=== PATIENT | male | born 1955 | race Caucasian/White ===

== ENCOUNTER → 2018-10-20 | Outpatient (CLI) | payer MEDICARE, OTHER ==
[2018-10-20 12:09] LABS: Blood Urea Nitrogen 15 mg/dL (9-20)
--- NOTE | 2018-10-20 13:54 | CT ---
EXAMINATION TYPE: CT abdomen pelvis w con DATE OF EXAM: 10/20/2018 COMPARISON: Prior CT 04/13/2014, patient's bone scan of 10/22/2017 not yet available HISTORY: History of prostate cancer CT DLP: 2171.2 mGycm Automated exposure control for dose reduction was used. TECHNIQUE: Helical acquisition of images from the lung bases through the pelvis have been completed. CONTRAST: Performed with Oral Contrast and with IV Contrast, patient injected with 100 mL of Isovue 300. FINDINGS: LUNG BASES: No significant abnormality is appreciated. AORTA: No significant abnormality is appreciated. LIVER/GB: Liver shows low attenuation likely due to hepatic steatosis, there is focal fatty sparing a djacent to the gallbladder, gallbladder is normal PANCREAS: No significant abnormality is seen. SPLEEN: Multiple calcifications are punctate compatible with old granulomatous disease ADRENALS: No significant abnormality is seen. KIDNEYS: No significant abnormality is seen. REPRODUCTIVE ORGANS: Postop changes are noted in the prostate. BOWEL: No significant abnormality is seen. FREE AIR: No Free Air visible. ASCITES: None visible. PELVIC ADENOPATHY: None visualized. RETROPERITONEAL ADENOPATHY: Retroperitoneal node on axial image 45 in anterior to the inferior vena cava shows borderline size with a short axis measurement of approximately 15 mm however this was not seen on prior exam at the level of the aortic bifurcation. Additional retroperitoneal nodes are prese nt which are not clearly enlarged but are new URINARY BLADDER: Thickening of the bladder wall could be due to chronic bladder outlet obstruction o r cystitis. OSSEOUS STRUCTURES: No significant abnormality is seen. IMPRESSION: POSTOP CHANGES. THERE ARE NEW RETROPERITONEAL NODES WHICH ARE INDETERMINATE. NUCLEAR MEDICINE PET/CT MAY BE OF BENEFIT. OLD GRANULOMATOUS DISEASE.
--- NOTE | 2018-10-20 17:08 | NM ---
EXAMINATION TYPE: NM bone scan whole body DATE OF EXAM: 10/20/2018 COMPARISON: 04/13/2014 HISTORY: 63-year-old male history of prostate cancer Technique: Delayed whole-body scanning was performed following the injection of 23.2 mCi Tc 99m MDP. Images acquired 3 hours post injection. FINDINGS: Scattered degenerative tracer activity such as at the shoulders, knees, and first MTP joints and fore foot. Some periodontal disease involving the right maxilla characterized by increased activity. There is focal increased activity involving the proximal right humeral shaft. Additional few foci of activity such as in the upper third thoracic spine and L1 vertebral body are indeterminate but somewh at suspicious and need correlation with PSA values. No additional suspicious trace activity seen. IMPRESSION: 1. Scattered degenerative tracer activity at the shoulders, knees, and first MTP joints. Additional p eriodontal disease involving the right maxilla. 2. However, a suspicious focus in the proximal right humeral shaft is noted. Osseous metastatic disea se here is not excluded. 3. A couple additional foci of increased uptake, one within the upper third thoracic spine and one fo cus at the L1 level. Degenerative uptake versus additional foci of limited osseous metastatic disease . Further correlation with PSA values is needed.
== END | disposition home or self-care (01) ==
LOC: RADNMMAIN 10:57
PROVIDERS: ATTEND Urology
DX: C61 Malignant neoplasm of prostate (principal); M19.012 Primary osteoarthritis, left shoulder; M19.011 Primary osteoarthritis, right shoulder; M17.0 Bilateral primary osteoarthritis of knee; M19.072 Primary osteoarthritis, left ankle and foot; M19.071 Primary osteoarthritis, right ankle and foot; K05.6 Periodontal disease, unspecified; Z98.890 Other specified postprocedural states
CPT/HCPCS: 82565; 84520; 74177; 36415; 78306; A9503; Q9967 ×2

== ENCOUNTER → 2018-10-23 | Outpatient (CLI) | payer MEDICARE, OTHER ==
--- NOTE | 2018-10-23 13:00 | XR ---
EXAMINATION TYPE: XR humerus RT DATE OF EXAM: 10/23/2018 COMPARISON: Bone scan 10/20/2018 HISTORY: Abnormal bone scan TECHNIQUE: 2 views submitted. FINDINGS: The osseous structures are intact and the joint spaces are preserved. Calcification along the renee l head likely on the basis of calcific tendinosis and there is AC joint arthropathy. There does appea r to be increased density along the medial margin of the proximal right humerus corresponding to the bone scan abnormality. IMPRESSION: 1. Suspect sclerotic lesion proximal right humerus corresponding the bone scan abnormality. Metastasi s in the differential diagnosis
--- NOTE | 2018-10-23 13:03 | XR ---
EXAM TYPE: LUMBAR SPINE X RAY SERIES COMPARISON: Bone scan 10/20/2018 HISTORY: Prostate cancer with abnormal bone scan TECHNIQUE: 4 views are submitted. FINDINGS: There is extensive hypertrophic and degenerative changes. Vascular calcifications are noted. Moderate severe multilevel degenerative disc disease with facet arthropathy. No definite sclerotic lesions or destructive lesions identified. IMPRESSION: 1. Multilevel degenerative disc disease. Note definite diagnostic evidence of bony metastasis.
--- NOTE | 2018-10-23 13:05 | XR ---
EXAMINATION TYPE: XR thoracic spine complete DATE OF EXAM: 10/23/2018 COMPARISON: Bone scan 10/20/2018 HISTORY: Abnormal bone scan, prostate cancer Alignment is anatomic. There is no compression deformities. Multilevel degenerative disc disease see n. No definite sclerotic or destructive lesions identified. IMPRESSION: 1. Multilevel degenerative disc disease.
== END | disposition home or self-care (01) ==
LOC: RADXRMAIN 12:03
PROVIDERS: ATTEND Urology
DX: C61 Malignant neoplasm of prostate (principal); C79.51 Secondary malignant neoplasm of bone; M51.36 Other intervertebral disc degeneration, lumbar region; M51.34 Other intervertebral disc degeneration, thoracic region
CPT/HCPCS: 72072; 72100

== ENCOUNTER → 2018-11-05 | Outpatient (CLI) | payer MEDICARE, OTHER ==
--- NOTE | 2018-11-05 12:27 | XR ---
EXAMINATION TYPE: XR thoracic spine 2V DATE OF EXAM: 11/05/2018 CLINICAL HISTORY: 10/23/2018 TECHNIQUE: Frontal, lateral, and swimmer's view of thoracic spine are obtained. COMPARISON: None. FINDINGS: Thoracic spine show satisfactory alignment without evidence of acute fracture or dislocatio n. Vertebral body heights are preserved. Disc space narrowing and spondylosis. Visualized ribs are unremarkable. IMPRESSION: No acute fracture or dislocation is seen in the thoracic spine. ICD 10 NO FRACTURE, INIT IAL EVALUATION
--- NOTE | 2018-11-05 12:28 | XR ---
EXAMINATION TYPE: XR lumbar spine 2 or 3V DATE OF EXAM: 11/05/2018 CLINICAL HISTORY: pain TECHNIQUE: Three views of the lumbar spine are submitted. COMPARISON: 10/23/2018 FINDINGS: There are 5 lumbar type vertebral bodies identified. The lumbar spine shows satisfactory alignment w ithout evidence of acute fracture or dislocation. Vertebral body heights are within normal limits. Severe degenerative disc disease and spondylosis. The overlying soft tissue appears unremarkable. IMPRESSION: No acute fracture or dislocation is seen in the lumbar spine. ICD 10 NO FRACTURE, INITIAL EVALUATION
--- NOTE | 2018-11-05 12:58 | XR ---
EXAMINATION TYPE: XR humerus RT DATE OF EXAM: 11/05/2018 CLINICAL HISTORY: pain COMPARISON: NONE TECHNIQUE: Frontal and lateral images of the right humerus are obtained. FINDINGS: There is no acute fracture/dislocation evident. The joint spaces appear within normal limi ts. There is evidence of calcific tendinopathy. IMPRESSION: There is no acute fracture or dislocation.ICD 10 NO FRACTURE, INITIAL EVALUATION
== END | disposition home or self-care (01) ==
LOC: RADXRMAIN 11:54
PROVIDERS: ATTEND Urology
DX: M48.04 Spinal stenosis, thoracic region (principal); M47.814 Spondylosis without myelopathy or radiculopathy, thoracic region; C61 Malignant neoplasm of prostate; D49.4 Neoplasm of unspecified behavior of bladder
CPT/HCPCS: 72070; 72100

== ENCOUNTER 2023-04-28 11:54 | Inpatient (IN) | payer MEDICARE, OTHER ==
[2023-04-28] MEDS ORDERED: SODIUM CHLORIDE 0.9% 1,000 ML IV STA ×2 (12:19→13:32)
[2023-04-28 12:32] LABS: ABG Base Excess 9.4 mmol/L; ABG HCO3 34 mmol/L (21-25); ABG Oxygen Saturation 87.4 % (94-97); ABG PCO2 58 mmHg (35-45); ABG PH 7.38 (7.35-7.45); ABG TCO2 36 mmol/L (19-24); Allen Test Performed? Yes
--- NOTE | 2023-04-28 12:34 | XR ---
EXAMINATION TYPE: XR chest 1V portable DATE OF EXAM: 04/28/2023 12:27 PM CLINICAL INDICATION:Male, 67 years old with history of hypoxia; [facility] COMPARISON: Chest radiograph TECHNIQUE: XR chest 1V portable Frontal view of the chest. FINDINGS: Lungs/Pleura: Hazy bibasilar airspace disease is identified. There is partial obscuration of the left costophrenic sulcus. No evidence of pneumothorax. Pulmonary vascularity: Mild pulmonary vascular congestion. Heart/mediastinum: Cardiomediastinal silhouette is unremarkable. Musculoskeletal: No acute osseous pathology. IMPRESSION: Bibasilar airspace disease with trace left pleural effusion.
[2023-04-28 12:59] LABS: Basophils % (A) 1 %; Eosinophils # (A) 0.2 k/uL (0-0.7); Eosinophils % (A) 2 %; HCT 34.6 % (39.0-53.0); HGB 11.2 gm/dL (13.0-17.5); Lymphocytes # (A) 1.3 k/uL (1.0-4.8); Lymphocytes % (A) 15 %; MCH 28.2 pg (25.0-35.0); MCHC 32.4 g/dL (31.0-37.0); MCV 87.1 fL (80.0-100.0); Mean Platelet Volume 8.3; Monocytes # (A) 0.6 k/uL (0-1.0); Monocytes % (A) 7 %; Neutrophils # (A) 6.5 k/uL (1.3-7.7); Neutrophils % (A) 73 %; Platelet Count 423 k/uL (150-450); RBC 3.97 m/uL (4.30-5.90); RDW 14.7 % (11.5-15.5)
[2023-04-28 13:13] LABS: ALT 25 U/L (4-49); African American GFR (CKD) >90 (>60 ml/min/1.73 sqM); Albumin 3.7 g/dL (3.5-5.0); Anion Gap 8 mmol/L; Blood Urea Nitrogen 24 mg/dL (9-20); Calcium 9.2 mg/dL (8.4-10.2); Carbon Dioxide 32 mmol/L (22-30); Chloride 97 mmol/L (98-107); Glucose 164 mg/dL (74-99); Non-African American GFR(CKD) >90 (>60 ml/min/1.73 sqM); Sodium 137 mmol/L (137-145); Total Bilirubin 0.5 mg/dL (0.2-1.3); Total Protein 6.2 g/dL (6.3-8.2)
--- NOTE | 2023-04-28 13:17 | ED ---
General Adult HPI - General Chief complaint: Shortness of Breath Stated complaint: sob, had time breathing Time Seen by Provider: 04/28/23 12:05 Source: patient Mode of arrival: ambulatory Limitations: no limitations - History of Present Illness Initial comments: Dictation was produced using hereO dictation software. please excuse any grammatical, word or spelling errors. Chief Complaint: 67-year-old male presents with 1 week of dyspnea History of Present Illness: Patient is a 67-year-old male he has alleged history of emphysema. Patient has been having worsening shortness of breath over the last week or so. He is accompanied by sister and mother. Patient's history of COPD, diabetes and dyslipidemia. 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 Patient denies any constitutional symptoms. States that he's been coughing. He states that his cough is productive of sputum. Denies any lower extremity symptoms. He has history of lower extremity amputation. The ROS documented in this emergency department record has been reviewed and confirmed by me. Those systems with pertinent positive or negative responses have been documented in the HPI. All other systems are other negative and/or noncontributory. - Related Data Home Medications Medication Instructions Recorded Confirmed Albuterol Inhaler [Ventolin Hfa 1 - 2 puff INHALATION RT-Q6H PRN 04/28/23 04/28/23 Inhaler] Albuterol Nebulized [Ventolin 2.5 mg INHALATION RT-Q6H PRN 04/28/23 04/28/23 Nebulized] Bicalutamide [Casodex] 50 mg PO DIRECTED 04/28/23 04/28/23 Docusate [Colace] 100 mg PO DAILY PRN 04/28/23 04/28/23 Escitalopram [Lexapro] 10 mg PO DAILY 04/28/23 04/28/23 Fenofibrate Nanocrystallized 145 mg PO DAILY 04/28/23 04/28/23 [Fenofibrate] Fluticasone Nasal [place]ba [Flonase 1 spray EA NOSTRIL DAILY 04/28/23 04/28/23 Nasal [place]ba] Fluticasone/Umeclidin/Vilanter 1 puff INHALATION RT-DAILY@1400 04/28/23 04/28/23 [Trelegy Ellipta 200-62.5-25] Furosemide [Lasix] 40 mg PO DAILY 04/28/23 04/28/23 Ipratropium-Albuterol Nebulize 3 ml INHALATION RT-QID PRN 04/28/23 04/28/23 [Duoneb 0.5 mg-3 mg/3 ml Soln] Metoprolol Succinate (ER) [Toprol 25 mg PO DAILY 04/28/23 04/28/23 Xl] Montelukast [Singulair] 10 mg PO DAILY 04/28/23 04/28/23 Ofloxacin 0.3% Ophth Soln [Ocuflox 1 drop BOTH EYES DAILY 04/28/23 04/28/23 Ophth Soln] Potassium Chloride ER [K-Dur 20] 20 meq PO DAILY 04/28/23 04/28/23 Repaglinide [Prandin] 2 mg PO AC-BID 04/28/23 04/28/23 Rosuvastatin [Crestor] 20 mg PO DAILY 04/28/23 04/28/23 cloZAPine [Clozaril] 50 mg PO HS 04/28/23 04/28/23 lisinopriL [Zestril] 5 mg PO DAILY 04/28/23 04/28/23 metFORMIN HCL [Glucophage] 500 mg PO DAILY 04/28/23 04/28/23 Allergies Allergy/AdvReac Type Severity Reaction Status Date / Time No Known Allergies Allergy Verified 04/28/23 13:25 Review of Systems ROS Statement: Those systems with pertinent positive or pertinent negative responses have been documented in the HPI. ROS Other: All systems not noted in ROS Statement are negative. Past Medical History Past Medical History: Cancer, COPD, Diabetes Mellitus, Hyperlipidemia Additional Past Medical History / Comment(s): prostate History of Any Multi-Drug Resistant Organisms: None Reported Past Surgical History: No Surgical Hx Reported Past Psychological History: No Psychological Hx Reported Smoking Status: Former smoker Past Alcohol Use History: None Reported Past Drug Use History: None Reported General Exam - General Exam Comments Initial Comments: PHYSICAL EXAM: General Impression: Alert and oriented x3, not in acute distress HEENT: Normocephalic atraumatic, extra-ocular movements intact, pupils equal and reactive to light bilaterally, mucous membranes moist. Cardiovascular: Heart regular rate and rhythm Chest: Able to complete full sentences, no retractions, no tachypnea, bilateral air exchange, mild crackles to the lung bases Abdomen: abdomen soft, non-tender, non-distended, no organomegaly Musculoskeletal: Pulses present and equal in all extremities, no peripheral edema Motor: no focal deficits noted Neurological: CN II-XII grossly intact, no focal motor or sensory deficits noted Skin: Intact with no visualized rashes Psych: Normal affect and mood Limitations: no limitations Course Vital Signs 04/28/23 04/28/23 04/28/23 12:00 12:06 12:09 Temperature 97.8 F Pulse Rate 107 H Respiratory 20 18 Rate Blood Pressure 96/58 O2 Sat by Pulse 70 L 79 L Oximetry Fraction of Inspired Oxygen (FIO2) 04/28/23 04/28/23 04/28/23 12:10 12:15 12:20 Temperature Pulse Rate 102 H Respiratory 18 Rate Blood Pressure 101/65 O2 Sat by Pulse 82 L 86 L Oximetry Fraction of 50 40 Inspired Oxygen (FIO2) 04/28/23 04/28/23 04/28/23 12:45 13:00 13:15 Temperature Pulse Rate 98 98 96 Respiratory 22 22 21 Rate Blood Pressure 105/66 99/63 109/74 O2 Sat by Pulse 91 L 90 L 91 L Oximetry Fraction of 50 Inspired Oxygen (FIO2) 04/28/23 13:30 Temperature Pulse Rate 94 Respiratory 21 Rate Blood Pressure 109/74 O2 Sat by Pulse 91 L Oximetry Fraction of Inspired Oxygen (FIO2) - Reevaluation(s) Reevaluation #1: 04/28/23 13:17 Patient seen and evaluated at the bedside in room #1. Did not appear to be in acute distress however he was hypoxic. He is given supplemental oxygen with some improvement. He was transitioned to BiPAP. [id number] bedside ultrasound showed bilateral lung rockets. X-ray shows diffuse bilateral infiltrates. EKG Findings - EKG Comments: EKG Findings:: My EKG interpretation: Ventricular rate 103, sinus tachycardia,. Interval 155, QRS 104, QTC 392. No ME prolongation, no QTC prolongation, no ST or T-wave changes noted. Overall, this EKG is unremarkable Medical Decision Making - Medical Decision Making Was pt. sent in by a medical professional or institution (, PA, POWER BENDER OPERATOR, urgent care, hospital, or fpc...) When possible be specific @ -No Did you speak to anyone other than the patient for history (EMS, parent, family, police, friend...)? What history was obtained from this source @ -Case discussed with family as described above Did you review nursing and triage notes (agree or disagree)? Why? @ -I reviewed and agree with nursing and triage notes Were old charts reviewed (outside hosp., previous admission, EMS record, old EKG, old radiological studies, urgent care reports/EKG's, fpc records)? Report findings @ -No old charts were reviewed Differential Diagnosis (chest pain, altered mental status, abdominal pain women, abdominal pain men, vaginal bleeding, musculoskeletal, weakness, fever, dyspnea, syncope, headache, dizziness, GI bleed, back pain, seizure, CVA, palpatations, mental health)? @ -Differential Dyspnea: Coronary syndrome, arrhythmia, tamponade, asthma, COPD, pulmonary embolism, pneumonia, pneumothorax, pulmonary effusion, anaphylaxis, diabetic ketoacidosis, flailed chest, pulmonary contusion, diaphragmatic rupture, anemia, neuromuscular, this is not meant to be an all-inclusive list. EKG interpreted by me (3pts min.). @ -See above X-rays interpreted by me (1pt min.). @ -Bilateral Airspace disease CT interpreted by me (1pt min.). @ -No central pulmonary emboli seen on CT angiography U/S interpreted by me (1pt. min.). @ -None done What testing was considered but not performed or refused? (CT, X-rays, U/S, labs)? Why? @ -None What meds were considered but not given or refused? Why? @ -None Did you discuss the management of the patient with other professionals (professionals i.e. , PA, POWER BENDER OPERATOR, lab, RT, psych nurse, social sciences department chair, wedger machine, teacher, airport operations officer, case worker)? Give summary @ -Case was discussed with zig zag spring machine operator Dr. Ken who evaluated the patient the bedside Was smoking cessation discussed for >3mins.? @ -No Was critical care preformed (if so, how long)? @ -Yes, 33 minutes Were there social determinants of health that impacted care today? How? (Homelessness, low income, unemployed, alcoholism, drug addiction, transportation, low edu. Level, literacy, decrease access to med. care, assisted, rehab)? @ -No Was there de-escalation of care discussed even if they declined (Discuss DNR or withdrawal of care, Hospice)? DNR status @ -No What co-morbidities impacted this encounter? (DM, HTN, Smoking, COPD, CAD, Cancer, CVA, ARF, Chemo, Hep., AIDS, mental health diagnosis, sleep apnea, morbid obesity)? @ -None Was patient admitted / discharged? Hospital course, mention meds given and route, prescriptions, significant lab abnormalities, going to OR and other pertinent info. @ -67-year-old male with past medical history of emphysema presents to the ER for worsening dyspnea for the last several days. Vital signs upon arrival shows hypoxia. Rest of vital signs unremarkable. Per minute of oxygenation. Laboratory evaluation obtained. No leukocytosis. CBC is unremarkable. D-dimer is 1.66. Coag panel is unremarkable. He shows hypoxia. Viral testing negative. X-ray shows a bilateral airspace disease. CT angiography suggest pneumonia. No pulmonary emboli. Patient's BiPAP was weaned to high flow nasal cannula. Patient evaluated at bedside by pulmonology. Please appreciate palm recommendations. Patient admitted to [address] [place] [address]. Undiagnosed new problem with uncertain prognosis? @ -No Drug Therapy requiring intensive monitoring for toxicity (Heparin, Nitro, Insul in, Cardizem)? @ -No Were any procedures done? @ -No Diagnosis/symptom? Acute, or Chronic, or Acute on Chronic? Uncomplicated (without systemic symptoms) or Complicated (systemic symptoms)? @ -Hypoxic respiratory failure Side effects of treatment? @ -No Exacerbation, Progression, or Severe Exacerbation? @ -No Poses a threat to life or bodily function? How? (Chest pain, [place], [place], pneumonia, PE, COPD, DKA, ARF, appy, cholecystitis, CVA, Diverticulitis, Homicidal, Suicidal, threat to staff... and all critical care pts) @ -yes - Lab Data Result diagrams: 04/28/23 12:22 04/28/23 12:22 Lab Results 04/28/23 04/28/23 04/28/23 Range/Units 12:22 12:22 12:22 WBC 9.0 (3.8-10.6) k/uL RBC 3.97 L (4.30-5.90) m/uL Hgb 11.2 L (13.0-17.5) gm/dL Hct 34.6 L (39.0-53.0) % MCV 87.1 (80.0-100.0) fL MCH 28.2 (25.0-35.0) pg MCHC 32.4 (31.0-37.0) g/dL RDW 14.7 (11.5-15.5) % Plt Count 423 (150-450) k/uL MPV 8.3 Neutrophils % 73 % Lymphocytes % 15 % Monocytes % 7 % Eosinophils % 2 % Basophils % 1 % Neutrophils # 6.5 (1.3-7.7) k/uL Lymphocytes # 1.3 (1.0-4.8) k/uL Monocytes # 0.6 (0-1.0) k/uL Eosinophils # 0.2 (0-0.7) k/uL Basophils # 0.0 (0-0.2) k/uL PT 10.6 (10.0-12.5) sec INR 1.0 (<1.2) APTT 22.3 (22.0-30.0) sec D-Dimer 1.66 H (<0.60) mg/L FEU Sample Site ABG pH (7.35-7.45) ABG pCO2 (35-45) mmHg ABG pO2 (83-108) mmHg ABG HCO3 (21-25) mmol/L ABG Total CO2 (19-24) mmol/L ABG O2 Saturation (94-97) % ABG Base Excess mmol/L Mario Test FiO2 % Sodium (137-145) mmol/L Potassium (3.5-5.1) mmol/L Chloride (98-107) mmol/L Carbon Dioxide (22-30) mmol/L Anion Gap mmol/L BUN (9-20) mg/dL Creatinine (0.66-1.25) mg/dL Est GFR (CKD-EPI)AfAm (>60 ml/min/1.73 sqM) Est GFR (CKD-EPI)NonAf (>60 ml/min/1.73 sqM) Glucose (74-99) mg/dL Plasma Lactic Acid Fly (0.7-2.0) mmol/L Calcium (8.4-10.2) mg/dL Magnesium (1.6-2.3) mg/dL Total Bilirubin (0.2-1.3) mg/dL AST (17-59) U/L ALT (4-49) U/L Alkaline Phosphatase (38-126) U/L Troponin I (0.000-0.034) ng/mL NT-Pro-B Natriuret Pep pg/mL Total Protein (6.3-8.2) g/dL Albumin (3.5-5.0) g/dL Urine Color Colorless Urine Appearance Clear (Clear) Urine pH 5.0 (5.0-8.0) Ur Specific [place] 1.011 (1.001-1.035) Urine Protein Negative (Negative) Urine Glucose (UA) Negative (Negative) Urine Ketones Negative (Negative) Urine Blood Negative (Negative) Urine Nitrite Negative (Negative) Urine Bilirubin Negative (Negative) Urine Urobilinogen <2.0 (<2.0) mg/dL Ur Leukocyte Esterase Negative (Negative) Influenza Type A (PCR) (Not Detectd) Influenza Type B (PCR) (Not Detectd) RSV (PCR) (Not Detectd) SARS-CoV-2 (PCR) (Not Detectd) 04/28/23 04/28/23 04/28/23 Range/Units 12:22 12:22 12:22 WBC (3.8-10.6) k/uL RBC (4.30-5.90) m/uL Hgb (13.0-17.5) gm/dL Hct (39.0-53.0) % MCV (80.0-100.0) fL MCH (25.0-35.0) pg MCHC (31.0-37.0) g/dL RDW (11.5-15.5) % Plt Count (150-450) k/uL MPV Neutrophils % % Lymphocytes % % Monocytes % % Eosinophils % % Basophils % % Neutrophils # (1.3-7.7) k/uL Lymphocytes # (1.0-4.8) k/uL Monocytes # (0-1.0) k/uL Eosinophils # (0-0.7) k/uL Basophils # (0-0.2) k/uL PT (10.0-12.5) sec INR (<1.2) APTT (22.0-30.0) sec D-Dimer (<0.60) mg/L FEU Sample Site ABG pH (7.35-7.45) ABG pCO2 (35-45) mmHg ABG pO2 (83-108) mmHg ABG HCO3 (21-25) mmol/L ABG Total CO2 (19-24) mmol/L ABG O2 Saturation (94-97) % ABG Base Excess mmol/L Mario Test FiO2 % Sodium 137 (137-145) mmol/L Potassium 5.2 H (3.5-5.1) mmol/L Chloride 97 L (98-107) mmol/L Carbon Dioxide 32 H (22-30) mmol/L Anion Gap 8 mmol/L BUN 24 H (9-20) mg/dL Creatinine 0.73 (0.66-1.25) mg/dL Est GFR (CKD-EPI)AfAm >90 (>60 ml/min/1.73 sqM) Est GFR (CKD-EPI)NonAf >90 (>60 ml/min/1.73 sqM) Glucose 164 H (74-99) mg/dL Plasma Lactic Acid Fly 0.8 (0.7-2.0) mmol/L Calcium 9.2 (8.4-10.2) mg/dL Magnesium 2.0 (1.6-2.3) mg/dL Total Bilirubin 0.5 (0.2-1.3) mg/dL AST 36 (17-59) U/L ALT 25 (4-49) U/L Alkaline Phosphatase 75 (38-126) U/L Troponin I <0.012 (0.000-0.034) ng/mL NT-Pro-B Natriuret Pep 52 pg/mL Total Protein 6.2 L (6.3-8.2) g/dL Albumin 3.7 (3.5-5.0) g/dL Urine Color Urine Appearance (Clear) Urine pH (5.0-8.0) Ur Specific [place] (1.001-1.035) Urine Protein (Negative) Urine Glucose (UA) (Negative) Urine Ketones (Negative) Urine Blood (Negative) Urine Nitrite (Negative) Urine Bilirubin (Negative) Urine Urobilinogen (<2.0) mg/dL Ur Leukocyte Esterase (Negative) Influenza Type A (PCR) (Not Detectd) Influenza Type B (PCR) (Not Detectd) RSV (PCR) (Not Detectd) SARS-CoV-2 (PCR) (Not Detectd) 04/28/23 04/28/23 Range/Units 12:22 12:28 WBC (3.8-10.6) k/uL RBC (4.30-5.90) m/uL Hgb (13.0-17.5) gm/dL Hct (39.0-53.0) % MCV (80.0-100.0) fL MCH (25.0-35.0) pg MCHC (31.0-37.0) g/dL RDW (11.5-15.5) % Plt Count (150-450) k/uL MPV Neutrophils % % Lymphocytes % % Monocytes % % Eosinophils % % Basophils % % Neutrophils # (1.3-7.7) k/uL Lymphocytes # (1.0-4.8) k/uL Monocytes # (0-1.0) k/uL Eosinophils # (0-0.7) k/uL Basophils # (0-0.2) k/uL PT (10.0-12.5) sec INR (<1.2) APTT (22.0-30.0) sec D-Dimer (<0.60) mg/L FEU Sample Site Right Radial ABG pH 7.38 (7.35-7.45) ABG pCO2 58 H (35-45) mmHg ABG pO2 55 L* (83-108) mmHg ABG HCO3 34 H (21-25) mmol/L ABG Total CO2 36 H (19-24) mmol/L ABG O2 Saturation 87.4 L (94-97) % ABG Base Excess 9.4 mmol/L Mario Test Yes FiO2 40 % Sodium (137-145) mmol/L Potassium (3.5-5.1) mmol/L Chloride (98-107) mmol/L Carbon Dioxide (22-30) mmol/L Anion Gap mmol/L BUN (9-20) mg/dL Creatinine (0.66-1.25) mg/dL Est GFR (CKD-EPI)AfAm (>60 ml/min/1.73 sqM) Est GFR (CKD-EPI)NonAf (>60 ml/min/1.73 sqM) Glucose (74-99) mg/dL Plasma Lactic Acid Fly (0.7-2.0) mmol/L Calcium (8.4-10.2) mg/dL Magnesium (1.6-2.3) mg/dL Total Bilirubin (0.2-1.3) mg/dL AST (17-59) U/L ALT (4-49) U/L Alkaline Phosphatase (38-126) U/L Troponin I (0.000-0.034) ng/mL NT-Pro-B Natriuret Pep pg/mL Total Protein (6.3-8.2) g/dL Albumin (3.5-5.0) g/dL Urine Color Urine Appearance (Clear) Urine pH (5.0-8.0) Ur Specific [place] (1.001-1.035) Urine Protein (Negative) Urine Glucose (UA) (Negative) Urine Ketones (Negative) Urine Blood (Negative) Urine Nitrite (Negative) Urine Bilirubin (Negative) Urine Urobilinogen (<2.0) mg/dL Ur Leukocyte Esterase (Negative) Influenza Type A (PCR) Not Detected (Not Detectd) Influenza Type B (PCR) Not Detected (Not Detectd) RSV (PCR) Not Detected (Not Detectd) SARS-CoV-2 (PCR) Not Detected (Not Detectd) Disposition Clinical Impression: Hypoxic respiratory failure Disposition: ADMITTED IP TO THIS [facility] Condition: Critical Referrals: Abdias Vergara MD [Primary Care Provider] - 1-2 days Decision Time: 15:30
[2023-04-28 13:21] LABS: NT-Pro-B-Type Natriuretic Pept 52 pg/mL
[2023-04-28 13:23] LABS: AST 36 U/L (17-59); Alkaline Phosphatase 75 U/L (38-126); Potassium 5.2 mmol/L (3.5-5.1)
[2023-04-28 13:33] LABS: ABG PO2 55 mmHg (83-108)
[2023-04-28 13:33] LABS: Partial Thromboplastin Time 22.3 sec (22.0-30.0); Prothrombin Time 10.6 sec (10.0-12.5)
[2023-04-28] MEDS ORDERED: AZITHROMYCIN 500 MG in SODIUM CHLORIDE 0.9% 250 ML IVPB STA (15:05)
[2023-04-28] MEDS ORDERED: cefTRIAXone IN SWFI 1,000 MG/10 ML SYRINGE IVP STA (15:05)
[2023-04-28 15:18] LABS: Appearance,Urine Clear (Clear); Bilirubin,Urine Negative (Negative); Blood,Urine Negative (Negative); Color,Urine Colorless; Glucose,Urine (UA) Negative (Negative); Ketones,Urine Negative (Negative); Leukocyte Esterase,Urine Negative (Negative); Nitrite,Urine Negative (Negative); Protein,Urine Negative (Negative); Specific Gravity,Urine 1.011 (1.001-1.035); Urobilinogen,Urine <2.0 mg/dL (<2.0)
--- NOTE | 2023-04-28 15:18 | P.CNPUL ---
History of Present Illness Consult date: 04/28/23 Reason for consult: dyspnea, COPD History of present illness: This is a 67-year-old male patient with known history of severe COPD, FEV1 of 40% of predicted and chronic hypoxic respiratory failure within on oxygen at 4 L/m nasal cannula. Patient is admitted on Trelegy Ellipta one ablation day and albuterol updrafts [id number]. He has multiple other medical issues. Along with chronic hypoxic respiratory failure, he has diabetes mellitus type 2, hyperlipidemia, history of prostate cancer, CHF, and previous history of DVT. He was hospitalized recently and may have to and at [facility]. At that time, the patient was seen by Dr. Winn, treated and discharged home.. His breathing got worse over the past 1 week. Occasional cough. Also his sputum production. No chest pain. Limited edema lower exam is bilaterally. The blood work shows a WBC count of 9.0, hemoglobin 11.2, normal coagulation profile, d-dimer is at 1.6, sodium levels of 137, BUN is 24 with a creatinine of 0.7 and a potassium levels at 5.2. The viral screen was negative. Chest x-ray is consistent with bibasilar airspace disease with trace left-sided pleural effusion. Due to his ongoing shortness of breath and hypoxemia. The patient was supported with BiPAP at pressure 14/7 with an FiO2 of 50%. Review of Systems Constitutional: Reports fatigue, Reports weight gain Eyes: denies as per HPI, denies blurred vision, denies bulging eye, denies decreased vision, denies diplopia, denies discharge, denies dry eye, denies irritation, denies itching, denies pain, denies photophobia, denies loss of peripheral vision, denies loss of vision, denies tunnel vision/blind spots Ears: deny: decreased hearing, ear discharge, earache, tinnitus Ears, nose, mouth and throat: Reports as per HPI Breasts: absent: as per HPI, gynecomastia Cardiovascular: Reports as per HPI, Reports decreased exercise tolerance, Reports dyspnea on exertion Respiratory: Reports cough, Reports dyspnea Gastrointestinal: Reports as per HPI Genitourinary: Reports as per HPI Musculoskeletal: Reports as per HPI Musculoskeletal: absent: ankle pain, ankle stiffness, ankle swelling Integumentary: Reports as per HPI Neurological: Reports as per HPI Psychiatric: Reports as per HPI Endocrine: Reports as per HPI Hematologic/Lymphatic: Reports as per HPI Allergic/Immunologic: Reports as per HPI Past Medical History Past Medical History: Cancer, COPD, Diabetes Mellitus, Hyperlipidemia Additional Past Medical History / Comment(s): prostate History of Any Multi-Drug Resistant Organisms: None Reported Past Surgical History: No Surgical Hx Reported Past Psychological History: No Psychological Hx Reported Smoking Status: Former smoker Past Alcohol Use History: None Reported Past Drug Use History: None Reported Medications and Allergies Home Medications Medication Instructions Recorded Confirmed Type Albuterol Inhaler [Ventolin Hfa 1 - 2 puff INHALATION RT-Q6H PRN 04/28/23 04/28/23 History Inhaler] Albuterol Nebulized [Ventolin 2.5 mg INHALATION RT-Q6H PRN 04/28/23 04/28/23 History Nebulized] Bicalutamide [Casodex] 50 mg PO DIRECTED 04/28/23 04/28/23 History Docusate [Colace] 100 mg PO DAILY PRN 04/28/23 04/28/23 History Escitalopram [Lexapro] 10 mg PO DAILY 04/28/23 04/28/23 History Fenofibrate Nanocrystallized 145 mg PO DAILY 04/28/23 04/28/23 History [Fenofibrate] Fluticasone Nasal [place] [Flonase 1 spray EA NOSTRIL DAILY 04/28/23 04/28/23 History Nasal [place]] Fluticasone/Umeclidin/Vilanter 1 puff INHALATION RT-DAILY@1400 04/28/23 04/28/23 History [Trelegy Ellipta 200-62.5-25] Furosemide [Lasix] 40 mg PO DAILY 04/28/23 04/28/23 History Ipratropium-Albuterol Nebulize 3 ml INHALATION RT-QID PRN 04/28/23 04/28/23 History [Duoneb 0.5 mg-3 mg/3 ml Soln] Metoprolol Succinate (ER) [Toprol 25 mg PO DAILY 04/28/23 04/28/23 History Xl] Montelukast [Singulair] 10 mg PO DAILY 04/28/23 04/28/23 History Ofloxacin 0.3% Ophth Soln [Ocuflox 1 drop BOTH EYES DAILY 04/28/23 04/28/23 His tory Ophth Soln] Potassium Chloride ER [K-Dur 20] 20 meq PO DAILY 04/28/23 04/28/23 History Repaglinide [Prandin] 2 mg PO AC-BID 04/28/23 04/28/23 History Rosuvastatin [Crestor] 20 mg PO DAILY 04/28/23 04/28/23 History cloZAPine [Clozaril] 50 mg PO HS 04/28/23 04/28/23 History lisinopriL [Zestril] 5 mg PO DAILY 04/28/23 04/28/23 History metFORMIN HCL [Glucophage] 500 mg PO DAILY 04/28/23 04/28/23 History Allergies Allergy/AdvReac Type Severity Reaction Status Date / Time No Known Allergies Allergy Verified 04/28/23 13:25 Physical Exam Vitals: Vital Signs Temp Pulse Resp BP Pulse Ox FiO2 04/28/23 13:30 94 21 109/74 91 L 04/28/23 13:15 96 21 109/74 91 L 04/28/23 13:00 98 22 99/63 90 L 04/28/23 12:45 98 22 105/66 91 L 50 04/28/23 12:20 102 H 18 101/65 86 L 40 04/28/23 12:15 50 04/28/23 12:10 82 L 04/28/23 12:09 79 L 04/28/23 12:06 18 04/28/23 12:00 97.8 F 107 H 20 96/58 70 L Intake and Output 04/28/23 04/28/23 04/28/23 06:59 14:59 22:59 Other: Weight 99.79 kg Gen. appearance the patient is a mild to moderate degree respiratory distress, on BiPAP this was transitioned to 100% on rebreather facemask Head exam was generally normal. There was no scleral icterus or corneal arcus. Mucous membranes were moist. Neck was supple and without jugular venous distension, thyromegaly, or carotid bruits. Carotids were easily palpable bilaterally. There was no adenopathy. Lungs sounds are diminished bilaterally patient has crackles in the mid and lower lung de paz Cardiac exam revealed the PMI to be normally situated and sized. The rhythm was regular and no extrasystoles were noted during several minutes of auscultation. The first and second heart sounds were normal and physiologic splitting of the second heart sound was noted. There were no murmurs, rubs, clicks, or gallops. Abdominal exam revealed normal bowel sounds. The abdomen was soft, non-tender, and without masses, organomegaly, or appreciable enlargement of the abdominal aorta. Examination of the extremities revealed easily palpable radial, femoral and pedal pulses. There was no cyanosis, clubbing or edema. Examination of the skin revealed no evidence of significant rashes, suspicious appearing nevi or other concerning lesions. Neurologically, the patient is awake and alert and the patient does not have any focal neurological deficit. Cranial nerves are essentially intact. Results - Laboratory Findings CBC and BMP: 04/28/23 12:04/28/23 12: ABG WBC 9.0 k/uL (3.8-10.6) 04/28/23 12: RBC 3.97 m/uL (4.30-5.90) L 04/28/23 12: Hgb 11.2 gm/dL (13.0-17.5) L 04/28/23 12: Hct 34.6 % (39.0-53.0) L 04/28/23 12: MCV 87.1 fL (80.0-100.0) 04/28/23 12: MCH 28.2 pg (25.0-35.0) 04/28/23 12: MCHC 32.4 g/dL (31.0-37.0) 04/28/23 12: RDW 14.7 % (11.5-15.5) 04/28/23 12: Plt Count 423 k/uL (150-450) 04/28/23 12: MPV 8.3 04/28/23 12: Neutrophils % 73 % 04/28/23 12: Lymphocytes % 15 % 04/28/23 12: Monocytes % 7 % 04/28/23 12: Eosinophils % 2 % 04/28/23 12: Basophils % 1 % 04/28/23 12: Neutrophils # 6.5 k/uL (1.3-7.7) 04/28/23 12: Lymphocytes # 1.3 k/uL (1.0-4.8) 04/28/23 12: Monocytes # 0.6 k/uL (0-1.0) 04/28/23 12:22 Eosinophils # 0.2 k/uL (0-0.7) 04/28/23 12:22 Basophils # 0.0 k/uL (0-0.2) 04/28/23 12:22 PT 10.6 sec (10.0-12.5) 04/28/23 12:22 INR 1.0 (<1.2) 04/28/23 12:22 APTT 22.3 sec (22.0-30.0) 04/28/23 12:22 D-Dimer 1.66 mg/L FEU (<0.60) H 04/28/23 12:22 Sample Site Right Radial 04/28/23 12:28 ABG pH 7.38 (7.35-7.45) 04/28/23 12:28 ABG pCO2 58 mmHg (35-45) H 04/28/23 12:28 ABG pO2 55 mmHg (83-108) L* 04/28/23 12:28 ABG HCO3 34 mmol/L (21-25) H 04/28/23 12:28 ABG Total CO2 36 mmol/L (19-24) H 04/28/23 12:28 ABG O2 Saturation 87.4 % (94-97) L 04/28/23 12:28 ABG Base Excess 9.4 mmol/L 04/28/23 12:28 Mario Test Yes 04/28/23 12:28 FiO2 40 % 04/28/23 12:28 Sodium 137 mmol/L (137-145) 04/28/23 12:22 Potassium 5.2 mmol/L (3.5-5.1) H 04/28/23 12:22 Chloride 97 mmol/L (98-107) L 04/28/23 12:22 Carbon Dioxide 32 mmol/L (22-30) H 04/28/23 12:22 Anion Gap 8 mmol/L 04/28/23 12:22 BUN 24 mg/dL (9-20) H 04/28/23 12:22 Creatinine 0.73 mg/dL (0.66-1.25) 04/28/23 12:22 Est GFR (CKD-EPI)AfAm >90 (>60 ml/min/1.73 sqM) 04/28/23 12:22 Est GFR (CKD-EPI)NonAf >90 (>60 ml/min/1.73 sqM) 04/28/23 12:22 Glucose 164 mg/dL (74-99) H 04/28/23 12:22 Plasma Lactic Acid Fly 0.8 mmol/L (0.7-2.0) 04/28/23 12:22 Calcium 9.2 mg/dL (8.4-10.2) 04/28/23 12:22 Magnesium 2.0 mg/dL (1.6-2.3) 04/28/23 12:22 Total Bilirubin 0.5 mg/dL (0.2-1.3) 04/28/23 12:22 AST 36 U/L (17-59) 04/28/23 12:22 ALT 25 U/L (4-49) 04/28/23 12:22 Alkaline Phosphatase 75 U/L (38-126) 04/28/23 12:22 Troponin I <0.012 ng/mL (0.000-0.034) 04/28/23 12:22 NT-Pro-B Natriuret Pep 52 pg/mL 04/28/23 12:22 Total Protein 6.2 g/dL (6.3-8.2) L 04/28/23 12:22 Albumin 3.7 g/dL (3.5-5.0) 04/28/23 12:22 Influenza Type A (PCR) Not Detected (Not Detectd) 04/28/23 12:22 Influenza Type B (PCR) Not Detected (Not Detectd) 04/28/23 12:22 RSV (PCR) Not Detected (Not Detectd) 04/28/23 12:22 SARS-CoV-2 (PCR) Not Detected (Not Detectd) 04/28/23 12:22 PT/INR, D-dimer PT 10.6 sec (10.0-12.5) 04/28/23 12:22 INR 1.0 (<1.2) 04/28/23 12:22 D-Dimer 1.66 mg/L FEU (<0.60) H 04/28/23 12:22 Abnormal lab findings: Abnormal Labs 04/28/23 04/28/23 04/28/23 12:22 12:22 12:22 RBC 3.97 L Hgb 11.2 L Hct 34.6 L D-Dimer 1.66 H ABG pCO2 ABG pO2 ABG HCO3 ABG Total CO2 ABG O2 Saturation Potassium 5.2 H Chloride 97 L Carbon Dioxide 32 H BUN 24 H Glucose 164 H Total Protein 6.2 L 04/28/23 12:28 RBC Hgb Hct D-Dimer ABG pCO2 58 H ABG pO2 55 L* ABG HCO3 34 H ABG Total CO2 36 H ABG O2 Saturation 87.4 L Potassium Chloride Carbon Dioxide BUN Glucose Total Protein - Diagnostic Findings Chest x-ray: image reviewed Assessment and Plan Plan: Acute on chronic hypoxic respiratory failure. The patient is compensated hypercapnic respiratory failure. The patient developed significant hypoxemia. He has bibasilar pulmonary infiltrates, rule out pneumonia, rule out int erstitial edema. Patient is currently on BiPAP at pressure 14/7 cm of water and FiO2 is at 60% Chronic hypoxic respiratory failure limited on oxygen at 4 L Severe COPD with chronic hypoxic and hypercapnic respiratory failure with an FEV1 of 40% of predicted maintain on Trelegy Ellipta on outpatient basis Congestion heart failure Remote history of DVT Diabetes mellitus type 2 History of prostate cancer. Alpha-1 antitrypsin deficiency, MS phenotype Hyperlipidemia Plan Continue BiPAP therapy for now Lasix 40 mg IV every 12 hours IV Rocephin and Zithromax CT angiogram Bronchodilators with DuoNeb updrafts 4 times a day Allow Trelegy Ellipta from home Resume all medications Monitor the blood sugar Repeat an echocardiogram We'll continue to follow
--- NOTE | 2023-04-28 15:44 | CT ---
EXAMINATION TYPE: CT angio chest DATE OF EXAM: 04/28/2023 3:10 PM COMPARISON: None HISTORY: elevated d-dimer, SOB CT DLP: 573.5 mGycm Automated exposure control for dose reduction was used. CONTRAST: CTA scan of the thorax is performed with IV Contrast, patient injected with 100 mL of Isovue 370, pul monary embolism protocol. 3-D postprocessing was performed. FINDINGS: There is diffuse interstitial density throughout both lungs which could represent interstitial fluid or pneumonia. There is a partially consolidative density in the left lung base which could represent airspace edema or pneumonia. There is a small left pleural effusion. Evaluation the pulmonary artery and branches is somewhat limited due to limited contrast and possibly mild motion. A few tiny filling defects in the distal branches of the right lower lobe cannot be exc luded. Limited scanning the upper abdomen reveals no gross abnormality. IMPRESSION: 1. Marked acute cardiopulmonary disease with diffuse severe interstitial density and left lower lobe consolidative density consistent either with pneumonia or pulmonary edema. 2. Small left pleural effusion. 3. Limited evaluation the pulmonary artery and branches but tiny pulmonary emboli suspected in the di stal segmental branches in the right lower lobe.
[2023-04-28] MEDS ORDERED: NALOXONE 0.4 MG/ML 1 ML VIAL IV PRN (16:16)
[2023-04-28] MEDS ORDERED: HEPARIN SODIUM 1,000 UN/ML (10ML VL) IV PRN (17:44)
[2023-04-28] MEDS ORDERED: HEPARIN SODIUM 1,000 UN/ML (10ML VL) IV ONE (17:44)
[2023-04-28 18:38] LABS: Glucose,Whole Blood 126 mg/dL (70-110)
[2023-04-28] MEDS: HEPARIN SOD,PORK IN 0.45% NACL 25,000 UNIT in 0.45% NACL 1 250ML.BAG IV SCH (19:04)
[2023-04-28 20:19] LABS: Glucose,Whole Blood 153 mg/dL (70-110)
[2023-04-28] MEDS: INSULIN ASPART (NovoLOG) 100 UNIT/ML VIAL SQ SCH (20:29)
[2023-04-28] MEDS: FUROSEMIDE 40 MG TAB PO SCH (20:29)
[2023-04-28] MEDS: ESCITALOPRAM 10 MG TAB PO SCH (20:30)
[2023-04-28 21:01] LABS: Glucose,Whole Blood 147 mg/dL (70-110)
[2023-04-29] MEDS: HEPARIN SOD,PORK IN 0.45% NACL 25,000 UNIT in 0.45% NACL 1 250ML.BAG IV SCH ×3 (01:33→17:01)
[2023-04-29 05:50] LABS: Glucose,Whole Blood 155 mg/dL (70-110)
[2023-04-29] MEDS: INSULIN ASPART (NovoLOG) 100 UNIT/ML VIAL SQ SCH ×4 (06:33→20:46)
[2023-04-29] MEDS: ESCITALOPRAM 10 MG TAB PO SCH (08:36)
[2023-04-29] MEDS: FUROSEMIDE 40 MG TAB PO SCH (08:36)
[2023-04-29] MEDS ORDERED: PNEUMONIA PROTOCOL UTILIZED 1 EACH MISC PO PRN (09:32)
[2023-04-29] MEDS ORDERED: DOCUSATE 100 MG CAP PO PRN (09:34)
[2023-04-29] MEDS ORDERED: IPRATROPIUM-ALBUTEROL 3 ML NEB INHALATION PRN (09:34)
--- NOTE | 2023-04-29 09:57 | XR ---
EXAMINATION TYPE: XR chest 2V DATE OF EXAM: 04/29/2023 COMPARISON: 04/28/2023 HISTORY: Shortness of breath TECHNIQUE: Frontal and lateral views of the chest are obtained. FINDINGS: Scattered senescent parenchymal changes noted. Hyperinflation compatible with COPD. Coarse reticulonodular infiltrates persist bilaterally. Small effusions noted as well. Correlate for pneumonia. Heart size is stable. Mediastinal structures are stable and grossly unremarkable. No evidence for hilar prominence. Degenerative changes dorsal spine. IMPRESSION: 1. Coarse reticulonodular infiltrates persist bilaterally. Small effusions noted as well. Correlate f or pneumonia.
[2023-04-29] MEDS: ATORVASTATIN 40 MG TAB PO SCH (10:37)
[2023-04-29] MEDS: METOPROLOL SUCCINATE (ER) 25 MG TAB.ER.24H PO SCH (10:37)
[2023-04-29] MEDS: OFLOXACIN 0.3% OPHTH DROPS 5 ML BOTTLE BOTH EYES SCH (10:37)
[2023-04-29] MEDS: MONTELUKAST 10 MG TAB PO SCH (10:37)
[2023-04-29] MEDS: AZITHROMYCIN 500 MG TAB PO SCH (10:37)
[2023-04-29] MEDS: FENOFIBRATE 160 MG TAB PO SCH (10:37)
[2023-04-29] MEDS: POTASSIUM CHLORIDE ER 20 MEQ TAB.ER PO SCH (10:39)
[2023-04-29 11:24] LABS: Glucose,Whole Blood 263 mg/dL (70-110)
[2023-04-29] MEDS ORDERED: ALBUTEROL NEBULIZED 2.5 MG/3 ML INHALATION SCH (12:00)
[2023-04-29] MEDS: IPRATROPIUM-ALBUTEROL 3 ML NEB INHALATION SCH ×3 (12:10→19:22)
--- NOTE | 2023-04-29 13:40 | P.HPIM ---
History of Present Illness H&P Date: 04/29/23 History of present illness; patient is 67-year-old gentleman with past medical history significant for COPD, chronic respiratory failure on 4 L of oxygen, diabetes mellitus, hyperlipidemia, CHF presented to the ER because of shortness of breath for 1 week. Patient stated that he was discharged from the hospital a week ago after being treated for similar complaints. Patient stated that ever since he has been home has been complaining of worsening shortness of breath. Shortness of breath is present at rest as well as exertion. Patient complaining of cough which is productive. Denies any fever or chills. Denies any chest pain. Denies any complaint of orthopnea or PND. Denies any complaint of nausea, vomiting abdominal pain. Because of the symptoms, presented to the ER Initial lab work done in the ER showed WBC 9, hemoglobin 11.2, platelet count 423, sodium 137, potassium 5.2, BUN 24, creatinine 0.73, glucose 164 UA negative for infection Influenza A and B not detected RSV not detected COVID-19 not detected EKG done in the ER showed heart rate of 103, no ST segment elevation or T-wave inversions seen Chest x-ray done in the ER showed bibasilar airspace disease with trace left pleural effusion Chest CTA done showed marked acute cardiopulmonary disease with diffuse severe interstitial density and left lower lobe consolidative density consistent either pneumonia or pulmonary edema, small left pleural effusion Patient admitted to medicine service REVIEW OF SYSTEMS: CONSTITUTIONAL: No fever, no malaise, no fatigue. HEENT: No recent visual problems or hearing problems. Denied any sore throat. CARDIOVASCULAR: No chest pain, orthopnea, PND, no palpitations, no syncope. PULMONARY: As mentioned above GASTROINTESTINAL: No diarrhea, no nausea, no vomiting, no abdominal pain. NEUROLOGICAL: No headaches, no weakness, no numbness. HEMATOLOGICAL: Denies any bleeding or petechiae. GENITOURINARY: Denies any burning micturition, frequency, or urgency. MUSCULOSKELETAL/RHEUMATOLOGICAL: Denies any joint pain, swelling, or any muscle pain. ENDOCRINE: Denies any polyuria or polydipsia. The rest of the 14-point review of systems is negative. PHYSICAL EXAMINATION: GENERAL: The patient is alert and oriented x3, ill-looking, respiratory distress HEENT: Pupils are round and equally reacting to light. EOMI. No scleral icterus. No conjunctival pallor. Normocephalic, atraumatic. No pharyngeal erythema. No thyromegaly. CARDIOVASCULAR: S1 and S2 present. No murmurs, rubs, or gallops. PULMONARY: Tachypneic, Coarse breath sounds bilaterally, no wheezing or crackles. ABDOMEN: Soft, nontender, nondistended, normoactive bowel sounds. No palpable organomegaly. MUSCULOSKELETAL: No joint swelling or deformity. EXTREMITIES: No cyanosis, clubbing, or pedal edema. NEUROLOGICAL: Gross neurological examination did not reveal any focal deficits. SKIN: No rashes. Assessment and plan Acute on chronic hypoxemic respiratory failure Acute COPD exacerbation Bacterial pneumonia Pulmonary emboli Hyperkalemia Remote history of DVT Diabetes mellitus type 2 History of prostate cancer. Alpha-1 antitrypsin deficiency, MS phenotype Hyperlipidemia Monitor vital signs Monitor CBC Monitor CMP Continue telemetry monitoring Follow-up on blood cultures Continue oxygen supplementation Aggressive bronchopulmonary hygiene Continue use of BiPAP as needed Continue breathing treatments Continue IV Rocephin and azithromycin Continue pharmacy dose heparin Continue Lasix Pulmonology consulted Resume home meds Cardiology consulted Labs and medication were reviewed.. Continue same treatment. Continue with symptomatic treatment. Resume home medication. Monitor labs and vitals. DVT and GI prophylaxis. Further recommendations as per clinical course of the patient Dictation was produced using [email or web address] dictation software. please excuse any grammatical, word or spelling errors. Past Medical History Past Medical History: Cancer, COPD, Diabetes Mellitus, Hyperlipidemia Additional Past Medical History / Comment(s): prostate History of Any Multi-Drug Resistant Organisms: None Reported Past Surgical History: No Surgical Hx Reported Past Psychological History: No Psychological Hx Reported Smoking Status: Former smoker Past Alcohol Use History: None Reported Past Drug Use History: None Reported Medications and Allergies Home Medications Medication Instructions Recorded Confirmed Type Albuterol Inhaler [Ventolin Hfa 1 - 2 puff INHALATION RT-Q6H PRN 04/28/23 04/28/23 History Inhaler] Albuterol Nebulized [Ventolin 2.5 mg INHALATION RT-Q6H PRN 04/28/23 04/28/23 History Nebulized] Bicalutamide [Casodex] 50 mg PO DIRECTED 04/28/23 04/28/23 History Docusate [Colace] 100 mg PO DAILY PRN 04/28/23 04/28/23 History Escitalopram [Lexapro] 10 mg PO DAILY 04/28/23 04/28/23 History Fenofibrate Nanocrystallized 145 mg PO DAILY 04/28/23 04/28/23 History [Fenofibrate] Fluticasone Nasal [place] [Flonase 1 spray EA NOSTRIL DAILY 04/28/23 04/28/23 History Nasal [place]] Fluticasone/Umeclidin/Vilanter 1 puff INHALATION RT-DAILY@1400 04/28/23 04/28/23 History [Trelegy Ellipta 200-62.5-25] Furosemide [Lasix] 40 mg PO DAILY 04/28/23 04/28/23 History Ipratropium-Albuterol Nebulize 3 ml INHALATION RT-QID PRN 04/28/23 04/28/23 History [Duoneb 0.5 mg-3 mg/3 ml Soln] Metoprolol Succinate (ER) [Toprol 25 mg PO DAILY 04/28/23 04/28/23 History Xl] Montelukast [Singulair] 10 mg PO DAILY 04/28/23 04/28/23 History Ofloxacin 0.3% Ophth Soln [Ocuflox 1 drop BOTH EYES DAILY 04/28/23 04/28/23 History Ophth Soln] Potassium Chloride ER [K-Dur 20] 20 meq PO DAILY 04/28/23 04/28/23 History Repaglinide [Prandin] 2 mg PO AC-BID 04/28/23 04/28/23 History Rosuvastatin [Crestor] 20 mg PO DAILY 04/28/23 04/28/23 History cloZAPine [Clozaril] 50 mg PO HS 04/28/23 04/28/23 History lisinopriL [Zestril] 5 mg PO DAILY 04/28/23 04/28/23 History metFORMIN HCL [Glucophage] 500 mg PO DAILY 04/28/23 04/28/23 History Allergies Allergy/AdvReac Type Severity Reaction Status Date / Time No Known Allergies Allergy Verified 04/28/23 13:25 Physical Exam Vitals: Vital Signs Temp Pulse Pulse Resp BP BP Pulse Ox 04/29/23 08:32 98.3 F 87 19 106/66 91 L 04/29/23 08:15 04/29/23 04:00 97.4 F L 87 20 109/59 90 L 04/29/23 02:00 83 20 04/29/23 00:00 97.4 F L 83 20 100/58 89 L 04/28/23 21:29 95/52 04/28/23 20:00 99.2 F 88 22 88/50 93 L 04/28/23 18:30 92 22 04/28/23 18:00 86 19 104/45 93 L 04/28/23 17:25 97.8 F 92 22 98/52 92 L 04/28/23 17:00 86 20 96/46 93 L 04/28/23 16:00 90 22 108/61 94 L 04/28/23 15:00 113/62 04/28/23 14:00 92 20 110/65 86 L 04/28/23 13:30 94 21 109/74 91 L 04/28/23 13:15 96 21 109/74 91 L 04/28/23 13:00 98 22 99/63 90 L 04/28/23 12:45 98 22 105/66 91 L 04/28/23 12:20 102 H 18 101/65 86 L 04/28/23 12:15 04/28/23 12:10 82 L 04/28/23 12:09 79 L 04/28/23 12:06 18 04/28/23 12:00 97.8 F 107 H 20 96/58 70 L FiO2 04/29/23 08:32 50 04/29/23 08:15 50 04/29/23 04:00 04/29/23 02:00 04/29/23 00:00 04/28/23 21:29 04/28/23 20:00 04/28/23 18:30 04/28/23 18:00 04/28/23 17:25 04/28/23 17:00 04/28/23 16:00 04/28/23 15:00 04/28/23 14:00 04/28/23 13:30 04/28/23 13:15 04/28/23 13:00 04/28/23 12:45 50 04/28/23 12:20 40 04/28/23 12:15 50 04/28/23 12:10 04/28/23 12:09 04/28/23 12:06 04/28/23 12:00 Intake and Output 04/28/23 04/29/23 04/29/23 22:59 06:59 14:59 Intake Total 240 208.727 Output Total 350 500 Balance -110 -291.273 Intake: Intake, IV Titration 208.727 Amount Heparin Sod,Pork in 0.45% 208.727 NaCl 25,000 unit In 0.45 % NaCl 1 250ml.bag @ 18 UNITS/KG/HR 17.962 mls/hr IV .[id number] [facility] Rx#: [id number] Oral 240 Output: Urine 350 500 Other: Voiding Method Bedside Commode Bedside Commode Urinal Weight 99.79 kg 97.5 kg Results CBC & Chem 7: 04/28/23 12:22 04/28/23 12:22 Labs: Abnormal Lab Results - Last 24 Hours (Table) 04/28/23 04/28/23 04/28/23 Range/Units 12:22 12:22 12:22 RBC 3.97 L (4.30-5.90) m/uL Hgb 11.2 L (13.0-17.5) gm/dL Hct 34.6 L (39.0-53.0) % APTT (22.0-30.0) sec D-Dimer 1.66 H (<0.60) mg/L FEU ABG pCO2 (35-45) mmHg ABG pO2 (83-108) mmHg ABG HCO3 (21-25) mmol/L ABG Total CO2 (19-24) mmol/L ABG O2 Saturation (94-97) % Potassium 5.2 H (3.5-5.1) mmol/L Chloride 97 L (98-107) mmol/L Carbon Dioxide 32 H (22-30) mmol/L BUN 24 H (9-20) mg/dL Glucose 164 H (74-99) mg/dL POC Glucose (mg/dL) (70-110) mg/dL Total Protein 6.2 L (6.3-8.2) g/dL 04/28/23 04/28/23 04/28/23 Range/Units 12:28 18:36 20:17 RBC (4.30-5.90) m/uL Hgb (13.0-17.5) gm/dL Hct (39.0-53.0) % APTT (22.0-30.0) sec D-Dimer (<0.60) mg/L FEU ABG pCO2 58 H (35-45) mmHg ABG pO2 55 L* (83-108) mmHg ABG HCO3 34 H (21-25) mmol/L ABG Total CO2 36 H (19-24) mmol/L ABG O2 Saturation 87.4 L (94-97) % Potassium (3.5-5.1) mmol/L Chloride (98-107) mmol/L Carbon Dioxide (22-30) mmol/L BUN (9-20) mg/dL Glucose (74-99) mg/dL POC Glucose (mg/dL) 126 H 153 H (70-110) mg/dL Total Protein (6.3-8.2) g/dL 04/28/23 04/29/23 04/29/23 Range/Units 20:59 00:26 05:49 RBC (4.30-5.90) m/uL Hgb (13.0-17.5) gm/dL Hct (39.0-53.0) % APTT 37.0 H (22.0-30.0) sec D-Dimer (<0.60) mg/L FEU ABG pCO2 (35-45) mmHg ABG pO2 (83-108) mmHg ABG HCO3 (21-25) mmol/L ABG Total CO2 (19-24) mmol/L ABG O2 Saturation (94-97) % Potassium (3.5-5.1) mmol/L Chloride (98-107) mmol/L Carbon Dioxide (22-30) mmol/L BUN (9-20) mg/dL Glucose (74-99) mg/dL POC Glucose (mg/dL) 147 H 155 H (70-110) mg/dL Total Protein (6.3-8.2) g/dL 04/29/23 Range/Units 08:15 RBC (4.30-5.90) m/uL Hgb (13.0-17.5) gm/dL Hct (39.0-53.0) % APTT 46.0 H (22.0-30.0) sec D-Dimer (<0.60) mg/L FEU ABG pCO2 (35-45) mmHg ABG pO2 (83-108) mmHg ABG HCO3 (21-25) mmol/L ABG Total CO2 (19-24) mmol/L ABG O2 Saturation (94-97) % Potassium (3.5-5.1) mmol/L Chloride (98-107) mmol/L Carbon Dioxide (22-30) mmol/L BUN (9-20) mg/dL Glucose (74-99) mg/dL POC Glucose (mg/dL) (70-110) mg/dL Total Protein (6.3-8.2) g/dL Thrombosis Risk Factor Assmnt - Choose All That Apply Any of the Below Risk Factors Present?: Yes Each Factor Represents 1 point: Abnormal pulmonary function (COPD), Obesity (BMI >25) Other Risk Factors: Yes Each Risk Factor Represents 2 Points: Age 61-74 years Each Risk Factor Represents 3 Points: Family history of DVT/PE, History of DVT/PE Other congenital or acquired thrombophilia - If yes, enter type in comment: No Thrombosis Risk Factor Assessment Total Risk Factor Score: 10 Thrombosis Risk Factor Assessment Level: High Risk
[2023-04-29] MEDS: FUROSEMIDE 10 MG/ML 4 ML VIAL IV SCH ×2 (15:24→23:34)
--- NOTE | 2023-04-29 15:41 | P.CRDCN ---
History of Present Illness Consult date: 04/29/23 Consult reason: congestive heart failure History of present illness: History of present illness: This is a 67-year-old male patient of Dr. Espinosa with past medical history of diabetes mellitus type 2, hypertriglyceridemia, COPD and chronic hypoxic respiratory failure on home O2 at 4 L nasal cannula, alpha-1 antitrypsin, remote history of tobacco use and dependence, remote history of smoking tobacco but patient chews tobacco. No history of alcohol or drug abuse. We have been asked to evaluate the patient for heart failure. Patient has been admitted to the hospital for possible pneumonia and started on IV Lasix 40 mg every 8 hours. P atient states that he had shortness of breath that gradually worsened over the past 1 week. He states he has cough and sputum production. No lower extremity edema. Patient is laying flat in bed. BiPAP is in place. Patient was last seen in the office in November 2022 at that time plan was to proceed with Lexiscan stress test which does not appear to have been completed. EKG sinus tachycardia at 103 bpm Chest x-ray: Bibasilar airspace disease with trace left pleural effusion WBC 9, hemoglobin 11.2, platelet count 423. D-dimer 1.66. Sodium 137, potassium 5.2, chloride 97, CO2 32, BUN 24 creatinine 0.73. Blood sugar 164. Hemoglobin A1c 7.1. ProBNP 52. Troponin negative 1. Urinalysis negative. Influenza A, influenza B, RSV, Covid 19 not detected. Home cardiac medications: Fenofibrate 145 mg daily, Lasix 40 mg daily, lisinopril 5 mg daily, Toprol-XL 25 mg daily, Crestor 20 mg daily. Echocardiogram performed 10/2022 at [facility] revealed EF 45-50% without any significant valvular disease. RVSP 9, mild RVH. Review Of Systems: At the time of my evaluation: Constitutional: No fever, no chills. No weakness, fatigue or lethargy. EENT: No headache. No dizziness. Lungs: + shortness of breath, cough, no sputum production. No wheezing. Cardiovascular: No chest pain, no lower extremity edema. No palpitations. No paroxysmal nocturnal dyspnea. No orthopnea. No lightheadedness or dizziness. No syncopal episodes. Abdominal: No abdominal pain. No nausea, vomiting. Musculoskeletal: No myalgias. No muscle weakness, no frequent falls. Integumentary: No wounds. No rash. No unusual bruising. Neurologic: No aphasia. No facial droop. No change in mentation. Physical examination: Gen: This is a 67-year-old male. He is resting in bed appears to be fairly comfortable on BiPAP. VS: reviewed HEENT: Head is atraumatic, normocephalic. Pupils equal, round. Sclerae is anicteric. NECK: Supple. No JVD. . LUNGS: Bilateral wheezing. No intercostal retractions. HEART: Regular rate and rhythm. No murmur. ABDOMEN: Soft No tenderness. EXTREMITIES: No pedal edema. No calf tenderness. NEUROLOGICAL: Patient is awake, alert. Assessment: Acute on chronic hypoxic respiratory failure Possible pneumonia Acute on chronic diastolic heart failure Severe COPD Mild cardiomyopathy with EF of 45-50% Active tobacco chewing Diabetes Hypertriglyceridemia Alpha-1 antitrypsin Plan: Continue patient's home cardiac medications Continue IV Lasix 40 mg every 8 hours Monitor I&O, daily weights, electrolytes and renal function no need to repeat echocardiogram as this was done in October at [facility] Further recommendations to follow based upon clinical course Thank you kindly for this consultation. Nurse practitioner note has been reviewed, I agree with documented findings and plan of care. Patient was seen and examined. Past Medical History Past Medical History: Cancer, COPD, Diabetes Mellitus, Hyperlipidemia Additional Past Medical History / Comment(s): prostate History of Any Multi-Drug Resistant Organisms: None Reported Past Surgical History: No Surgical Hx Reported Past Psychological History: No Psychological Hx Reported Smoking Status: Former smoker Past Alcohol Use History: None Reported Past Drug Use History: None Reported Medications and Allergies Home Medications Medication Instructions Recorded Confirmed Type Albuterol Inhaler [Ventolin Hfa 1 - 2 puff INHALATION RT-Q6H PRN 04/28/23 04/28/23 History Inhaler] Albuterol Nebulized [Ventolin 2.5 mg INHALATION RT-Q6H PRN 04/28/23 04/28/23 History Nebulized] Bicalutamide [Casodex] 50 mg PO DIRECTED 04/28/23 04/28/23 History Docusate [Colace] 100 mg PO DAILY PRN 04/28/23 04/28/23 History Escitalopram [Lexapro] 10 mg PO DAILY 04/28/23 04/28/23 History Fenofibrate Nanocrystallized 145 mg PO DAILY 04/28/23 04/28/23 History [Fenofibrate] Fluticasone Nasal [place] [Flonase 1 spray EA NOSTRIL DAILY 04/28/23 04/28/23 History Nasal [place]] Fluticasone/Umeclidin/Vilanter 1 puff INHALATION RT-DAILY@1400 04/28/23 04/28/23 History [Trelegy Ellipta 200-62.5-25] Furosemide [Lasix] 40 mg PO DAILY 04/28/23 04/28/23 History Ipratropium-Albuterol Nebulize 3 ml INHALATION RT-QID PRN 04/28/23 04/28/23 History [Duoneb 0.5 mg-3 mg/3 ml Soln] Metoprolol Succinate (ER) [Toprol 25 mg PO DAILY 04/28/23 04/28/23 History Xl] Montelukast [Singulair] 10 mg PO DAILY 04/28/23 04/28/23 History Ofloxacin 0.3% Ophth Soln [Ocuflox 1 drop BOTH EYES DAILY 04/28/23 04/28/23 History Ophth Soln] Potassium Chloride ER [K-Dur 20] 20 meq PO DAILY 04/28/23 04/28/23 History Repaglinide [Prandin] 2 mg PO AC-BID 04/28/23 04/28/23 History Rosuvastatin [Crestor] 20 mg PO DAILY 04/28/23 04/28/23 History cloZAPine [Clozaril] 50 mg PO HS 04/28/23 04/28/23 History lisinopriL [Zestril] 5 mg PO DAILY 04/28/23 04/28/23 History metFORMIN HCL [Glucophage] 500 mg PO DAILY 04/28/23 04/28/23 History Allergies Allergy/AdvReac Type Severity Reaction Status Date / Time No Known Allergies Allergy Verified 04/28/23 13:25 Physical Exam Vitals: Vital Signs Temp Pulse Pulse Resp BP BP Pulse Ox 04/29/23 12:25 84 04/29/23 12:10 84 04/29/23 11:09 98.4 F 88 17 106/65 91 L 04/29/23 08:32 98.3 F 87 19 106/66 91 L 04/29/23 08:15 04/29/23 04:00 97.4 F L 87 20 109/59 90 L 04/29/23 02:00 83 20 04/29/23 00:00 97.4 F L 83 20 100/58 89 L 04/28/23 21:29 95/52 04/28/23 20:00 99.2 F 88 22 88/50 93 L 04/28/23 18:30 92 22 04/28/23 18:00 86 19 104/45 93 L 04/28/23 17:25 97.8 F 92 22 98/52 92 L 04/28/23 17:00 86 20 96/46 93 L 04/28/23 16:00 90 22 108/61 94 L 04/28/23 15:00 113/62 04/28/23 14:00 92 20 110/65 86 L 04/28/23 13:30 94 21 109/74 91 L 04/28/23 13:15 96 21 109/74 91 L 04/28/23 13:00 98 22 99/63 90 L 04/28/23 12:45 98 22 105/66 91 L FiO2 04/29/23 12:25 04/29/23 12:10 50 04/29/23 11:09 50 04/29/23 08:32 50 04/29/23 08:15 50 04/29/23 04:00 04/29/23 02:00 04/29/23 00:00 04/28/23 21:29 04/28/23 20:00 04/28/23 18:30 04/28/23 18:00 04/28/23 17:25 04/28/23 17:00 04/28/23 16:00 04/28/23 15:00 04/28/23 14:00 04/28/23 13:30 04/28/23 13:15 04/28/23 13:00 04/28/23 12:45 50 Intake and Output 04/28/23 04/29/23 04/29/23 22:59 06:59 14:59 Intake Total 240 208.727 240 Output Total 350 500 750 Balance -110 291.273 -510 Intake: Intake, IV Titration 208.727 Amount Heparin Sod,Pork in 0.45% 208.727 NaCl 25,000 unit In 0.45 % NaCl 1 250ml.bag @ 18 UNITS/KG/HR 17.962 mls/hr IV .[id number] [facility] Rx#: [id number] Oral 240 240 Output: Urine 350 500 750 Other: Voiding Method Bedside Commode Bedside Commode Urinal Weight 99.79 kg 97.5 kg Results 04/28/23 12:22 04/28/23 12:22 Cardiac Enzymes 04/28/23 04/28/23 Range/Units 12:22 12:22 AST 36 (17-59) U/L Troponin I <0.012 (0.000-0.034) ng/mL Coagulation 04/28/23 04/29/23 04/29/23 Range/Units 12: 00:26 08:15 PT 10.6 (10.0-12.5) sec APTT 22.3 37.0 H 46.0 H (22.0-30.0) sec CBC 04/28/23 Range/Units 12: WBC 9.0 (3.8-10.6) k/uL RBC 3.97 L (4.30-5.90) m/uL Hgb 11.2 L (13.0-17.5) gm/dL Hct 34.6 L (39.0-53.0) % Plt Count 423 (150-450) k/uL Comprehensive Metabolic Panel 04/28/23 Range/Units 12:22 Sodium 137 (137-145) mmol/L Potassium 5.2 H (3.5-5.1) mmol/L Chloride 97 L (98-107) mmol/L Carbon Dioxide 32 H (22-30) mmol/L BUN 24 H (9-20) mg/dL Creatinine 0.73 (0.66-1.25) mg/dL Glucose 164 H (74-99) mg/dL Calcium 9.2 (8.4-10.2) mg/dL AST 36 (17-59) U/L ALT 25 (4-49) U/L Alkaline Phosphatase 75 (38-126) U/L Total Protein 6.2 L (6.3-8.2) g/dL Albumin 3.7 (3.5-5.0) g/dL Current Medications Generic Name Dose Route Start Last Admin Trade Name Freq PRN Reason Stop Dose Admin Albuterol/Ipratropium 3 ml 04/29/23 09:34 Ipratropium-Albuterol 3 Ml Neb INHALATION RT-QID PRN Shortness Of Breath Albuterol/Ipratropium 3 ml 04/29/23 12:00 04/29/23 12:10 Ipratropium-Albuterol 3 Ml Neb INHALATION 3 ml RT-QID [facility] Administration Atorvastatin Calcium 40 mg 04/29/23 10:00 04/29/23 10:37 Atorvastatin 40 Mg Tab PO 40 mg DAILY [facility] Administration Azithromycin 500 mg 04/29/23 10:00 04/29/23 10:37 Azithromycin 500 Mg Tab PO 04/30/23 09:01 500 mg DAILY [facility] Administration Protocol Budesonide/Formoterol Fumarate 2 puff 04/29/23 20:00 Symbicort 80-4.5 Mcg Inhaler INHALATION RT-BID [facility] Clozapine 50 mg 04/29/23 21:00 Clozapine 100 Mg Tab PO 05/01/23 23:00 HS [facility] Docusate Sodium 100 mg 04/29/23 09:34 Docusate 100 Mg Cap PO DAILY PRN Constipation Escitalopram Oxalate 10 mg 04/28/23 20:15 04/29/23 08:36 Escitalopram 10 Mg Tab PO 10 mg DAILY [facility] Administration Fenofibrate 160 mg 04/29/23 10:00 04/29/23 10:37 Fenofibrate 160 Mg Tab PO 160 mg DAILY [facility] Administration Furosemide 40 mg 04/29/23 16:00 Furosemide 10 Mg/Ml 4 Ml Vial IV Q8HR [facility] Heparin Sodium (Porcine) 0 unit 04/28/23 17:44 04/29/23 01:28 Heparin Sodium 1,000 Un/Ml (10ml Vl) IV 4,000 unit PER PROTOCOL PRN Administration Low PTT Protocol Heparin Sodium/Sodium Chloride 250 mls @ 17.962 mls/hr 04/28/23 17:45 04/29/23 06:09 25,000 unit/ Sodium Chloride IV 20 units/kg/hr .[id number] [facility] 19.958 mls/hr Administration Protocol 18 UNITS/KG/HR Ceftriaxone Sodium 2 gm/ 50 mls @ 100 mls/hr 04/29/23 12:00 04/29/23 11:25 Sodium Chloride IVPB 05/02/23 12:29 100 mls/hr Q24H [facility] Administration Protocol Insulin Aspart 0 unit 04/28/23 21:00 04/29/23 11:30 Insulin Aspart (Novolog) 100 Unit/Ml Vial SQ 6 unit ACHS [facility] Administration Protocol Metoprolol Succinate 25 mg 04/29/23 10:00 04/29/23 10:37 Metoprolol Succinate (Er) 25 Mg Tab.Er.24h PO 25 mg DAILY [facility] Administration Miscellaneous Information 1 each 04/29/23 09:32 Pneumonia Protocol Utilized 1 Each Misc PO ONCE PRN Per Protocol Montelukast Sodium 10 mg 04/29/23 09:45 04/29/23 10:37 Montelukast 10 Mg Tab PO 10 mg DAILY [facility] Administration Naloxone HCl 0.2 mg 04/28/23 16:16 Naloxone 0.4 Mg/Ml 1 Ml Vial IV Q2M PRN Opioid Reversal Ofloxacin 1 drops 04/29/23 10:00 04/29/23 10:37 Ofloxacin 0.3% Ophth Drops 5 Ml Bottle BOTH EYES 1 drops DAILY [facility] Administration Potassium Chloride 20 meq 04/29/23 10:00 04/29/23 10:39 Potassium Chloride Er 20 Meq Tab.Er PO Not Given DAILY [facility] Intake and Output 04/28/23 04/29/23 04/29/23 22:59 06:59 14:59 Intake Total 240 208.727 240 Output Total 350 500 750 Balance -110 -291.273 -510 Intake: Intake, IV Titration 208.727 Amount Heparin Sod,Pork in 0.45% 208.727 NaCl 25,000 unit In 0.45 % NaCl 1 250ml.bag @ 18 UNITS/KG/HR 17.962 mls/hr IV .[id number] [facility] Rx#: [id number] Oral 240 240 Output: Urine 350 500 750 Other: Voiding Method Bedside Commode Bedside Commode Urinal Weight 99.79 kg 97.5 kg 04/28/23 12:22 04/28/23 12:22
--- NOTE | 2023-04-29 15:45 | P.PN ---
Subjective Progress Note Date: 04/29/23 This is a 67-year-old male patient with known history of severe COPD, FEV1 of 40% of predicted and chronic hypoxic respiratory failure within on oxygen at 4 L/m nasal cannula. Patient is admitted on Trelegy Ellipta one ablation day and albuterol updrafts [id number]. He has multiple other medical issues. Along with chronic hypoxic respiratory failure, he has diabetes mellitus type 2, hyperlipidemia, history of prostate cancer, CHF, and previous history of DVT. He was hospitalized recently and may have to and at [facility]. At that time, the patient was seen by Dr. Winn, treated and discharged home.. His breathing got worse over the past 1 week. Occasional co ugh. Also his sputum production. No chest pain. Limited edema lower exam is bilaterally. The blood work shows a WBC count of 9.0, hemoglobin 11.2, normal coagulation profile, d-dimer is at 1.6, sodium levels of 137, BUN is 24 with a creatinine of 0.7 and a potassium levels at 5.2. The viral screen was negative. Chest x-ray is consistent with bibasilar airspace disease with trace left-sided pleural effusion. Due to his ongoing shortness of breath and hypoxemia. The patient was supported with BiPAP at pressure 14/7 with an FiO2 of 50%. The patient is seen today 04/29/2023 in follow-up on the selective care unit. He is currently resting in bed. He is awake. He is requiring BiPAP support currently 14/7 and 55% FiO2. Computed tomography scan of the chest revealed marked good acute Sammy pulmonary disease with diffuse severe interstitial density and left lower lobe consolidative density consistent with either pneumonia or pulmonary edema. Small left pleural effusion. Tiny pulmonary emboli suspected in the distal segment branches in the right lower lobe. Blood glucose 263. Hemoglobin A1c 7.1. He is currently on a heparin drip. Currently in a -400 ML balance. He remains on antibiotics in form of ceftriaxone and azithromycin. Continued on DuoNeb inhalations, Symbicort, Singulair. Objective - Vital Signs Vital signs: Vital Signs Temp 98.4 F 04/29/23 11:09 Pulse 88 04/29/23 15:14 Resp 17 04/29/23 11:09 BP 106/65 04/29/23 11:09 Pulse Ox 91 L 04/29/23 11:09 FiO2 55 04/29/23 13:23 Intake & Output 04/28/23 04/29/23 04/29/23 18:59 06:59 18:59 Intake Total 448.727 240 Output Total 844 679 6527 Balance -350 -51.273 -770 Weight 99.79 kg 97.5 kg Intake: Intake, IV Titration 208.727 Amount Heparin Sod,Pork in 0.45% 208.727 NaCl 25,000 unit In 0.45 % NaCl 1 250ml.bag @ 18 UNITS/KG/HR 17.962 mls/hr IV .[id number] [facility] Rx#: [id number] Oral 240 240 Output: Urine 347 249 1672 Other: Voiding Method Toilet Bedside Commode Urinal - Exam GENERAL EXAM: Alert, 67-year-old male, on BiPAP, fairly comfortable in no apparent distress. HEAD: Normocephalic. EYES: Normal reaction of pupils, equal size. NOSE: Clear with pink turbinates. THROAT: No erythema or exudates. NECK: No masses, no JVD. CHEST: No chest wall deformity. LUNGS: Equal air entry with crackles in the bilateral bases. CVS: S1 and S2 normal with no audible murmur, regular rhythm. ABDOMEN: No hepatosplenomegaly, normal bowel sounds, no guarding or rigidity. SPINE: No scoliosis or deformity SKIN: No rashes CENTRAL NERVOUS SYSTEM: No focal deficits, tone is normal in all 4 extremities. EXTREMITIES: There is no peripheral edema. No clubbing, no cyanosis. Peripheral pulses are intact. - Labs CBC & Chem 7: 04/28/23 12:22 04/28/23 12:22 Labs: Abnormal Lab Results - Last 24 Hours (Table) 04/28/23 04/28/23 04/28/23 Range/Units 18:36 20:17 20:59 APTT (22.0-30.0) sec POC Glucose (mg/dL) 126 H 153 H 147 H (70-110) mg/dL Hemoglobin A1c (<=6.0) % 04/29/23 04/29/23 04/29/23 Range/Units 00:26 05:49 08:15 APTT 37.0 H (22.0-30.0) sec POC Glucose (mg/dL) 155 H (70-110) mg/dL Hemoglobin A1c 7.1 H (<=6.0) % 04/29/23 04/29/23 Range/Units 08:15 11:22 APTT 46.0 H (22.0-30.0) sec POC Glucose (mg/dL) 263 H (70-110) mg/dL Hemoglobin A1c (<=6.0) % Assessment and Plan Assessment: Acute on chronic hypoxic respiratory failure. The patient is compensated hypercapnic respiratory failure. The patient developed significant hypoxemia. He has bibasilar pulmonary infiltrates, rule out pneumonia, rule out interstitial edema. Patient is currently on BiPAP at pressure 14/7 cm of water and FiO2 is at 55% Chronic hypoxic respiratory failure limited on oxygen at 4 L Severe COPD with chronic hypoxic and hypercapnic respiratory failure with an FEV1 of 40% of predicted maintain on Trelegy Ellipta on outpatient basis Congestion heart failure Remote history of DVT Diabetes mellitus type 2 History of prostate cancer. Alpha-1 antitrypsin deficiency, MS phenotype Hyperlipidemia Plan: The patient was seen and evaluated Chest x-ray, labs and medications reviewed Increase Lasix of 40 mg IV daily 8 hours Continue ceftriaxone and azithromycin Continue bronchodilators Echocardiogram pending Check a procalcitonin Legionella screen pending Titrate the FiO2 as tolerated Family and guardian are at the bedside The patient and family do not wish for heroic measures DO NOT RESUSCITATE/DO NOT INTUBATE CODE STATUS We will continue to follow I have personally seen and examined the patient, performed the documentation and the assessment and plan as written. Number of minutes spent on the visit: 10.
[2023-04-29] MEDS ORDERED: IPRATROPIUM 0.5 MG/2.5 ML NEBU INHALATION SCH (16:00)
[2023-04-29 16:30] LABS: Glucose,Whole Blood 132 mg/dL (70-110)
--- NOTE | 2023-04-29 17:48 | CA ---
Transthoracic Echo Report Name: Javier Figueroa Age: 67 Gender: M : 1955 Exam Date: 04/29/2023 13:54 Exam Location: [facility] Ht (in): 66 Wt (lb): 214 Ordering Physician: Jonathan Orourke MD Attending/Referring Phys: Utilization Review Specialist Keerthi Piedra RDCS Procedure CPT: Indications: dyspnea Cardiac Hx: Technical Quality: Technically difficult study Contrast 1: Definity Total Dose (mL): 1 Contrast 2: Total Dose (mL): MEASUREMENTS (Male / Female) Normal Values 2D ECHO LV Diastolic Diameter PLAX 5.7 cm 4.2 - 5.9 / 3.9 - 5.3 cm LV Systolic Diameter PLAX 3.9 cm IVS Diastolic Thickness 0.9 cm 0.6 - 1.0 / 0.6 - 0.9 cm LVPW Diastolic Thickness 1.0 cm 0.6 - 1.0 / 0.6 - 0.9 cm LV Relative Wall Thickness 0.3 RV Internal Dim ED PLAX 3.6 cm LA Systolic Diameter LX 3.9 cm 3.0 - 4.0 / 2.7 - 3.8 cm LV Diastolic Volume MOD BP 75.5 cm??? 67 - 155 / 56 - 104 cm??? LV Systolic Volume MOD BP 38.0 cm??? - 58 / 19 - 49 cm??? LV Ejection Fraction MOD BP 49.7 % >= 55 % LV Cardiac Index MOD BP 1231.8 cm???/min???m??? LV Diastolic Volume MOD 4C 79.1 cm??? LV Systolic Volume MOD 4C 38.6 cm??? LV Ejection Fraction MOD 4C 51.2 % LV Cardiac Index MOD 4C 1326.7 cm???/min???m??? LV Diastolic Length 4C 7.4 cm LV Systolic Length 4C 6.6 cm LV Diastolic Volume MOD 2C 71.1 cm??? LV Systolic Volume MOD 2C 36.1 cm??? LV Ejection Fraction MOD 2C 49.2 % LV Cardiac Index MOD 2C 1148.0 cm???/min???m??? LV Diastolic Length 2C 7.2 cm LV Systolic Length 2C 6.3 cm LA Volume 78.7 cm??? 18 - 58 / 22 - 52 cm??? LA Volume Index 36.4 cm???/m??? 16 - 28 cm???/m??? M-MODE Aortic Root Diameter MM 3.5 cm MV E Point Septal Separation 1.0 cm AV Cusp Separation MM 1.2 cm DOPPLER AV Peak Velocity 158.9 cm/s AV Peak Gradient 10.1 mmHg MV Area PHT 3.4 cm??? Mitral E Point Velocity 110.8 cm/s Mitral A Point Velocity 85.9 cm/s Mitral E to A Ratio 1.3 MV Deceleration Time 225.3 ms MV E' Velocity 8.5 cm/s Mitral E to MV E' Ratio 13.0 TR Peak Velocity 295.9 cm/s TR Peak Gradient 35.0 mmHg Right Ventricular Systolic Press 40.0 mmHg FINDINGS Left Ventricle Left ventricular ejection fraction is estimated at 45-50 %. Left ventricular cavity size normal. Mildly decreased left ventricular ejection fraction. Right Ventricle Mild right ventricular dilatation. Mild pulmonary hypertension. Right Atrium Normal right atrial size. Left Atrium Moderately increased left atrial volume. Mildly increased left atrial area. Mitral Valve Structurally normal mitral valve. No mitral stenosis, regurgitation or prolapse. Aortic Valve Trileaflet aortic valve. No aortic valve stenosis or regurgitation. Tricuspid Valve Tricuspid valve not well visualized. Mild tricuspid regurgitation. Pulmonic Valve Pulmonic valve not well visualized. Pericardium No pericardial effusion. Aorta Normal size aortic root and proximal ascending aorta. CONCLUSIONS Mild LV systolic dysfunction Mild pulmonary hypertension Mild tricuspid regurgitation Previewed by: Dr. Josias Webb MD (Electronically Signed) Final Date: 29 April 2023 17:47
[2023-04-29] MEDS: SYMBICORT 80-4.5 MCG INHALER INHALATION SCH (19:22)
[2023-04-29 20:20] LABS: Glucose,Whole Blood 167 mg/dL (70-110)
[2023-04-29] MEDS: cloZAPine 100 MG TAB PO SCH (20:46)
[2023-04-29] MEDS ORDERED: FUROSEMIDE 10 MG/ML 4 ML VIAL IV SCH (21:00)
[2023-04-30 06:23] LABS: Glucose,Whole Blood 165 mg/dL (70-110)
[2023-04-30] MEDS: INSULIN ASPART (NovoLOG) 100 UNIT/ML VIAL SQ SCH ×4 (06:42→20:07)
[2023-04-30 08:37] LABS: HCT 32.7 % (39.0-53.0); HGB 10.8 gm/dL (13.0-17.5); MCH 28.7 pg (25.0-35.0); MCHC 32.9 g/dL (31.0-37.0); MCV 87.1 fL (80.0-100.0); Platelet Count 383 k/uL (150-450); RBC 3.75 m/uL (4.30-5.90); RDW 14.7 % (11.5-15.5); WBC 7.1 k/uL (3.8-10.6)
[2023-04-30] MEDS: SYMBICORT 80-4.5 MCG INHALER INHALATION SCH ×2 (08:48→20:36)
[2023-04-30] MEDS: IPRATROPIUM-ALBUTEROL 3 ML NEB INHALATION SCH ×4 (08:48→20:36)
[2023-04-30 08:52] LABS: ALT 28 U/L (4-49); AST 28 U/L (17-59); African American GFR (CKD) >90 (>60 ml/min/1.73 sqM); Albumin 3.4 g/dL (3.5-5.0); Alkaline Phosphatase 89 U/L (38-126); Anion Gap 8 mmol/L; Blood Urea Nitrogen 21 mg/dL (9-20); Calcium 8.8 mg/dL (8.4-10.2); Carbon Dioxide 33 mmol/L (22-30); Chloride 96 mmol/L (98-107); Glucose 169 mg/dL (74-99); Non-African American GFR(CKD) 90 (>60 ml/min/1.73 sqM); Potassium 3.9 mmol/L (3.5-5.1); Sodium 137 mmol/L (137-145); Total Bilirubin 0.3 mg/dL (0.2-1.3); Total Protein 5.6 g/dL (6.3-8.2)
[2023-04-30] MEDS: FUROSEMIDE 10 MG/ML 4 ML VIAL IV SCH ×3 (09:19→22:58)
[2023-04-30] MEDS: ESCITALOPRAM 10 MG TAB PO SCH (09:20)
[2023-04-30] MEDS: FENOFIBRATE 160 MG TAB PO SCH (09:20)
[2023-04-30] MEDS: POTASSIUM CHLORIDE ER 20 MEQ TAB.ER PO SCH (09:20)
[2023-04-30] MEDS: MONTELUKAST 10 MG TAB PO SCH (09:20)
[2023-04-30] MEDS: AZITHROMYCIN 500 MG TAB PO SCH (09:20)
[2023-04-30] MEDS: ATORVASTATIN 40 MG TAB PO SCH (09:20)
[2023-04-30] MEDS: METOPROLOL SUCCINATE (ER) 25 MG TAB.ER.24H PO SCH (09:21)
[2023-04-30] MEDS: OFLOXACIN 0.3% OPHTH DROPS 5 ML BOTTLE BOTH EYES SCH (09:22)
[2023-04-30 11:38] LABS: Glucose,Whole Blood 187 mg/dL (70-110)
[2023-04-30] MEDS: HEPARIN SOD,PORK IN 0.45% NACL 25,000 UNIT in 0.45% NACL 1 250ML.BAG IV SCH ×2 (12:04→17:34)
--- NOTE | 2023-04-30 12:39 | P.PN ---
Subjective Progress Note Date: 04/30/23 patient is 67-year-old gentleman with past medical history significant for COPD, chronic respiratory failure on 4 L of oxygen, diabetes mellitus, hyperlipidemia, CHF presented to the ER because of shortness of breath for 1 week. Patient stated that he was discharged from the hospital a week ago after being treated for similar complaints. Patient stated that ever since he has been home has been complaining of worsening shortness of breath. Shortness of breath is present at rest as well as exertion. Patient complaining of cough which is productive. Denies any fever or chills. Denies any chest pain. Denies any complaint of orthopnea or PND. Denies any complaint of nausea, vomiting abdominal pain. Because of the symptoms, presented to the ER Initial lab work done in the ER showed WBC 9, hemoglobin 11.2, platelet count 423, sodium 137, potassium 5.2, BUN 24, creatinine 0.73, glucose 164 UA negative for infection Influenza A and B not detected RSV not detected COVID-19 not detected EKG done in the ER showed heart rate of 103, no ST segment elevation or T-wave inversions seen Chest x-ray done in the ER showed bibasilar airspace disease with trace left pleural effusion Chest CTA done showed marked acute cardiopulmonary disease with diffuse severe interstitial density and left lower lobe consolidative density consistent either pneumonia or pulmonary edema, small left pleural effusion Patient admitted to medicine service 04/29. Patient seen and examined. Blood work done this morning showed WBC 7.1, hemoglobin 10.8, platelet count 383, sodium 137 potassium 3.9, BUN 21, creatinine 0.87. Currently on heated high flow. States he feels better. Still gets short of breath on exertion REVIEW OF SYSTEMS: CONSTITUTIONAL: No fever, no malaise,. CARDIOVASCULAR: No chest pain, no palpitations, PULMONARY: As mentioned above GASTROINTESTINAL: No diarrhea, no nausea, no vomiting, no abdominal pain. NEUROLOGICAL: No headaches, no weakness, PHYSICAL EXAMINATION: GENERAL: The patient is alert and oriented x3, respiratory distress, chronically looking HEENT: Pupils are round and equally reacting to light. EOMI. No scleral icterus. No conjunctival pallor. Normocephalic, atraumatic. No pharyngeal erythema. No thyromegaly. CARDIOVASCULAR: S1 and S2 present. No murmurs, rubs, or gallops. PULMONARY: Coarse breath sounds bilaterally, no wheezing or crackles. ABDOMEN: Soft, nontender, nondistended, normoactive bowel sounds. No palpable organomegaly. MUSCULOSKELETAL: No joint swelling or deformity. EXTREMITIES: No cyanosis, clubbing, or pedal edema. NEUROLOGICAL: Gross neurological examination did not reveal any focal deficits. SKIN: No rashes. Assessment and plan Acute on chronic hypoxemic respiratory failure Acute COPD exacerbation Acute on chronic diastolic heart failure Bacterial pneumonia Pulmonary emboli Hyperkalemia Remote history of DVT Diabetes mellitus type 2 History of prostate cancer. Alpha-1 antitrypsin deficiency, MS phenotype Hyperlipidemia Monitor vital signs Monitor CBC Monitor CMP Continue telemetry monitoring Encourage use of incentive spirometer Follow-up on blood cultures Continue oxygen supplementation Aggressive bronchopulmonary hygiene Continue use of BiPAP as needed Continue breathing treatments Continue IV Rocephin and azithromycin Continue pharmacy dose heparin Continue IV Lasix 40 mg every 8 Regards to hyperlipidemia continue Lipitor and fenofibrate In regards to hypothyroid continue Synthyroid In regards to diabetes mellitus: Continue sliding scale insulin Pulmonology following Cardiology following Labs and medication were reviewed.. Continue same treatment. Continue with symptomatic treatment. Resume home medication. Monitor labs and vitals. DVT and GI prophylaxis. Further recommendations as per clinical course of the patient Dictation was produced using [employer] dictation software. please excuse any grammatical, word or spelling errors. Objective - Vital Signs Vital signs: Vital Signs Temp 99.1 F 04/30/23 11:15 Pulse 86 04/30/23 11:51 Resp 18 04/30/23 11:15 BP 120/61 04/30/23 11:15 Pulse Ox 89 L 04/30/23 11:44 FiO2 63 04/30/23 11:44 Intake & Output 04/29/23 04/30/23 04/30/23 18:59 06:59 18:59 Intake Total 566.877 250 120 Output Total 1410 500 300 Balance -843.123 -250 -180 Intake: Intake, IV Titration 216.877 250 Amount Heparin Sod,Pork in 0.45% 216.877 250 NaCl 25,000 unit In 0.45 % NaCl 1 250ml.bag @ 18 UNITS/KG/HR 17.962 mls/hr IV .[id number] [facility] Rx#: [id number] Oral 350 120 Output: Urine 1410 500 300 Other: Voiding Method Urinal Urinal Urinal # Voids 0 # Bowel Movements 1 - Labs CBC & Chem 7: 04/30/23 08:10 04/30/23 08:10 Labs: Abnormal Lab Results - Last 24 Hours (Table) 04/29/23 04/29/23 04/29/23 Range/Units 08:15 08:15 16:26 RBC (4.30-5.90) m/uL Hgb (13.0-17.5) gm/dL Hct (39.0-53.0) % APTT (22.0-30.0) sec Chloride (98-107) mmol/L Carbon Dioxide (22-30) mmol/L BUN (9-20) mg/dL Glucose (74-99) mg/dL POC Glucose (mg/dL) 132 H (70-110) mg/dL Hemoglobin A1c 7.1 H (<=6.0) % Total Protein (6.3-8.2) g/dL Albumin (3.5-5.0) g/dL Procalcitonin 0.14 H (0.02-0.09) ng/mL 04/29/23 04/30/23 04/30/23 Range/Units 20:19 06:22 08:10 RBC (4.30-5.90) m/uL Hgb (13.0-17.5) gm/dL Hct (39.0-53.0) % APTT 43.2 H (22.0-30.0) sec Chloride (98-107) mmol/L Carbon Dioxide (22-30) mmol/L BUN (9-20) mg/dL Glucose (74-99) mg/dL POC Glucose (mg/dL) 167 H 165 H (70-110) mg/dL Hemoglobin A1c (<=6.0) % Total Protein (6.3-8.2) g/dL Albumin (3.5-5.0) g/dL Procalcitonin (0.02-0.09) ng/mL 04/30/23 04/30/23 04/30/23 Range/Units 08:10 08:10 11:37 RBC 3.75 L (4.30-5.90) m/uL Hgb 10.8 L (13.0-17.5) gm/dL Hct 32.7 L (39.0-53.0) % APTT (22.0-30.0) sec Chloride 96 L (98-107) mmol/L Carbon Dioxide 33 H (22-30) mmol/L BUN 21 H (9-20) mg/dL Glucose 169 H (74-99) mg/dL POC Glucose (mg/dL) 187 H (70-110) mg/dL Hemoglobin A1c (<=6.0) % Total Protein 5.6 L (6.3-8.2) g/dL Albumin 3.4 L (3.5-5.0) g/dL Procalcitonin (0.02-0.09) ng/mL Microbiology - Last 24 Hours (Table) 04/28/23 12:22 Blood Culture - Preliminary Blood
--- NOTE | 2023-04-30 14:12 | P.PN ---
Subjective Progress Note Date: 04/30/23 History of present illness: This is a 67-year-old male patient of Dr. Espinosa with past medical history of diabetes mellitus type 2, hypertriglyceridemia, COPD and chronic hypoxic respiratory failure on home O2 at 4 L nasal cannula, alpha-1 antitrypsin, remote history of tobacco use and dependence, remote history of smoking tobacco but patient chews tobacco. No history of alcohol or drug abuse. We have been asked to evaluate the patient for heart failure. Patient has been admitted to the hospital for possible pneumonia and started on IV Lasix 40 mg every 8 hours. Patient states that he had shortness of breath that gradually worsened over the past 1 week. He states he has cough and sputum production. No lower extremity edema. Patient is laying flat in bed. BiPAP is in place. Patient was last seen in the office in November 2022 at that time plan was to proceed with Lexiscan stress test which does not appear to have been completed. EKG sinus tachycardia at 103 bpm Chest x-ray: Bibasilar airspace disease with trace left pleural effusion WBC 9, hemoglobin 11.2, platelet count 423. D-dimer 1.66. Sodium 137, potassium 5.2, chloride 97, CO2 32, BUN 24 creatinine 0.73. Blood sugar 164. Hemoglobin A1c 7.1. ProBNP 52. Troponin negative 1. Urinalysis negative. Influenza A, influenza B, RSV, Covid 19 not detected. Home cardiac medications: Fenofibrate 145 mg daily, Lasix 40 mg daily, lisinopril 5 mg daily, Toprol-XL 25 mg daily, Crestor 20 mg daily. Echocardiogram performed 10/2022 at [facility] revealed EF 45-50% without any significant valvular disease. RVSP 9, mild RVH. 04/30 Patient states that his breathing is about the same because he has not been out of bed he is not sure. He has trace lower extremity edema. Potassium is 3.9, BUN 21 creatinine 0.87. Hemoglobin is 10.8. Echocardiogram reveals mild LV systolic dysfunction with EF 45-50%, mild pulm onary hypertension, mild tricuspid regurgitation. Physical examination: Gen: This is a 67-year-old male. He is resting in bed appears to be fairly comfortable on BiPAP. VS: reviewed HEENT: Head is atraumatic, normocephalic. Pupils equal, round. Sclerae is anicteric. LUNGS: Bilateral wheezing. No intercostal retractions. HEART: Regular rate and rhythm. No murmur. ABDOMEN: Soft No tenderness. EXTREMITIES: Mild pedal edema. No calf tenderness. NEUROLOGICAL: Patient is awake, alert. Assessment: Acute on chronic hypoxic respiratory failure Possible pneumonia Acute on chronic diastolic heart failure Severe COPD Mild cardiomyopathy with EF of 45-50% Active tobacco chewing Diabetes Hypertriglyceridemia Alpha-1 antitrypsin Plan: Continue patient's home cardiac medications Continue IV Lasix 40 mg every 8 hours for another 24 hours Monitor I&O, daily weights, electrolytes and renal function no need to repeat echocardiogram as this was done in October at [facility] Further recommendations to follow based upon clinical course Thank you kindly for this consultation. Nurse practitioner note has been reviewed, I agree with documented findings and plan of care. Patient was seen and examined. Objective - Vital Signs Vital signs: Vital Signs Temp 98.2 F 04/30/23 04:00 Pulse 87 04/30/23 09:02 Resp 20 04/30/23 04:00 BP 117/68 04/30/23 04:00 Pulse Ox 91 L 04/30/23 08:52 FiO2 63 04/30/23 08:52 Intake & Output 04/29/23 04/30/23 04/30/23 18:59 06:59 18:59 Intake Total 566.877 120 Output Total 1410 500 Balance -843.123 -500 120 Intake: Intake, IV Titration 216.877 Amount Heparin Sod,Pork in 0.45% 216.877 NaCl 25,000 unit In 0.45 % NaCl 1 250ml.bag @ 18 UNITS/KG/HR 17.962 mls/hr IV .[id number] [facility] Rx#: [id number] Oral 350 120 Output: Urine 1410 500 Other: Voiding Method Urinal Urinal # Bowel Movements 1 - Labs CBC & Chem 7: 04/30/23 08:10 04/30/23 08:10 Labs: Abnormal Lab Results - Last 24 Hours (Table) 04/29/23 04/29/23 04/29/23 Range/Units 08:15 08:15 11:22 RBC (4.30-5.90) m/uL Hgb (13.0-17.5) gm/dL Hct (39.0-53.0) % APTT (22.0-30.0) sec Chloride (98-107) mmol/L Carbon Dioxide (22-30) mmol/L BUN (9-20) mg/dL Glucose (74-99) mg/dL POC Glucose (mg/dL) 263 H (70-110) mg/dL Hemoglobin A1c 7.1 H (<=6.0) % Total Protein (6.3-8.2) g/dL Albumin (3.5-5.0) g/dL Procalcitonin 0.14 H (0.02-0.09) ng/mL 04/29/23 04/29/23 04/30/23 Range/Units 16:26 20:19 06:22 RBC (4.30-5.90) m/uL Hgb (13.0-17.5) gm/dL Hct (39.0-53.0) % APTT (22.0-30.0) sec Chloride (98-107) mmol/L Carbon Dioxide (22-30) mmol/L BUN (9-20) mg/dL Glucose (74-99) mg/dL POC Glucose (mg/dL) 132 H 167 H 165 H (70-110) mg/dL Hemoglobin A1c (<=6.0) % Total Protein (6.3-8.2) g/dL Albumin (3.5-5.0) g/dL Procalcitonin (0.02-0.09) ng/mL 04/30/23 04/30/23 04/30/23 Range/Units 08:10 08:10 08:10 RBC 3.75 L (4.30-5.90) m/uL Hgb 10.8 L (13.0-17.5) gm/dL Hct 32.7 L (39.0-53.0) % APTT 43.2 H (22.0-30.0) sec Chloride 96 L (98-107) mmol/L Carbon Dioxide 33 H (22-30) mmol/L BUN 21 H (9-20) mg/dL Glucose 169 H (74-99) mg/dL POC Glucose (mg/dL) (70-110) mg/dL Hemoglobin A1c (<=6.0) % Total Protein 5.6 L (6.3-8.2) g/dL Albumin 3.4 L (3.5-5.0) g/dL Procalcitonin (0.02-0.09) ng/mL Microbiology - Last 24 Hours (Table) 04/28/23 12:22 Blood Culture - Preliminary Blood
--- NOTE | 2023-04-30 15:39 | P.PN ---
Subjective Progress Note Date: 04/30/23 This is a 67-year-old male patient with known history of severe COPD, FEV1 of 40% of predicted and chronic hypoxic respiratory failure within on oxygen at 4 L/m nasal cannula. Patient is admitted on Trelegy Ellipta one ablation day and albuterol updrafts [id number]. He has multiple other medical issues. Along with chronic hypoxic respiratory failure, he has diabetes mellitus type 2, hyperlipidemia, history of prostate cancer, CHF, and previous history of DVT. He was hospitalized recently and may have to and at [facility]. At that time, the patient was seen by Dr. Winn, treated and discharged home.. His breathing got worse over the past 1 week. Occasional co ugh. Also his sputum production. No chest pain. Limited edema lower exam is bilaterally. The blood work shows a WBC count of 9.0, hemoglobin 11.2, normal coagulation profile, d-dimer is at 1.6, sodium levels of 137, BUN is 24 with a creatinine of 0.7 and a potassium levels at 5.2. The viral screen was negative. Chest x-ray is consistent with bibasilar airspace disease with trace left-sided pleural effusion. Due to his ongoing shortness of breath and hypoxemia. The patient was supported with BiPAP at pressure 14/7 with an FiO2 of 50%. The patient is seen today 04/29/2023 in follow-up on the selective care unit. He is currently resting in bed. He is awake. He is requiring BiPAP support currently 14/7 and 55% FiO2. Computed tomography scan of the chest revealed marked good acute Sammy pulmonary disease with diffuse severe interstitial density and left lower lobe consolidative density consistent with either pneumonia or pulmonary edema. Small left pleural effusion. Tiny pulmonary emboli suspected in the distal segment branches in the right lower lobe. Blood glucose 263. Hemoglobin A1c 7.1. He is currently on a heparin drip. Currently in a -400 ML balance. He remains on antibiotics in form of ceftriaxone and azithromycin. Continued on DuoNeb inhalations, Symbicort, Singulair. The patient is seen today 04/30/2023 in follow-up on the selective care unit. He is resting comfortably in bed. More awake and alert today. He is currently on AirVo at 60 L and 60% FiO2. Alternating with BiPAP as needed. Echocardiogram revealed mildly mildly impaired left ventricular systolic function with an ejection fraction 45-50%. He remains on a heparin drip. Blood culture pending. White count 7.1. Hemoglobin 10.8. Platelets 383. Sodium 137. Potassium 3.9. Bicarb 33. BUN 21. Creatinine 0.87. Glucose 169. He is continued on DuoNeb inhalations, Symbicort, Singulair. Antibiotics in the form of ceftriaxone. Remains on Lasix 40 mg IV every 8 hours. Currently in a -1 L balance. Objective - Vital Signs Vital signs: Vital Signs Temp 99.1 F 04/30/23 11:15 Pulse 88 04/30/23 15:06 Resp 18 04/30/23 14:00 BP 120/61 04/30/23 11:15 Pulse Ox 93 L 04/30/23 14:57 FiO2 63 04/30/23 14:57 Intake & Output 04/29/23 04/30/23 04/30/23 18:59 06:59 18:59 Intake Total 566.877 250 240 Output Total 1410 500 300 Balance -843.123 -250 -60 Intake: Intake, IV Titration 216.877 250 Amount Heparin Sod,Pork in 0.45% 216.877 250 NaCl 25,000 unit In 0.45 % NaCl 1 250ml.bag @ 18 UNITS/KG/HR 17.962 mls/hr IV .[id number] [facility] Rx#: [id number] Oral 350 240 Output: Urine 1410 500 300 Other: Voiding Method Urinal Urinal Urinal # Voids 0 # Bowel Movements 1 - Exam GENERAL EXAM: Alert, pleasant 67-year-old male, on AirVo high flow oxygen at 60 L and 60% FiO2 alternating with BiPAP, comfortable in no apparent distress. HEAD: Normocephalic. EYES: Normal reaction of pupils, equal size. NOSE: Clear with pink turbinates. THROAT: No erythema or exudates. NECK: No masses, no JVD. CHEST: No chest wall deformity. LUNGS: Equal air entry with crackles in the bilateral bases. CVS: S1 and S2 normal with no audible murmur, regular rhythm. ABDOMEN: No hepatosplenomegaly, normal bowel sounds, no guarding or rigidity. SPINE: No scoliosis or deformity SKIN: No rashes CENTRAL NERVOUS SYSTEM: No focal deficits, tone is normal in all 4 extremities. EXTREMITIES: There is no peripheral edema. No clubbing, no cyanosis. Peripheral pulses are intact. - Labs CBC & Chem 7: 04/30/23 08:10 04/30/23 08:10 Labs: Abnormal Lab Results - Last 24 Hours (Table) 04/29/23 04/29/23 04/29/23 Range/Units 08:15 16:26 20:19 RBC (4.30-5.90) m/uL Hgb (13.0-17.5) gm/dL Hct (39.0-53.0) % APTT (22.0-30.0) sec Chloride (98-107) mmol/L Carbon Dioxide (22-30) mmol/L BUN (9-20) mg/dL Glucose (74-99) mg/dL POC Glucose (mg/dL) 132 H 167 H (70-110) mg/dL Total Protein (6.3-8.2) g/dL Albumin (3.5-5.0) g/dL Procalcitonin 0.14 H (0.02-0.09) ng/mL 04/30/23 04/30/23 04/30/23 Range/Units 06:22 08:10 08:10 RBC 3.75 L (4.30-5.90) m/uL Hgb 10.8 L (13.0-17.5) gm/dL Hct 32.7 L (39.0-53.0) % APTT 43.2 H (22.0-30.0) sec Chloride (98-107) mmol/L Carbon Dioxide (22-30) mmol/L BUN (9-20) mg/dL Glucose (74-99) mg/dL POC Glucose (mg/dL) 165 H (70-110) mg/dL Total Protein (6.3-8.2) g/dL Albumin (3.5-5.0) g/dL Procalcitonin (0.02-0.09) ng/mL 04/30/23 04/30/23 Range/Units 08:10 11:37 RBC (4.30-5.90) m/uL Hgb (13.0-17.5) gm/dL Hct (39.0-53.0) % APTT (22.0-30.0) sec Chloride 96 L (98-107) mmol/L Carbon Dioxide 33 H (22-30) mmol/L BUN 21 H (9-20) mg/dL Glucose 169 H (74-99) mg/dL POC Glucose (mg/dL) 187 H (70-110) mg/dL Total Protein 5.6 L (6.3-8.2) g/dL Albumin 3.4 L (3.5-5.0) g/dL Procalcitonin (0.02-0.09) ng/mL Microbiology - Last 24 Hours (Table) 04/28/23 12:22 Blood Culture - Preliminary Blood Assessment and Plan Assessment: Acute on chronic hypoxic respiratory failure. The patient is compensated hypercapnic respiratory failure. The patient developed significant hypoxemia. He has bibasilar pulmonary infiltrates, rule out pneumonia, rule out interstitia l edema. Patient is currently on AirVo high flow oxygen at 60 L and 60% FiO2, alternating with BiPAP at pressure 14/7 cm of water and FiO2 is at 55%. Pro- calcitonin 0.14, treated with ceftriaxone and azithromycin. Remains on IV diuretics. Legionella screen negative. Chronic hypoxic respiratory failure limited on oxygen at 4 L Severe COPD with chronic hypoxic and hypercapnic respiratory failure with an FEV1 of 40% of predicted maintain on Trelegy Ellipta on outpatient basis Congestion heart failure Remote history of DVT Diabetes mellitus type 2 History of prostate cancer. Alpha-1 antitrypsin deficiency, MS phenotype Hyperlipidemia Plan: The patient was seen and evaluated Echocardiogram, labs and medications reviewed Continue Lasix of 40 mg IV daily 8 hours Continue ceftriaxone and completed azithromycin Continue bronchodilators Titrate the FiO2 as tolerated DO NOT RESUSCITATE/DO NOT INTUBATE CODE STATUS We will continue to follow I have personally seen and examined the patient, performed the documentation and the assessment and plan as written. Number of minutes spent on the visit: 10.
[2023-04-30 16:44] LABS: Glucose,Whole Blood 222 mg/dL (70-110)
[2023-04-30] MEDS: cloZAPine 100 MG TAB PO SCH (19:53)
[2023-04-30 20:08] LABS: Glucose,Whole Blood 139 mg/dL (70-110)
[2023-05-01] MEDS: HEPARIN SOD,PORK IN 0.45% NACL 25,000 UNIT in 0.45% NACL 1 250ML.BAG IV SCH ×2 (02:03→13:42)
[2023-05-01 03:25] LABS: Basophils % (A) 0 %; Eosinophils # (A) 0.2 k/uL (0-0.7); Eosinophils % (A) 3 %; HCT 33.5 % (39.0-53.0); HGB 10.6 gm/dL (13.0-17.5); Lymphocytes # (A) 1.5 k/uL (1.0-4.8); Lymphocytes % (A) 21 %; MCH 27.6 pg (25.0-35.0); MCHC 31.6 g/dL (31.0-37.0); MCV 87.3 fL (80.0-100.0); Mean Platelet Volume 7.8; Monocytes # (A) 0.6 k/uL (0-1.0); Monocytes % (A) 8 %; Neutrophils # (A) 4.6 k/uL (1.3-7.7); Neutrophils % (A) 64 %; Platelet Count 374 k/uL (150-450); RBC 3.83 m/uL (4.30-5.90); RDW 14.9 % (11.5-15.5); WBC 7.2 k/uL (3.8-10.6)
[2023-05-01 05:56] LABS: Glucose,Whole Blood 141 mg/dL (70-110)
[2023-05-01] MEDS: INSULIN ASPART (NovoLOG) 100 UNIT/ML VIAL SQ SCH ×5 (06:09→20:40)
--- NOTE | 2023-05-01 07:37 | P.PN ---
Subjective Progress Note Date: 05/01/23 Principal diagnosis: Congestive heart failure The patient is a 67-year-old gentleman with mild cardiomyopathy and congestive heart failure and COPD as well as multiple comorbid conditions was admitted to the hospital with acute and chronic hypoxic respiratory failure secondary to COPD exacerbation and CHF exacerbation 05/01/2023 The patient was seen and evaluated this morning. He still short of breath. He his shortness of breath is slightly better compared to before. No pain in the chest. On examination he does have diminished breathing sounds bilaterally but no lower extremity edema noted. I feel the patient is euvolemic from the heart failure standpoint of. I am going to DC Lasix IV and switch the patient to oral Lasix. The COPD to be managed by the pulmonary team. Assessment Acute hypoxic respiratory failure Severe COPD Heart failure which is diastolic Mild cardiomyopathy Multiple comorbid conditions Plan DC IV Lasix and start the patient on oral Lasix Continue the current medical regimen at this point beside that Follow-up with the patient Objective - Vital Signs Vital signs: Vital Signs Temp 98.7 F 05/01/23 00:00 Pulse 76 05/01/23 04:00 Resp 20 05/01/23 04:00 BP 143/97 05/01/23 04:00 Pulse Ox 94 L 05/01/23 04:00 FiO2 62 05/01/23 04:00 Intake & Output 04/30/23 05/01/23 05/01/23 18:59 06:59 18:59 Intake Total 480.747 204.507 Output Total 500 1650 Balance -19.253 -1445.493 Weight 95.5 kg Intake: Intake, IV Titration 120.747 204.507 Amount Heparin Sod,Pork in 0.45% 120.747 204.507 NaCl 25,000 unit In 0.45 % NaCl 1 250ml.bag @ 18 UNITS/KG/HR 17.962 mls/hr IV .[id number] [facility] Rx#: [id number] Oral 360 Output: Urine 500 1650 Other: Voiding Method Urinal Urinal External Catheter # Voids 0 - Labs CBC & Chem 7: 05/01/23 02:57 04/30/23 08:10 Labs: Abnormal Lab Results - Last 24 Hours (Table) 04/30/23 04/30/23 04/30/23 Range/Units 08:10 08:10 08:10 RBC 3.75 L (4.30-5.90) m/uL Hgb 10.8 L (13.0-17.5) gm/dL Hct 32.7 L (39.0-53.0) % APTT 43.2 H (22.0-30.0) sec Chloride 96 L (98-107) mmol/L Carbon Dioxide 33 H (22-30) mmol/L BUN 21 H (9-20) mg/dL Glucose 169 H (74-99) mg/dL POC Glucose (mg/dL) (70-110) mg/dL Total Protein 5.6 L (6.3-8.2) g/dL Albumin 3.4 L (3.5-5.0) g/dL 04/30/23 04/30/23 04/30/23 Range/Units 11:37 16:43 17:48 RBC (4.30-5.90) m/uL Hgb (13.0-17.5) gm/dL Hct (39.0-53.0) % APTT 34.8 H (22.0-30.0) sec Chloride (98-107) mmol/L Carbon Dioxide (22-30) mmol/L BUN (9-20) mg/dL Glucose (74-99) mg/dL POC Glucose (mg/dL) 187 H 222 H (70-110) mg/dL Total Protein (6.3-8.2) g/dL Albumin (3.5-5.0) g/dL 04/30/23 05/01/23 05/01/23 Range/Units 20:06 02:57 02:57 RBC 3.83 L (4.30-5.90) m/uL Hgb 10.6 L (13.0-17.5) gm/dL Hct 33.5 L (39.0-53.0) % APTT 59.8 H (22.0-30.0) sec Chloride (98-107) mmol/L Carbon Dioxide (22-30) mmol/L BUN (9-20) mg/dL Glucose (74-99) mg/dL POC Glucose (mg/dL) 139 H (70-110) mg/dL Total Protein (6.3-8.2) g/dL Albumin (3.5-5.0) g/dL 05/01/23 Range/Units 05:55 RBC (4.30-5.90) m/uL Hgb (13.0-17.5) gm/dL Hct (39.0-53.0) % APTT (22.0-30.0) sec Chloride (98-107) mmol/L Carbon Dioxide (22-30) mmol/L BUN (9-20) mg/dL Glucose (74-99) mg/dL POC Glucose (mg/dL) 141 H (70-110) mg/dL Total Protein (6.3-8.2) g/dL Albumin (3.5-5.0) g/dL Microbiology - Last 24 Hours (Table) 04/28/23 12:22 Blood Culture - Preliminary Blood
[2023-05-01] MEDS: SYMBICORT 80-4.5 MCG INHALER INHALATION SCH ×2 (09:09→19:25)
[2023-05-01] MEDS: IPRATROPIUM-ALBUTEROL 3 ML NEB INHALATION SCH ×4 (09:10→19:26)
[2023-05-01] MEDS: METOPROLOL SUCCINATE (ER) 25 MG TAB.ER.24H PO SCH (09:33)
[2023-05-01] MEDS: POTASSIUM CHLORIDE ER 20 MEQ TAB.ER PO SCH (09:33)
[2023-05-01] MEDS: FUROSEMIDE 40 MG TAB PO SCH ×2 (09:33→17:15)
[2023-05-01] MEDS: ESCITALOPRAM 10 MG TAB PO SCH (09:33)
[2023-05-01] MEDS: FENOFIBRATE 160 MG TAB PO SCH (09:33)
[2023-05-01] MEDS: MONTELUKAST 10 MG TAB PO SCH (09:33)
[2023-05-01] MEDS: ATORVASTATIN 40 MG TAB PO SCH (09:33)
[2023-05-01] MEDS: OFLOXACIN 0.3% OPHTH DROPS 5 ML BOTTLE BOTH EYES SCH (09:35)
[2023-05-01 11:56] LABS: Glucose,Whole Blood 281 mg/dL (70-110)
--- NOTE | 2023-05-01 13:37 | P.PN ---
Subjective Progress Note Date: 05/01/23 patient is 67-year-old gentleman with past medical history significant for COPD, chronic respiratory failure on 4 L of oxygen, diabetes mellitus, hyperlipidemia, CHF presented to the ER because of shortness of breath for 1 week. Patient stated that he was discharged from the hospital a week ago after being treated for similar complaints. Patient stated that ever since he has been home has been complaining of worsening shortness of breath. Shortness of breath is present at rest as well as exertion. Patient complaining of cough which is productive. Denies any fever or chills. Denies any chest pain. Denies any complaint of orthopnea or PND. Denies any complaint of nausea, vomiting abdominal pain. Because of the symptoms, presented to the ER Initial lab work done in the ER showed WBC 9, hemoglobin 11.2, platelet count 423, sodium 137, potassium 5.2, BUN 24, creatinine 0.73, glucose 164 UA negative for infection Influenza A and B not detected RSV not detected COVID-19 not detected EKG done in the ER showed heart rate of 103, no ST segment elevation or T-wave inversions seen Chest x-ray done in the ER showed bibasilar airspace disease with trace left pleural effusion Chest CTA done showed marked acute cardiopulmonary disease with diffuse severe interstitial density and left lower lobe consolidative density consistent either pneumonia or pulmonary edema, small left pleural effusion Patient admitted to medicine service 04/30. Patient seen and examined. Blood work done this morning showed WBC 7.1, hemoglobin 10.8, platelet count 383, sodium 137 potassium 3.9, BUN 21, creatinine 0.87. Currently on heated high flow. States he feels better. Still gets short of breath on exertion 05/01. Patient seen and examined. Patient currently on heated high flow at 60 L. Still gets short of breath on exertion. Denies any cough. Currently laying comfortably in the bed REVIEW OF SYSTEMS: CONSTITUTIONAL: No fever, no malaise,. CARDIOVASCULAR: No chest pain, no palpitations, PULMONARY: As mentioned above GASTROINTESTINAL: No diarrhea, no nausea, no vomiting, no abdominal pain. NEUROLOGICAL: No headaches, no weakness, PHYSICAL EXAMINATION: GENERAL: The patient is alert and oriented x3, respiratory distress, chronically ill looking HEENT: Pupils are round and equally reacting to light. EOMI. No scleral icterus. No conjunctival pallor. Normocephalic, atraumatic. No pharyngeal erythema. No thyromegaly. CARDIOVASCULAR: S1 and S2 present. No murmurs, rubs, or gallops. PULMONARY: Coarse breath sounds bilaterally, no wheezing or crackles. ABDOMEN: Soft, nontender, nondistended, normoactive bowel sounds. No palpable organomegaly. MUSCULOSKELETAL: No joint swelling or deformity. EXTREMITIES: No cyanosis, clubbing, or pedal edema. NEUROLOGICAL: Gross neurological examination did not reveal any focal deficits. SKIN: No rashes. Assessment and plan Acute on chronic hypoxemic respiratory failure Acute COPD exacerbation Acute on chronic diastolic heart failure Bacterial pneumonia Pulmonary emboli Hyperkalemia Remote history of DVT Diabetes mellitus type 2 History of prostate cancer. Alpha-1 antitrypsin deficiency, MS phenotype Hyperlipidemia Monitor vital signs Monitor CBC Monitor CMP Continue telemetry monitoring Encourage use of incentive spirometer Follow-up on blood cultures Continue oxygen supplementation Aggressive bronchopulmonary hygiene Continue use of BiPAP as needed Continue breathing treatments Continue IV Rocephin and azithromycin Continue pharmacy dose heparin Switch IV Lasix to oral Lasix Regards to hyperlipidemia continue Lipitor and fenofibrate In regards to hypothyroid continue Synthyroid In regards to diabetes mellitus: Continue sliding scale insulin Pulmonology following Cardiology following Labs and medication were reviewed.. Continue same treatment. Continue with symptomatic treatment. Resume home medication. Monitor labs and vitals. DVT and GI prophylaxis. Further recommendations as per clinical course of the patient Dictation was produced using [employer] dictation software. please excuse any grammatical, word or spelling errors. Objective - Vital Signs Vital signs: Vital Signs Temp 98.7 F 05/01/23 00:00 Pulse 80 05/01/23 09:21 Resp 20 05/01/23 04:00 BP 143/97 05/01/23 04:00 Pulse Ox 93 L 05/01/23 09:13 FiO2 60 05/01/23 09:13 Intake & Output 04/30/23 05/01/23 05/01/23 18:59 06:59 18:59 Intake Total 480.747 204.507 118 Output Total 500 1650 Balance -19.645 -2201.493 118 Weight 95.5 kg Intake: Intake, IV Titration 120.747 204.507 Amount Heparin Sod,Pork in 0.45% 120.747 204.507 NaCl 25,000 unit In 0.45 % NaCl 1 250ml.bag @ 18 UNITS/KG/HR 17.962 mls/hr IV .[id number] [facility] Rx#: [id number] Oral 360 118 Output: Urine 500 1650 Other: Voiding Method Urinal Urinal External Catheter # Voids 0 - Labs CBC & Chem 7: 05/01/23 02:57 04/30/23 08:10 Labs: Abnormal Lab Results - Last 24 Hours (Table) 04/30/23 04/30/23 04/30/23 Range/Units 11:37 16:43 17:48 RBC (4.30-5.90) m/uL Hgb (13.0-17.5) gm/dL Hct (39.0-53.0) % APTT 34.8 H (22.0-30.0) sec POC Glucose (mg/dL) 187 H 222 H (70-110) mg/dL 04/30/23 05/01/23 05/01/23 Range/Units 20:06 02:57 02:57 RBC 3.83 L (4.30-5.90) m/uL Hgb 10.6 L (13.0-17.5) gm/dL Hct 33.5 L (39.0-53.0) % APTT 59.8 H (22.0-30.0) sec POC Glucose (mg/dL) 139 H (70-110) mg/dL 05/01/23 Range/Units 05:55 RBC (4.30-5.90) m/uL Hgb (13.0-17.5) gm/dL Hct (39.0-53.0) % APTT (22.0-30.0) sec POC Glucose (mg/dL) 141 H (70-110) mg/dL Microbiology - Last 24 Hours (Table) 04/28/23 12:22 Blood Culture - Preliminary Blood
--- NOTE | 2023-05-01 14:57 | P.PN ---
Subjective Progress Note Date: 05/01/23 This is a 67-year-old male patient with known history of severe COPD, FEV1 of 40% of predicted and chronic hypoxic respiratory failure within on oxygen at 4 L/m nasal cannula. Patient is admitted on Trelegy Ellipta one ablation day and albuterol updrafts [id number]. He has multiple other medical issues. Along with chronic hypoxic respiratory failure, he has diabetes mellitus type 2, hyperlipidemia, history of prostate cancer, CHF, and previous history of DVT. He was hospitalized recently and may have to and at [facility]. At that time, the patient was seen by Dr. Winn, treated and discharged home.. His breathing got worse over the past 1 week. Occasional co ugh. Also his sputum production. No chest pain. Limited edema lower exam is bilaterally. The blood work shows a WBC count of 9.0, hemoglobin 11.2, normal coagulation profile, d-dimer is at 1.6, sodium levels of 137, BUN is 24 with a creatinine of 0.7 and a potassium levels at 5.2. The viral screen was negative. Chest x-ray is consistent with bibasilar airspace disease with trace left-sided pleural effusion. Due to his ongoing shortness of breath and hypoxemia. The patient was supported with BiPAP at pressure 14/7 with an FiO2 of 50%. The patient is seen today 04/29/2023 in follow-up on the selective care unit. He is currently resting in bed. He is awake. He is requiring BiPAP support currently 14/7 and 55% FiO2. Computed tomography scan of the chest revealed marked good acute Sammy pulmonary disease with diffuse severe interstitial density and left lower lobe consolidative density consistent with either pneumonia or pulmonary edema. Small left pleural effusion. Tiny pulmonary emboli suspected in the distal segment branches in the right lower lobe. Blood glucose 263. Hemoglobin A1c 7.1. He is currently on a heparin drip. Currently in a -400 ML balance. He remains on antibiotics in form of ceftriaxone and azithromycin. Continued on DuoNeb inhalations, Symbicort, Singulair. The patient is seen today 04/30/2023 in follow-up on the selective care unit. He is resting comfortably in bed. More awake and alert today. He is currently on AirVo at 60 L and 60% FiO2. Alternating with BiPAP as needed. Echocardiogram revealed mildly mildly impaired left ventricular systolic function with an ejection fraction 45-50%. He remains on a heparin drip. Blood culture pending. White count 7.1. Hemoglobin 10.8. Platelets 383. Sodium 137. Potassium 3.9. Bicarb 33. BUN 21. Creatinine 0.87. Glucose 169. He is continued on DuoNeb inhalations, Symbicort, Singulair. Antibiotics in the form of ceftriaxone. Remains on Lasix 40 mg IV every 8 hours. Currently in a -1 L balance. The patient is seen today 05/01/2023 in follow-up on the selective care unit. He is awake and alert. Resting comfortably in bed. Denies any worsening shortness of breath cough or congestion. He continues to require AirVo high flow oxygen at 60 L and 60% FiO2. Chest x-ray showing improved aeration bilaterally. Blood culture pending. White count 7.2. Hemodynamically 6. Platelets 374. Glucose 141. He has been transitioned to oral diuretics. Currently in a -1.4 L balance. Continued on DuoNeb inhalations, Symbicort, Singulair. Remains on antibiotics in the form of ceftriaxone. Remains on a heparin drip. Objective - Vital Signs Vital signs: Vital Signs Temp 98.3 F 05/01/23 11:00 Pulse 80 05/01/23 12:29 Resp 20 05/01/23 11:00 BP 126/64 05/01/23 11:00 Pulse Ox 90 L 05/01/23 11:00 FiO2 63 05/01/23 12:18 Intake & Output 04/30/23 05/01/23 05/01/23 18:59 06:59 18:59 Intake Total 480.747 204.507 608 Output Total 500 1650 Balance -19.253 -1445.493 608 Weight 95.5 kg Intake: Intake, IV Titration 120.747 204.507 250 Amount Heparin Sod,Pork in 0.45% 120.747 204.507 250 NaCl 25,000 unit In 0.45 % NaCl 1 250ml.bag @ 18 UNITS/KG/HR 17.962 mls/hr IV .[id number] [facility] Rx#: [id number] Oral 360 358 Output: Urine 500 1650 Other: Voiding Method Urinal Urinal Urinal External Catheter External Catheter # Voids 0 - Exam GENERAL EXAM: Alert, 67-year-old male, on AirVo high flow oxygen at 60 L and 60% FiO2, comfortable in no apparent distress. HEAD: Normocephalic. EYES: Normal reaction of pupils, equal size. NOSE: Clear with pink turbinates. THROAT: No erythema or exudates. NECK: No masses, no JVD. CHEST: No chest wall deformity. LUNGS: Equal air entry with crackles in the bilateral bases. CVS: S1 and S2 normal with no audible murmur, regular rhythm. ABDOMEN: No hepatosplenomegaly, normal bowel sounds, no guarding or rigidity. SPINE: No scoliosis or deformity SKIN: No rashes CENTRAL NERVOUS SYSTEM: No focal deficits, tone is normal in all 4 extremities. EXTREMITIES: There is no peripheral edema. No clubbing, no cyanosis. Peripheral pulses are intact. - Labs CBC & Chem 7: 05/01/23 02:57 04/30/23 08:10 Labs: Abnormal Lab Results - Last 24 Hours (Table) 04/30/23 04/30/23 04/30/23 Range/Units 16:43 17:48 20:06 RBC (4.30-5.90) m/uL Hgb (13.0-17.5) gm/dL Hct (39.0-53.0) % APTT 34.8 H (22.0-30.0) sec POC Glucose (mg/dL) 222 H 139 H (70-110) mg/dL 05/01/23 05/01/23 05/01/23 Range/Units 02:57 02:57 05:55 RBC 3.83 L (4.30-5.90) m/uL Hgb 10.6 L (13.0-17.5) gm/dL Hct 33.5 L (39.0-53.0) % APTT 59.8 H (22.0-30.0) sec POC Glucose (mg/dL) 141 H (70-110) mg/dL 05/01/23 Range/Units 11:44 RBC (4.30-5.90) m/uL Hgb (13.0-17.5) gm/dL Hct (39.0-53.0) % APTT (22.0-30.0) sec POC Glucose (mg/dL) 281 H (70-110) mg/dL [facility] - Last 24 Hours (Table) 04/28/23 12:22 Blood Culture - Preliminary Blood Assessment and Plan Assessment: Acute on chronic hypoxic respiratory failure. The patient is compensated hypercapnic respiratory failure. The patient developed significant hypoxemia. He has bibasilar pulmonary infiltrates, rule out pneumonia, rule out interstitial edema. Patient is currently on AirVo high flow oxygen at 60 L and 60% FiO2, alternating with BiPAP at pressure 14/7 cm of water and FiO2 is at 55%. Pro-calcitonin 0.14, treated with ceftriaxone and azithromycin. Remains on diuretics. Legionella screen negative. CT angiogram revealed tiny pulmonary emboli suspected in the distal segmental branches of the right lower lobe. Currently on a heparin drip. Will transition to Eliquis Chronic hypoxic respiratory failure limited on oxygen at 4 L Severe COPD with chronic hypoxic and hypercapnic respiratory failure with an FEV1 of 40% of predicted maintain on Trelegy Ellipta on outpatient basis Congestion heart failure Remote history of DVT Diabetes mellitus type 2 History of prostate cancer. Alpha-1 antitrypsin deficiency, MS phenotype Hyperlipidemia Plan: The patient was seen and evaluated Labs and medications reviewed Transitioned to oral diuretics Continue ceftriaxone and completed azithromycin Continue bronchodilators Titrate the FiO2 as tolerated Discontinue heparin drip Initiate Eliquis We will continue to follow I have personally seen and examined the patient, performed the documentation and the assessment and plan as written. Number of minutes spent on the visit: 10.
--- NOTE | 2023-05-01 15:15 | XR ---
EXAMINATION TYPE: XR chest 1V portable DATE OF EXAM: 05/01/2023 Comparison: 04/29/2023 Clinical History: 67-year-old male Hypoxemia Findings: Heart mildly enlarged. Diffuse interstitial opacities persist. Areas of patchy opacity are also redem onstrated but have become slightly less confluent from prior exam. No sizable pleural effusion. Impression: Diffuse interstitial lung disease slightly improving from prior exam.
[2023-05-01 17:11] LABS: Glucose,Whole Blood 182 mg/dL (70-110)
[2023-05-01 20:05] LABS: Glucose,Whole Blood 241 mg/dL (70-110)
[2023-05-01] MEDS: cloZAPine 100 MG TAB PO SCH (20:37)
[2023-05-01] MEDS: APIXABAN 5 MG TAB PO SCH (20:37)
[2023-05-02 06:08] LABS: Glucose,Whole Blood 190 mg/dL (70-110)
[2023-05-02] MEDS: INSULIN ASPART (NovoLOG) 100 UNIT/ML VIAL SQ SCH ×4 (07:01→20:37)
[2023-05-02 07:07] LABS: Basophils % (A) 1 %; Eosinophils # (A) 0.2 k/uL (0-0.7); Eosinophils % (A) 4 %; HCT 33.6 % (39.0-53.0); Hypochromasia Slight; Lymphocytes # (A) 1.2 k/uL (1.0-4.8); Lymphocytes % (A) 19 %; MCH 28.8 pg (25.0-35.0); MCHC 32.7 g/dL (31.0-37.0); MCV 87.9 fL (80.0-100.0); Mean Platelet Volume 6.9; Monocytes # (A) 0.6 k/uL (0-1.0); Monocytes % (A) 9 %; Neutrophils % (A) 65 %; Platelet Count 375 k/uL (150-450); RBC 3.82 m/uL (4.30-5.90); RDW 14.7 % (11.5-15.5); WBC 6.2 k/uL (3.8-10.6)
[2023-05-02 07:25] LABS: ALT 35 U/L (4-49); AST 34 U/L (17-59); African American GFR (CKD) >90 (>60 ml/min/1.73 sqM); Albumin 3.5 g/dL (3.5-5.0); Alkaline Phosphatase 84 U/L (38-126); Anion Gap 7 mmol/L; Blood Urea Nitrogen 22 mg/dL (9-20); Carbon Dioxide 33 mmol/L (22-30); Chloride 98 mmol/L (98-107); Glucose 152 mg/dL (74-99); Non-African American GFR(CKD) 85 (>60 ml/min/1.73 sqM); Sodium 138 mmol/L (137-145); Total Bilirubin 0.2 mg/dL (0.2-1.3); Total Protein 5.8 g/dL (6.3-8.2)
[2023-05-02] MEDS: SYMBICORT 80-4.5 MCG INHALER INHALATION SCH ×2 (08:18→21:23)
[2023-05-02] MEDS: IPRATROPIUM-ALBUTEROL 3 ML NEB INHALATION SCH ×4 (08:18→21:22)
[2023-05-02] MEDS: METOPROLOL SUCCINATE (ER) 25 MG TAB.ER.24H PO SCH (08:49)
[2023-05-02] MEDS: FENOFIBRATE 160 MG TAB PO SCH (08:49)
[2023-05-02] MEDS: ATORVASTATIN 40 MG TAB PO SCH (08:49)
[2023-05-02] MEDS: APIXABAN 5 MG TAB PO SCH ×2 (08:49→20:32)
[2023-05-02] MEDS: ESCITALOPRAM 10 MG TAB PO SCH (08:49)
[2023-05-02] MEDS: POTASSIUM CHLORIDE ER 20 MEQ TAB.ER PO SCH (08:49)
[2023-05-02] MEDS: MONTELUKAST 10 MG TAB PO SCH (08:49)
[2023-05-02] MEDS: OFLOXACIN 0.3% OPHTH DROPS 5 ML BOTTLE BOTH EYES SCH (08:50)
[2023-05-02] MEDS: FUROSEMIDE 40 MG TAB PO SCH ×2 (08:50→15:33)
--- NOTE | 2023-05-02 09:46 | P.PN ---
Subjective Progress Note Date: 05/02/23 Principal diagnosis: Congestive heart failure The patient is a 67-year-old gentleman with mild cardiomyopathy and congestive heart failure and COPD as well as multiple comorbid conditions was admitted to the hospital with acute and chronic hypoxic respiratory failure secondary to COPD exacerbation and CHF exacerbation 05/01/2023 The patient was seen and evaluated this morning. He still short of breath. He his shortness of breath is slightly better compared to before. No pain in the chest. On examination he does have diminished breathing sounds bilaterally but no lower extremity edema noted. I feel the patient is euvolemic from the heart failure standpoint of. I am going to DC Lasix IV and switch the patient to oral Lasix. The COPD to be managed by the pulmonary team. May [id number] The patient was seen and evaluated this morning. He continues to be short of breath and he continues to be on high flow oxygen. From the cardiac standpoint of view, he seems to be euvolemic. He continues to be on oral Lasix. From the cardiac vascular standpoint of view, would continue the current medical regimen including the current dose of oral diuretics. The COPD to be managed by the pulmonary team. Assessment Acute hypoxic respiratory failure Severe COPD Heart failure which is diastolic Mild cardiomyopathy Multiple comorbid conditions Plan Continue the current dose of oral diuretics Continue the current medical regimen at this point beside that Objective - Vital Signs Vital signs: Vital Signs Temp 96.5 F L 05/02/23 03:51 Pulse 80 05/02/23 08:36 Resp 16 05/02/23 03:51 BP 117/57 05/02/23 03:51 Pulse Ox 89 L 05/02/23 08:19 FiO2 59 05/02/23 08:19 Intake & Output 05/01/23 05/02/23 05/02/23 18:59 06:59 18:59 Intake Total 788 350 180 Output Total 300 1100 Balance 488 -750 180 Weight 96.5 kg Intake: Intake, IV Titration 250 Amount Heparin Sod,Pork in 0.45% 250 NaCl 25,000 unit In 0.45 % NaCl 1 250ml.bag @ 18 UNITS/KG/HR 17.962 mls/hr IV .[id number] [facility] Rx#: [id number] Oral 538 350 180 Output: Urine 300 1100 Other: Voiding Method Urinal External Catheter - Labs CBC & Chem 7: 05/02/23 06:08 05/02/23 06:08 Labs: Abnormal Lab Results - Last 24 Hours (Table) 05/01/23 05/01/23 05/01/23 Range/Units 11:44 17:06 20:03 RBC (4.30-5.90) m/uL Hgb (13.0-17.5) gm/dL Hct (39.0-53.0) % Carbon Dioxide (22-30) mmol/L BUN (9-20) mg/dL Glucose (74-99) mg/dL POC Glucose (mg/dL) 281 H 182 H 241 H (70-110) mg/dL Total Protein (6.3-8.2) g/dL 05/02/23 05/02/23 05/02/23 Range/Units 06:06 06:08 06:08 RBC 3.82 L (4.30-5.90) m/uL Hgb 11.0 L (13.0-17.5) gm/dL Hct 33.6 L (39.0-53.0) % Carbon Dioxide 33 H (22-30) mmol/L BUN 22 H (9-20) mg/dL Glucose 152 H (74-99) mg/dL POC Glucose (mg/dL) 190 H (70-110) mg/dL Total Protein 5.8 L (6.3-8.2) g/dL Microbiology - Last 24 Hours (Table) 04/28/23 12:22 Blood Culture - Preliminary Blood
[2023-05-02 11:33] LABS: Glucose,Whole Blood 160 mg/dL (70-110)
--- NOTE | 2023-05-02 12:20 | P.PN ---
Subjective Progress Note Date: 05/02/23 This is a 67-year-old male patient with known history of severe COPD, FEV1 of 40% of predicted and chronic hypoxic respiratory failure within on oxygen at 4 L/m nasal cannula. Patient is admitted on Trelegy Ellipta one ablation day and albuterol updrafts [id number]. He has multiple other medical issues. Along with chronic hypoxic respiratory failure, he has diabetes mellitus type 2, hyperlipidemia, history of prostate cancer, CHF, and previous history of DVT. He was hospitalized recently and may have to and at [facility]. At that time, the patient was seen by Dr. Winn, treated and discharged home.. His breathing got worse over the past 1 week. Occasional co ugh. Also his sputum production. No chest pain. Limited edema lower exam is bilaterally. The blood work shows a WBC count of 9.0, hemoglobin 11.2, normal coagulation profile, d-dimer is at 1.6, sodium levels of 137, BUN is 24 with a creatinine of 0.7 and a potassium levels at 5.2. The viral screen was negative. Chest x-ray is consistent with bibasilar airspace disease with trace left-sided pleural effusion. Due to his ongoing shortness of breath and hypoxemia. The patient was supported with BiPAP at pressure 14/7 with an FiO2 of 50%. The patient is seen today 04/29/2023 in follow-up on the selective care unit. He is currently resting in bed. He is awake. He is requiring BiPAP support currently 14/7 and 55% FiO2. Computed tomography scan of the chest revealed marked good acute Sammy pulmonary disease with diffuse severe interstitial density and left lower lobe consolidative density consistent with either pneumonia or pulmonary edema. Small left pleural effusion. Tiny pulmonary emboli suspected in the distal segment branches in the right lower lobe. Blood glucose 263. Hemoglobin A1c 7.1. He is currently on a heparin drip. Currently in a -400 ML balance. He remains on antibiotics in form of ceftriaxone and azithromycin. Continued on DuoNeb inhalations, Symbicort, Singulair. The patient is seen today 04/30/2023 in follow-up on the selective care unit. He is resting comfortably in bed. More awake and alert today. He is currently on AirVo at 60 L and 60% FiO2. Alternating with BiPAP as needed. Echocardiogram revealed mildly mildly impaired left ventricular systolic function with an ejection fraction 45-50%. He remains on a heparin drip. Blood culture pending. White count 7.1. Hemoglobin 10.8. Platelets 383. Sodium 137. Potassium 3.9. Bicarb 33. BUN 21. Creatinine 0.87. Glucose 169. He is continued on DuoNeb inhalations, Symbicort, Singulair. Antibiotics in the form of ceftriaxone. Remains on Lasix 40 mg IV every 8 hours. Currently in a -1 L balance. The patient is seen today 05/01/2023 in follow-up on the selective care unit. He is awake and alert. Resting comfortably in bed. Denies any worsening shortness of breath cough or congestion. He continues to require AirVo high flow oxygen at 60 L and 60% FiO2. Chest x-ray showing improved aeration bilaterally. Blood culture pending. White count 7.2. Hemodynamically 6. Platelets 374. Glucose 141. He has been transitioned to oral diuretics. Currently in a -1.4 L balance. Continued on DuoNeb inhalations, Symbicort, Singulair. Remains on antibiotics in the form of ceftriaxone. Remains on a heparin drip. The patient is seen today May 02 2023 in follow-up on the selective care unit. He is awake and alert in no acute distress. Feeling better each day. Chest x-ray is showing improvement. He is continued on AirVo high flow oxygen at 60 L and 60% FiO2 with O2 saturations 88-89%. Blood cultures revealed no growth. White count 6.2. Hemoglobin 11.0. Platelets 375. Sodium 138. Potassium 4.0. Bicarb 33. BUN 22. Creatinine 0.93. Glucose 152. He remains on DuoNeb inhalations, Symbicort, Singulair. Anticoagulated with Eliquis. Antibiotics in the form of ceftriaxone. Objective - Vital Signs Vital signs: Vital Signs Temp 98 F 05/02/23 08:15 Pulse 92 05/02/23 11:46 Resp 16 05/02/23 08:15 BP 113/70 05/02/23 08:15 Pulse Ox 89 L 05/02/23 08:19 FiO2 59 05/02/23 11:35 Intake & Output 05/01/23 05/02/23 05/02/23 18:59 06:59 18:59 Intake Total 788 350 180 Output Total 300 1100 Balance 488 -750 180 Weight 96.5 kg Intake: Intake, IV Titration 250 Amount Heparin Sod,Pork in 0.45% 250 NaCl 25,000 unit In 0.45 % NaCl 1 250ml.bag @ 18 UNITS/KG/HR 17.962 mls/hr IV .[id number] [facility] Rx#: [id number] Oral 538 350 180 Output: Urine 300 1100 Other: Voiding Method Urinal External Catheter - Exam GENERAL EXAM: Alert, oriented, pleasant 67-year-old male, on AirVo high flow oxygen at 60 L and 60% FiO2, comfortable in no apparent distress. HEAD: Normocephalic. EYES: Normal reaction of pupils, equal size. NOSE: Clear with pink turbinates. THROAT: No erythema or exudates. NECK: No masses, no JVD. CHEST: No chest wall deformity. LUNGS: Equal air entry with crackles in the bilateral bases. CVS: S1 and S2 normal with no audible murmur, regular rhythm. ABDOMEN: No hepatosplenomegaly, normal bowel sounds, no guarding or rigidity. SPINE: No scoliosis or deformity SKIN: No rashes CENTRAL NERVOUS SYSTEM: No focal deficits, tone is normal in all 4 extremities. EXTREMITIES: There is no peripheral edema. No clubbing, no cyanosis. Peripheral pulses are intact. - Labs CBC & Chem 7: 05/02/23 06:08 05/02/23 06:08 Labs: Abnormal Lab Results - Last 24 Hours (Table) 05/01/23 05/01/23 05/02/23 Range/Units 17:06 20:03 06:06 RBC (4.30-5.90) m/uL Hgb (13.0-17.5) gm/dL Hct (39.0-53.0) % Carbon Dioxide (22-30) mmol/L BUN (9-20) mg/dL Glucose (74-99) mg/dL POC Glucose (mg/dL) 182 H 241 H 190 H (70-110) mg/dL Total Protein (6.3-8.2) g/dL 05/02/23 05/02/23 05/02/23 Range/Units 06:08 06:08 11:32 RBC 3.82 L (4.30-5.90) m/uL Hgb 11.0 L (13.0-17.5) gm/dL Hct 33.6 L (39.0-53.0) % Carbon Dioxide 33 H (22-30) mmol/L BUN 22 H (9-20) mg/dL Glucose 152 H (74-99) mg/dL POC Glucose (mg/dL) 160 H (70-110) mg/dL Total Protein 5.8 L (6.3-8.2) g/dL Microbiology - Last 24 Hours (Table) 04/28/23 12:22 Blood Culture - Preliminary Blood Assessment and Plan Assessment: Acute on chronic hypoxic respiratory failure. The patient is compensated hypercapnic respiratory failure. The patient developed significant hypoxemia. He has bibasilar pulmonary infiltrates, rule out pneumonia, rule out interstitial edema. Patient is currently on AirVo high flow oxygen at 60 L and 60% FiO2. Pro-calcitonin 0.14, treated with ceftriaxone and azithromycin. Paulina ins on diuretics. Legionella screen negative. CT angiogram revealed tiny pulmonary emboli suspected in the distal segmental branches of the right lower lobe. Currently on a heparin drip. Will transition to Eliquis Chronic hypoxic respiratory failure limited on oxygen at 4 L Severe COPD with chronic hypoxic and hypercapnic respiratory failure with an FEV1 of 40% of predicted maintain on Trelegy Ellipta on outpatient basis Congestion heart failure Remote history of DVT Diabetes mellitus type 2 History of prostate cancer. Alpha-1 antitrypsin deficiency, MS phenotype Hyperlipidemia Plan: The patient was seen and evaluated Chest X-ray, labs and medications reviewed Continue diuretics Transitioned to Eliquis Continue ceftriaxone Continue bronchodilators Titrate the FiO2 as tolerated We will continue to follow I have personally seen and examined the patient, performed the documentation and the assessment and plan as written. Number of minutes spent on the visit: 10.
--- NOTE | 2023-05-02 14:01 | P.PN ---
Subjective Progress Note Date: 05/02/23 patient is 67-year-old gentleman with past medical history significant for COPD, chronic respiratory failure on 4 L of oxygen, diabetes mellitus, hyperlipidemia, CHF presented to the ER because of shortness of breath for 1 week. Patient stated that he was discharged from the hospital a week ago after being treated for similar complaints. Patient stated that ever since he has been home has been complaining of worsening shortness of breath. Shortness of breath is present at rest as well as exertion. Patient complaining of cough which is productive. Denies any fever or chills. Denies any chest pain. Denies any complaint of orthopnea or PND. Denies any complaint of nausea, vomiting abdominal pain. Because of the symptoms, presented to the ER Initial lab work done in the ER showed WBC 9, hemoglobin 11.2, platelet count 423, sodium 137, potassium 5.2, BUN 24, creatinine 0.73, glucose 164 UA negative for infection Influenza A and B not detected RSV not detected COVID-19 not detected EKG done in the ER showed heart rate of 103, no ST segment elevation or T-wave inversions seen Chest x-ray done in the ER showed bibasilar airspace disease with trace left pleural effusion Chest CTA done showed marked acute cardiopulmonary disease with diffuse severe interstitial density and left lower lobe consolidative density consistent either pneumonia or pulmonary edema, small left pleural effusion Patient admitted to medicine service 04/30. Patient seen and examined. Blood work done this morning showed WBC 7.1, hemoglobin 10.8, platelet count 383, sodium 137 potassium 3.9, BUN 21, creatinine 0.87. Currently on heated high flow. States he feels better. Still gets short of breath on exertion 05/01. Patient seen and examined. Patient currently on heated high flow at 60 L. Still gets short of breath on exertion. Denies any cough. Currently laying comfortably in the bed. 05/02. Patient seen and examined. Continues to be on heated high flow. Patient switch to Eliquis. REVIEW OF SYSTEMS: CONSTITUTIONAL: No fever, no malaise,. CARDIOVASCULAR: No chest pain, no palpitations, PULMONARY: As mentioned above GASTROINTESTINAL: No diarrhea, no nausea, no vomiting, no abdominal pain. NEUROLOGICAL: No headaches, no weakness, PHYSICAL EXAMINATION: GENERAL: The patient is alert and oriented x3, respiratory distress, chronically ill looking HEENT: Pupils are round and equally reacting to light. EOMI. No scleral icterus. No conjunctival pallor. Normocephalic, atraumatic. No pharyngeal erythema. No thyromegaly. CARDIOVASCULAR: S1 and S2 present. No murmurs, rubs, or gallops. PULMONARY: Coarse breath sounds bilaterally, no wheezing or crackles. ABDOMEN: Soft, nontender, nondistended, normoactive bowel sounds. No palpable organomegaly. MUSCULOSKELETAL: No joint swelling or deformity. EXTREMITIES: No cyanosis, clubbing, or pedal edema. NEUROLOGICAL: Gross neurological examination did not reveal any focal deficits. SKIN: No rashes. Assessment and plan Acute on chronic hypoxemic respiratory failure Acute COPD exacerbation Acute on chronic diastolic heart failure Bacterial pneumonia Pulmonary emboli Hyperkalemia Remote history of DVT Diabetes mellitus type 2 History of prostate cancer. Alpha-1 antitrypsin deficiency, MS phenotype Hyperlipidemia Monitor vital signs Monitor CBC Monitor CMP Continue telemetry monitoring Encourage use of incentive spirometer Follow-up on blood cultures Continue oxygen supplementation Aggressive bronchopulmonary hygiene Continue use of BiPAP as needed Continue breathing treatments Continue IV Rocephin and azithromycin DC heparin, start patient on Eliquis 10 mg twice a day for 7 days followed by 5 milligrams twice a day Continue oral Lasix Regards to hyperlipidemia continue Lipitor and fenofibrate In regards to hypothyroid continue Synthyroid In regards to diabetes mellitus: Continue sliding scale insulin Pulmonology following Cardiology following Labs and medication were reviewed.. Continue same treatment. Continue with symptomatic treatment. Resume home medication. Monitor labs and vitals. DVT and GI prophylaxis. Further recommendations as per clinical course of the patient Dictation was produced using [employer] dictation software. please excuse any grammatical, word or spelling errors. Objective - Vital Signs Vital signs: Vital Signs Temp 98 F 05/02/23 08:15 Pulse 80 05/02/23 08:36 Resp 16 05/02/23 08:15 BP 113/70 05/02/23 08:15 Pulse Ox 89 L 05/02/23 08:19 FiO2 59 05/02/23 08:19 Intake & Output 05/01/23 05/02/23 05/02/23 18:59 06:59 18:59 Intake Total 788 350 180 Output Total 300 1100 Balance 488 -750 180 Weight 96.5 kg Intake: Intake, IV Titration 250 Amount Heparin Sod,Pork in 0.45% 250 NaCl 25,000 unit In 0.45 % NaCl 1 250ml.bag @ 18 UNITS/KG/HR 17.962 mls/hr IV .[id number] [facility] Rx#: [id number] Oral 538 350 180 Output: Urine 300 1100 Other: Voiding Method Urinal External Catheter - Labs CBC & Chem 7: 05/02/23 06:08 05/02/23 06:08 Labs: Abnormal Lab Results - Last 24 Hours (Table) 05/01/23 05/01/23 05/01/23 Range/Units 11:44 17:06 20:03 RBC (4.30-5.90) m/uL Hgb (13.0-17.5) gm/dL Hct (39.0-53.0) % Carbon Dioxide (22-30) mmol/L BUN (9-20) mg/dL Glucose (74-99) mg/dL POC Glucose (mg/dL) 281 H 182 H 241 H (70-110) mg/dL Total Protein (6.3-8.2) g/dL 05/02/23 05/02/23 05/02/23 Range/Units 06:06 06:08 06:08 RBC 3.82 L (4.30-5.90) m/uL Hgb 11.0 L (13.0-17.5) gm/dL Hct 33.6 L (39.0-53.0) % Carbon Dioxide 33 H (22-30) mmol/L BUN 22 H (9-20) mg/dL Glucose 152 H (74-99) mg/dL POC Glucose (mg/dL) 190 H (70-110) mg/dL Total Protein 5.8 L (6.3-8.2) g/dL Microbiology - Last 24 Hours (Table) 04/28/23 12:22 Blood Culture - Preliminary Blood
[2023-05-02 16:21] LABS: Glucose,Whole Blood 253 mg/dL (70-110)
[2023-05-02 20:29] LABS: Glucose,Whole Blood 231 mg/dL (70-110)
[2023-05-02] MEDS: cloZAPine 100 MG TAB PO SCH (20:32)
[2023-05-03 06:03] LABS: Glucose,Whole Blood 172 mg/dL (70-110)
[2023-05-03] MEDS: INSULIN ASPART (NovoLOG) 100 UNIT/ML VIAL SQ SCH ×4 (06:44→20:56)
[2023-05-03] MEDS: IPRATROPIUM-ALBUTEROL 3 ML NEB INHALATION SCH ×4 (07:40→19:39)
[2023-05-03] MEDS: SYMBICORT 80-4.5 MCG INHALER INHALATION SCH ×2 (07:40→19:39)
[2023-05-03] MEDS: FENOFIBRATE 160 MG TAB PO SCH (09:07)
[2023-05-03] MEDS: ATORVASTATIN 40 MG TAB PO SCH (09:07)
[2023-05-03] MEDS: APIXABAN 5 MG TAB PO SCH ×2 (09:07→20:55)
[2023-05-03] MEDS: FUROSEMIDE 40 MG TAB PO SCH ×2 (09:07→16:35)
[2023-05-03] MEDS: ESCITALOPRAM 10 MG TAB PO SCH (09:07)
[2023-05-03] MEDS: METOPROLOL SUCCINATE (ER) 25 MG TAB.ER.24H PO SCH (09:07)
[2023-05-03] MEDS: POTASSIUM CHLORIDE ER 20 MEQ TAB.ER PO SCH (09:07)
[2023-05-03] MEDS: MONTELUKAST 10 MG TAB PO SCH (09:07)
[2023-05-03] MEDS: OFLOXACIN 0.3% OPHTH DROPS 5 ML BOTTLE BOTH EYES SCH (09:07)
--- NOTE | 2023-05-03 09:46 | P.PN ---
Subjective Progress Note Date: 05/03/23 Principal diagnosis: Congestive heart failure The patient is a 67-year-old gentleman with mild cardiomyopathy and congestive heart failure and COPD as well as multiple comorbid conditions was admitted to the hospital with acute and chronic hypoxic respiratory failure secondary to COPD exacerbation and CHF exacerbation 05/01/2023 The patient was seen and evaluated this morning. He still short of breath. He his shortness of breath is slightly better compared to before. No pain in the chest. On examination he does have diminished breathing sounds bilaterally but no lower extremity edema noted. I feel the patient is euvolemic from the heart failure standpoint of. I am going to DC Lasix IV and switch the patient to oral Lasix. The COPD to be managed by the pulmonary team. May [id number] The patient was seen and evaluated this morning. He continues to be short of breath and he continues to be on high flow oxygen. From the cardiac standpoint of view, he seems to be euvolemic. He continues to be on oral Lasix. From the cardiac vascular standpoint of view, would continue the current medical regimen including the current dose of oral diuretics. The COPD to be managed by the pulmonary team. 05/03/2023 The patient was seen and evaluated this morning. The shortness of breath is slightly better. He still hypoxic requiring high flow oxygen. He was switched into oral diuretics. From the cardiovascular standpoint of view, I would continue the current medical regimen. Continue oral diuretics. Follow-up with the patient. He was diagnosed with pulmonary embolism and currently he is on anticoagulation. Assessment Acute hypoxic respiratory failure Severe COPD Heart failure which is diastolic Mild cardiomyopathy Pulmonary embolism Plan Continue the current dose of oral diuretics Continue the current medical regimen at this point beside that Objective - Vital Signs Vital signs: Vital Signs Temp 97.8 F 05/03/23 09:00 Pulse 8 L 05/03/23 09:02 Resp 24 05/03/23 09:00 BP 114/58 05/03/23 09:00 Pulse Ox 90 L 05/03/23 09:00 FiO2 63 05/03/23 09:00 Intake & Output 05/02/23 05/03/23 05/03/23 18:59 06:59 18:59 Intake Total 410 450 430 Output Total 1100 900 Balance -690 -450 430 Weight 97 kg Intake: IV 10 Invasive Line 1 10 Intake, IV Titration 50 Amount cefTRIAXone 2 gm In 50 Sodium Chloride 0.9% 50 ml @ 100 mls/hr IVPB Q24H [facility] Rx#:[id number] Oral 360 450 420 Output: Urine 1100 900 Other: Voiding Method Urinal External Catheter # Bowel Movements 0 - Labs CBC & Chem 7: 05/02/23 06:08 05/02/23 06:08 Labs: Abnormal Lab Results - Last 24 Hours (Table) 05/02/23 05/02/23 05/02/23 Range/Units 11:32 16:19 20:27 POC Glucose (mg/dL) 160 H 253 H 231 H (70-110) mg/dL 05/03/23 Range/Units 06:01 POC Glucose (mg/dL) 172 H (70-110) mg/dL
[2023-05-03 10:25] LABS: Basophils % (A) 0 %; Eosinophils # (A) 0.2 k/uL (0-0.7); Eosinophils % (A) 3 %; HCT 35.1 % (39.0-53.0); HGB 11.3 gm/dL (13.0-17.5); Hypochromasia Slight; Lymphocytes % (A) 19 %; MCH 28.3 pg (25.0-35.0); MCHC 32.1 g/dL (31.0-37.0); MCV 88.1 fL (80.0-100.0); Mean Platelet Volume 7.3; Monocytes # (A) 0.4 k/uL (0-1.0); Monocytes % (A) 7 %; Neutrophils # (A) 3.8 k/uL (1.3-7.7); Neutrophils % (A) 68 %; Platelet Count 369 k/uL (150-450); RBC 3.98 m/uL (4.30-5.90); RDW 14.6 % (11.5-15.5); WBC 5.5 k/uL (3.8-10.6)
[2023-05-03 10:44] LABS: ALT 46 U/L (4-49); AST 37 U/L (17-59); African American GFR (CKD) >90 (>60 ml/min/1.73 sqM); Albumin 3.6 g/dL (3.5-5.0); Alkaline Phosphatase 87 U/L (38-126); Anion Gap 10 mmol/L; Blood Urea Nitrogen 25 mg/dL (9-20); Calcium 9.3 mg/dL (8.4-10.2); Carbon Dioxide 34 mmol/L (22-30); Chloride 95 mmol/L (98-107); Glucose 195 mg/dL (74-99); Non-African American GFR(CKD) >90 (>60 ml/min/1.73 sqM); Potassium 4.4 mmol/L (3.5-5.1); Sodium 139 mmol/L (137-145); Total Bilirubin 0.3 mg/dL (0.2-1.3); Total Protein 5.9 g/dL (6.3-8.2)
[2023-05-03 11:40] LABS: Glucose,Whole Blood 186 mg/dL (70-110)
--- NOTE | 2023-05-03 13:26 | P.PN ---
Subjective Progress Note Date: 05/03/23 patient is 67-year-old gentleman with past medical history significant for COPD, chronic respiratory failure on 4 L of oxygen, diabetes mellitus, hyperlipidemia, CHF presented to the ER because of shortness of breath for 1 week. Patient stated that he was discharged from the hospital a week ago after being treated for similar complaints. Patient stated that ever since he has been home has been complaining of worsening shortness of breath. Shortness of breath is present at rest as well as exertion. Patient complaining of cough which is productive. Denies any fever or chills. Denies any chest pain. Denies any complaint of orthopnea or PND. Denies any complaint of nausea, vomiting abdominal pain. Because of the symptoms, presented to the ER Initial lab work done in the ER showed WBC 9, hemoglobin 11.2, platelet count 423, sodium 137, potassium 5.2, BUN 24, creatinine 0.73, glucose 164 UA negative for infection Influenza A and B not detected RSV not detected COVID-19 not detected EKG done in the ER showed heart rate of 103, no ST segment elevation or T-wave inversions seen Chest x-ray done in the ER showed bibasilar airspace disease with trace left pleural effusion Chest CTA done showed marked acute cardiopulmonary disease with diffuse severe interstitial density and left lower lobe consolidative density consistent either pneumonia or pulmonary edema, small left pleural effusion Patient admitted to medicine service 04/30. Patient seen and examined. Blood work done this morning showed WBC 7.1, hemoglobin 10.8, platelet count 383, sodium 137 potassium 3.9, BUN 21, creatinine 0.87. Currently on heated high flow. States he feels better. Still gets short of breath on exertion 05/01. Patient seen and examined. Patient currently on heated high flow at 60 L. Still gets short of breath on exertion. Denies any cough. Currently laying comfortably in the bed. 05/02. Patient seen and examined. Continues to be on heated high flow. Patient switch to Eliquis. 05/03. Patient seen and examined. States he remains unchanged compared to yesterday. Breathing is the same. Gets short of breath on exertion. Denies any palpitations. Denies any chest pain. Continues to be on heated high flow. Wanting to get in the chair today. REVIEW OF SYSTEMS: CONSTITUTIONAL: No fever, no malaise,. CARDIOVASCULAR: No chest pain, no palpitations, PULMONARY: As mentioned above GASTROINTESTINAL: No diarrhea, no nausea, no vomiting, no abdominal pain. NEUROLOGICAL: No headaches, no weakness, PHYSICAL EXAMINATION: GENERAL: The patient is alert and oriented x3, respiratory distress, chronically ill looking HEENT: Pupils are round and equally reacting to light. EOMI. No scleral icterus. No conjunctival pallor. Normocephalic, atraumatic. No pharyngeal erythema. No thyromegaly. CARDIOVASCULAR: S1 and S2 present. No murmurs, rubs, or gallops. PULMONARY: Coarse breath sounds bilaterally, no wheezing or crackles. ABDOMEN: Soft, nontender, nondistended, normoactive bowel sounds. No palpable organomegaly. MUSCULOSKELETAL: No joint swelling or deformity. EXTREMITIES: No cyanosis, clubbing, or pedal edema. NEUROLOGICAL: Gross neurological examination did not reveal any focal deficits. SKIN: No rashes. Assessment and plan Acute on chronic hypoxemic respiratory failure Acute COPD exacerbation Acute on chronic diastolic heart failure Bacterial pneumonia Pulmonary emboli Hyperkalemia Remote history of DVT Diabetes mellitus type 2 History of prostate cancer. Alpha-1 antitrypsin deficiency, MS phenotype Hyperlipidemia Monitor vital signs Monitor CBC Monitor CMP Continue telemetry monitoring Encourage use of incentive spirometer Follow-up on blood cultures Continue oxygen supplementation Aggressive bronchopulmonary hygiene Continue use of BiPAP as needed Continue breathing treatments Complete antibiotics Continue Eliquis 10 mg twice a day for 7 days followed by 5 milligrams twice a day Continue oral Lasix Regards to hyperlipidemia continue Lipitor and fenofibrate In regards to hypothyroid continue Synthyroid In regards to diabetes mellitus: Continue sliding scale insulin Pulmonology following Cardiology following Labs and medication were reviewed.. Continue same treatment. Continue with symptomatic treatment. Resume home medication. Monitor labs and vitals. DVT and GI prophylaxis. Further recommendations as per clinical course of the patient Dictation was produced using [employer] dictation software. please excuse any grammatical, word or spelling errors. Objective - Vital Signs Vital signs: Vital Signs Temp 98.2 F 05/03/23 11:22 Pulse 78 05/03/23 11:41 Resp 20 05/03/23 11:22 BP 116/68 05/03/23 11:22 Pulse Ox 91 L 05/03/23 11:22 FiO2 63 05/03/23 11:34 Intake & Output 05/02/23 05/03/23 05/03/23 18:59 06:59 18:59 Intake Total 410 450 430 Output Total 1100 900 Balance -690 -450 430 Weight 97 kg 97 kg Intake: IV 10 Invasive Line 1 10 Intake, IV Titration 50 Amount cefTRIAXone 2 gm In 50 Sodium Chloride 0.9% 50 ml @ 100 mls/hr IVPB Q24H [facility] Rx#:[id number] Oral 360 450 420 Output: Urine 1100 900 Other: Voiding Method Urinal External Catheter # Bowel Movements 0 - Labs CBC & Chem 7: 05/03/23 09:52 05/03/23 09:52 Labs: Abnormal Lab Results - Last 24 Hours (Table) 05/02/23 05/02/23 05/03/23 Range/Units 16:19 20:27 06:01 RBC (4.30-5.90) m/uL Hgb (13.0-17.5) gm/dL Hct (39.0-53.0) % Chloride (98-107) mmol/L Carbon Dioxide (22-30) mmol/L BUN (9-20) mg/dL Glucose (74-99) mg/dL POC Glucose (mg/dL) 253 H 231 H 172 H (70-110) mg/dL Total Protein (6.3-8.2) g/dL 05/03/23 05/03/23 05/03/23 Range/Units 09:52 09:52 11:39 RBC 3.98 L (4.30-5.90) m/uL Hgb 11.3 L (13.0-17.5) gm/dL Hct 35.1 L (39.0-53.0) % Chloride 95 L (98-107) mmol/L Carbon Dioxide 34 H (22-30) mmol/L BUN 25 H (9-20) mg/dL Glucose 195 H (74-99) mg/dL POC Glucose (mg/dL) 186 H (70-110) mg/dL Total Protein 5.9 L (6.3-8.2) g/dL
--- NOTE | 2023-05-03 15:03 | P.PN ---
Subjective Progress Note Date: 05/03/23 This is a 67-year-old male patient with known history of severe COPD, FEV1 of 40% of predicted and chronic hypoxic respiratory failure within on oxygen at 4 L/m nasal cannula. Patient is admitted on Trelegy Ellipta one ablation day and albuterol updrafts [id number]. He has multiple other medical issues. Along with chronic hypoxic respiratory failure, he has diabetes mellitus type 2, hyperlipidemia, history of prostate cancer, CHF, and previous history of DVT. He was hospitalized recently and may have to and at [facility]. At that time, the patient was seen by Dr. Winn, treated and discharged home.. His breathing got worse over the past 1 week. Occasional co ugh. Also his sputum production. No chest pain. Limited edema lower exam is bilaterally. The blood work shows a WBC count of 9.0, hemoglobin 11.2, normal coagulation profile, d-dimer is at 1.6, sodium levels of 137, BUN is 24 with a creatinine of 0.7 and a potassium levels at 5.2. The viral screen was negative. Chest x-ray is consistent with bibasilar airspace disease with trace left-sided pleural effusion. Due to his ongoing shortness of breath and hypoxemia. The patient was supported with BiPAP at pressure 14/7 with an FiO2 of 50%. The patient is seen today 04/29/2023 in follow-up on the selective care unit. He is currently resting in bed. He is awake. He is requiring BiPAP support currently 14/7 and 55% FiO2. Computed tomography scan of the chest revealed marked good acute Sammy pulmonary disease with diffuse severe interstitial density and left lower lobe consolidative density consistent with either pneumonia or pulmonary edema. Small left pleural effusion. Tiny pulmonary emboli suspected in the distal segment branches in the right lower lobe. Blood glucose 263. Hemoglobin A1c 7.1. He is currently on a heparin drip. Currently in a -400 ML balance. He remains on antibiotics in form of ceftriaxone and azithromycin. Continued on DuoNeb inhalations, Symbicort, Singulair. The patient is seen today 04/30/2023 in follow-up on the selective care unit. He is resting comfortably in bed. More awake and alert today. He is currently on AirVo at 60 L and 60% FiO2. Alternating with BiPAP as needed. Echocardiogram revealed mildly mildly impaired left ventricular systolic function with an ejection fraction 45-50%. He remains on a heparin drip. Blood culture pending. White count 7.1. Hemoglobin 10.8. Platelets 383. Sodium 137. Potassium 3.9. Bicarb 33. BUN 21. Creatinine 0.87. Glucose 169. He is continued on DuoNeb inhalations, Symbicort, Singulair. Antibiotics in the form of ceftriaxone. Remains on Lasix 40 mg IV every 8 hours. Currently in a -1 L balance. The patient is seen today 05/01/2023 in follow-up on the selective care unit. He is awake and alert. Resting comfortably in bed. Denies any worsening shortness of breath cough or congestion. He continues to require AirVo high flow oxygen at 60 L and 60% FiO2. Chest x-ray showing improved aeration bilaterally. Blood culture pending. White count 7.2. Hemodynamically 6. Platelets 374. Glucose 141. He has been transitioned to oral diuretics. Currently in a -1.4 L balance. Continued on DuoNeb inhalations, Symbicort, Singulair. Remains on antibiotics in the form of ceftriaxone. Remains on a heparin drip. The patient is seen today May 02 2023 in follow-up on the selective care unit. He is awake and alert in no acute distress. Feeling better each day. Chest x-ray is showing improvement. He is continued on AirVo high flow oxygen at 60 L and 60% FiO2 with O2 saturations 88-89%. Blood cultures revealed no growth. White count 6.2. Hemoglobin 11.0. Platelets 375. Sodium 138. Potassium 4.0. Bicarb 33. BUN 22. Creatinine 0.93. Glucose 152. He remains on DuoNeb inhalations, Symbicort, Singulair. Anticoagulated with Eliquis. Antibiotics in the form of ceftriaxone. The patient is seen today 05/03/2023 in follow-up on the selective care unit. He is resting comfortably in bed. Awake and alert in no acute distress. He is feeling better each day. He denies any worsening shortness of breath, cough or congestion. He is still requiring AirVo high flow oxygen at 60 L and 60% FiO2 with O2 saturation at 90-91%. He is continued on DuoNeb inhalations, Symbicort, Singulair. Remains on oral diuretics. Anticoagulated with Eliquis. White count 5.5. Hemoglobin 11.3. Platelets 369. Sodium 139. Potassium 4.4. Bicarb 34. BUN 25. Creatinine 0.84. Glucose 195. Completed ceftriaxone and azithromycin. Objective - Vital Signs Vital signs: Vital Signs Temp 98.2 F 05/03/23 11:22 Pulse 78 05/03/23 11:41 Resp 20 05/03/23 11:22 BP 116/68 05/03/23 11:22 Pulse Ox 91 L 05/03/23 11:22 FiO2 63 05/03/23 11:34 Intake & Output 05/02/23 05/03/23 05/03/23 18:59 06:59 18:59 Intake Total 410 450 560 Output Total 1100 900 600 Balance -690 -450 -40 Weight 97 kg 97 kg Intake: IV 20 Invasive Line 1 20 Intake, IV Titration 50 Amount cefTRIAXone 2 gm In 50 Sodium Chloride 0.9% 50 ml @ 100 mls/hr IVPB Q24H [facility] Rx#:[id number] Oral 360 450 540 Output: Urine 1100 900 600 Other: Voiding Method Urinal External Catheter # Bowel Movements 0 - Exam GENERAL EXAM: Alert, 67-year-old male, on AirVo high flow oxygen at 60 L and 60% FiO2, comfortable in no apparent distress. HEAD: Normocephalic. EYES: Normal reaction of pupils, equal size. NOSE: Clear with pink turbinates. THROAT: No erythema or exudates. NECK: No masses, no JVD. CHEST: No chest wall deformity. LUNGS: Equal air entry with crackles in the bilateral bases. CVS: S1 and S2 normal with no audible murmur, regular rhythm. ABDOMEN: No hepatosplenomegaly, normal bowel sounds, no guarding or rigidity. SPINE: No scoliosis or deformity SKIN: No rashes CENTRAL NERVOUS SYSTEM: No focal deficits, tone is normal in all 4 extremities. EXTREMITIES: There is no peripheral edema. No clubbing, no cyanosis. Peripheral pulses are intact. - Labs CBC & Chem 7: 05/03/23 09:52 05/03/23 09:52 Labs: Abnormal Lab Results - Last 24 Hours (Table) 05/02/23 05/02/23 05/03/23 Range/Units 16:19 20:27 06:01 RBC (4.30-5.90) m/uL Hgb (13.0-17.5) gm/dL Hct (39.0-53.0) % Chloride (98-107) mmol/L Carbon Dioxide (22-30) mmol/L BUN (9-20) mg/dL Glucose (74-99) mg/dL POC Glucose (mg/dL) 253 H 231 H 172 H (70-110) mg/dL Total Protein (6.3-8.2) g/dL 05/03/23 05/03/23 05/03/23 Range/Units 09:52 09:52 11:39 RBC 3.98 L (4.30-5.90) m/uL Hgb 11.3 L (13.0-17.5) gm/dL Hct 35.1 L (39.0-53.0) % Chloride 95 L (98-107) mmol/L Carbon Dioxide 34 H (22-30) mmol/L BUN 25 H (9-20) mg/dL Glucose 195 H (74-99) mg/dL POC Glucose (mg/dL) 186 H (70-110) mg/dL Total Protein 5.9 L (6.3-8.2) g/dL Assessment and Plan Assessment: Acute on chronic hypoxic respiratory failure. The patient is compensated hypercapnic respiratory failure. The patient developed significant hypoxemia. He has bibasilar pulmonary infiltrates, rule out pneumonia, rule out interstitial edema. Patient is currently on AirVo high flow oxygen at 60 L and 60% FiO2. Pro-calcitonin 0.14, treated with ceftriaxone and azithromycin. Remains on diuretics. Legionella screen negative. CT angiogram revealed tiny pulmonary emboli suspected in the distal segmental branches of the right lower lobe. Transitioned to Eliquis Chronic hypoxic respiratory failure limited on oxygen at 4 L Severe COPD with chronic hypoxic and hypercapnic respiratory failure with an FEV1 of 40% of predicted maintain on Trelegy Ellipta on outpatient basis Congestion heart failure Remote history of DVT Diabetes mellitus type 2 History of prostate cancer. Alpha-1 antitrypsin deficiency, MS phenotype Hyperlipidemia Plan: The patient was seen and evaluated Labs and medications reviewed Continue diuretics Transitioned to Eliquis Completed antibiotics Continue bronchodilators Titrate the FiO2 as tolerated Follow-up chest x-ray in a.m. We will continue to follow I have personally seen and examined the patient, performed the documentation and the assessment and plan as written. Number of minutes spent on the visit: 10.
[2023-05-03 16:28] LABS: Glucose,Whole Blood 230 mg/dL (70-110)
[2023-05-03 20:06] LABS: Glucose,Whole Blood 264 mg/dL (70-110)
[2023-05-03] MEDS: cloZAPine 100 MG TAB PO SCH (20:55)
[2023-05-04 05:57] LABS: Glucose,Whole Blood 170 mg/dL (70-110)
[2023-05-04] MEDS: INSULIN ASPART (NovoLOG) 100 UNIT/ML VIAL SQ SCH ×4 (06:29→20:38)
[2023-05-04] MEDS: IPRATROPIUM-ALBUTEROL 3 ML NEB INHALATION SCH ×4 (07:25→19:55)
[2023-05-04] MEDS: SYMBICORT 80-4.5 MCG INHALER INHALATION SCH ×2 (07:25→19:55)
--- NOTE | 2023-05-04 07:30 | XR ---
EXAMINATION TYPE: XR chest 1V portable DATE OF EXAM: 05/04/2023 HISTORY: Shortness of breath. COMPARISON: 05/01/2023 TECHNIQUE: Single view of the chest is submitted. FINDINGS: Demonstrated are scattered senescent parenchymal change. Diffuse Reticulonodular infiltrates persist although appear to be somewhat improved when compared to prior examination. The heart is stable. Hilar and mediastinal structures are within normal limits. Degenerative changes are seen of the dorsal spine. IMPRESSION: 1. Diffuse Reticulonodular infiltrates persist although appear to be somewhat improved when compared to prior examination.
[2023-05-04] MEDS: POTASSIUM CHLORIDE ER 20 MEQ TAB.ER PO SCH (07:41)
[2023-05-04] MEDS: FENOFIBRATE 160 MG TAB PO SCH (07:41)
[2023-05-04] MEDS: MONTELUKAST 10 MG TAB PO SCH (07:41)
[2023-05-04] MEDS: ESCITALOPRAM 10 MG TAB PO SCH (07:41)
[2023-05-04] MEDS: METOPROLOL SUCCINATE (ER) 25 MG TAB.ER.24H PO SCH (07:41)
[2023-05-04] MEDS: FUROSEMIDE 40 MG TAB PO SCH ×2 (07:41→16:38)
[2023-05-04] MEDS: APIXABAN 5 MG TAB PO SCH ×2 (07:41→20:37)
[2023-05-04] MEDS: ATORVASTATIN 40 MG TAB PO SCH (07:41)
--- NOTE | 2023-05-04 10:18 | P.PN ---
Subjective Progress Note Date: 05/04/23 Principal diagnosis: Congestive heart failure The patient is a 67-year-old gentleman with mild cardiomyopathy and congestive heart failure and COPD as well as multiple comorbid conditions was admitted to the hospital with acute and chronic hypoxic respiratory failure secondary to COPD exacerbation and CHF exacerbation 05/01/2023 The patient was seen and evaluated this morning. He still short of breath. He his shortness of breath is slightly better compared to before. No pain in the chest. On examination he does have diminished breathing sounds bilaterally but no lower extremity edema noted. I feel the patient is euvolemic from the heart failure standpoint of. I am going to DC Lasix IV and switch the patient to oral Lasix. The COPD to be managed by the pulmonary team. May 022022 The patient was seen and evaluated this morning. He continues to be short of breath and he continues to be on high flow oxygen. From the cardiac standpoint of view, he seems to be euvolemic. He continues to be on oral Lasix. From the cardiac vascular standpoint of view, would continue the current medical regimen including the current dose of oral diuretics. The COPD to be managed by the pulmonary team. 05/03/2023 The patient was seen and evaluated this morning. The shortness of breath is slightly better. He still hypoxic requiring high flow oxygen. He was switched into oral diuretics. From the cardiovascular standpoint of view, I would continue the current medical regimen. Continue oral diuretics. Follow-up with the patient. He was diagnosed with pulmonary embolism and currently he is on anticoagulation. 05/04/2023 Patient was seen and evaluated this morning. He seems to be stable. He seems to be euvolemic at this point. From a cardiac standpoint of view I would continue the current medical regimen including the current dose of oral diuret ics. The patient also is on anticoagulation. Assessment Acute hypoxic respiratory failure Severe COPD Heart failure which is diastolic Mild cardiomyopathy Pulmonary embolism Plan Continue the current dose of oral diuretics Continue the current medical regimen The patient can be transferred out of the 3 S. Objective - Vital Signs Vital signs: Vital Signs Temp 98.2 F 05/04/23 07:34 Pulse 80 05/04/23 07:36 Resp 18 05/04/23 03:57 BP 117/67 05/04/23 07:34 Pulse Ox 90 L 05/04/23 07:34 FiO2 60 05/04/23 07:34 Intake & Output 05/03/23 05/04/23 05/04/23 18:59 06:59 18:59 Intake Total 688 10 Output Total 1150 1850 Balance -462 -1850 10 Weight 97 kg Intake: IV 30 10 Invasive Line 1 20 Invasive Line 2 10 10 Oral 658 Output: Urine 1150 1850 Other: Voiding Method Urinal External Catheter External Catheter External Catheter - Labs CBC & Chem 7: 05/03/23 09:52 05/03/23 09:52 Labs: Abnormal Lab Results - Last 24 Hours (Table) 05/03/23 05/03/23 05/03/23 Range/Units 09:52 09:52 11:39 RBC 3.98 L (4.30-5.90) m/uL Hgb 11.3 L (13.0-17.5) gm/dL Hct 35.1 L (39.0-53.0) % Chloride 95 L (98-107) mmol/L Carbon Dioxide 34 H (22-30) mmol/L BUN 25 H (9-20) mg/dL Glucose 195 H (74-99) mg/dL POC Glucose (mg/dL) 186 H (70-110) mg/dL Total Protein 5.9 L (6.3-8.2) g/dL 05/03/23 05/03/23 05/04/23 Range/Units 16:26 20:05 05:56 RBC (4.30-5.90) m/uL Hgb (13.0-17.5) gm/dL Hct (39.0-53.0) % Chloride (98-107) mmol/L Carbon Dioxide (22-30) mmol/L BUN (9-20) mg/dL Glucose (74-99) mg/dL POC Glucose (mg/dL) 230 H 264 H 170 H (70-110) mg/dL Total Protein (6.3-8.2) g/dL Microbiology - Last 24 Hours (Table) 04/28/23 12:22 Blood Culture - Final Blood
[2023-05-04 11:50] LABS: Glucose,Whole Blood 310 mg/dL (70-110)
[2023-05-04] MEDS: OFLOXACIN 0.3% OPHTH DROPS 5 ML BOTTLE BOTH EYES SCH (12:22)
--- NOTE | 2023-05-04 12:58 | P.PN ---
Subjective Progress Note Date: 05/04/23 patient is 67-year-old gentleman with past medical history significant for COPD, chronic respiratory failure on 4 L of oxygen, diabetes mellitus, hyperlipidemia, CHF presented to the ER because of shortness of breath for 1 week. Patient stated that he was discharged from the hospital a week ago after being treated for similar complaints. Patient stated that ever since he has been home has been complaining of worsening shortness of breath. Shortness of breath is present at rest as well as exertion. Patient complaining of cough which is productive. Denies any fever or chills. Denies any chest pain. Denies any complaint of orthopnea or PND. Denies any complaint of nausea, vomiting abdominal pain. Because of the symptoms, presented to the ER Initial lab work done in the ER showed WBC 9, hemoglobin 11.2, platelet count 423, sodium 137, potassium 5.2, BUN 24, creatinine 0.73, glucose 164 UA negative for infection Influenza A and B not detected RSV not detected COVID-19 not detected EKG done in the ER showed heart rate of 103, no ST segment elevation or T-wave inversions seen Chest x-ray done in the ER showed bibasilar airspace disease with trace left pleural effusion Chest CTA done showed marked acute cardiopulmonary disease with diffuse severe interstitial density and left lower lobe consolidative density consistent either pneumonia or pulmonary edema, small left pleural effusion Patient admitted to medicine service 04/30. Patient seen and examined. Blood work done this morning showed WBC 7.1, hemoglobin 10.8, platelet count 383, sodium 137 potassium 3.9, BUN 21, creatinine 0.87. Currently on heated high flow. States he feels better. Still gets short of breath on exertion 05/01. Patient seen and examined. Patient currently on heated high flow at 60 L. Still gets short of breath on exertion. Denies any cough. Currently laying comfortably in the bed. 05/02. Patient seen and examined. Continues to be on heated high flow. Patient switch to Eliquis. 05/03. Patient seen and examined. States he remains unchanged compared to yesterday. Breathing is the same. Gets short of breath on exertion. Denies any palpitations. Denies any chest pain. Continues to be on heated high flow. Wanting to get in the chair today. 05/04. Patient seen and examined. Currently sitting upright in the chair., Currently on 15 L of oxygen via nasal cannula. States he feels much better compared to yesterday REVIEW OF SYSTEMS: CONSTITUTIONAL: No fever, no malaise,. CARDIOVASCULAR: No chest pain, no palpitations, PULMONARY: As mentioned above GASTROINTESTINAL: No diarrhea, no nausea, no vomiting, no abdominal pain. NEUROLOGICAL: No headaches, no weakness, PHYSICAL EXAMINATION: GENERAL: The patient is alert and oriented x3, respiratory distress, chronically ill looking HEENT: Pupils are round and equally reacting to light. EOMI. No scleral icterus. No conjunctival pallor. Normocephalic, atraumatic. No pharyngeal erythema. No thyromegaly. CARDIOVASCULAR: S1 and S2 present. No murmurs, rubs, or gallops. PULMONARY: Coarse breath sounds bilaterally, no wheezing or crackles. ABDOMEN: Soft, nontender, nondistended, normoactive bowel sounds. No palpable organomegaly. MUSCULOSKELETAL: No joint swelling or deformity. EXTREMITIES: No cyanosis, clubbing, or pedal edema. NEUROLOGICAL: Gross neurological examination did not reveal any focal deficits. SKIN: No rashes. Assessment and plan Acute on chronic hypoxemic respiratory failure Acute COPD exacerbation Acute on chronic diastolic heart failure Bacterial pneumonia Pulmonary emboli Hyperkalemia Remote history of DVT Diabetes mellitus type 2 History of prostate cancer. Alpha-1 antitrypsin deficiency, MS phenotype Hyperlipidemia Monitor vital signs Monitor CBC Monitor CMP Continue telemetry monitoring Encourage use of incentive spirometer Follow-up on blood cultures Continue oxygen supplementation Aggressive bronchopulmonary hygiene Continue use of BiPAP as needed Continue breathing treatments Complete antibiotics Continue Eliquis 10 mg twice a day for 7 days followed by 5 milligrams twice a day Continue oral Lasix 40 mg twice a day Regards to hyperlipidemia continue Lipitor and fenofibrate In regards to hypothyroid continue Synthyroid In regards to diabetes mellitus: Continue sliding scale insulin Pulmonology following Cardiology following Labs and medication were reviewed.. Continue same treatment. Continue with symptomatic treatment. Resume home medication. Monitor labs and vitals. DVT and GI prophylaxis. Further recommendations as per clinical course of the patient Dictation was produced using [employer] dictation software. please excuse any grammatical, word or spelling errors. Objective - Vital Signs Vital signs: Vital Signs Temp 97.3 F L 05/04/23 11:35 Pulse 78 05/04/23 11:35 Resp 20 05/04/23 12:26 BP 110/67 05/04/23 11:35 Pulse Ox 88 L 05/04/23 12:26 FiO2 60 05/04/23 11:35 Intake & Output 05/03/23 05/04/23 05/04/23 18:59 06:59 18:59 Intake Total 688 610 Output Total 1150 1850 525 Balance -462 -1850 85 Weight 97 kg Intake: IV 30 10 Invasive Line 1 20 Invasive Line 2 10 10 Oral 658 600 Output: Urine 1150 1850 525 Other: Voiding Method Urinal External Catheter External Catheter External Catheter # Voids 1 - Labs CBC & Chem 7: 05/03/23 09:52 05/03/23 09:52 Labs: Abnormal Lab Results - Last 24 Hours (Table) 05/03/23 05/03/23 05/04/23 Range/Units 16:26 20:05 05:56 POC Glucose (mg/dL) 230 H 264 H 170 H (70-110) mg/dL 05/04/23 Range/Units 11:48 POC Glucose (mg/dL) 310 H (70-110) mg/dL Microbiology - Last 24 Hours (Table) 04/28/23 12:22 Blood Culture - Final Blood
--- NOTE | 2023-05-04 15:00 | P.PN ---
Subjective Progress Note Date: 05/04/23 Principal diagnosis: Acute on chronic hypoxic respiratory failure, multifactorial This is a 67-year-old male patient with known history of severe COPD, FEV1 of 40% of predicted and chronic hypoxic respiratory failure within on oxygen at 4 L/m nasal cannula. Patient is admitted on Trelegy Ellipta one ablation day and albuterol updrafts [id number]. He has multiple other medical issues. Along with chronic hypoxic respiratory failure, he has diabetes mellitus type 2, hyperlipidemia, history of prostate cancer, CHF, and previous history of DVT. He was hospitalized recently and may have to and at [facility]. At that time, the patient was seen by Dr. Winn, treated and discharged home.. His breathing got worse over the past 1 week. Occasional cough. Also his sputum production. No chest pain. Limited edema lower exam is bilaterally. The blood work shows a WBC count of 9.0, hemoglobin 11.2, normal coagulation profile, d-dimer is at 1.6, sodium levels of 137, BUN is 24 with a creatinine of 0.7 and a potassium levels at 5.2. The viral screen was negative. Chest x-ray is consistent with bibasilar airspace disease with trace left-sided pleural effusion. Due to his ongoing shortness of breath and hypoxemia. The patient was supported with BiPAP at pressure 14/7 with an FiO2 of 50%. The patient is seen today 04/29/2023 in follow-up on the selective care unit. He is currently resting in bed. He is awake. He is requiring BiPAP support currently 14/7 and 55% FiO2. Computed tomography scan of the chest revealed marked good acute Sammy pulmonary disease with diffuse severe interstitial density and left lower lobe consolidative density consistent with either pneumonia or pulmonary edema. Small left pleural effusion. Tiny pulmonary emboli suspected in the distal segment branches in the right lower lobe. Blood glucose 263. Hemoglobin A1c 7.1. He is currently on a heparin drip. Currently in a -400 ML balance. He remains on antibiotics in form of ceftriaxone and azithromycin. Continued on DuoNeb inhalations, Symbicort, Singulair. The patient is seen today 04/30/2023 in follow-up on the selective care unit. He is resting comfortably in bed. More awake and alert today. He is currently on AirVo at 60 L and 60% FiO2. Alternating with BiPAP as needed. Echocardiogram revealed mildly mildly impaired left ventricular systolic function with an ejection fraction 45-50%. He remains on a heparin drip. Blood culture pending. White count 7.1. Hemoglobin 10.8. Platelets 383. Sodium 137. Potassium 3.9. Bicarb 33. BUN 21. Creatinine 0.87. Glucose 169. He is continued on DuoNeb inhalations, Symbicort, Singulair. Antibiotics in the form of ceftriaxone. Remains on Lasix 40 mg IV every 8 hours. Currently in a -1 L balance. The patient is seen today 05/01/2023 in follow-up on the selective care unit. He is awake and alert. Resting comfortably in bed. Denies any worsening shortness of breath cough or congestion. He continues to require AirVo high flow oxygen at 60 L and 60% FiO2. Chest x-ray showing improved aeration bilaterally. Blood culture pending. White count 7.2. Hemodynamically 6. Platelets 374. Glucose 141. He has been transitioned to oral diuretics. Currently in a -1.4 L balance. Continued on DuoNeb inhalations, Symbicort, Singulair. Remains on antibiotics in the form of ceftriaxone. Remains on a heparin drip. The patient is seen today May 02 2023 in follow-up on the selective care unit. He is awake and alert in no acute distress. Feeling better each day. Chest x-ray is showing improvement. He is continued on AirVo high flow oxygen at 60 L and 60% FiO2 with O2 saturations 88-89%. Blood cultures revealed no growth. White count 6.2. Hemoglobin 11.0. Platelets 375. Sodium 138. Potassium 4.0. Bicarb 33. BUN 22. Creatinine 0.93. Glucose 152. He remains on DuoNeb inhalations, Symbicort, Singulair. Anticoagulated with Eliquis. An tibiotics in the form of ceftriaxone. The patient is seen today 05/03/2023 in follow-up on the selective care unit. He is resting comfortably in bed. Awake and alert in no acute distress. He is feeling better each day. He denies any worsening shortness of breath, cough or congestion. He is still requiring AirVo high flow oxygen at 60 L and 60% FiO2 with O2 saturation at 90-91%. He is continued on DuoNeb inhalations, Symbicort, Singulair. Remains on oral diuretics. Anticoagulated with Eliquis. White count 5.5. Hemoglobin 11.3. Platelets 369. Sodium 139. Potassium 4.4. Bicarb 34. BUN 25. Creatinine 0.84. Glucose 195. Completed ceftriaxone and azithromycin. Patient was reevaluated today on 05/04/23, remains on airvo at 60% FiO2 and 45 L flow, and I plan to transition the patient to a high flow nasal cannula at 15 L/m. Clinically the patient is feeling better chest x-ray is definitely showing improvement nonetheless he remains to be relatively hypoxic. He is receiving treatment for his COPD, congestive heart failure, and for his suspected pulmonary embolism WBC count is 5.5 hemoglobin 11.3 basic metabolic profile is normal renal profile is normal Objective - Vital Signs Vital signs: Vital Signs Temp 97.3 F L 05/04/23 11:35 Pulse 78 05/04/23 11:35 Resp 20 05/04/23 12:26 BP 110/67 05/04/23 11:35 Pulse Ox 88 L 05/04/23 12:26 FiO2 60 05/04/23 11:35 Intake & Output 05/03/23 05/04/23 05/04/23 18:59 06:59 18:59 Intake Total 688 610 Output Total 1150 1850 525 Balance -462 -1850 85 Weight 97 kg Intake: IV 30 10 Invasive Line 1 20 Invasive Line 2 10 10 Oral 658 600 Output: Urine 1150 1850 525 Other: Voiding Method Urinal External Catheter External Catheter External Catheter # Voids 1 - Exam Physical Exam: Revealed a 67-year-old white male in no distress on airvo with high flow and high FiO2 Head: Atraumatic, normocephalic HEENT:[Neck is supple.] [No neck masses.] [No thyromegaly.] [No JVD.] Chest: [Minimal fine crackles at the bases diminished breath sound bilaterally anteriorly. Cardiac Exam: [Normal S1 and S2, no S3 gallop, no murmur.] Abdomen: [Soft, nontender, no megaly, no rebound, no guarding, normal bowel sounds.] Extremities: [No clubbing, no edema, no cyanosis.] Neurological Exam: [No focal neurologic deficit.] Alert oriented 3 Psychiatric: Normal mood, affect and normal mental status examination. Skin: No rash - Labs CBC & Chem 7: 05/03/23 09:52 05/03/23 09:52 Labs: Abnormal Lab Results - Last 24 Hours (Table) 05/03/23 05/03/23 05/04/23 Range/Units 16:26 20:05 05:56 POC Glucose (mg/dL) 230 H 264 H 170 H (70-110) mg/dL 05/04/23 Range/Units 11:48 POC Glucose (mg/dL) 310 H (70-110) mg/dL Microbiology - Last 24 Hours (Table) 04/28/23 12:22 Blood Culture - Final Blood Assessment and Plan Assessment: Impression: Acute on chronic hypoxic respiratory failure and decompensated chronic hypercapnic resource failure Severe COPD, FEV1 of 40% Acute pulmonary embolism Remote history of DVT Type 2 diabetes Dyslipidemia Chronic diastolic congestive heart failure Pulmonary hypertension Recommendation: Continue bronchodilators Continue diuretics Continue anticoagulation therapy/eliquis Titrate FiO2 accordingly Not quite ready for discharge planning since the patient is requiring relatively high FiO2 We'll transition to patient to 15 L high flow nasal cannula Except O2 saturation in the high 80s and low 90s We'll continue to follow Time with Patient: Less than 30
[2023-05-04 16:31] LABS: Glucose,Whole Blood 171 mg/dL (70-110)
[2023-05-04 20:06] LABS: Glucose,Whole Blood 188 mg/dL (70-110)
[2023-05-04] MEDS: cloZAPine 100 MG TAB PO SCH (20:37)
[2023-05-05 06:04] LABS: Glucose,Whole Blood 185 mg/dL (70-110)
[2023-05-05] MEDS: INSULIN ASPART (NovoLOG) 100 UNIT/ML VIAL SQ SCH ×4 (06:22→20:31)
[2023-05-05] MEDS: IPRATROPIUM-ALBUTEROL 3 ML NEB INHALATION SCH ×4 (08:43→20:40)
[2023-05-05] MEDS: SYMBICORT 80-4.5 MCG INHALER INHALATION SCH ×2 (08:43→20:40)
[2023-05-05] MEDS: ATORVASTATIN 40 MG TAB PO SCH (09:20)
[2023-05-05] MEDS: METOPROLOL SUCCINATE (ER) 25 MG TAB.ER.24H PO SCH (09:20)
[2023-05-05] MEDS: APIXABAN 5 MG TAB PO SCH ×2 (09:20→20:30)
[2023-05-05] MEDS: ESCITALOPRAM 10 MG TAB PO SCH (09:20)
[2023-05-05] MEDS: FUROSEMIDE 40 MG TAB PO SCH ×2 (09:20→16:38)
[2023-05-05] MEDS: POTASSIUM CHLORIDE ER 20 MEQ TAB.ER PO SCH (09:20)
[2023-05-05] MEDS: OFLOXACIN 0.3% OPHTH DROPS 5 ML BOTTLE BOTH EYES SCH (09:20)
[2023-05-05] MEDS: FENOFIBRATE 160 MG TAB PO SCH (09:20)
[2023-05-05] MEDS: MONTELUKAST 10 MG TAB PO SCH (09:20)
[2023-05-05 09:40] LABS: Basophils % (A) 1 %; Eosinophils # (A) 0.2 k/uL (0-0.7); Eosinophils % (A) 3 %; HCT 36.7 % (39.0-53.0); HGB 12.2 gm/dL (13.0-17.5); Lymphocytes # (A) 1.5 k/uL (1.0-4.8); Lymphocytes % (A) 22 %; MCH 28.8 pg (25.0-35.0); MCHC 33.1 g/dL (31.0-37.0); MCV 86.9 fL (80.0-100.0); Mean Platelet Volume 7.2; Monocytes # (A) 0.5 k/uL (0-1.0); Monocytes % (A) 7 %; Neutrophils # (A) 4.4 k/uL (1.3-7.7); Neutrophils % (A) 64 %; Platelet Count 344 k/uL (150-450); RBC 4.22 m/uL (4.30-5.90); RDW 14.4 % (11.5-15.5); WBC 6.9 k/uL (3.8-10.6)
[2023-05-05 10:07] LABS: ALT 38 U/L (4-49); AST 23 U/L (17-59); African American GFR (CKD) >90 (>60 ml/min/1.73 sqM); Albumin 3.7 g/dL (3.5-5.0); Alkaline Phosphatase 98 U/L (38-126); Anion Gap 7 mmol/L; Blood Urea Nitrogen 33 mg/dL (9-20); Calcium 9.2 mg/dL (8.4-10.2); Carbon Dioxide 35 mmol/L (22-30); Chloride 93 mmol/L (98-107); Glucose 217 mg/dL (74-99); Non-African American GFR(CKD) 90 (>60 ml/min/1.73 sqM); Potassium 4.2 mmol/L (3.5-5.1); Sodium 135 mmol/L (137-145); Total Bilirubin 0.4 mg/dL (0.2-1.3)
--- NOTE | 2023-05-05 11:10 | P.PN ---
Subjective Progress Note Date: 05/05/23 Principal diagnosis: Congestive heart failure The patient is a 67-year-old gentleman with mild cardiomyopathy and congestive heart failure and COPD as well as multiple comorbid conditions was admitted to the hospital with acute and chronic hypoxic respiratory failure secondary to COPD exacerbation and CHF exacerbation 05/01/2023 The patient was seen and evaluated this morning. He still short of breath. He his shortness of breath is slightly better compared to before. No pain in the chest. On examination he does have diminished breathing sounds bilaterally but no lower extremity edema noted. I feel the patient is euvolemic from the heart failure standpoint of. I am going to DC Lasix IV and switch the patient to oral Lasix. The COPD to be managed by the pulmonary team. May 022022 The patient was seen and evaluated this morning. He continues to be short of breath and he continues to be on high flow oxygen. From the cardiac standpoint of view, he seems to be euvolemic. He continues to be on oral Lasix. From the cardiac vascular standpoint of view, would continue the current medical regimen including the current dose of oral diuretics. The COPD to be managed by the pulmonary team. 05/03/2023 The patient was seen and evaluated this morning. The shortness of breath is slightly better. He still hypoxic requiring high flow oxygen. He was switched into oral diuretics. From the cardiovascular standpoint of view, I would continue the current medical regimen. Continue oral diuretics. Follow-up with the patient. He was diagnosed with pulmonary embolism and currently he is on anticoagulation. 05/04/2023 Patient was seen and evaluated this morning. He seems to be stable. He seems to be euvolemic at this point. From a cardiac standpoint of view I would continue the current medical regimen including the current dose of oral diuret ics. The patient also is on anticoagulation. 05/05/2023 The patient was evaluated this morning. He remains stable from the heart failure standpoint of view and is euvolemic. He remains on high flow oxygen for severe COPD. He is on anticoagulation for pulmonary embolism. From the cardiovascular standpoint of view, we will continue current medical regimen including the current dose of oral diuretics and anticoagulation and we'll follow-up with the patient on when necessary Assessment Acute hypoxic respiratory failure Severe COPD Heart failure which is diastolic Mild cardiomyopathy Pulmonary embolism Plan Continue the current dose of oral diuretics Continue the current medical regimen The patient can be transferred out of the 3 S. Follow-up with the patient on when necessary Objective - Vital Signs Vital signs: Vital Signs Temp 98.0 F 05/05/23 09:13 Pulse 74 05/05/23 09:13 Resp 20 05/05/23 09:13 BP 120/61 05/05/23 09:13 Pulse Ox 94 L 05/05/23 09:13 FiO2 60 05/04/23 11:35 Intake & Output 05/04/23 05/05/23 05/05/23 18:59 06:59 18:59 Intake Total 968 10 Output Total 525 Balance 443 10 Intake: IV 10 10 Invasive Line 2 10 10 Oral 958 Output: Urine 525 Other: Voiding Method External Catheter Toilet Toilet Urinal Urinal # Voids 1 2 - Labs CBC & Chem 7: 05/05/23 09:13 05/05/23 09:13 Labs: Abnormal Lab Results - Last 24 Hours (Table) 05/04/23 05/04/23 05/04/23 Range/Units 11:48 16:29 20:05 RBC (4.30-5.90) m/uL Hgb (13.0-17.5) gm/dL Hct (39.0-53.0) % Sodium (137-145) mmol/L Chloride (98-107) mmol/L Carbon Dioxide (22-30) mmol/L BUN (9-20) mg/dL Glucose (74-99) mg/dL POC Glucose (mg/dL) 310 H 171 H 188 H (70-110) mg/dL Total Protein (6.3-8.2) g/dL 05/05/23 05/05/23 05/05/23 Range/Units 06:03 09:13 09:13 RBC 4.22 L (4.30-5.90) m/uL Hgb 12.2 L (13.0-17.5) gm/dL Hct 36.7 L (39.0-53.0) % Sodium 135 L (137-145) mmol/L Chloride 93 L (98-107) mmol/L Carbon Dioxide 35 H (22-30) mmol/L BUN 33 H (9-20) mg/dL Glucose 217 H (74-99) mg/dL POC Glucose (mg/dL) 185 H (70-110) mg/dL Total Protein 6.0 L (6.3-8.2) g/dL
[2023-05-05 11:29] LABS: Glucose,Whole Blood 222 mg/dL (70-110)
--- NOTE | 2023-05-05 12:45 | P.PN ---
Subjective Progress Note Date: 05/05/23 patient is 67-year-old gentleman with past medical history significant for COPD, chronic respiratory failure on 4 L of oxygen, diabetes mellitus, hyperlipidemia, CHF presented to the ER because of shortness of breath for 1 week. Patient stated that he was discharged from the hospital a week ago after being treated for similar complaints. Patient stated that ever since he has been home has been complaining of worsening shortness of breath. Shortness of breath is present at rest as well as exertion. Patient complaining of cough which is productive. Denies any fever or chills. Denies any chest pain. Denies any complaint of orthopnea or PND. Denies any complaint of nausea, vomiting abdominal pain. Because of the symptoms, presented to the ER Initial lab work done in the ER showed WBC 9, hemoglobin 11.2, platelet count 423, sodium 137, potassium 5.2, BUN 24, creatinine 0.73, glucose 164 UA negative for infection Influenza A and B not detected RSV not detected COVID-19 not detected EKG done in the ER showed heart rate of 103, no ST segment elevation or T-wave inversions seen Chest x-ray done in the ER showed bibasilar airspace disease with trace left pleural effusion Chest CTA done showed marked acute cardiopulmonary disease with diffuse severe interstitial density and left lower lobe consolidative density consistent either pneumonia or pulmonary edema, small left pleural effusion Patient admitted to medicine service 04/30. Patient seen and examined. Blood work done this morning showed WBC 7.1, hemoglobin 10.8, platelet count 383, sodium 137 potassium 3.9, BUN 21, creatinine 0.87. Currently on heated high flow. States he feels better. Still gets short of breath on exertion 05/01. Patient seen and examined. Patient currently on heated high flow at 60 L. Still gets short of breath on exertion. Denies any cough. Currently laying comfortably in the bed. 05/02. Patient seen and examined. Continues to be on heated high flow. Patient switch to Eliquis. 05/03. Patient seen and examined. States he remains unchanged compared to yesterday. Breathing is the same. Gets short of breath on exertion. Denies any palpitations. Denies any chest pain. Continues to be on heated high flow. Wanting to get in the chair today. 05/04. Patient seen and examined. Currently sitting upright in the chair., Currently on 15 L of oxygen via nasal cannula. States he feels much better compared to yesterday 05/05. Patient seen and examined. Continues to be on nasal cannula, oxygen improved to 12 L. Laying comfortably in the bed. Denies any shortness of breath at rest, only gets short of breath on exertion. Denies any productive cough REVIEW OF SYSTEMS: CONSTITUTIONAL: No fever, no malaise,. CARDIOVASCULAR: No chest pain, no palpitations, PULMONARY: As mentioned above GASTROINTESTINAL: No diarrhea, no nausea, no vomiting, no abdominal pain. NEUROLOGICAL: No headaches, no weakness, PHYSICAL EXAMINATION: GENERAL: The patient is alert and oriented x3, respiratory distress, chronically ill looking HEENT: Pupils are round and equally reacting to light. EOMI. No scleral icterus. No conjunctival pallor. Normocephalic, atraumatic. No pharyngeal erythema. No thyromegaly. CARDIOVASCULAR: S1 and S2 present. No murmurs, rubs, or gallops. PULMONARY: Coarse breath sounds bilaterally, no wheezing or crackles. ABDOMEN: Soft, nontender, nondistended, normoactive bowel sounds. No palpable organomegaly. MUSCULOSKELETAL: No joint swelling or deformity. EXTREMITIES: No cyanosis, clubbing, or pedal edema. NEUROLOGICAL: Gross neurological examination did not reveal any focal deficits. SKIN: No rashes. Assessment and plan Acute on chronic hypoxemic respiratory failure Acute COPD exacerbation Acute on chronic diastolic heart failure Bacterial pneumonia Pulmonary emboli Hyperkalemia Remote history of DVT Diabetes mellitus type 2 History of prostate cancer. Alpha-1 antitrypsin deficiency, MS phenotype Hyperlipidemia Monitor vital signs Monitor CBC Monitor CMP Continue telemetry monitoring Encourage use of incentive spirometer Follow-up on blood cultures Continue oxygen supplementation Aggressive bronchopulmonary hygiene Continue use of BiPAP as needed Continue breathing treatments Complete antibiotics Continue Eliquis 10 mg twice a day for 7 days followed by 5 milligrams twice a day Continue oral Lasix 40 mg twice a day Regards to hyperlipidemia continue Lipitor and fenofibrate In regards to hypothyroid continue Synthyroid In regards to diabetes mellitus: Continue sliding scale insulin Pulmonology following Cardiology following Labs and medication were reviewed.. Continue same treatment. Continue with symptomatic treatment. Resume home medication. Monitor labs and vitals. DVT and GI prophylaxis. Further recommendations as per clinical course of the patient Dictation was produced using [employer] dictation software. please excuse any grammatical, word or spelling errors. Objective - Vital Signs Vital signs: Vital Signs Temp 98.0 F 05/05/23 11:20 Pulse 72 05/05/23 11:42 Resp 18 05/05/23 11:42 BP 103/59 05/05/23 11:20 Pulse Ox 90 L 05/05/23 11:42 FiO2 60 05/04/23 11:35 Intake & Output 05/04/23 05/05/23 05/05/23 18:59 06:59 18:59 Intake Total 968 10 Output Total 525 Balance 443 10 Intake: IV 10 10 Invasive Line 2 10 10 Oral 958 Output: Urine 525 Other: Voiding Method External Catheter Toilet Toilet Urinal Urinal # Voids 1 2 - Labs CBC & Chem 7: 05/05/23 09:13 05/05/23 09:13 Labs: Abnormal Lab Results - Last 24 Hours (Table) 05/04/23 05/04/23 05/05/23 Range/Units 16:29 20:05 06:03 RBC (4.30-5.90) m/uL Hgb (13.0-17.5) gm/dL Hct (39.0-53.0) % Sodium (137-145) mmol/L Chloride (98-107) mmol/L Carbon Dioxide (22-30) mmol/L BUN (9-20) mg/dL Glucose (74-99) mg/dL POC Glucose (mg/dL) 171 H 188 H 185 H (70-110) mg/dL Total Protein (6.3-8.2) g/dL 05/05/23 05/05/23 05/05/23 Range/Units 09:13 09:13 11:28 RBC 4.22 L (4.30-5.90) m/uL Hgb 12.2 L (13.0-17.5) gm/dL Hct 36.7 L (39.0-53.0) % Sodium 135 L (137-145) mmol/L Chloride 93 L (98-107) mmol/L Carbon Dioxide 35 H (22-30) mmol/L BUN 33 H (9-20) mg/dL Glucose 217 H (74-99) mg/dL POC Glucose (mg/dL) 222 H (70-110) mg/dL Total Protein 6.0 L (6.3-8.2) g/dL
--- NOTE | 2023-05-05 15:41 | P.PN ---
Subjective Progress Note Date: 05/05/23 Principal diagnosis: Acute on chronic hypoxic respiratory failure, multifactorial This is a 67-year-old male patient with known history of severe COPD, FEV1 of 40% of predicted and chronic hypoxic respiratory failure within on oxygen at 4 L/m nasal cannula. Patient is admitted on Trelegy Ellipta one ablation day and albuterol updrafts [id number]. He has multiple other medical issues. Along with chronic hypoxic respiratory failure, he has diabetes mellitus type 2, hyperlipidemia, history of prostate cancer, CHF, and previous history of DVT. He was hospitalized recently and may have to and at [facility]. At that time, the patient was seen by Dr. Winn, treated and discharged home.. His breathing got worse over the past 1 week. Occasional cough. Also his sputum production. No chest pain. Limited edema lower exam is bilaterally. The blood work shows a WBC count of 9.0, hemoglobin 11.2, normal coagulation profile, d-dimer is at 1.6, sodium levels of 137, BUN is 24 with a creatinine of 0.7 and a potassium levels at 5.2. The viral screen was negative. Chest x-ray is consistent with bibasilar airspace disease with trace left-sided pleural effusion. Due to his ongoing shortness of breath and hypoxemia. The patient was supported with BiPAP at pressure 14/7 with an FiO2 of 50%. The patient is seen today 04/29/2023 in follow-up on the selective care unit. He is currently resting in bed. He is awake. He is requiring BiPAP support currently 14/7 and 55% FiO2. Computed tomography scan of the chest revealed marked good acute Sammy pulmonary disease with diffuse severe interstitial density and left lower lobe consolidative density consistent with either pneumonia or pulmonary edema. Small left pleural effusion. Tiny pulmonary emboli suspected in the distal segment branches in the right lower lobe. Blood glucose 263. Hemoglobin A1c 7.1. He is currently on a heparin drip. Currently in a -400 ML balance. He remains on antibiotics in form of ceftriaxone and azithromycin. Continued on DuoNeb inhalations, Symbicort, Singulair. The patient is seen today 04/30/2023 in follow-up on the selective care unit. He is resting comfortably in bed. More awake and alert today. He is currently on AirVo at 60 L and 60% FiO2. Alternating with BiPAP as needed. Echocardiogram revealed mildly mildly impaired left ventricular systolic function with an ejection fraction 45-50%. He remains on a heparin drip. Blood culture pending. White count 7.1. Hemoglobin 10.8. Platelets 383. Sodium 137. Potassium 3.9. Bicarb 33. BUN 21. Creatinine 0.87. Glucose 169. He is continued on DuoNeb inhalations, Symbicort, Singulair. Antibiotics in the form of ceftriaxone. Remains on Lasix 40 mg IV every 8 hours. Currently in a -1 L balance. The patient is seen today 05/01/2023 in follow-up on the selective care unit. He is awake and alert. Resting comfortably in bed. Denies any worsening shortness of breath cough or congestion. He continues to require AirVo high flow oxygen at 60 L and 60% FiO2. Chest x-ray showing improved aeration bilaterally. Blood culture pending. White count 7.2. Hemodynamically 6. Platelets 374. Glucose 141. He has been transitioned to oral diuretics. Currently in a -1.4 L balance. Continued on DuoNeb inhalations, Symbicort, Singulair. Remains on antibiotics in the form of ceftriaxone. Remains on a heparin drip. The patient is seen today May 02 2023 in follow-up on the selective care unit. He is awake and alert in no acute distress. Feeling better each day. Chest x-ray is showing improvement. He is continued on AirVo high flow oxygen at 60 L and 60% FiO2 with O2 saturations 88-89%. Blood cultures revealed no growth. White count 6.2. Hemoglobin 11.0. Platelets 375. Sodium 138. Potassium 4.0. Bicarb 33. BUN 22. Creatinine 0.93. Glucose 152. He remains on DuoNeb inhalations, Symbicort, Singulair. Anticoagulated with Eliquis. An tibiotics in the form of ceftriaxone. The patient is seen today 05/03/2023 in follow-up on the selective care unit. He is resting comfortably in bed. Awake and alert in no acute distress. He is feeling better each day. He denies any worsening shortness of breath, cough or congestion. He is still requiring AirVo high flow oxygen at 60 L and 60% FiO2 with O2 saturation at 90-91%. He is continued on DuoNeb inhalations, Symbicort, Singulair. Remains on oral diuretics. Anticoagulated with Eliquis. White count 5.5. Hemoglobin 11.3. Platelets 369. Sodium 139. Potassium 4.4. Bicarb 34. BUN 25. Creatinine 0.84. Glucose 195. Completed ceftriaxone and azithromycin. Patient was reevaluated today on 05/04/23, remains on airvo at 60% FiO2 and 45 L flow, and I plan to transition the patient to a high flow nasal cannula at 15 L/m. Clinically the patient is feeling better chest x-ray is definitely showing improvement nonetheless he remains to be relatively hypoxic. He is receiving treatment for his COPD, congestive heart failure, and for his suspected pulmonary embolism WBC count is 5.5 hemoglobin 11.3 basic metabolic profile is normal renal profile is normal Reevaluated today on 05/05/2023, patient is now on 15 L high flow nasal cannula, O2 saturations 94%, we'll try to cut down if possible to 12 L is sitting the patient maintains high O2 saturation in the 80s or low 90s. Clinically the patient is feeling better, breathing easier, and his chest x-ray has been showing significant improvement in his interstitial edema. Patient does have severe underlying COPD which is another contributing factor to his chronic hypoxic respiratory failure, remains on eliquis also for suspected acute pulmonary embolism. WBC count today is 6.9 hemoglobin is 12.2 electrodes are normal renal profile is normal Objective - Vital Signs Vital signs: Vital Signs Temp 98.3 F 05/05/23 14:23 Pulse 76 05/05/23 15:31 Resp 20 05/05/23 14:23 BP 122/59 05/05/23 14:23 Pulse Ox 94 L 05/05/23 14:23 FiO2 60 05/04/23 11:35 Intake & Output 05/04/23 05/05/23 05/05/23 18:59 06:59 18:59 Intake Total 968 128 Output Total 525 675 Balance 443 -547 Intake: IV 10 10 Invasive Line 2 10 10 Oral 958 118 Output: Urine 525 675 Other: Voiding Method External Catheter Toilet Toilet Urinal Urinal # Voids 1 2 1 - Exam Physical Exam: Revealed a 67-year-old white male in no distress on 15 L high flow nasal cannula with O2 sat of 94% Head: Atraumatic, normocephalic HEENT:[Neck is supple.] [No neck masses.] [No thyromegaly.] [No JVD.] Chest: [[employer]or breath sound bilaterally no crackles or rhonchi or wheezes Cardiac Exam: [Normal S1 and S2, no S3 gallop, no murmur.] Abdomen: [Soft, nontender, no megaly, no rebound, no guarding, normal bowel sounds.] Extremities: [No clubbing, no edema, no cyanosis.] Neurological Exam: [No focal neurologic deficit.] Alert oriented 3 Psychiatric: Normal mood, affect and normal mental status examination. Skin: No rash - Labs CBC & Chem 7: 05/05/23 09:13 05/05/23 09:13 Labs: Abnormal Lab Results - Last 24 Hours (Table) 05/04/23 05/04/23 05/05/23 Range/Units 16:29 20:05 06:03 RBC (4.30-5.90) m/uL Hgb (13.0-17.5) gm/dL Hct (39.0-53.0) % Sodium (137-145) mmol/L Chloride (98-107) mmol/L Carbon Dioxide (22-30) mmol/L BUN (9-20) mg/dL Glucose (74-99) mg/dL POC Glucose (mg/dL) 171 H 188 H 185 H (70-110) mg/dL Total Protein (6.3-8.2) g/dL 05/05/23 05/05/23 05/05/23 Range/Units 09:13 09:13 11:28 RBC 4.22 L (4.30-5.90) m/uL Hgb 12.2 L (13.0-17.5) gm/dL Hct 36.7 L (39.0-53.0) % Sodium 135 L (137-145) mmol/L Chloride 93 L (98-107) mmol/L Carbon Dioxide 35 H (22-30) mmol/L BUN 33 H (9-20) mg/dL Glucose 217 H (74-99) mg/dL POC Glucose (mg/dL) 222 H (70-110) mg/dL Total Protein 6.0 L (6.3-8.2) g/dL Assessment and Plan Assessment: Impression: Acute on chronic hypoxic respiratory failure and decompensated chronic hypercapnic resource failure Severe COPD, FEV1 of 40% Acute pulmonary embolism Remote history of DVT Type 2 diabetes Dyslipidemia Chronic diastolic congestive heart failure Pulmonary hypertension Recommendation: Continue high flow nasal cannula and titrate accordingly Continue bronchodilators Continue diuretics Continue anticoagulation therapy/eliquis Titrate FiO2 accordingly No plans for discharge planning at this time considering the patient is still requiring high FiO2 accept saturations in the high 80s and low 90s We'll continue to follow Time with Patient: Less than 30
[2023-05-05 16:31] LABS: Glucose,Whole Blood 219 mg/dL (70-110)
[2023-05-05 19:54] LABS: Glucose,Whole Blood 269 mg/dL (70-110)
[2023-05-05] MEDS: cloZAPine 100 MG TAB PO SCH (20:29)
[2023-05-06 06:27] LABS: Glucose,Whole Blood 198 mg/dL (70-110)
[2023-05-06] MEDS: INSULIN ASPART (NovoLOG) 100 UNIT/ML VIAL SQ SCH ×4 (06:31→21:32)
[2023-05-06] MEDS: FUROSEMIDE 40 MG TAB PO SCH ×2 (08:12→16:09)
[2023-05-06] MEDS: OFLOXACIN 0.3% OPHTH DROPS 5 ML BOTTLE BOTH EYES SCH (08:12)
[2023-05-06] MEDS: METOPROLOL SUCCINATE (ER) 25 MG TAB.ER.24H PO SCH (08:12)
[2023-05-06] MEDS: POTASSIUM CHLORIDE ER 20 MEQ TAB.ER PO SCH (08:12)
[2023-05-06] MEDS: ESCITALOPRAM 10 MG TAB PO SCH (08:12)
[2023-05-06] MEDS: FENOFIBRATE 160 MG TAB PO SCH (08:12)
[2023-05-06] MEDS: ATORVASTATIN 40 MG TAB PO SCH (08:12)
[2023-05-06] MEDS: MONTELUKAST 10 MG TAB PO SCH (08:12)
[2023-05-06] MEDS: APIXABAN 5 MG TAB PO SCH ×2 (08:12→21:33)
[2023-05-06] MEDS: IPRATROPIUM-ALBUTEROL 3 ML NEB INHALATION SCH ×4 (09:14→20:53)
[2023-05-06] MEDS: SYMBICORT 80-4.5 MCG INHALER INHALATION SCH ×2 (09:14→20:53)
[2023-05-06 11:28] LABS: Glucose,Whole Blood 310 mg/dL (70-110)
[2023-05-06] MEDS: predniSONE 20 MG TAB PO SCH (11:55)
--- NOTE | 2023-05-06 12:09 | P.PN ---
Subjective Progress Note Date: 05/06/23 patient is 67-year-old gentleman with past medical history significant for COPD, chronic respiratory failure on 4 L of oxygen, diabetes mellitus, hyperlipidemia, CHF presented to the ER because of shortness of breath for 1 week. Patient stated that he was discharged from the hospital a week ago after being treated for similar complaints. Patient stated that ever since he has been home has been complaining of worsening shortness of breath. Shortness of breath is present at rest as well as exertion. Patient complaining of cough which is productive. Denies any fever or chills. Denies any chest pain. Denies any complaint of orthopnea or PND. Denies any complaint of nausea, vomiting abdominal pain. Because of the symptoms, presented to the ER Initial lab work done in the ER showed WBC 9, hemoglobin 11.2, platelet count 423, sodium 137, potassium 5.2, BUN 24, creatinine 0.73, glucose 164 UA negative for infection Influenza A and B not detected RSV not detected COVID-19 not detected EKG done in the ER showed heart rate of 103, no ST segment elevation or T-wave inversions seen Chest x-ray done in the ER showed bibasilar airspace disease with trace left pleural effusion Chest CTA done showed marked acute cardiopulmonary disease with diffuse severe interstitial density and left lower lobe consolidative density consistent either pneumonia or pulmonary edema, small left pleural effusion Patient admitted to medicine service 04/30. Patient seen and examined. Blood work done this morning showed WBC 7.1, hemoglobin 10.8, platelet count 383, sodium 137 potassium 3.9, BUN 21, creatinine 0.87. Currently on heated high flow. States he feels better. Still gets short of breath on exertion 05/01. Patient seen and examined. Patient currently on heated high flow at 60 L. Still gets short of breath on exertion. Denies any cough. Currently laying comfortably in the bed. 05/02. Patient seen and examined. Continues to be on heated high flow. Patient switch to Eliquis. 05/03. Patient seen and examined. States he remains unchanged compared to yesterday. Breathing is the same. Gets short of breath on exertion. Denies any palpitations. Denies any chest pain. Continues to be on heated high flow. Wanting to get in the chair today. 05/04. Patient seen and examined. Currently sitting upright in the chair., Currently on 15 L of oxygen via nasal cannula. States he feels much better compared to yesterday 05/05. Patient seen and examined. Continues to be on nasal cannula, oxygen improved to 12 L. Laying comfortably in the bed. Denies any shortness of breath at rest, only gets short of breath on exertion. Denies any productive cough 05/06. Patient seen and examined. Sitting upright in the chair. Currently on 15 L of oxygen via high flow. States he is not short of breath at rest but when he gets moving he gets short of breath. Denies any conversational dyspnea. Denies any cough. REVIEW OF SYSTEMS: CONSTITUTIONAL: No fever, no malaise,. CARDIOVASCULAR: No chest pain, no palpitations, PULMONARY: As mentioned above GASTROINTESTINAL: No diarrhea, no nausea, no vomiting, no abdominal pain. NEUROLOGICAL: No headaches, no weakness, PHYSICAL EXAMINATION: GENERAL: The patient is alert and oriented x3, respiratory distress, chronically ill looking HEENT: Pupils are round and equally reacting to light. EOMI. No scleral icterus. No conjunctival pallor. Normocephalic, atraumatic. No pharyngeal erythema. No thyromegaly. CARDIOVASCULAR: S1 and S2 present. No murmurs, rubs, or gallops. PULMONARY: Coarse breath sounds bilaterally, no wheezing or crackles. No rhonchi audible ABDOMEN: Soft, nontender, nondistended, normoactive bowel sounds. No palpable organomegaly. MUSCULOSKELETAL: No joint swelling or deformity. EXTREMITIES: No cyanosis, clubbing, or pedal edema. NEUROLOGICAL: Gross neurological examination did not reveal any focal deficits. SKIN: No rashes. Assessment and plan Acute on chronic hypoxemic respiratory failure Acute COPD exacerbation Acute on chronic diastolic heart failure Bacterial pneumonia Pulmonary emboli Hyperkalemia Remote history of DVT Diabetes mellitus type 2 History of prostate cancer. Alpha-1 antitrypsin deficiency, MS phenotype Hyperlipidemia Monitor vital signs Monitor CBC Monitor CMP Continue telemetry monitoring Encourage use of incentive spirometer Follow-up on blood cultures Continue oxygen supplementation Aggressive bronchopulmonary hygiene Continue use of BiPAP as needed Continue breathing treatments Continue Eliquis 10 mg twice a day for 7 days followed by 5 milligrams twice a day Continue oral Lasix 40 mg twice a day Continue oral prednisone Regards to hyperlipidemia continue Lipitor and fenofibrate In regards to hypothyroid continue Synthyroid In regards to diabetes mellitus: Continue sliding scale insulin Pulmonology following Cardiology following Discussed with case management regarding sending referrals for LTAC for pulmonary rehab for high oxygen requirements Labs and medication were reviewed.. Continue same treatment. Continue with symptomatic treatment. Resume home medication. Monitor labs and vitals. DVT and GI prophylaxis. Further recommendations as per clinical course of the patient Dictation was produced using [employer] dictation software. please excuse any grammatical, word or spelling errors. Objective - Vital Signs Vital signs: Vital Signs Temp 97.6 F 05/06/23 11:54 Pulse 70 05/06/23 11:54 Resp 22 05/06/23 11:54 BP 129/54 05/06/23 11:54 Pulse Ox 94 L 05/06/23 11:54 FiO2 60 05/04/23 11:35 Intake & Output 05/05/23 05/06/23 05/06/23 18:59 06:59 18:59 Intake Total 246 250 Output Total 675 Balance -429 250 Weight 93.8 kg Intake: IV 10 10 0.9 10 Invasive Line 2 10 Oral 236 240 Output: Urine 675 Other: Voiding Method Toilet Toilet Toilet Urinal Urinal Urinal # Voids 1 2 - Labs CBC & Chem 7: 05/05/23 09:13 05/05/23 09:13 Labs: Abnormal Lab Results - Last 24 Hours (Table) 05/05/23 05/05/23 05/06/23 Range/Units 16:29 19:53 06:26 POC Glucose (mg/dL) 219 H 269 H 198 H (70-110) mg/dL 05/06/23 Range/Units 11:26 POC Glucose (mg/dL) 310 H (70-110) mg/dL
--- NOTE | 2023-05-06 13:28 | P.PN ---
Subjective Progress Note Date: 05/06/23 Principal diagnosis: Respiratory failure. The patient is seen today May 02 2023 in follow-up on the selective care unit. He is awake and alert in no acute distress. Feeling better each day. Chest x-ray is showing improvement. He is continued on AirVo high flow oxygen at 60 L and 60% FiO2 with O2 saturations 88-89%. Blood cultures revealed no growth. White count 6.2. Hemoglobin 11.0. Platelets 375. Sodium 138. Potassium 4.0. Bicarb 33. BUN 22. Creatinine 0.93. Glucose 152. He remains on DuoNeb inhalations, Symbicort, Singulair. Anticoagulated with Eliquis. Antibiotics in the form of ceftriaxone. The patient is seen today 05/03/2023 in follow-up on the selective care unit. He is resting comfortably in bed. Awake and alert in no acute distress. He is feeling better each day. He denies any worsening shortness of breath, cough or congestion. He is still requiring AirVo high flow oxygen at 60 L and 60% FiO2 with O2 saturation at 90-91%. He is continued on DuoNeb inhalations, Symbicort, Singulair. Remains on oral diuretics. Anticoagulated with Eliquis. White count 5.5. Hemoglobin 11.3. Platelets 369. Sodium 139. Potassium 4.4. Bi carb 34. BUN 25. Creatinine 0.84. Glucose 195. Completed ceftriaxone and azithromycin. Patient was reevaluated today on 05/04/23, remains on airvo at 60% FiO2 and 45 L flow, and I plan to transition the patient to a high flow nasal cannula at 15 L/m. Clinically the patient is feeling better chest x-ray is definitely showing improvement nonetheless he remains to be relatively hypoxic. He is receiving treatment for his COPD, congestive heart failure, and for his suspected pulmonary embolism WBC count is 5.5 hemoglobin 11.3 basic metabolic profile is normal renal profile is normal Reevaluated today on 05/05/2023, patient is now on 15 L high flow nasal cannula, O2 saturations 94%, we'll try to cut down if possible to 12 L is sitting the patient maintains high O2 saturation in the 80s or low 90s. Clinically the patient is feeling better, breathing easier, and his chest x-ray has been showing significant improvement in his interstitial edema. Patient does have severe underlying COPD which is another contributing factor to his chronic hypoxic respiratory failure, remains on eliquis also for suspected acute pulmonary embolism. WBC count today is 6.9 hemoglobin is 12.2 electrodes are normal renal profile is normal Progress note dated 05/06/2023. 67-year-old male admitted with a diagnosis of hypoxemic respiratory failure secondary to COPD. The patient is currently on 15 L high flow oxygen. He's not receiving any IV fluids. We'll add some prednisone to his regimen, hopefully to be able to wean his FiO2 down. The patient is sitting in a chair next to his bed. He does not appear to be any distress. Labs today only included a glucose of 310. Chest x-ray from May 04 shows improved diffuse reticular nodular infiltrates. Objective - Vital Signs Vital signs: Vital Signs Temp 97.6 F 05/06/23 11:54 Pulse 82 05/06/23 12:59 Resp 22 05/06/23 11:54 BP 129/54 05/06/23 11:54 Pulse Ox 94 L 05/06/23 11:54 FiO2 60 05/04/23 11:35 Intake & Output 05/05/23 05/06/23 05/06/23 18:59 06:59 18:59 Intake Total 246 250 Output Total 675 Balance -429 250 Weight 93.8 kg Intake: IV 10 10 0.9 10 Invasive Line 2 10 Oral 236 240 Output: Urine 675 Other: Voiding Method Toilet Toilet Toilet Urinal Urinal Urinal # Voids 1 2 - Exam No acute distress, oriented 3. Currently on 15 L high flow nasal O2. Saturations are 99%. HEENT examination is grossly unremarkable. Neck supple. Full range of motion. No adenopathy thyromegaly or neck vein distention. Cardiovascular examination reveals regular rhythm rate. S1-S2 normal. No S3 or S4. No discernible murmur noted. Heart rate 82 bpm. Lungs reveal scattered rhonchi. Her sounds are equal bilaterally but diminished throughout. No wheezes. No crackles. Saturations are 99% on 15 L. Abdomen soft bowel sounds are heard. No masses or tenderness. Extremities are intact. No cyanosis clubbing or edema. Skin is without rash or lesion. Neurologic examination is brief but nonfocal. - Labs CBC & Chem 7: 05/05/23 09:13 05/05/23 09:13 Labs: Abnormal Lab Results - Last 24 Hours (Table) 05/05/23 05/05/23 05/06/23 Range/Units 16:29 19:53 06:26 POC Glucose (mg/dL) 219 H 269 H 198 H (70-110) mg/dL 05/06/23 Range/Units 11: POC Glucose (mg/dL) 310 H (70-110) mg/dL Assessment and Plan Assessment: Acute on chronic hypoxemic respiratory failure, currently on high flow nasal cannula. History of severe COPD, with an FEV1 that is 40% of predicted. Acute pulmonary embolism. Remote history of DVT. Type 2 diabetes mellitus. Hyperlipidemia. Chronic diastolic CHF. Secondary pulmonary hypertension. Plan: Plan dated 05/06/2023. The patient continues on high flow nasal cannula. The patient continues on al buterol sulfate, and ipratropium bromide, and other bronchodilators. The patient also continues on diuretics, and on anticoagulants. We added prednisone to his regimen. Additional recommendations and suggestions are forthcoming. We'll continue to titrate down his oxygen, was on his saturations are 88% or higher. No additional recommendations are made. Prognosis is guarded. Time with Patient: Less than 30
[2023-05-06 16:57] LABS: Glucose,Whole Blood 336 mg/dL (70-110)
[2023-05-06 21:04] LABS: Glucose,Whole Blood 346 mg/dL (70-110)
[2023-05-06] MEDS: cloZAPine 100 MG TAB PO SCH (21:33)
--- NOTE | 2023-05-06 22:16 | PN ---
PROGRESS NOTE SUBJECTIVE: Javier is a 67-year-old gentleman, who is admitted to hospital with COPD and CHF exacerbations. He has history of pulmonary embolism and is currently on an anticoagulant for the same. His heart failure is diastolic in origin. OBJECTIVE: VITAL SIGNS: Stable. CHEST: Reveals diminished air entry with occasional rhonchi. HEART: Reveals first and second heart sounds. No gallop. No murmur. ABDOMEN: Soft. EXTREMITIES: Did not reveal any edema. Peripheral pulses are felt. MEDICATIONS: The patient is currently on, 1. Eliquis. 2. Lipitor. 3. Lexapro. 4. Lofibra. 5. P.o. Lasix. 6. Toprol. 7. K-Dur. ASSESSMENT: 1. Acute onset diastolic heart failure. 2. Chronic obstructive pulmonary disease exacerbation. 3. History of pulmonary embolism. PLAN: Continue current medications. MMODL / IJN: [id number] /
[2023-05-07] MEDS: ACETAMINOPHEN TAB 325 MG TAB PO PRN ×2 (00:11→20:39)
[2023-05-07 06:29] LABS: Glucose,Whole Blood 220 mg/dL (70-110)
[2023-05-07] MEDS: INSULIN ASPART (NovoLOG) 100 UNIT/ML VIAL SQ SCH ×4 (06:34→20:38)
[2023-05-07] MEDS: METOPROLOL SUCCINATE (ER) 25 MG TAB.ER.24H PO SCH (08:42)
[2023-05-07] MEDS: FENOFIBRATE 160 MG TAB PO SCH (08:42)
[2023-05-07] MEDS: MONTELUKAST 10 MG TAB PO SCH (08:43)
[2023-05-07] MEDS: APIXABAN 5 MG TAB PO SCH ×2 (08:43→20:38)
[2023-05-07] MEDS: FUROSEMIDE 40 MG TAB PO SCH (08:43)
[2023-05-07] MEDS: ATORVASTATIN 40 MG TAB PO SCH (08:43)
[2023-05-07] MEDS: POTASSIUM CHLORIDE ER 20 MEQ TAB.ER PO SCH (08:43)
[2023-05-07] MEDS: predniSONE 20 MG TAB PO SCH (08:43)
[2023-05-07] MEDS: ESCITALOPRAM 10 MG TAB PO SCH (08:43)
[2023-05-07] MEDS: OFLOXACIN 0.3% OPHTH DROPS 5 ML BOTTLE BOTH EYES SCH (08:47)
[2023-05-07] MEDS: IPRATROPIUM-ALBUTEROL 3 ML NEB INHALATION SCH ×4 (10:13→20:09)
[2023-05-07] MEDS: SYMBICORT 80-4.5 MCG INHALER INHALATION SCH (10:23)
[2023-05-07 11:32] LABS: Glucose,Whole Blood 232 mg/dL (70-110)
--- NOTE | 2023-05-07 12:00 | P.PN ---
Subjective Progress Note Date: 05/07/23 Principal diagnosis: Respiratory failure. The patient is seen today May 02 2023 in follow-up on the selective care unit. He is awake and alert in no acute distress. Feeling better each day. Chest x-ray is showing improvement. He is continued on AirVo high flow oxygen at 60 L and 60% FiO2 with O2 saturations 88-89%. Blood cultures revealed no growth. White count 6.2. Hemoglobin 11.0. Platelets 375. Sodium 138. Potassium 4.0. Bicarb 33. BUN 22. Creatinine 0.93. Glucose 152. He remains on DuoNeb inhalations, Symbicort, Singulair. Anticoagulated with Eliquis. Antibiotics in the form of ceftriaxone. The patient is seen today 05/03/2023 in follow-up on the selective care unit. He is resting comfortably in bed. Awake and alert in no acute distress. He is feeling better each day. He denies any worsening shortness of breath, cough or congestion. He is still requiring AirVo high flow oxygen at 60 L and 60% FiO2 with O2 saturation at 90-91%. He is continued on DuoNeb inhalations, Symbicort, Singulair. Remains on oral diuretics. Anticoagulated with Eliquis. White count 5.5. Hemoglobin 11.3. Platelets 369. Sodium 139. Potassium 4.4. Bi carb 34. BUN 25. Creatinine 0.84. Glucose 195. Completed ceftriaxone and azithromycin. Patient was reevaluated today on 05/04/23, remains on airvo at 60% FiO2 and 45 L flow, and I plan to transition the patient to a high flow nasal cannula at 15 L/m. Clinically the patient is feeling better chest x-ray is definitely showing improvement nonetheless he remains to be relatively hypoxic. He is receiving treatment for his COPD, congestive heart failure, and for his suspected pulmonary embolism WBC count is 5.5 hemoglobin 11.3 basic metabolic profile is normal renal profile is normal Reevaluated today on 05/05/2023, patient is now on 15 L high flow nasal cannula, O2 saturations 94%, we'll try to cut down if possible to 12 L is sitting the patient maintains high O2 saturation in the 80s or low 90s. Clinically the patient is feeling better, breathing easier, and his chest x-ray has been showing significant improvement in his interstitial edema. Patient does have severe underlying COPD which is another contributing factor to his chronic hypoxic respiratory failure, remains on eliquis also for suspected acute pulmonary embolism. WBC count today is 6.9 hemoglobin is 12.2 electrodes are normal renal profile is normal Progress note dated 05/06/2023. 67-year-old male admitted with a diagnosis of hypoxemic respiratory failure secondary to COPD. The patient is currently on 15 L high flow oxygen. He's not receiving any IV fluids. We'll add some prednisone to his regimen, hopefully to be able to wean his FiO2 down. The patient is sitting in a chair next to his bed. He does not appear to be any distress. Labs today only included a glucose of 310. Chest x-ray from May 04 shows improved diffuse reticular nodular infiltrates. Progress note dated 05/07/2023. 67-year-old male admitted with a diagnosis of hypoxemic respiratory failure secondary to COPD. The patient is currently on 13 L high flow oxygen. Yesterday, he was on 15 L. He is not receiving any IV fluids. We will increase his Symbicort up to 160/4.5, 2 puffs twice a day. No new laboratory data today, other than a glucose of 232. Objective - Vital Signs Vital signs: Vital Signs Temp 97.8 F 05/07/23 11:21 Pulse 82 05/07/23 11:21 Resp 16 05/07/23 11:21 BP 106/62 05/07/23 11:21 Pulse Ox 92 L 05/07/23 11:21 FiO2 60 05/04/23 11:35 Intake & Output 05/06/23 05/07/23 05/07/23 18:59 06:59 18:59 Intake Total 380 180 Balance 380 180 Weight 94.8 kg Intake: Oral 380 180 Other: Voiding Method Toilet Toilet Urinal Urinal # Voids 1 2 - Exam No acute distress, oriented 3. Currently on 13 L high flow nasal O2. Saturations are 94 %. HEENT examination is grossly unremarkable. Neck supple. Full range of motion. No adenopathy thyromegaly or neck vein distention. Cardiovascular examination reveals regular rhythm rate. S1-S2 normal. No S3 or S4. No discernible murmur noted. Heart rate 89 bpm. Lungs reveal scattered rhonchi. Her sounds are equal bilaterally but diminished throughout. No wheezes. No crackles. Saturations are 94% on 13 L high flow oxygen. Abdomen soft bowel sounds are heard. No masses or tenderness. Extremities are intact. No cyanosis clubbing or edema. Skin is without rash or lesion. Neurologic examination is brief but nonfocal. - Labs CBC & Chem 7: 05/05/23 09:13 05/05/23 09:13 Labs: Abnormal Lab Results - Last 24 Hours (Table) 05/06/23 05/06/23 05/07/23 Range/Units 16:54 21:02 06:24 POC Glucose (mg/dL) 336 H 346 H 220 H (70-110) mg/dL 05/07/23 Range/Units 11:31 POC Glucose (mg/dL) 232 H (70-110) mg/dL Assessment and Plan Assessment: Acute on chronic hypoxemic respiratory failure, currently on high flow nasal cannula. History of severe COPD, with an FEV1 that is 40% of predicted. Acute pulmonary embolism. Remote history of DVT. Type 2 diabetes mellitus. Hyperlipidemia. Chronic diastolic CHF. Secondary pulmonary hypertension. Plan: Plan dated 05/06/2023. The patient continues on high flow nasal cannula. The patient continues on albuterol sulfate, and ipratropium bromide, and other bronchodilators. The patient also continues on diuretics, and on anticoagulants. We added prednisone to his regimen. Additional recommendations and suggestions are forthcoming. We'll continue to titrate down his oxygen, was on his saturations are 88% or higher. No additional recommendations are made. Prognosis is guarded. Plan dated 05/07/2023. The patient is seen today in room 372. The patient's oxygen has been weaned down to 13 L high flow, from 15 L high flow yesterday. The patient continues on appropriate medications, and his Symbicort is increased to the higher dose. We added prednisone to his regimen. Labs, x-rays, and medications are reviewed. His overall prognosis remains guarded. He is a DO NOT RESUSCITATE patient. We will continue to follow the patient, and make recommendations along the way. Time with Patient: Less than 30
[2023-05-07 16:32] LABS: Glucose,Whole Blood 382 mg/dL (70-110)
--- NOTE | 2023-05-07 18:27 | P.PN ---
Subjective Progress Note Date: 05/07/23 The patient is a 67-year-old gentleman with mild cardiomyopathy and congestive heart failure and COPD as well as multiple comorbid conditions was admitted to the hospital with acute and chronic hypoxic respiratory failure secondary to COPD exacerbation and CHF exacerbation 05/01/2023 The patient was seen and evaluated this morning. He still short of breath. He his shortness of breath is slightly better compared to before. No pain in the chest. On examination he does have diminished breathing sounds bilaterally but no lower extremity edema noted. I feel the patient is euvolemic from the heart failure standpoint of. I am going to DC Lasix IV and switch the patient to oral Lasix. The COPD to be managed by the pulmonary team. May [id number] The patient was seen and evaluated this morning. He continues to be short of breath and he continues to be on high flow oxygen. From the cardiac standpoint of view, he seems to be euvolemic. He continues to be on oral Lasix. From the cardiac vascular standpoint of view, would continue the current medical regimen including the current dose of oral diuretics. The COPD to be managed by the pulmonary team. 05/03/2023 The patient was seen and evaluated this morning. The shortness of breath is slightly better. He still hypoxic requiring high flow oxygen. He was switched into oral diuretics. From the cardiovascular standpoint of view, I would continue the current medical regimen. Continue oral diuretics. Follow-up with the patient. He was diagnosed with pulmonary embolism and currently he is on anticoagulation. 05/04/2023 Patient was seen and evaluated this morning. He seems to be stable. He seems to be euvolemic at this point. From a cardiac standpoint of view I would continue the current medical regimen including the current dose of oral diuretics. The patient also is on anticoagulation. 05/05/2023 The patient was evaluated this morning. He remains stable from the heart failure standpoint of view and is euvolemic. He remains on high flow oxygen for severe COPD. He is on anticoagulation for pulmonary embolism. From the cardiovascular standpoint of view, we will continue current medical regimen including the current dose of oral diuretics and anticoagulation and we'll follow-up with the patient on when necessary 05/07/23 Patient continues to be on 13 L high flow oxygen for severe COPD exacerbation. He is on anticoagulation with Eliquis for pulmonary embolism. Patient appears to be euvolemic. Assessment Acute hypoxic respiratory failure Severe COPD Heart failure which is diastolic Mild cardiomyopathy Pulmonary embolism Plan Continue the current dose of oral diuretics Continue the current medical regimen Objective - Vital Signs Vital signs: Vital Signs Temp 97.6 F 05/07/23 16:00 Pulse 89 05/07/23 17:36 Resp 16 05/07/23 16:00 BP 111/63 05/07/23 16:00 Pulse Ox 93 L 05/07/23 16:00 FiO2 60 05/04/23 11:35 Intake & Output 05/06/23 05/07/23 05/07/23 18:59 06:59 18:59 Intake Total 380 980 Balance 380 980 Weight 94.8 kg Intake: Oral 380 980 Other: Voiding Method Toilet Toilet Toilet Urinal Urinal Urinal # Voids 1 2 - Labs CBC & Chem 7: 05/05/23 09:13 05/05/23 09:13 Labs: Abnormal Lab Results - Last 24 Hours (Table) 05/06/23 05/07/23 05/07/23 Range/Units 21:02 06:24 11:31 POC Glucose (mg/dL) 346 H 220 H 232 H (70-110) mg/dL 05/07/23 Range/Units 16:29 POC Glucose (mg/dL) 382 H (70-110) mg/dL
[2023-05-07] MEDS: SYMBICORT 160-4.5 MCG INHALER INHALATION SCH (20:09)
[2023-05-07 20:28] LABS: Glucose,Whole Blood 264 mg/dL (70-110)
[2023-05-07] MEDS: cloZAPine 100 MG TAB PO SCH (20:38)
--- NOTE | 2023-05-07 20:50 | P.PN ---
Subjective Progress Note Date: 05/07/23 Patient monitored on the stepdown unit, remains on 13L of hi flow which is being weaned. Patient does wear 4L of oxygen at home. He continues to report shortness of breath when up ambulating he is unable to go far. On oral prednisone 40 mg daily, lasix has been transitioned to oral. Blood glucose elevated in the 200s. Review of Systems Constitutional: Denied any fatigue denied any fever. Cardio vascular: denied any chest pain, palpitations Gastrointestinal: denied any nausea, vomiting, diarrhea Pulmonary: Reports shortness of breath worse with exertion, no cough Neurologic denied any new focal deficits All inpatient medications were reviewed and appropriate changes in these medications as dictated in the interval history and assessment and plan. PHYSICAL EXAMINATION: GENERAL: The patient is alert and oriented x3, not in any acute distress. Well developed, well nourished. HEENT: Pupils are round and equally reacting to light. EOMI. No scleral icterus. No conjunctival pallor. Normocephalic, atraumatic. No pharyngeal erythema. No thyromegaly. CARDIOVASCULAR: S1 and S2 present. No murmurs, rubs, or gallops. PULMONARY: Diminished, on 13L hiflow cannula ABDOMEN: Soft, nontender, nondistended, normoactive bowel sounds. No palpable organomegaly. MUSCULOSKELETAL: No joint swelling or deformity. EXTREMITIES: No cyanosis, clubbing, or pedal edema. NEUROLOGICAL: Gross neurological examination did not reveal any focal deficits. SKIN: No rashes. Assessment Acute on chronic hypoxemic respiratory failure secondary to acute COPD and acute CHF Acute COPD exacerbation with history of severe COPD Chronic nicotinue use Acute on chronic diastolic heart failure Pulmonary emboli acute Severe pulmonary hypertension Hyperkalemia Remote history of DVT Diabetes mellitus type 2 History of prostate cancer on oral chemotherapy Alpha-1 antitrypsin deficiency, MS phenotype Hyperlipidemia GI prophylaxis DVT prophylaxis anticoagulated with eliquis DO NOT RESUSCITATE/ DO NOT INTUBATE Plan Patient is continued on IV zosyn, oral steroids Pulmonary following closely, symbicort increased to 160 mg for his severe COPD Transitioned to oral lasix Patient remains on hi flow oxygen being weaned as tolerated. He does wear 4L at home and needs to be at baseline before he can be considered for discharge He will be resumed on oral chemotherapy today for his prostate cancer as recommended by his urologist. The impression and plan of care has been dictated by Juanita Crockett Nurse Practitioner as directed. Dr. Barry MD I have performed a history and physical examination and medical decision making of this patient, discussed the same with the dictator, and agree with the dictators assessment and plan as written, documented as a scribe. Based on total visit time, I have performed more than 50% of this visit. Objective - Vital Signs Vital signs: Vital Signs Temp 97.8 F 05/07/23 11:21 Pulse 85 05/07/23 13:26 Resp 16 05/07/23 11:21 BP 106/62 05/07/23 11:21 Pulse Ox 92 L 05/07/23 11:21 FiO2 60 05/04/23 11:35 Intake & Output 05/06/23 05/07/23 05/07/23 18:59 06:59 18:59 Intake Total 380 980 Balance 380 980 Weight 94.8 kg Intake: Oral 380 980 Other: Voiding Method Toilet Toilet Toilet Urinal Urinal Urinal # Voids 1 2 - Labs CBC & Chem 7: 05/05/23 09:13 05/05/23 09:13 Labs: Abnormal Lab Results - Last 24 Hours (Table) 05/06/23 05/06/23 05/07/23 Range/Units 16:54 21:02 06:24 POC Glucose (mg/dL) 336 H 346 H 220 H (70-110) mg/dL 05/07/23 Range/Units 11:31 POC Glucose (mg/dL) 232 H (70-110) mg/dL Assessment and Plan Time with Patient: Less than 30
[2023-05-08 06:12] LABS: Glucose,Whole Blood 162 mg/dL (70-110)
[2023-05-08] MEDS: PANTOPRAZOLE 40 MG TABLET PO SCH (06:22)
[2023-05-08] MEDS: INSULIN ASPART (NovoLOG) 100 UNIT/ML VIAL SQ SCH ×4 (06:23→21:39)
[2023-05-08] MEDS: FENOFIBRATE 160 MG TAB PO SCH (08:42)
[2023-05-08] MEDS: ATORVASTATIN 40 MG TAB PO SCH (08:42)
[2023-05-08] MEDS: MONTELUKAST 10 MG TAB PO SCH (08:42)
[2023-05-08] MEDS: ESCITALOPRAM 10 MG TAB PO SCH (08:42)
[2023-05-08] MEDS: METOPROLOL SUCCINATE (ER) 25 MG TAB.ER.24H PO SCH (08:42)
[2023-05-08] MEDS: POTASSIUM CHLORIDE ER 20 MEQ TAB.ER PO SCH (08:43)
[2023-05-08] MEDS: predniSONE 20 MG TAB PO SCH (08:43)
[2023-05-08] MEDS: APIXABAN 5 MG TAB PO SCH ×2 (08:43→20:17)
[2023-05-08] MEDS: BICALUTAMIDE 50 MG TAB PO SCH (08:44)
[2023-05-08] MEDS: FUROSEMIDE 40 MG TAB PO SCH (08:55)
[2023-05-08] MEDS: OFLOXACIN 0.3% OPHTH DROPS 5 ML BOTTLE BOTH EYES SCH (08:58)
[2023-05-08] MEDS: IPRATROPIUM-ALBUTEROL 3 ML NEB INHALATION SCH ×4 (09:05→21:10)
[2023-05-08] MEDS: SYMBICORT 160-4.5 MCG INHALER INHALATION SCH (09:05)
[2023-05-08 10:40] LABS: Basophils % (A) 1 %; Eosinophils # (A) 0.1 k/uL (0-0.7); Eosinophils % (A) 2 %; HCT 34.6 % (39.0-53.0); HGB 11.3 gm/dL (13.0-17.5); Lymphocytes # (A) 1.6 k/uL (1.0-4.8); Lymphocytes % (A) 23 %; MCH 28.3 pg (25.0-35.0); MCHC 32.7 g/dL (31.0-37.0); MCV 86.5 fL (80.0-100.0); Mean Platelet Volume 7.4; Monocytes # (A) 0.6 k/uL (0-1.0); Monocytes % (A) 9 %; Neutrophils # (A) 4.4 k/uL (1.3-7.7); Neutrophils % (A) 63 %; Platelet Count 363 k/uL (150-450); RDW 14.3 % (11.5-15.5); WBC 7.1 k/uL (3.8-10.6)
[2023-05-08 10:54] LABS: African American GFR (CKD) >90 (>60 ml/min/1.73 sqM); Anion Gap 6 mmol/L; Blood Urea Nitrogen 27 mg/dL (9-20); Calcium 9.2 mg/dL (8.4-10.2); Carbon Dioxide 36 mmol/L (22-30); Chloride 96 mmol/L (98-107); Glucose 139 mg/dL (74-99); Non-African American GFR(CKD) >90 (>60 ml/min/1.73 sqM); Potassium 3.9 mmol/L (3.5-5.1); Sodium 138 mmol/L (137-145)
--- NOTE | 2023-05-08 11:12 | XR ---
EXAMINATION TYPE: XR chest 1V portable DATE OF EXAM: 05/08/2023 COMPARISON: 05/04/2023. HISTORY: Hypoxemia. TECHNIQUE: Single frontal view of the chest is obtained. IMPRESSION: There is increasing patchy parenchymal changes and interstitial changes throughout the lungs bilatera lly which is suspicious for an inflammatory or infectious process. A component of edema would not be entirely excluded. This is all superimposed on background findings of COPD. The cardiac silhouette is moderately enlarged.
[2023-05-08 11:38] LABS: Glucose,Whole Blood 372 mg/dL (70-110)
--- NOTE | 2023-05-08 13:24 | P.PN ---
Subjective Progress Note Date: 05/08/23 Principal diagnosis: Respiratory failure. The patient is seen today May 02 2023 in follow-up on the selective care unit. He is awake and alert in no acute distress. Feeling better each day. Chest x-ray is showing improvement. He is continued on AirVo high flow oxygen at 60 L and 60% FiO2 with O2 saturations 88-89%. Blood cultures revealed no growth. White count 6.2. Hemoglobin 11.0. Platelets 375. Sodium 138. Potassium 4.0. Bicarb 33. BUN 22. Creatinine 0.93. Glucose 152. He remains on DuoNeb inhalations, Symbicort, Singulair. Anticoagulated with Eliquis. Antibiotics in the form of ceftriaxone. The patient is seen today 05/03/2023 in follow-up on the selective care unit. He is resting comfortably in bed. Awake and alert in no acute distress. He is feeling better each day. He denies any worsening shortness of breath, cough or congestion. He is still requiring AirVo high flow oxygen at 60 L and 60% FiO2 with O2 saturation at 90-91%. He is continued on DuoNeb inhalations, Symbicort, Singulair. Remains on oral diuretics. Anticoagulated with Eliquis. White count 5.5. Hemoglobin 11.3. Platelets 369. Sodium 139. Potassium 4.4. Bi carb 34. BUN 25. Creatinine 0.84. Glucose 195. Completed ceftriaxone and azithromycin. Patient was reevaluated today on 05/04/23, remains on airvo at 60% FiO2 and 45 L flow, and I plan to transition the patient to a high flow nasal cannula at 15 L/m. Clinically the patient is feeling better chest x-ray is definitely showing improvement nonetheless he remains to be relatively hypoxic. He is receiving treatment for his COPD, congestive heart failure, and for his suspected pulmonary embolism WBC count is 5.5 hemoglobin 11.3 basic metabolic profile is normal renal profile is normal Reevaluated today on 05/05/2023, patient is now on 15 L high flow nasal cannula, O2 saturations 94%, we'll try to cut down if possible to 12 L is sitting the patient maintains high O2 saturation in the 80s or low 90s. Clinically the patient is feeling better, breathing easier, and his chest x-ray has been showing significant improvement in his interstitial edema. Patient does have severe underlying COPD which is another contributing factor to his chronic hypoxic respiratory failure, remains on eliquis also for suspected acute pulmonary embolism. WBC count today is 6.9 hemoglobin is 12.2 electrodes are normal renal profile is normal Progress note dated 05/06/2023. 67-year-old male admitted with a diagnosis of hypoxemic respiratory failure secondary to COPD. The patient is currently on 15 L high flow oxygen. He's not receiving any IV fluids. We'll add some prednisone to his regimen, hopefully to be able to wean his FiO2 down. The patient is sitting in a chair next to his bed. He does not appear to be any distress. Labs today only included a glucose of 310. Chest x-ray from May 04 shows improved diffuse reticular nodular infiltrates. Progress note dated 05/07/2023. 67-year-old male admitted with a diagnosis of hypoxemic respiratory failure secondary to COPD. The patient is currently on 13 L high flow oxygen. Yesterday, he was on 15 L. He is not receiving any IV fluids. We will increase his Symbicort up to 160/4.5, 2 puffs twice a day. No new laboratory data today, other than a glucose of 232. Progress note dated 05/08/2023. 67-year-old male seen in room 372. He was admitted with a diagnosis of hypoxemic respiratory failure secondary to COPD. He remains on high flow nasal O2 at 13 L/m. Clinically, the patient is relatively stable, and unchanged. He is no better, but certainly no worse. The patient's white count is 7.1, hemoglobin 11.3, hematocrit 34.6, with a normal platelet count. Sodium 138, potassium 3.9, chlorides 96, CO2 36, BUN 27, and creatinine 0.83. Glucose 139. Calcium is 9.2. Today's chest x-ray shows patchy/parenchymal changes and interstitial changes, consistent with an inflammatory or infectious process, in addition to changes of COPD. Objective - Vital Signs Vital signs: Vital Signs Temp 98.3 F 05/08/23 11:14 Pulse 84 05/08/23 12:33 Resp 17 05/08/23 11:14 BP 111/54 05/08/23 11:14 Pulse Ox 89 L 05/08/23 11:14 FiO2 60 05/04/23 11:35 Intake & Output 05/07/23 05/08/23 05/08/23 18:59 06:59 18:59 Intake Total 1220 118 Balance 1220 118 Weight 94.7 kg Intake: Oral 1220 118 Other: Voiding Method Toilet Toilet Toilet Urinal Urinal Urinal # Voids 2 - Exam No acute distress, oriented 3. Currently on 13 L high flow nasal O2. Satur ations are 94 %. HEENT examination is grossly unremarkable. Neck supple. Full range of motion. No adenopathy thyromegaly or neck vein distention. Cardiovascular examination reveals regular rhythm rate. S1-S2 normal. No S3 or S4. No discernible murmur noted. Heart rate 84 bpm. Lungs reveal scattered rhonchi. Her sounds are equal bilaterally but diminished throughout. No wheezes. No crackles. Saturations are 94% on 13 L high flow oxygen. Abdomen soft bowel sounds are heard. No masses or tenderness. Extremities are intact. No cyanosis clubbing or edema. Skin is without rash or lesion. Neurologic examination is brief but nonfocal. - Labs CBC & Chem 7: 05/08/23 09:30 05/08/23 09:30 Labs: Abnormal Lab Results - Last 24 Hours (Table) 05/07/23 05/07/23 05/08/23 Range/Units 16:29 20:27 06:11 RBC (4.30-5.90) m/uL Hgb (13.0-17.5) gm/dL Hct (39.0-53.0) % Chloride (98-107) mmol/L Carbon Dioxide (22-30) mmol/L BUN (9-20) mg/dL Glucose (74-99) mg/dL POC Glucose (mg/dL) 382 H 264 H 162 H (70-110) mg/dL 05/08/23 05/08/23 05/08/23 Range/Units 09:30 09:30 11:35 RBC 4.00 L (4.30-5.90) m/uL Hgb 11.3 L (13.0-17.5) gm/dL Hct 34.6 L (39.0-53.0) % Chloride 96 L (98-107) mmol/L Carbon Dioxide 36 H (22-30) mmol/L BUN 27 H (9-20) mg/dL Glucose 139 H (74-99) mg/dL POC Glucose (mg/dL) 372 H (70-110) mg/dL Assessment and Plan Assessment: Acute on chronic hypoxemic respiratory failure, currently on high flow nasal cannula. History of severe COPD, with an FEV1 that is 40% of predicted. Acute pulmonary embolism. Remote history of DVT. Type 2 diabetes mellitus. Hyperlipidemia. Chronic diastolic CHF. Secondary pulmonary hypertension. Plan: Plan dated 05/06/2023. The patient continues on high flow nasal cannula. The patient continues on albuterol sulfate, and ipratropium bromide, and other bronchodilators. The patient also continues on diuretics, and on anticoagulants. We added prednisone to his regimen. Additional recommendations and suggestions are forthcoming. We'll continue to titrate down his oxygen, was on his saturations are 88% or higher. No additional recommendations are made. Prognosis is guarded. Plan dated 05/07/2023. The patient is seen today in room 372. The patient's oxygen has been weaned down to 13 L high flow, from 15 L high flow yesterday. The patient continues on appropriate medications, and his Symbicort is increased to the higher dose. We added prednisone to his regimen. Labs, x-rays, and medications are reviewed. His overall prognosis remains guarded. He is a DO NOT RESUSCITATE patient. We will continue to follow the patient, and make recommendations along the way. Plan dated 05/08/2023. 67-year-old male seen in room 372. Unfortunately, he continues on high flow nasal O2 at 13 L. He has a DO NOT RESUSCITATE patient. His most recent chest x-ray shows changes of COPD, and possible patchy infiltrates, consistent with pneumonia. We will check a pro-calcitonin level. Additional recommendations and suggestions are forthcoming. He is on appropriate medications, including bronchodilators, maintenance inhaler, and corticosteroids. We will continue to follow the patient, and make recommendations. Prognosis is guarded. Time with Patient: Less than 30
--- NOTE | 2023-05-08 14:39 | P.PN ---
Subjective HISTORY OF PRESENT ILLNESS: The patient is a 67-year-old gentleman with mild cardiomyopathy and congestive heart failure and COPD as well as multiple comorbid conditions was admitted to the hospital with acute and chronic hypoxic respiratory failure secondary to COPD exacerbation and CHF exacerbation 05/01/2023 The patient was seen and evaluated this morning. He still short of breath. He his shortness of breath is slightly better compared to before. No pain in the chest. On examination he does have diminished breathing sounds bilaterally but no lower extremity edema noted. I feel the patient is euvolemic from the heart failure standpoint of. I am going to DC Lasix IV and switch the patient to oral Lasix. The COPD to be managed by the pulmonary team. May [id number] The patient was seen and evaluated this morning. He continues to be short of breath and he continues to be on high flow oxygen. From the cardiac standpoint of view, he seems to be euvolemic. He continues to be on oral Lasix. From the cardiac vascular standpoint of view, would continue the current medical regimen including the current dose of oral diuretics. The COPD to be managed by the pulmonary team. 05/03/2023 The patient was seen and evaluated this morning. The shortness of breath is slightly better. He still hypoxic requiring high flow oxygen. He was switched into oral diuretics. From the cardiovascular standpoint of view, I would continue the current medical regimen. Continue oral diuretics. Follow-up with the patient. He was diagnosed with pulmonary embolism and currently he is on anticoagulation. 05/04/2023 Patient was seen and evaluated this morning. He seems to be stable. He seems to be euvolemic at this point. From a cardiac standpoint of view I would continue the current medical regimen including the current dose of oral diuretics. The patient also is on anticoagulation. 05/05/2023 The patient was evaluated this morning. He remains stable from the heart failure standpoint of view and is euvolemic. He remains on high flow oxygen for severe COPD. He is on anticoagulation for pulmonary embolism. From the cardiovascular standpoint of view, we will continue current medical regimen including the current dose of oral diuretics and anticoagulation and we'll follow-up with the patient on when necessary 05/07/23 Patient continues to be on 13 L high flow oxygen for severe COPD exacerbation. He is on anticoagulation with Eliquis for pulmonary embolism. Patient appears to be euvolemic. 05/08/2023 Patient examined this morning at the bedside. Patient currently denies chest pain or pressure. He reports mild soreness of breath. He remains on high flow nasal cannula at 13 L. PHYSICAL EXAM: VITAL SIGNS: Reviewed. GENERAL: Well-developed in no acute distress. NECK: Supple. No JVD or thyromegaly LUNGS: Respirations even and unlabored. Lungs essentially clear to auscultation bilaterally. HEART: Regular rate and rhythm. S1 and S2 heard. EXTREMITIES: Normal range of motion. No clubbing or cyanosis. Peripheral pulses intact. No lower extremity edema ASSESSMENT: Acute hypoxic respiratory failure Severe COPD Acute on chronic Heart failure which is diastolic Mild cardiomyopathy Pulmonary embolism PLAN: Continue anticoagulation with Eliquis Continue additional cardiac medications No further inpatient recommendations from a cardiac perspective We will sign off. Please reconsult if needed. Nurse practitioner note has been reviewed by physician. Signing provider agrees with the documented findings, assessment, and plan of care. Objective - Vital Signs Vital signs: Vital Signs Temp 98.3 F 05/08/23 11:14 Pulse 84 05/08/23 12:33 Resp 17 05/08/23 11:14 BP 111/54 05/08/23 11:14 Pulse Ox 89 L 05/08/23 11:14 FiO2 60 05/04/23 11:35 Intake & Output 05/07/23 05/08/23 05/08/23 18:59 06:59 18:59 Intake Total 1220 236 Balance 1220 236 Weight 94.7 kg Intake: Oral 1220 236 Other: Voiding Method Toilet Toilet Toilet Urinal Urinal Urinal # Voids 2 - Labs CBC & Chem 7: 05/08/23 09:30 05/08/23 09:30 Labs: Abnormal Lab Results - Last 24 Hours (Table) 05/07/23 05/07/23 05/08/23 Range/Units 16:29 20:27 06:11 RBC (4.30-5.90) m/uL Hgb (13.0-17.5) gm/dL Hct (39.0-53.0) % Chloride (98-107) mmol/L Carbon Dioxide (22-30) mmol/L BUN (9-20) mg/dL Glucose (74-99) mg/dL POC Glucose (mg/dL) 382 H 264 H 162 H (70-110) mg/dL 05/08/23 05/08/23 05/08/23 Range/Units 09:30 09:30 11:35 RBC 4.00 L (4.30-5.90) m/uL Hgb 11.3 L (13.0-17.5) gm/dL Hct 34.6 L (39.0-53.0) % Chloride 96 L (98-107) mmol/L Carbon Dioxide 36 H (22-30) mmol/L BUN 27 H (9-20) mg/dL Glucose 139 H (74-99) mg/dL POC Glucose (mg/dL) 372 H (70-110) mg/dL
[2023-05-08] MEDS: ACETAMINOPHEN TAB 325 MG TAB PO PRN ×2 (14:48→21:37)
[2023-05-08 16:53] LABS: Glucose,Whole Blood 433 mg/dL (70-110)
[2023-05-08] MEDS: methylPREDNISolone SOD SUCCI 125 MG/2 ML VIAL IV SCH (17:22)
[2023-05-08] MEDS: cloZAPine 100 MG TAB PO SCH (20:17)
[2023-05-08 20:48] LABS: Glucose,Whole Blood 431 mg/dL (70-110)
--- NOTE | 2023-05-08 21:02 | P.PN ---
Subjective Progress Note Date: 05/08/23 Patient monitored on the stepdown unit, remains on 13L of hi flow which is being weaned. Patient does wear 4L of oxygen at home. He continues to report shortness of breath when up ambulating he is unable to go far. On oral prednisone 40 mg daily, lasix has been transitioned to oral. Blood glucose elevated in the 200s. 05/08/2023 Patient continues on hi flow oxygen difficult to wean. He had a follow up chest xray today showing increasing patchy parenchymal changes and interstitial changes throughout the lungs. Inflammatory vs. infectious. There is COPD. Possibly edema. Oral lasix daily has been resumed. He is also resumed on oral chemotherapy. He is on IV solumedrol. Review of Systems Constitutional: Denied any fatigue denied any fever. Cardio vascular: denied any chest pain, palpitations Gastrointestinal: denied any nausea, vomiting, diarrhea Pulmonary: Reports shortness of breath worse with exertion, no cough Neurologic denied any new focal deficits All inpatient medications were reviewed and appropriate changes in these medications as dictated in the interval history and assessment and plan. PHYSICAL EXAMINATION: GENERAL: The patient is alert and oriented x3, not in any acute distress. Well developed, well nourished. HEENT: Pupils are round and equally reacting to light. EOMI. No scleral icterus. No conjunctival pallor. Normocephalic, atraumatic. No pharyngeal erythema. No thyromegaly. CARDIOVASCULAR: S1 and S2 present. No murmurs, rubs, or gallops. PULMONARY: Diminished, on 13L hi flow cannula ABDOMEN: Soft, nontender, nondistended, normoactive bowel sounds. No palpable organomegaly. MUSCULOSKELETAL: No joint swelling or deformity. EXTREMITIES: No cyanosis, clubbing, or pedal edema. NEUROLOGICAL: Gross neurological examination did not reveal any focal deficits. SKIN: No rashes. Assessment Acute on chronic hypoxemic respiratory failure secondary to acute COPD and acute CHF Acute COPD exacerbation with history of severe COPD Chronic nicotinue use Acute on chronic diastolic heart failure Pulmonary emboli acute Severe pulmonary hypertension Hyperkalemia Remote history of DVT Diabetes mellitus type 2 Steroid induced hyperglycemia History of prostate cancer on oral chemotherapy Alpha-1 antitrypsin deficiency, MS phenotype Hyperlipidemia GI prophylaxis DVT prophylaxis anticoagulated with eliquis DO NOT RESUSCITATE/ DO NOT INTUBATE Plan Patient has completed course of IV antibiotics, he has been put back on IV steroids Levemir added for improved glycemic control. Pulmonary following closely, symbicort discontinued and changed to budesonide a nd formoterol. Transitioned to oral lasix Patient remains on hi flow oxygen being weaned as tolerated. He does wear 4L at home and needs to be at baseline before he can be considered for discharge Encourage IS Procalcitonin pending and recommending legionella antigen testing. The impression and plan of care has been dictated by Juanita Crockett, Nurse Prac titioner as directed. Dr. Barry MD I have performed a history and physical examination and medical decision making of this patient, discussed the same with the dictator, and agree with the dictators assessment and plan as written, documented as a scribe. Based on total visit time, I have performed more than 50% of this visit. Objective - Vital Signs Vital signs: Vital Signs Temp 97.9 F 05/08/23 20:22 Pulse 84 05/08/23 20:22 Resp 16 05/08/23 20:22 BP 112/56 05/08/23 20:22 Pulse Ox 93 L 05/08/23 20:22 FiO2 60 05/04/23 11:35 Intake & Output 05/08/23 05/08/23 05/09/23 06:59 18:59 06:59 Intake Total 476 Balance 476 Weight 94.7 kg Intake: Oral 476 Other: Voiding Method Toilet Toilet Urinal Urinal # Voids 2 2 - Labs CBC & Chem 7: 05/08/23 09:30 05/08/23 09:30 Labs: Abnormal Lab Results - Last 24 Hours (Table) 05/08/23 05/08/23 05/08/23 Range/Units 06:11 09:30 09:30 RBC 4.00 L (4.30-5.90) m/uL Hgb 11.3 L (13.0-17.5) gm/dL Hct 34.6 L (39.0-53.0) % Chloride 96 L (98-107) mmol/L Carbon Dioxide 36 H (22-30) mmol/L BUN 27 H (9-20) mg/dL Glucose 139 H (74-99) mg/dL POC Glucose (mg/dL) 162 H (70-110) mg/dL 05/08/23 05/08/23 05/08/23 Range/Units 11:35 16:50 20:44 RBC (4.30-5.90) m/uL Hgb (13.0-17.5) gm/dL Hct (39.0-53.0) % Chloride (98-107) mmol/L Carbon Dioxide (22-30) mmol/L BUN (9-20) mg/dL Glucose (74-99) mg/dL POC Glucose (mg/dL) 372 H 433 H 431 H (70-110) mg/dL Assessment and Plan Time with Patient: Less than 30
[2023-05-08] MEDS: BUDESONIDE 1 MG/2 ML NEBU INHALATION SCH (21:10)
[2023-05-08] MEDS: FORMOTEROL FUMARATE 20 MCG/2 ML NEBU INHALATION SCH (21:10)
[2023-05-08] MEDS: INSULIN DETEMIR (LEVEMIR) 100 UNIT/ML SYR SQ SCH (21:39)
[2023-05-09] MEDS: methylPREDNISolone SOD SUCCI 125 MG/2 ML VIAL IV SCH ×5 (01:24→23:53)
[2023-05-09 06:37] LABS: Glucose,Whole Blood 328 mg/dL (70-110)
[2023-05-09] MEDS: PANTOPRAZOLE 40 MG TABLET PO SCH (06:41)
[2023-05-09] MEDS: REPAGLINIDE 1 MG TAB PO SCH ×2 (06:41→12:25)
[2023-05-09] MEDS: INSULIN ASPART (NovoLOG) 100 UNIT/ML VIAL SQ SCH ×6 (06:41→21:25)
[2023-05-09] MEDS: BUDESONIDE 1 MG/2 ML NEBU INHALATION SCH ×2 (08:23→21:41)
[2023-05-09] MEDS: FORMOTEROL FUMARATE 20 MCG/2 ML NEBU INHALATION SCH ×2 (08:23→21:42)
[2023-05-09] MEDS: IPRATROPIUM-ALBUTEROL 3 ML NEB INHALATION SCH ×4 (08:23→21:41)
[2023-05-09] MEDS: INSULIN DETEMIR (LEVEMIR) 100 UNIT/ML SYR SQ SCH ×2 (08:56→21:25)
[2023-05-09] MEDS: ATORVASTATIN 40 MG TAB PO SCH (08:57)
[2023-05-09] MEDS: FUROSEMIDE 40 MG TAB PO SCH (08:57)
[2023-05-09] MEDS: APIXABAN 5 MG TAB PO SCH ×2 (08:57→21:24)
[2023-05-09] MEDS: FENOFIBRATE 160 MG TAB PO SCH (08:57)
[2023-05-09] MEDS: ESCITALOPRAM 10 MG TAB PO SCH (08:57)
[2023-05-09] MEDS: BICALUTAMIDE 50 MG TAB PO SCH (08:57)
[2023-05-09] MEDS: MONTELUKAST 10 MG TAB PO SCH (08:57)
[2023-05-09] MEDS: METOPROLOL SUCCINATE (ER) 25 MG TAB.ER.24H PO SCH (08:57)
[2023-05-09] MEDS: OFLOXACIN 0.3% OPHTH DROPS 5 ML BOTTLE BOTH EYES SCH (08:57)
[2023-05-09] MEDS: POTASSIUM CHLORIDE ER 20 MEQ TAB.ER PO SCH (08:58)
[2023-05-09] MEDS ORDERED: LORATADINE 10 MG TAB PO STA (10:26)
[2023-05-09 12:07] LABS: Glucose,Whole Blood 257 mg/dL (70-110)
--- NOTE | 2023-05-09 14:38 | P.PN ---
Subjective Progress Note Date: 05/09/23 Principal diagnosis: Respiratory failure. The patient is seen today May 02 2023 in follow-up on the selective care unit. He is awake and alert in no acute distress. Feeling better each day. Chest x-ray is showing improvement. He is continued on AirVo high flow oxygen at 60 L and 60% FiO2 with O2 saturations 88-89%. Blood cultures revealed no growth. White count 6.2. Hemoglobin 11.0. Platelets 375. Sodium 138. Potassium 4.0. Bicarb 33. BUN 22. Creatinine 0.93. Glucose 152. He remains on DuoNeb inhalations, Symbicort, Singulair. Anticoagulated with Eliquis. Antibiotics in the form of ceftriaxone. The patient is seen today 05/03/2023 in follow-up on the selective care unit. He is resting comfortably in bed. Awake and alert in no acute distress. He is feeling better each day. He denies any worsening shortness of breath, cough or congestion. He is still requiring AirVo high flow oxygen at 60 L and 60% FiO2 with O2 saturation at 90-91%. He is continued on DuoNeb inhalations, Symbicort, Singulair. Remains on oral diuretics. Anticoagulated with Eliquis. White count 5.5. Hemoglobin 11.3. Platelets 369. Sodium 139. Potassium 4.4. Bi carb 34. BUN 25. Creatinine 0.84. Glucose 195. Completed ceftriaxone and azithromycin. Patient was reevaluated today on 05/04/23, remains on airvo at 60% FiO2 and 45 L flow, and I plan to transition the patient to a high flow nasal cannula at 15 L/m. Clinically the patient is feeling better chest x-ray is definitely showing improvement nonetheless he remains to be relatively hypoxic. He is receiving treatment for his COPD, congestive heart failure, and for his suspected pulmonary embolism WBC count is 5.5 hemoglobin 11.3 basic metabolic profile is normal renal profile is normal Reevaluated today on 05/05/2023, patient is now on 15 L high flow nasal cannula, O2 saturations 94%, we'll try to cut down if possible to 12 L is sitting the patient maintains high O2 saturation in the 80s or low 90s. Clinically the patient is feeling better, breathing easier, and his chest x-ray has been showing significant improvement in his interstitial edema. Patient does have severe underlying COPD which is another contributing factor to his chronic hypoxic respiratory failure, remains on eliquis also for suspected acute pulmonary embolism. WBC count today is 6.9 hemoglobin is 12.2 electrodes are normal renal profile is normal Progress note dated 05/06/2023. 67-year-old male admitted with a diagnosis of hypoxemic respiratory failure secondary to COPD. The patient is currently on 15 L high flow oxygen. He's not receiving any IV fluids. We'll add some prednisone to his regimen, hopefully to be able to wean his FiO2 down. The patient is sitting in a chair next to his bed. He does not appear to be any distress. Labs today only included a glucose of 310. Chest x-ray from May 04 shows improved diffuse reticular nodular infiltrates. Progress note dated 05/07/2023. 67-year-old male admitted with a diagnosis of hypoxemic respiratory failure secondary to COPD. The patient is currently on 13 L high flow oxygen. Yesterday, he was on 15 L. He is not receiving any IV fluids. We will increase his Symbicort up to 160/4.5, 2 puffs twice a day. No new laboratory data today, other than a glucose of 232. Progress note dated 05/08/2023. 67-year-old male seen in room 372. He was admitted with a diagnosis of hypoxemic respiratory failure secondary to COPD. He remains on high flow nasal O2 at 13 L/m. Clinically, the patient is relatively stable, and unchanged. He is no better, but certainly no worse. The patient's white count is 7.1, hemoglobin 11.3, hematocrit 34.6, with a normal platelet count. Sodium 138, potassium 3.9, chlorides 96, CO2 36, BUN 27, and creatinine 0.83. Glucose 139. Calcium is 9.2. Today's chest x-ray shows patchy/parenchymal changes and interstitial changes, consistent with an inflammatory or infectious process, in addition to changes of COPD. Progress note dated 05/09/2023. 67-year-old male seen in room 372. Patient was admitted with a diagnosis of hypoxemic respiratory failure secondary to COPD. The patient continues on high flow nasal cannula at 13 L/m. The patient is not receiving any IV fluids. No new labs today. The only new lab is a glucose of 257. Legionella urinary antigen is negative. Chest x-ray from yesterday shows patchy parenchymal changes throughout the lungs, bilaterally, consistent with inflammato ry/infectious process. Objective - Vital Signs Vital signs: Vital Signs Temp 97.8 F 05/09/23 08:56 Pulse 92 05/09/23 12:31 Resp 20 05/09/23 12:31 BP 123/78 05/09/23 12:31 Pulse Ox 87 L 05/09/23 12:31 FiO2 60 05/04/23 11:35 Intake & Output 05/08/23 05/09/23 05/09/23 18:59 06:59 18:59 Intake Total 476 780 430 Balance 476 780 430 Intake: IV 10 Invasive Line 2 10 Oral 476 780 420 Other: Voiding Method Toilet Toilet Toilet Urinal Urinal Urinal # Voids 2 1 2 - Exam No acute distress, oriented 3. Currently on 13 L high flow nasal O2. Saturations are 91 %. HEENT examination is grossly unremarkable. Neck supple. Full range of motion. No adenopathy thyromegaly or neck vein distention. Cardiovascular examination reveals regular rhythm rate. S1-S2 normal. No S3 or S4. No discernible murmur noted. Heart rate 92 bpm. Lungs reveal scattered rhonchi. Her sounds are equal bilaterally but diminished throughout. No wheezes. No crackles. Saturations are 91 % on 13 L high flow oxygen. Abdomen soft bowel sounds are heard. No masses or tenderness. Extremities are intact. No cyanosis clubbing or edema. Skin is without rash or lesion. Neurologic examination is brief but nonfocal. - Labs CBC & Chem 7: 05/08/23 09:30 05/08/23 09:30 Labs: Abnormal Lab Results - Last 24 Hours (Table) 05/08/23 05/08/23 05/08/23 Range/Units 09:30 16:50 20:44 POC Glucose (mg/dL) 433 H 431 H (70-110) mg/dL Procalcitonin 0.12 H (0.02-0.09) ng/mL 05/09/23 05/09/23 Range/Units 06:36 12:00 POC Glucose (mg/dL) 328 H 257 H (70-110) mg/dL Procalcitonin (0.02-0.09) ng/mL Assessment and Plan Assessment: Acute on chronic hypoxemic respiratory failure, currently on high flow nasal cannula. Possible bilateral pneumonia. History of severe COPD, with an FEV1 that is 40% of predicted. Acute pulmonary embolism. Remote history of DVT. Type 2 diabetes mellitus. Hyperlipidemia. Chronic diastolic CHF. Secondary pulmonary hypertension. Plan: Plan dated 05/06/2023. The patient continues on high flow nasal cannula. The patient continues on albuterol sulfate, and ipratropium bromide, and other bronchodilators. The patient also continues on diuretics, and on anticoagulants. We added prednisone to his regimen. Additional recommendations and suggestions are forthcoming. We'll continue to titrate down his oxygen, was on his saturations are 88% or higher. No additional recommendations are made. Prognosis is guarded. Plan dated 05/07/2023. The patient is seen today in room 372. The patient's oxygen has been weaned down to 13 L high flow, from 15 L high flow yesterday. The patient continues on appropriate medications, and his Symbicort is increased to the higher dose. We added prednisone to his regimen. Labs, x-rays, and medications are reviewed. His overall prognosis remains guarded. He is a DO NOT RESUSCITATE patient. We will continue to follow the patient, and make recommendations along the way. Plan dated 05/08/2023. 67-year-old male seen in room 372. Unfortunately, he continues on high flow nasal O2 at 13 L. He has a DO NOT RESUSCITATE patient. His most recent chest x-ray shows changes of COPD, and possible patchy infiltrates, consistent with pneumonia. We will check a pro-calcitonin level. Additional recommendations and suggestions are forthcoming. He is on appropriate medications, including bronchodilators, maintenance inhaler, and corticosteroids. We will continue to follow the patient, and make recommendations. Prognosis is guarded. Plan dated 05/09/2023. 67-year-old male who was seen in room 372. He is currently on 13 L high flow nasal cannula. Labs, x-rays, and medications are reviewed. The patient continues on appropriate medications. Pro-calcitonin level was 0.12. Legionella antigen in the urine was negative. We will continue to follow the patient, and make recommendations along the way. He continues on DuoNeb, budesonide, formoterol, and corticosteroids. Additional recommendations and suggestions are forthcoming. The patient is a DO NOT RESUSCITATE patient. We will continue to follow the patient, and make recommendations along the way. Time with Patient: Less than 30
[2023-05-09 16:51] LABS: Glucose,Whole Blood 416 mg/dL (70-110)
[2023-05-09 20:00] LABS: Glucose,Whole Blood 432 mg/dL (70-110)
[2023-05-09] MEDS ORDERED: guaiFENesin 600 MG TABLET.ER PO PRN (21:19)
[2023-05-09] MEDS: ACETAMINOPHEN TAB 325 MG TAB PO PRN (21:32)
[2023-05-09] MEDS: cloZAPine 100 MG TAB PO SCH (21:51)
[2023-05-09] MEDS ORDERED: traMADol 50 MG TAB PO STA (23:34)
[2023-05-09 23:59] LABS: Glucose,Whole Blood 317 mg/dL (70-110)
[2023-05-10] MEDS: ACETAMINOPHEN TAB 325 MG TAB PO PRN ×2 (02:42→09:02)
--- NOTE | 2023-05-10 05:41 | P.PN ---
Subjective Progress Note Date: 05/09/23 Patient monitored on the stepdown unit, remains on 13L of hi flow which is being weaned. Patient does wear 4L of oxygen at home. He continues to report shortness of breath when up ambulating he is unable to go far. On oral prednisone 40 mg daily, lasix has been transitioned to oral. Blood glucose elevated in the 200s. 05/08/2023 Patient continues on hi flow oxygen difficult to wean. He had a follow up chest xray today showing increasing patchy parenchymal changes and interstitial changes throughout the lungs. Inflammatory vs. infectious. There is COPD. Possibly edema. Oral lasix daily has been resumed. He is also resumed on oral chemotherapy. He is on IV solumedrol. 05/09/2023 Patient continues on hiflow oxygen at 13L he is having a hard time weaning. Remains on IV steroids, glucose is increased 300's. Legionella negative and procalcitonin level 0.12. Review of Systems Constitutional: Denied any fatigue denied any fever. Cardio vascular: denied any chest pain, palpitations Gastrointestinal: denied any nausea, vomiting, diarrhea Pulmonary: Reports shortness of breath worse with exertion, no cough Neurologic denied any new focal deficits All inpatient medications were reviewed and appropriate changes in these medications as dictated in the interval history and assessment and plan. PHYSICAL EXAMINATION: GENERAL: The patient is alert and oriented x3, not in any acute distress. Well developed, well nourished. HEENT: Pupils are round and equally reacting to light. EOMI. No scleral icterus. No conjunctival pallor. Normocephalic, atraumatic. No pharyngeal erythema. No thyromegaly. CARDIOVASCULAR: S1 and S2 present. No murmurs, rubs, or gallops. PULMONARY: Diminished, on 13L hi flow cannula ABDOMEN: Soft, nontender, nondistended, normoactive bowel sounds. No palpable organomegaly. MUSCULOSKELETAL: No joint swelling or deformity. EXTREMITIES: No cyanosis, clubbing, or pedal edema. NEUROLOGICAL: Gross neurological examination did not reveal any focal deficits. SKIN: No rashes. Assessment Acute on chronic hypoxemic respiratory failure secondary to acute COPD and acute CHF Acute COPD exacerbation with history of severe COPD Chronic nicotinue use Acute on chronic diastolic heart failure Pulmonary emboli acute Severe pulmonary hypertension Hyperkalemia Remote history of DVT Diabetes mellitus type 2 Steroid induced hyperglycemia History of prostate cancer on oral chemotherapy Alpha-1 antitrypsin deficiency, MS phenotype Hyperlipidemia GI prophylaxis DVT prophylaxis anticoagulated with eliquis DO NOT RESUSCITATE/ DO NOT INTUBATE Plan Patient has completed course of IV antibiotics, he has been put back on IV steroids Levemir added for improved glycemic control. Pulmonary following closely, symbicort discontinued and changed to budesonide and formoterol. Transitioned to oral lasix Patient remains on hi flow oxygen being weaned as tolerated. He does wear 4L at home and needs to be at baseline before he can be considered for discharge Encourage IS The impression and plan of care has been dictated by Juanita Crockett, Nurse Practitioner as directed. Dr. Barry MD I have performed a history and physical examination and medical decision making of this patient, discussed the same with the dictator, and agree with the dictators assessment and plan as written, documented as a scribe. Based on total visit time, I have performed more than 50% of this visit. Objective - Vital Signs Vital signs: Vital Signs Temp 97.8 F 05/09/23 20:00 Pulse 96 05/10/23 00:00 Resp 18 05/10/23 00:00 BP 96/57 05/10/23 00:00 Pulse Ox 90 L 05/10/23 00:00 FiO2 60 05/04/23 11:35 Intake & Output 05/09/23 05/09/23 05/10/23 06:59 18:59 06:59 Intake Total 780 680 20 Balance 780 680 20 Intake: IV 20 20 Invasive Line 2 20 20 Oral 780 660 Other: Voiding Method Toilet Toilet Toilet Urinal Urinal Urinal # Voids 1 2 - Labs CBC & Chem 7: 05/08/23 09:30 05/08/23 09:30 Labs: Abnormal Lab Results - Last 24 Hours (Table) 05/09/23 05/09/23 05/09/23 Range/Units 06:36 12:00 16:49 POC Glucose (mg/dL) 328 H 257 H 416 H (70-110) mg/dL 05/09/23 05/09/23 Range/Units 19:59 23:56 POC Glucose (mg/dL) 432 H 317 H (70-110) mg/dL
[2023-05-10 06:24] LABS: Glucose,Whole Blood 318 mg/dL (70-110)
[2023-05-10] MEDS: PANTOPRAZOLE 40 MG TABLET PO SCH (06:40)
[2023-05-10] MEDS: INSULIN DETEMIR (LEVEMIR) 100 UNIT/ML SYR SQ SCH ×2 (06:40→21:06)
[2023-05-10] MEDS: methylPREDNISolone SOD SUCCI 125 MG/2 ML VIAL IV SCH ×3 (06:41→17:22)
[2023-05-10] MEDS: INSULIN ASPART (NovoLOG) 100 UNIT/ML VIAL SQ SCH ×7 (06:41→21:07)
[2023-05-10] MEDS: REPAGLINIDE 1 MG TAB PO SCH ×2 (06:43→12:30)
[2023-05-10] MEDS ORDERED: INSULIN DETEMIR (LEVEMIR) 100 UNIT/ML SYR SQ SCH (07:00)
[2023-05-10] MEDS: FORMOTEROL FUMARATE 20 MCG/2 ML NEBU INHALATION SCH ×2 (08:29→19:55)
[2023-05-10] MEDS: BUDESONIDE 1 MG/2 ML NEBU INHALATION SCH ×2 (08:30→19:55)
[2023-05-10] MEDS: IPRATROPIUM-ALBUTEROL 3 ML NEB INHALATION SCH ×4 (08:30→19:55)
[2023-05-10] MEDS: MONTELUKAST 10 MG TAB PO SCH (09:01)
[2023-05-10] MEDS: POTASSIUM CHLORIDE ER 20 MEQ TAB.ER PO SCH (09:01)
[2023-05-10] MEDS: FENOFIBRATE 160 MG TAB PO SCH (09:01)
[2023-05-10] MEDS: APIXABAN 5 MG TAB PO SCH ×2 (09:01→21:06)
[2023-05-10] MEDS: LORATADINE 10 MG TAB PO SCH (09:01)
[2023-05-10] MEDS: ESCITALOPRAM 10 MG TAB PO SCH (09:01)
[2023-05-10] MEDS: METOPROLOL SUCCINATE (ER) 25 MG TAB.ER.24H PO SCH (09:01)
[2023-05-10] MEDS: BICALUTAMIDE 50 MG TAB PO SCH (09:01)
[2023-05-10] MEDS: ATORVASTATIN 40 MG TAB PO SCH (09:01)
[2023-05-10] MEDS: FUROSEMIDE 40 MG TAB PO SCH (09:01)
[2023-05-10] MEDS: OFLOXACIN 0.3% OPHTH DROPS 5 ML BOTTLE BOTH EYES SCH (10:21)
[2023-05-10 11:30] LABS: Basophils % (A) 0 %; Eosinophils # (A) 0.1 k/uL (0-0.7); Eosinophils % (A) 1 %; HCT 34.1 % (39.0-53.0); HGB 11.2 gm/dL (13.0-17.5); Lymphocytes # (A) 0.8 k/uL (1.0-4.8); Lymphocytes % (A) 6 %; MCH 28.7 pg (25.0-35.0); MCHC 32.9 g/dL (31.0-37.0); MCV 87.2 fL (80.0-100.0); Mean Platelet Volume 7.3; Monocytes # (A) 0.8 k/uL (0-1.0); Monocytes % (A) 6 %; Neutrophils # (A) 11.4 k/uL (1.3-7.7); Neutrophils % (A) 86 %; Platelet Count 436 k/uL (150-450); RBC 3.91 m/uL (4.30-5.90); RDW 14.3 % (11.5-15.5); WBC 13.3 k/uL (3.8-10.6)
[2023-05-10 11:39] LABS: African American GFR (CKD) >90 (>60 ml/min/1.73 sqM); Anion Gap 9 mmol/L; Blood Urea Nitrogen 36 mg/dL (9-20); Carbon Dioxide 29 mmol/L (22-30); Chloride 93 mmol/L (98-107); Glucose 298 mg/dL (74-99); Non-African American GFR(CKD) >90 (>60 ml/min/1.73 sqM); Potassium 4.8 mmol/L (3.5-5.1); Sodium 131 mmol/L (137-145)
[2023-05-10 11:46] LABS: NT-Pro-B-Type Natriuretic Pept 945 pg/mL
[2023-05-10 12:25] LABS: Glucose,Whole Blood 316 mg/dL (70-110)
--- NOTE | 2023-05-10 14:48 | XR ---
EXAMINATION TYPE: XR cervical spine comp DATE OF EXAM: 05/10/2023 2:23 PM CLINICAL INDICATION:Male, 67 years old with history of cervical radiculopathy; COMPARISON: None TECHNIQUE: The cervical spine was imaged in frontal, lateral, odontoid and bilateral oblique. FINDINGS: The osseous structures show normal alignment without evidence of an acute fracture. There are osteoph ytes noted throughout the cervical spine on the anterior and lateral aspects of the vertebral bodies. The intervertebral disk spaces are narrowed at multiple levels. Pedicles are intact. Soft tissues a re within normal limits. The odontoid appears intact. Neural foraminal stenosis worse bilaterally at C4-C7 with at least mild. IMPRESSION: 1. No fracture or dislocation. 2. Mild degenerative disc disease changes of the cervical spine. Neural foraminal stenosis worse kenny aterally at C4-C7 with at least mild.
[2023-05-10] MEDS: CYCLOBENZAPRINE 5 MG TAB PO PRN (15:11)
[2023-05-10] MEDS: HYDROcodone/APAP 5-325MG 1 EACH TAB PO PRN ×2 (15:12→21:09)
--- NOTE | 2023-05-10 15:13 | P.PN ---
Subjective Progress Note Date: 05/10/23 Principal diagnosis: Respiratory failure. The patient is seen today May 02 2023 in follow-up on the selective care unit. He is awake and alert in no acute distress. Feeling better each day. Chest x-ray is showing improvement. He is continued on AirVo high flow oxygen at 60 L and 60% FiO2 with O2 saturations 88-89%. Blood cultures revealed no growth. White count 6.2. Hemoglobin 11.0. Platelets 375. Sodium 138. Potassium 4.0. Bicarb 33. BUN 22. Creatinine 0.93. Glucose 152. He remains on DuoNeb inhalations, Symbicort, Singulair. Anticoagulated with Eliquis. Antibiotics in the form of ceftriaxone. The patient is seen today 05/03/2023 in follow-up on the selective care unit. He is resting comfortably in bed. Awake and alert in no acute distress. He is feeling better each day. He denies any worsening shortness of breath, cough or congestion. He is still requiring AirVo high flow oxygen at 60 L and 60% FiO2 with O2 saturation at 90-91%. He is continued on DuoNeb inhalations, Symbicort, Singulair. Remains on oral diuretics. Anticoagulated with Eliquis. White count 5.5. Hemoglobin 11.3. Platelets 369. Sodium 139. Potassium 4.4. Bi carb 34. BUN 25. Creatinine 0.84. Glucose 195. Completed ceftriaxone and azithromycin. Patient was reevaluated today on 05/04/23, remains on airvo at 60% FiO2 and 45 L flow, and I plan to transition the patient to a high flow nasal cannula at 15 L/m. Clinically the patient is feeling better chest x-ray is definitely showing improvement nonetheless he remains to be relatively hypoxic. He is receiving treatment for his COPD, congestive heart failure, and for his suspected pulmonary embolism WBC count is 5.5 hemoglobin 11.3 basic metabolic profile is normal renal profile is normal Reevaluated today on 05/05/2023, patient is now on 15 L high flow nasal cannula, O2 saturations 94%, we'll try to cut down if possible to 12 L is sitting the patient maintains high O2 saturation in the 80s or low 90s. Clinically the patient is feeling better, breathing easier, and his chest x-ray has been showing significant improvement in his interstitial edema. Patient does have severe underlying COPD which is another contributing factor to his chronic hypoxic respiratory failure, remains on eliquis also for suspected acute pulmonary embolism. WBC count today is 6.9 hemoglobin is 12.2 electrodes are normal renal profile is normal Progress note dated 05/06/2023. 67-year-old male admitted with a diagnosis of hypoxemic respiratory failure secondary to COPD. The patient is currently on 15 L high flow oxygen. He's not receiving any IV fluids. We'll add some prednisone to his regimen, hopefully to be able to wean his FiO2 down. The patient is sitting in a chair next to his bed. He does not appear to be any distress. Labs today only included a glucose of 310. Chest x-ray from May 04 shows improved diffuse reticular nodular infiltrates. Progress note dated 05/07/2023. 67-year-old male admitted with a diagnosis of hypoxemic respiratory failure secondary to COPD. The patient is currently on 13 L high flow oxygen. Yesterday, he was on 15 L. He is not receiving any IV fluids. We will increase his Symbicort up to 160/4.5, 2 puffs twice a day. No new laboratory data today, other than a glucose of 232. Progress note dated 05/08/2023. 67-year-old male seen in room 372. He was admitted with a diagnosis of hypoxemic respiratory failure secondary to COPD. He remains on high flow nasal O2 at 13 L/m. Clinically, the patient is relatively stable, and unchanged. He is no better, but certainly no worse. The patient's white count is 7.1, hemoglobin 11.3, hematocrit 34.6, with a normal platelet count. Sodium 138, potassium 3.9, chlorides 96, CO2 36, BUN 27, and creatinine 0.83. Glucose 139. Calcium is 9.2. Today's chest x-ray shows patchy/parenchymal changes and interstitial changes, consistent with an inflammatory or infectious process, in addition to changes of COPD. Progress note dated 05/09/2023. 67-year-old male seen in room 372. Patient was admitted with a diagnosis of hypoxemic respiratory failure secondary to COPD. The patient continues on high flow nasal cannula at 13 L/m. The patient is not receiving any IV fluids. No new labs today. The only new lab is a glucose of 257. Legionella urinary antigen is negative. Chest x-ray from yesterday shows patchy parenchymal changes throughout the lungs, bilaterally, consistent with inflammato ry/infectious process. Progress note dated 05/10/2023. 67-year-old DO NOT RESUSCITATE male, seen in room 372. Unfortunately, the patient continues on high flow oxygen, at 14 L/m. He's not receiving any IV fluids. The patient is receiving maximal medical therapy. Labs today include a white count 13.3, hemoglobin 11.2, hematocrit 34.1, and a normal platelet count. Sodium 131, potassium 4.8, chlorides 93, CO2 29, BUN 36, creatinine 0.82. Glucose 298. N-terminal proBNP is 945. Objective - Vital Signs Vital signs: Vital Signs Temp 97.8 F 05/10/23 09:04 Pulse 75 05/10/23 12:39 Resp 16 05/10/23 12:39 BP 123/67 05/10/23 12:39 Pulse Ox 90 L 05/10/23 12:39 FiO2 60 05/04/23 11:35 Intake & Output 05/09/23 05/10/23 05/10/23 18:59 06:59 18:59 Intake Total 680 20 378 Balance 680 20 378 Intake: IV 20 20 20 Invasive Line 2 20 20 20 Oral 660 358 Other: Voiding Method Toilet Toilet Toilet Urinal Urinal Urinal # Voids 2 - Exam No acute distress, oriented 3. Currently on 14 L high flow nasal O2. Saturations are 90 %. HEENT examination is grossly unremarkable. Neck supple. Full range of motion. No adenopathy thyromegaly or neck vein distention. Cardiovascular examination reveals regular rhythm rate. S1-S2 normal. No S3 or S4. No discernible murmur noted. Heart rate 90 bpm. Lungs reveal scattered rhonchi. Her sounds are equal bilaterally but diminished throughout. No wheezes. No crackles. Saturations are 90% on 14 L high flow oxygen. Abdomen soft bowel sounds are heard. No masses or tenderness. Extremities are intact. No cyanosis clubbing or edema. Skin is without rash or lesion. Neurologic examination is brief but nonfocal. - Labs CBC & Chem 7: 05/10/23 11:17 05/10/23 11:17 Labs: Abnormal Lab Results - Last 24 Hours (Table) 05/09/23 05/09/23 05/09/23 Range/Units 16:49 19:59 23:56 WBC (3.8-10.6) k/uL RBC (4.30-5.90) m/uL Hgb (13.0-17.5) gm/dL Hct (39.0-53.0) % Neutrophils # (1.3-7.7) k/uL Lymphocytes # (1.0-4.8) k/uL Sodium (137-145) mmol/L Chloride (98-107) mmol/L BUN (9-20) mg/dL Glucose (74-99) mg/dL POC Glucose (mg/dL) 416 H 432 H 317 H (70-110) mg/dL 05/10/23 05/10/23 05/10/23 Range/Units 06:23 11:17 11:17 WBC 13.3 H (3.8-10.6) k/uL RBC 3.91 L (4.30-5.90) m/uL Hgb 11.2 L (13.0-17.5) gm/dL Hct 34.1 L (39.0-53.0) % Neutrophils # 11.4 H (1.3-7.7) k/uL Lymphocytes # 0.8 L (1.0-4.8) k/uL Sodium 131 L (137-145) mmol/L Chloride 93 L (98-107) mmol/L BUN 36 H (9-20) mg/dL Glucose 298 H (74-99) mg/dL POC Glucose (mg/dL) 318 H (70-110) mg/dL 05/10/23 Range/Units 12:23 WBC (3.8-10.6) k/uL RBC (4.30-5.90) m/uL Hgb (13.0-17.5) gm/dL Hct (39.0-53.0) % Neutrophils # (1.3-7.7) k/uL Lymphocytes # (1.0-4.8) k/uL Sodium (137-145) mmol/L Chloride (98-107) mmol/L BUN (9-20) mg/dL Glucose (74-99) mg/dL POC Glucose (mg/dL) 316 H (70-110) mg/dL Assessment and Plan Assessment: Acute on chronic hypoxemic respiratory failure, currently on high flow nasal cannula. Possible bilateral pneumonia. History of severe COPD, with an FEV1 that is 40% of predicted. Acute pulmonary embolism. Remote history of DVT. Type 2 diabetes mellitus. Hyperlipidemia. Chronic diastolic CHF. Secondary pulmonary hypertension. Plan: Plan dated 05/06/2023. The patient continues on high flow nasal cannula. The patient continues on albuterol sulfate, and ipratropium bromide, and other bronchodilators. The patient also continues on diuretics, and on anticoagulants. We added prednisone to his regimen. Additional recommendations and suggestions are forthcoming. We'll continue to titrate down his oxygen, was on his saturations are 88% or higher. No additional recommendations are made. Prognosis is guarded. Plan dated 05/07/2023. The patient is seen today in room 372. The patient's oxygen has been weaned down to 13 L high flow, from 15 L high flow yesterday. The patient continues on appropriate medications, and his Symbicort is increased to the higher dose. We added prednisone to his regimen. Labs, x-rays, and medications are reviewed. His overall prognosis remains guarded. He is a DO NOT RESUSCITATE patient. We will continue to follow the patient, and make recommendations along the way. Plan dated 05/08/2023. 67-year-old male seen in room 372. Unfortunately, he continues on high flow nasal O2 at 13 L. He has a DO NOT RESUSCITATE patient. His most recent chest x-ray shows changes of COPD, and possible patchy infiltrates, consistent with pneumonia. We will check a pro-calcitonin level. Additional recommendations and suggestions are forthcoming. He is on appropriate medications, including bronchodilators, maintenance inhaler, and corticosteroids. We will continue to follow the patient, and make recommendations. Prognosis is guarded. Plan dated 05/09/2023. 67-year-old male who was seen in room 372. He is currently on 13 L high flow n elver cannula. Labs, x-rays, and medications are reviewed. The patient continues on appropriate medications. Pro-calcitonin level was 0.12. Legionella antigen in the urine was negative. We will continue to follow the patient, and make recommendations along the way. He continues on DuoNeb, budes onide, formoterol, and corticosteroids. Additional recommendations and suggestions are forthcoming. The patient is a DO NOT RESUSCITATE patient. We will continue to follow the patient, and make recommendations along the way. Plan dated 05/10/2023. The patient is again seen in room 372. He is on high flow nasal cannula at 14 L/m. Labs, x-rays, medications are reviewed. The patient continues on appropriate medications. He's had multiple chest x-rays, CT angiograms, and echocardiograms. The patient is a DO NOT RESUSCITATE patient. We will continue to follow make recommendations along the way. He continues on DuoNeb, budesonide, formoterol, and corticosteroids. Time with Patient: Less than 30
--- NOTE | 2023-05-10 15:13 | P.PN ---
Subjective Progress Note Date: 05/10/23 Patient monitored on the stepdown unit, remains on 13L of hi flow which is being weaned. Patient does wear 4L of oxygen at home. He continues to report shortness of breath when up ambulating he is unable to go far. On oral prednisone 40 mg daily, lasix has been transitioned to oral. Blood glucose elevated in the 200s. 05/08/2023 Patient continues on hi flow oxygen difficult to wean. He had a follow up chest xray today showing increasing patchy parenchymal changes and interstitial changes throughout the lungs. Inflammatory vs. infectious. There is COPD. Possibly edema. Oral lasix daily has been resumed. He is also resumed on oral chemotherapy. He is on IV solumedrol. 05/09/2023 Patient continues on hiflow oxygen at 13L he is having a hard time weaning. Remains on IV steroids, glucose is increased 300's. Legionella negative and procalcitonin level 0.12. 05/10/2023 Patient evaluated on the stepdown unit remains on hi flow cannula still difficult to wean will attempt for 12L today oxygen saturations around 91% he is pulling about 1200 on his IS able to perform 2 times in a row and then unable to pull more than 750. He is complaining of pain in the right arm and also his neck and right shoulder. Asking for additional pain medication for this. White count 13.3 however he was placed on IV steroids this could be reactive. Sodium is 131, not currently on any IV fluids. A proBNP was checked only 945 doesn't appear to be volume overloaded. Blood glucose in the 300s working on adjusting insulin. Pulmonary following closely. Review of Systems Constitutional: Denied any fatigue denied any fever. Cardio vascular: denied any chest pain, palpitations Gastrointestinal: denied any nausea, vomiting, diarrhea Pulmonary: Reports shortness of breath worse with exertion, no cough Neurologic denied any new focal deficits Has some right arm and neck pain. All inpatient medications were reviewed and appropriate changes in these medications as dictated in the interval history and assessment and plan. PHYSICAL EXAMINATION: GENERAL: The patient is alert and oriented x3, not in any acute distress. Well developed, well nourished. HEENT: Pupils are round and equally reacting to light. EOMI. No scleral icterus. No conjunctival pallor. Normocephalic, atraumatic. No pharyngeal erythema. No thyromegaly. CARDIOVASCULAR: S1 and S2 present. No murmurs, rubs, or gallops. PULMONARY: Diminished, on 13L hi flow cannula ABDOMEN: Soft, nontender, nondistended, normoactive bowel sounds. No palpable organomegaly. MUSCULOSKELETAL: No joint swelling or deformity. EXTREMITIES: No cyanosis, clubbing, or pedal edema. NEUROLOGICAL: Gross neurological examination did not reveal any focal deficits. SKIN: No rashes. Assessment Acute on chronic hypoxemic respiratory failure secondary to acute COPD and acute CHF Acute COPD exacerbation with history of severe COPD Chronic nicotinue use Right cervical radiculoapthy Acute on chronic diastolic heart failure Pulmonary emboli acute leukocytosis likely reactive to the IV steroids Severe pulmonary hypertension Hyperkalemia improved. Remote history of DVT Diabetes mellitus type 2 Steroid induced hyperglycemia History of prostate cancer on oral chemotherapy Alpha-1 antitrypsin deficiency, MS phenotype Hyperlipidemia GI prophylaxis DVT prophylaxis anticoagulated with eliquis DO NOT RESUSCITATE/ DO NOT INTUBATE Plan Patient has completed course of IV antibiotics, he has been put back on IV steroids Levemir added for improved glycemic control which has been increased patient continues on accuchecks ACHS additionally sliding scale, scheduled insulin and levemir has been increased today patient may require insulin gtt pending blood glucose levels. This is expected with IV steroids. Pulmonary following closely, symbicort discontinued and changed to budesonide and formoterol. Transitioned to oral lasix continue daily Complaints of right neck and arm pain cervical spine xray is ordered and patient will be started on muscle relaxer lose dose and increase in pain medication, patient is already on systemic steroids. Patient remains on hi flow oxygen being weaned as tolerated. He does wear 4L at home and needs to be at baseline before he can be considered for discharge Encourage IS to complete 10 x an hour while awake Repeat labs in AM. The impression and plan of care has been dictated by Juanita Crockett Nurse Practitioner as directed. Dr. Barry MD I have performed a history and physical examination and medical decision making of this patient, discussed the same with the dictator, and agree with the dictators assessment and plan as written, documented as a scribe. Based on total visit time, I have performed more than 50% of this visit. Objective - Vital Signs Vital signs: Vital Signs Temp 97.8 F 05/10/23 09:04 Pulse 75 05/10/23 12:39 Resp 16 05/10/23 12:39 BP 123/67 05/10/23 12:39 Pulse Ox 90 L 05/10/23 12:39 FiO2 60 05/04/23 11:35 Intake & Output 05/09/23 05/10/23 05/10/23 18:59 06:59 18:59 Intake Total 680 20 378 Balance 680 20 378 Intake: IV 20 20 20 Invasive Line 2 20 20 20 Oral 660 358 Other: Voiding Method Toilet Toilet Toilet Urinal Urinal Urinal # Voids 2 - Labs CBC & Chem 7: 05/10/23 11:17 05/10/23 11:17 Labs: Abnormal Lab Results - Last 24 Hours (Table) 05/09/23 05/09/23 05/09/23 Range/Units 16:49 19:59 23:56 WBC (3.8-10.6) k/uL RBC (4.30-5.90) m/uL Hgb (13.0-17.5) gm/dL Hct (39.0-53.0) % Neutrophils # (1.3-7.7) k/uL Lymphocytes # (1.0-4.8) k/uL Sodium (137-145) mmol/L Chloride (98-107) mmol/L BUN (9-20) mg/dL Glucose (74-99) mg/dL POC Glucose (mg/dL) 416 H 432 H 317 H (70-110) mg/dL 05/10/23 05/10/23 05/10/23 Range/Units 06:23 11:17 11:17 WBC 13.3 H (3.8-10.6) k/uL RBC 3.91 L (4.30-5.90) m/uL Hgb 11.2 L (13.0-17.5) gm/dL Hct 34.1 L (39.0-53.0) % Neutrophils # 11.4 H (1.3-7.7) k/uL Lymphocytes # 0.8 L (1.0-4.8) k/uL Sodium 131 L (137-145) mmol/L Chloride 93 L (98-107) mmol/L BUN 36 H (9-20) mg/dL Glucose 298 H (74-99) mg/dL POC Glucose (mg/dL) 318 H (70-110) mg/dL 05/10/23 Range/Units 12:23 WBC (3.8-10.6) k/uL RBC (4.30-5.90) m/uL Hgb (13.0-17.5) gm/dL Hct (39.0-53.0) % Neutrophils # (1.3-7.7) k/uL Lymphocytes # (1.0-4.8) k/uL Sodium (137-145) mmol/L Chloride (98-107) mmol/L BUN (9-20) mg/dL Glucose (74-99) mg/dL POC Glucose (mg/dL) 316 H (70-110) mg/dL Assessment and Plan Time with Patient: Less than 30
[2023-05-10] MEDS ORDERED: SODIUM CHLORIDE 0.9% 1,000 ML IV SCH (15:15)
[2023-05-10 16:32] LABS: Glucose,Whole Blood 404 mg/dL (70-110)
[2023-05-10 20:15] LABS: Glucose,Whole Blood 362 mg/dL (70-110)
[2023-05-10] MEDS: cloZAPine 100 MG TAB PO SCH (21:13)
[2023-05-11] MEDS: methylPREDNISolone SOD SUCCI 125 MG/2 ML VIAL IV SCH ×5 (01:04→23:51)
[2023-05-11 06:20] LABS: Glucose,Whole Blood 239 mg/dL (70-110)
[2023-05-11] MEDS: REPAGLINIDE 1 MG TAB PO SCH ×2 (06:47→12:12)
[2023-05-11] MEDS: PANTOPRAZOLE 40 MG TABLET PO SCH (06:47)
[2023-05-11] MEDS: INSULIN DETEMIR (LEVEMIR) 100 UNIT/ML SYR SQ SCH ×2 (06:48→20:12)
[2023-05-11] MEDS: INSULIN ASPART (NovoLOG) 100 UNIT/ML VIAL SQ SCH ×7 (06:48→20:12)
[2023-05-11] MEDS: FORMOTEROL FUMARATE 20 MCG/2 ML NEBU INHALATION SCH ×2 (07:54→21:12)
[2023-05-11] MEDS: BUDESONIDE 1 MG/2 ML NEBU INHALATION SCH ×2 (07:54→21:12)
[2023-05-11] MEDS: IPRATROPIUM-ALBUTEROL 3 ML NEB INHALATION SCH ×4 (07:54→21:12)
[2023-05-11] MEDS: LORATADINE 10 MG TAB PO SCH (08:30)
[2023-05-11] MEDS: ATORVASTATIN 40 MG TAB PO SCH (08:30)
[2023-05-11] MEDS: MONTELUKAST 10 MG TAB PO SCH (08:30)
[2023-05-11] MEDS: POTASSIUM CHLORIDE ER 20 MEQ TAB.ER PO SCH (08:30)
[2023-05-11] MEDS: ESCITALOPRAM 10 MG TAB PO SCH (08:30)
[2023-05-11] MEDS: FENOFIBRATE 160 MG TAB PO SCH (08:30)
[2023-05-11] MEDS: METOPROLOL SUCCINATE (ER) 25 MG TAB.ER.24H PO SCH (08:31)
[2023-05-11] MEDS: BICALUTAMIDE 50 MG TAB PO SCH (08:31)
[2023-05-11] MEDS: APIXABAN 5 MG TAB PO SCH ×2 (08:31→20:12)
[2023-05-11] MEDS: FUROSEMIDE 40 MG TAB PO SCH (08:31)
[2023-05-11] MEDS: OFLOXACIN 0.3% OPHTH DROPS 5 ML BOTTLE BOTH EYES SCH (08:32)
--- NOTE | 2023-05-11 10:49 | P.PN ---
Subjective Progress Note Date: 05/11/23 Patient monitored on the stepdown unit, remains on 13L of hi flow which is being weaned. Patient does wear 4L of oxygen at home. He continues to report shortness of breath when up ambulating he is unable to go far. On oral prednisone 40 mg daily, lasix has been transitioned to oral. Blood glucose elevated in the 200s. 05/08/2023 Patient continues on hi flow oxygen difficult to wean. He had a follow up chest xray today showing increasing patchy parenchymal changes and interstitial changes throughout the lungs. Inflammatory vs. infectious. There is COPD. Possibly edema. Oral lasix daily has been resumed. He is also resumed on oral chemotherapy. He is on IV solumedrol. 05/09/2023 Patient continues on hiflow oxygen at 13L he is having a hard time weaning. Remains on IV steroids, glucose is increased 300's. Legionella negative and procalcitonin level 0.12. 05/10/2023 Patient evaluated on the stepdown unit remains on hi flow cannula still difficult to wean will attempt for 12L today oxygen saturations around 91% he is pulling about 1200 on his IS able to perform 2 times in a row and then unable to pull more than 750. He is complaining of pain in the right arm and also his neck and right shoulder. Asking for additional pain medication for this. White count 13.3 however he was placed on IV steroids this could be reactive. Sodium is 131, not currently on any IV fluids. A proBNP was checked only 945 doesn't appear to be volume overloaded. Blood glucose in the 300s working on adjusting insulin. Pulmonary following closely. 05/11/2023 Patient is evaluated today resting in bed. Continues on 12-14L hi flow unable to wean successfully. Patient remains on IV solumedrol and inhaled steroids. He had cervical spine xray showing mild neural foraminal stenosis C4-C7 he does have improvement in his radicular symptoms today and will continue on flexeril. He does need encouragement to use the incentive spirometer. Review of Systems Constitutional: Denied any fatigue denied any fever. Cardio vascular: denied any chest pain, palpitations Gastrointestinal: denied any nausea, vomiting, diarrhea Pulmonary: Reports shortness of breath worse with exertion, no cough Neurologic denied any new focal deficits Has some right arm and neck pain. All inpatient medications were reviewed and appropriate changes in these medications as dictated in the interval history and assessment and plan. PHYSICAL EXAMINATION: GENERAL: The patient is alert and oriented x3, not in any acute distress. Well developed, well nourished. HEENT: Pupils are round and equally reacting to light. EOMI. No scleral icterus. No conjunctival pallor. Normocephalic, atraumatic. No pharyngeal erythema. No thyromegaly. CARDIOVASCULAR: S1 and S2 present. No murmurs, rubs, or gallops. PULMONARY: Diminished, on 13L hi flow cannula ABDOMEN: Soft, nontender, nondistended, normoactive bowel sounds. No palpable organomegaly. MUSCULOSKELETAL: No joint swelling or deformity. EXTREMITIES: No cyanosis, clubbing, or pedal edema. NEUROLOGICAL: Gross neurological examination did not reveal any focal deficits. SKIN: No rashes. Assessment Acute on chronic hypoxemic respiratory failure secondary to acute COPD and acute CHF, patient difficult being weaned off the hi flow cannula possible component of ARDS. Acute COPD exacerbation with history of severe COPD Chronic nicotinue use Right cervical radiculoapthy Acute on chronic diastolic heart failure Pulmonary emboli acute leukocytosis likely reactive to the IV steroids Severe pulmonary hypertension Hyperkalemia improved. Remote history of DVT Diabetes mellitus type 2 Steroid induced hyperglycemia History of prostate cancer on oral chemotherapy Alpha-1 antitrypsin deficiency, MS phenotype Hyperlipidemia GI prophylaxis DVT prophylaxis anticoagulated with eliquis DO NOT RESUSCITATE/ DO NOT INTUBATE Plan Patient has completed course of IV antibiotics, he has been put back on IV steroids and will continue. Levemir added for improved glycemic control which has been increased patient continues on accuchecks ACHS additionally sliding scale, scheduled insulin and levemir has been increased today patient may require insulin gtt pending blood glucose levels. This is expected with IV steroids. Pulmonary following closely, symbicort discontinued and changed to budesonide and formoterol. Transitioned to oral lasix continue daily Complaints of right neck and arm pain patient will continue on muscle relaxer, patient is already on systemic steroids. Will be referred to orthopedics outpatient on discharge. Patient remains on hi flow oxygen being weaned as tolerated. He does wear 4L at home and needs to be at baseline before he can be considered for discharge Encourage IS to complete 10 x an hour while awake Repeat labs in AM. The impression and plan of care has been dictated by Juanita Crockett, Nurse Pra ctitioner as directed. Dr. Barry MD I have performed a history and physical examination and medical decision making of this patient, discussed the same with the dictator, and agree with the dictat ors assessment and plan as written, documented as a scribe. Based on total visit time, I have performed more than 50% of this visit. Objective - Vital Signs Vital signs: Vital Signs Temp 97.4 F L 05/11/23 08:15 Pulse 100 05/11/23 08:17 Resp 20 05/11/23 08:15 BP 143/53 05/11/23 08:15 Pulse Ox 95 05/11/23 08:15 FiO2 60 05/04/23 11:35 Intake & Output 05/10/23 05/11/23 05/11/23 18:59 06:59 18:59 Intake Total 498 120 Output Total 250 Balance 498 -250 120 Intake: IV 20 Invasive Line 2 20 Oral 478 120 Output: Urine 250 Other: Voiding Method Toilet Toilet Urinal Urinal # Voids 2 - Labs CBC & Chem 7: 05/10/23 11:17 05/10/23 11:17 Labs: Abnormal Lab Results - Last 24 Hours (Table) 05/10/23 05/10/23 05/10/23 Range/Units 11:17 11:17 12:23 WBC 13.3 H (3.8-10.6) k/uL RBC 3.91 L (4.30-5.90) m/uL Hgb 11.2 L (13.0-17.5) gm/dL Hct 34.1 L (39.0-53.0) % Neutrophils # 11.4 H (1.3-7.7) k/uL Lymphocytes # 0.8 L (1.0-4.8) k/uL Sodium 131 L (137-145) mmol/L Chloride 93 L (98-107) mmol/L BUN 36 H (9-20) mg/dL Glucose 298 H (74-99) mg/dL POC Glucose (mg/dL) 316 H (70-110) mg/dL 05/10/23 05/10/23 05/11/23 Range/Units 16:31 20:14 06:16 WBC (3.8-10.6) k/uL RBC (4.30-5.90) m/uL Hgb (13.0-17.5) gm/dL Hct (39.0-53.0) % Neutrophils # (1.3-7.7) k/uL Lymphocytes # (1.0-4.8) k/uL Sodium (137-145) mmol/L Chloride (98-107) mmol/L BUN (9-20) mg/dL Glucose (74-99) mg/dL POC Glucose (mg/dL) 404 H 362 H 239 H (70-110) mg/dL Assessment and Plan Time with Patient: Less than 30
[2023-05-11 11:29] LABS: Glucose,Whole Blood 321 mg/dL (70-110)
--- NOTE | 2023-05-11 11:41 | P.PN ---
Subjective Progress Note Date: 05/11/23 Principal diagnosis: Respiratory failure. The patient is seen today May 02 2023 in follow-up on the selective care unit. He is awake and alert in no acute distress. Feeling better each day. Chest x-ray is showing improvement. He is continued on AirVo high flow oxygen at 60 L and 60% FiO2 with O2 saturations 88-89%. Blood cultures revealed no growth. White count 6.2. Hemoglobin 11.0. Platelets 375. Sodium 138. Potassium 4.0. Bicarb 33. BUN 22. Creatinine 0.93. Glucose 152. He remains on DuoNeb inhalations, Symbicort, Singulair. Anticoagulated with Eliquis. Antibiotics in the form of ceftriaxone. The patient is seen today 05/03/2023 in follow-up on the selective care unit. He is resting comfortably in bed. Awake and alert in no acute distress. He is feeling better each day. He denies any worsening shortness of breath, cough or congestion. He is still requiring AirVo high flow oxygen at 60 L and 60% FiO2 with O2 saturation at 90-91%. He is continued on DuoNeb inhalations, Symbicort, Singulair. Remains on oral diuretics. Anticoagulated with Eliquis. White count 5.5. Hemoglobin 11.3. Platelets 369. Sodium 139. Potassium 4.4. Bi carb 34. BUN 25. Creatinine 0.84. Glucose 195. Completed ceftriaxone and azithromycin. Patient was reevaluated today on 05/04/23, remains on airvo at 60% FiO2 and 45 L flow, and I plan to transition the patient to a high flow nasal cannula at 15 L/m. Clinically the patient is feeling better chest x-ray is definitely showing improvement nonetheless he remains to be relatively hypoxic. He is receiving treatment for his COPD, congestive heart failure, and for his suspected pulmonary embolism WBC count is 5.5 hemoglobin 11.3 basic metabolic profile is normal renal profile is normal Reevaluated today on 05/05/2023, patient is now on 15 L high flow nasal cannula, O2 saturations 94%, we'll try to cut down if possible to 12 L is sitting the patient maintains high O2 saturation in the 80s or low 90s. Clinically the patient is feeling better, breathing easier, and his chest x-ray has been showing significant improvement in his interstitial edema. Patient does have severe underlying COPD which is another contributing factor to his chronic hypoxic respiratory failure, remains on eliquis also for suspected acute pulmonary embolism. WBC count today is 6.9 hemoglobin is 12.2 electrodes are normal renal profile is normal Progress note dated 05/06/2023. 67-year-old male admitted with a diagnosis of hypoxemic respiratory failure secondary to COPD. The patient is currently on 15 L high flow oxygen. He's not receiving any IV fluids. We'll add some prednisone to his regimen, hopefully to be able to wean his FiO2 down. The patient is sitting in a chair next to his bed. He does not appear to be any distress. Labs today only included a glucose of 310. Chest x-ray from May 04 shows improved diffuse reticular nodular infiltrates. Progress note dated 05/07/2023. 67-year-old male admitted with a diagnosis of hypoxemic respiratory failure secondary to COPD. The patient is currently on 13 L high flow oxygen. Yesterday, he was on 15 L. He is not receiving any IV fluids. We will increase his Symbicort up to 160/4.5, 2 puffs twice a day. No new laboratory data today, other than a glucose of 232. Progress note dated 05/08/2023. 67-year-old male seen in room 372. He was admitted with a diagnosis of hypoxemic respiratory failure secondary to COPD. He remains on high flow nasal O2 at 13 L/m. Clinically, the patient is relatively stable, and unchanged. He is no better, but certainly no worse. The patient's white count is 7.1, hemoglobin 11.3, hematocrit 34.6, with a normal platelet count. Sodium 138, potassium 3.9, chlorides 96, CO2 36, BUN 27, and creatinine 0.83. Glucose 139. Calcium is 9.2. Today's chest x-ray shows patchy/parenchymal changes and interstitial changes, consistent with an inflammatory or infectious process, in addition to changes of COPD. Progress note dated 05/09/2023. 67-year-old male seen in room 372. Patient was admitted with a diagnosis of hypoxemic respiratory failure secondary to COPD. The patient continues on high flow nasal cannula at 13 L/m. The patient is not receiving any IV fluids. No new labs today. The only new lab is a glucose of 257. Legionella urinary antigen is negative. Chest x-ray from yesterday shows patchy parenchymal changes throughout the lungs, bilaterally, consistent with inflammato ry/infectious process. Progress note dated 05/10/2023. 67-year-old DO NOT RESUSCITATE male, seen in room 372. Unfortunately, the patient continues on high flow oxygen, at 14 L/m. He's not receiving any IV fluids. The patient is receiving maximal medical therapy. Labs today include a white count 13.3, hemoglobin 11.2, hematocrit 34.1, and a normal platelet count. Sodium 131, potassium 4.8, chlorides 93, CO2 29, BUN 36, creatinine 0.82. Glucose 298. N-terminal proBNP is 945. Progress note dated 05/11/2023. 67-year-old male, seen in room 372. The patient is a DO NOT RESUSCITATE patie nt. The patient unfortunately continues on high flow oxygen, at 13 L/m. His most recent pro-calcitonin level was 0.12. The patient has not been making any progress whatsoever, in terms of weaning from his high flow nasal cannula. Glucose today is 321. Objective - Vital Signs Vital signs: Vital Signs Temp 97.4 F L 05/11/23 08:15 Pulse 96 05/11/23 11:36 Resp 20 05/11/23 08:15 BP 143/53 05/11/23 08:15 Pulse Ox 95 05/11/23 08:15 FiO2 60 05/04/23 11:35 Intake & Output 05/10/23 05/11/23 05/11/23 18:59 06:59 18:59 Intake Total 498 120 Output Total 250 Balance 498 -250 120 Intake: IV 20 Invasive Line 2 20 Oral 478 120 Output: Urine 250 Other: Voiding Method Toilet Toilet Urinal Urinal # Voids 2 - Exam No acute distress, oriented 3. Currently on 13 L high flow nasal O2. Sa turations are 95 %. HEENT examination is grossly unremarkable. Neck supple. Full range of motion. No adenopathy thyromegaly or neck vein distention. Cardiovascular examination reveals regular rhythm rate. S1-S2 normal. No S3 or S4. No discernible murmur noted. Heart rate 96 bpm. Lungs reveal scattered rhonchi. Her sounds are equal bilaterally but diminished throughout. No wheezes. No crackles. Saturations are 95% on 13 L high flow oxygen. Abdomen soft bowel sounds are heard. No masses or tenderness. Extremities are intact. No cyanosis clubbing or edema. Skin is without rash or lesion. Neurologic examination is brief but nonfocal. - Labs CBC & Chem 7: 05/10/23 11:17 05/10/23 11:17 Labs: Abnormal Lab Results - Last 24 Hours (Table) 05/10/23 05/10/23 05/10/23 Range/Units 11:17 12: 16:31 Sodium 131 L (137-145) mmol/L Chloride 93 L (98-107) mmol/L BUN 36 H (9-20) mg/dL Glucose 298 H (74-99) mg/dL POC Glucose (mg/dL) 316 H 404 H (70-110) mg/dL 05/10/23 05/11/23 05/11/23 Range/Units 20:14 06:16 11:28 Sodium (137-145) mmol/L Chloride (98-107) mmol/L BUN (9-20) mg/dL Glucose (74-99) mg/dL POC Glucose (mg/dL) 362 H 239 H 321 H (70-110) mg/dL Assessment and Plan Assessment: Acute on chronic hypoxemic respiratory failure, currently on high flow nasal cannula. Possible bilateral pneumonia. History of severe COPD, with an FEV1 that is 40% of predicted. Acute pulmonary embolism. Remote history of DVT. Type 2 diabetes mellitus. Hyperlipidemia. Chronic diastolic CHF. Secondary pulmonary hypertension. Plan: Plan dated 05/06/2023. The patient continues on high flow nasal cannula. The patient continues on albuterol sulfate, and ipratropium bromide, and other bronchodilators. The patient also continues on diuretics, and on anticoagulants. We added prednisone to his regimen. Additional recommendations and suggestions are forthcoming. We'll continue to titrate down his oxygen, was on his saturations are 88% or higher. No additional recommendations are made. Prognosis is guarded. Plan dated 05/07/2023. The patient is seen today in room 372. The patient's oxygen has been weaned down to 13 L high flow, from 15 L high flow yesterday. The patient continues on appropriate medications, and his Symbicort is increased to the higher dose. We added prednisone to his regimen. Labs, x-rays, and medications are reviewed. His overall prognosis remains guarded. He is a DO NOT RESUSCITATE patient. We will continue to follow the patient, and make recommendations along the way. Plan dated 05/08/2023. 67-year-old male seen in room 372. Unfortunately, he continues on high flow nasal O2 at 13 L. He has a DO NOT RESUSCITATE patient. His most recent chest x-ray shows changes of COPD, and possible patchy infiltrates, consistent with pneumonia. We will check a pro-calcitonin level. Additional recommendations and suggestions are forthcoming. He is on appropriate medications, including bronchodilators, maintenance inhaler, and corticosteroids. We will continue to follow the patient, and make recommendations. Prognosis is guarded. Plan dated 05/09/2023. 67-year-old male who was seen in room 372. He is currently on 13 L high flow nasal cannula. Labs, x-rays, and medications are reviewed. The patient continues on appropriate medications. Pro-calcitonin level was 0.12. Legionella antigen in the urine was negative. We will continue to follow the patient, and make recommendations along the way. He continues on DuoNeb, budesonide, formoterol, and corticosteroids. Additional recommendations and suggestions are forthcoming. The patient is a DO NOT RESUSCITATE patient. We will continue to follow the patient, and make recommendations along the way. Plan dated 05/10/2023. The patient is again seen in room 372. He is on high flow nasal cannula at 14 L/m. Labs, x-rays, medications are reviewed. The patient continues on appropriate medications. He's had multiple chest x-rays, CT angiograms, and echocardiograms. The patient is a DO NOT RESUSCITATE patient. We will continue to follow make recommendations along the way. He continues on DuoNeb, budesonide, formoterol, and corticosteroids. Plan dated 05/11/2023. The patient is currently on 13 L high flow oxygen. Saturations are a bit better today. They are 95%. Labs, x-rays, and medications are reviewed. The patient has had multiple chest x-rays, CT angiogram, and echocardiogram. He continues on updrafts, budesonide, formoterol, and corticosteroids. He is a DO NOT RESUSCITATE patient. We will continue to follow make recommendations along the way. Prognosis is certainly guarded. Time with Patient: Less than 30
[2023-05-11 11:51] LABS: African American GFR (CKD) >90 (>60 ml/min/1.73 sqM); Anion Gap 7 mmol/L; Blood Urea Nitrogen 33 mg/dL (9-20); Calcium 9.5 mg/dL (8.4-10.2); Carbon Dioxide 32 mmol/L (22-30); Chloride 99 mmol/L (98-107); Glucose 264 mg/dL (74-99); Non-African American GFR(CKD) >90 (>60 ml/min/1.73 sqM); Potassium 4.6 mmol/L (3.5-5.1); Sodium 138 mmol/L (137-145)
[2023-05-11] MEDS: guaiFENesin 600 MG TABLET.ER PO SCH ×2 (12:12→20:12)
[2023-05-11] MEDS: CYCLOBENZAPRINE 5 MG TAB PO PRN (12:13)
[2023-05-11 16:41] LABS: Glucose,Whole Blood 351 mg/dL (70-110)
[2023-05-11] MEDS: HYDROcodone/APAP 5-325MG 1 EACH TAB PO PRN ×2 (18:09→23:51)
[2023-05-11 20:00] LABS: Glucose,Whole Blood 372 mg/dL (70-110)
[2023-05-11] MEDS: cloZAPine 100 MG TAB PO SCH (20:12)
[2023-05-12] MEDS: CYCLOBENZAPRINE 5 MG TAB PO PRN ×2 (00:43→12:36)
[2023-05-12 06:07] LABS: Glucose,Whole Blood 262 mg/dL (70-110)
[2023-05-12] MEDS: INSULIN DETEMIR (LEVEMIR) 100 UNIT/ML SYR SQ SCH ×2 (06:20→21:13)
[2023-05-12] MEDS: REPAGLINIDE 1 MG TAB PO SCH ×2 (06:20→12:31)
[2023-05-12] MEDS: methylPREDNISolone SOD SUCCI 125 MG/2 ML VIAL IV SCH ×3 (06:20→17:13)
[2023-05-12] MEDS: PANTOPRAZOLE 40 MG TABLET PO SCH (06:20)
[2023-05-12] MEDS: INSULIN ASPART (NovoLOG) 100 UNIT/ML VIAL SQ SCH ×7 (06:21→21:11)
[2023-05-12] MEDS: MONTELUKAST 10 MG TAB PO SCH (08:45)
[2023-05-12] MEDS: ATORVASTATIN 40 MG TAB PO SCH (08:45)
[2023-05-12] MEDS: METOPROLOL SUCCINATE (ER) 25 MG TAB.ER.24H PO SCH (08:45)
[2023-05-12] MEDS: LORATADINE 10 MG TAB PO SCH (08:45)
[2023-05-12] MEDS: POTASSIUM CHLORIDE ER 20 MEQ TAB.ER PO SCH (08:45)
[2023-05-12] MEDS: guaiFENesin 600 MG TABLET.ER PO SCH ×2 (08:45→21:10)
[2023-05-12] MEDS: APIXABAN 5 MG TAB PO SCH ×2 (08:45→21:11)
[2023-05-12] MEDS: FUROSEMIDE 40 MG TAB PO SCH (08:45)
[2023-05-12] MEDS: ESCITALOPRAM 10 MG TAB PO SCH (08:45)
[2023-05-12] MEDS: FENOFIBRATE 160 MG TAB PO SCH (08:45)
[2023-05-12] MEDS: OFLOXACIN 0.3% OPHTH DROPS 5 ML BOTTLE BOTH EYES SCH (08:46)
[2023-05-12] MEDS: BICALUTAMIDE 50 MG TAB PO SCH (08:46)
[2023-05-12] MEDS: BUDESONIDE 1 MG/2 ML NEBU INHALATION SCH ×2 (09:32→20:11)
[2023-05-12] MEDS: IPRATROPIUM-ALBUTEROL 3 ML NEB INHALATION SCH ×4 (09:32→20:11)
[2023-05-12] MEDS: FORMOTEROL FUMARATE 20 MCG/2 ML NEBU INHALATION SCH ×2 (09:32→20:11)
--- NOTE | 2023-05-12 10:46 | P.PN ---
Subjective Progress Note Date: 05/12/23 Patient monitored on the stepdown unit, remains on 13L of hi flow which is being weaned. Patient does wear 4L of oxygen at home. He continues to report shortness of breath when up ambulating he is unable to go far. On oral prednisone 40 mg daily, lasix has been transitioned to oral. Blood glucose elevated in the 200s. 05/08/2023 Patient continues on hi flow oxygen difficult to wean. He had a follow up chest xray today showing increasing patchy parenchymal changes and interstitial changes throughout the lungs. Inflammatory vs. infectious. There is COPD. Possibly edema. Oral lasix daily has been resumed. He is also resumed on oral chemotherapy. He is on IV solumedrol. 05/09/2023 Patient continues on hiflow oxygen at 13L he is having a hard time weaning. Remains on IV steroids, glucose is increased 300's. Legionella negative and procalcitonin level 0.12. 05/10/2023 Patient evaluated on the stepdown unit remains on hi flow cannula still difficult to wean will attempt for 12L today oxygen saturations around 91% he is pulling about 1200 on his IS able to perform 2 times in a row and then unable to pull more than 750. He is complaining of pain in the right arm and also his neck and right shoulder. Asking for additional pain medication for this. White count 13.3 however he was placed on IV steroids this could be reactive. Sodium is 131, not currently on any IV fluids. A proBNP was checked only 945 doesn't appear to be volume overloaded. Blood glucose in the 300s working on adjusting insulin. Pulmonary following closely. 05/11/2023 Patient is evaluated today resting in bed. Continues on 12-14L hi flow unable to wean successfully. Patient remains on IV solumedrol and inhaled steroids. He had cervical spine xray showing mild neural foraminal stenosis C4-C7 he does have improvement in his radicular symptoms today and will continue on flexeril. He does need encouragement to use the incentive spirometer. 05/12/2023 Patient is not much better or worse today. He continues on hi flow cannula he was able to be weaned down to 11 L high flow however did desat when he is up to the rest room. He remains on IV solumedrol, oral lasix 40 mg daily. Patient remains on flexeril with continued improvement in his neck pain. He needs encouragement to use IS, he was able to pull about 1500 5 times in a row which is an overall improvement. Review of Systems Constitutional: Denied any fatigue denied any fever. Cardio vascular: denied any chest pain, palpitations Gastrointestinal: denied any nausea, vomiting, diarrhea Pulmonary: Reports shortness of breath worse with exertion, no cough Neurologic denied any new focal deficits Has some right arm and neck pain. All inpatient medications were reviewed and appropriate changes in these medications as dictated in the interval history and assessment and plan. PHYSICAL EXAMINATION: GENERAL: The patient is alert and oriented x3, not in any acute distress. Well developed, well nourished. HEENT: Pupils are round and equally reacting to light. EOMI. No scleral icterus. No conjunctival pallor. Normocephalic, atraumatic. No pharyngeal erythema. No thyromegaly. CARDIOVASCULAR: S1 and S2 present. No murmurs, rubs, or gallops. PULMONARY: Diminished, on 13L hi flow cannula ABDOMEN: Soft, nontender, nondistended, normoactive bowel sounds. No palpable organomegaly. MUSCULOSKELETAL: No joint swelling or deformity. EXTREMITIES: No cyanosis, clubbing, or pedal edema. NEUROLOGICAL: Gross neurological examination did not reveal any focal deficits. SKIN: No rashes. Assessment Acute on chronic hypoxemic respiratory failure secondary to acute COPD and acute CHF, patient difficult being weaned off the hi flow cannula possible component of ARDS. Acute COPD exacerbation with history of severe COPD Chronic nicotinue use Right cervical radiculoapthy Acute on chronic diastolic heart failure Pulmonary emboli acute leukocytosis likely reactive to the IV steroids Severe pulmonary hypertension Hyperkalemia improved. Remote history of DVT Diabetes mellitus type 2 Steroid induced hyperglycemia History of prostate cancer on oral chemotherapy Alpha-1 antitrypsin deficiency, MS phenotype Hyperlipidemia GI prophylaxis DVT prophylaxis anticoagulated with eliquis DO NOT RESUSCITATE/ DO NOT INTUBATE Plan Patient has completed course of IV antibiotics, he has been put back on IV steroids and will continue. Levemir added for improved glycemic control which has been increased patient continues on accuchecks ACHS additionally sliding scale, scheduled insulin and levemir has been increased today patient may require insulin gtt pending blood glucose levels. This is expected with IV steroids. Pulmonary following closely, symbicort discontinued and changed to budesonide and formoterol. Transitioned to oral lasix continue daily Complaints of right neck and arm pain patient will continue on muscle relaxer, patient is already on systemic steroids. Will be referred to orthopedics outpatient on discharge. Patient remains on hi flow oxygen being weaned as tolerated. He does wear 4L at home and needs to be at baseline before he can be considered for discharge Encourage IS to complete 10 x an hour while awake Repeat labs in AM. The impression and plan of care has been dictated by Juanita Crockett Nurse Practitioner as directed. Dr. Barry MD I have performed a history and physical examination and medical decision making of this patient, discussed the same with the dictator, and agree with the dictators assessment and plan as written, documented as a scribe. Based on total visit time, I have performed more than 50% of this visit. Objective - Vital Signs Vital signs: Vital Signs Temp 97.7 F 05/12/23 08:00 Pulse 92 05/12/23 09:57 Resp 24 05/12/23 08:00 BP 110/61 05/12/23 08:00 Pulse Ox 91 L 05/12/23 09:35 FiO2 60 05/04/23 11:35 Intake & Output 05/11/23 05/12/23 05/12/23 18:59 06:59 18:59 Intake Total 778 236 Balance 778 236 Intake: Oral 778 236 Other: Voiding Method Toilet Urinal # Voids 2 3 - Labs CBC & Chem 7: 05/10/23 11:17 05/11/23 11:07 Labs: Abnormal Lab Results - Last 24 Hours (Table) 05/11/23 05/11/23 05/11/23 Range/Units 11:07 11:28 16:39 Carbon Dioxide 32 H (22-30) mmol/L BUN 33 H (9-20) mg/dL Glucose 264 H (74-99) mg/dL POC Glucose (mg/dL) 321 H 351 H (70-110) mg/dL 05/11/23 05/12/23 Range/Units 19:59 06:05 Carbon Dioxide (22-30) mmol/L BUN (9-20) mg/dL Glucose (74-99) mg/dL POC Glucose (mg/dL) 372 H 262 H (70-110) mg/dL Assessment and Plan Time with Patient: Less than 30
--- NOTE | 2023-05-12 11:37 | P.PN ---
Subjective Progress Note Date: 05/12/23 Principal diagnosis: Respiratory failure. The patient is seen today May 02 2023 in follow-up on the selective care unit. He is awake and alert in no acute distress. Feeling better each day. Chest x-ray is showing improvement. He is continued on AirVo high flow oxygen at 60 L and 60% FiO2 with O2 saturations 88-89%. Blood cultures revealed no growth. White count 6.2. Hemoglobin 11.0. Platelets 375. Sodium 138. Potassium 4.0. Bicarb 33. BUN 22. Creatinine 0.93. Glucose 152. He remains on DuoNeb inhalations, Symbicort, Singulair. Anticoagulated with Eliquis. Antibiotics in the form of ceftriaxone. The patient is seen today 05/03/2023 in follow-up on the selective care unit. He is resting comfortably in bed. Awake and alert in no acute distress. He is feeling better each day. He denies any worsening shortness of breath, cough or congestion. He is still requiring AirVo high flow oxygen at 60 L and 60% FiO2 with O2 saturation at 90-91%. He is continued on DuoNeb inhalations, Symbicort, Singulair. Remains on oral diuretics. Anticoagulated with Eliquis. White count 5.5. Hemoglobin 11.3. Platelets 369. Sodium 139. Potassium 4.4. Bi carb 34. BUN 25. Creatinine 0.84. Glucose 195. Completed ceftriaxone and azithromycin. Patient was reevaluated today on 05/04/23, remains on airvo at 60% FiO2 and 45 L flow, and I plan to transition the patient to a high flow nasal cannula at 15 L/m. Clinically the patient is feeling better chest x-ray is definitely showing improvement nonetheless he remains to be relatively hypoxic. He is receiving treatment for his COPD, congestive heart failure, and for his suspected pulmonary embolism WBC count is 5.5 hemoglobin 11.3 basic metabolic profile is normal renal profile is normal Reevaluated today on 05/05/2023, patient is now on 15 L high flow nasal cannula, O2 saturations 94%, we'll try to cut down if possible to 12 L is sitting the patient maintains high O2 saturation in the 80s or low 90s. Clinically the patient is feeling better, breathing easier, and his chest x-ray has been showing significant improvement in his interstitial edema. Patient does have severe underlying COPD which is another contributing factor to his chronic hypoxic respiratory failure, remains on eliquis also for suspected acute pulmonary embolism. WBC count today is 6.9 hemoglobin is 12.2 electrodes are normal renal profile is normal Progress note dated 05/06/2023. 67-year-old male admitted with a diagnosis of hypoxemic respiratory failure secondary to COPD. The patient is currently on 15 L high flow oxygen. He's not receiving any IV fluids. We'll add some prednisone to his regimen, hopefully to be able to wean his FiO2 down. The patient is sitting in a chair next to his bed. He does not appear to be any distress. Labs today only included a glucose of 310. Chest x-ray from May 04 shows improved diffuse reticular nodular infiltrates. Progress note dated 05/07/2023. 67-year-old male admitted with a diagnosis of hypoxemic respiratory failure secondary to COPD. The patient is currently on 13 L high flow oxygen. Yesterday, he was on 15 L. He is not receiving any IV fluids. We will increase his Symbicort up to 160/4.5, 2 puffs twice a day. No new laboratory data today, other than a glucose of 232. Progress note dated 05/08/2023. 67-year-old male seen in room 372. He was admitted with a diagnosis of hypoxemic respiratory failure secondary to COPD. He remains on high flow nasal O2 at 13 L/m. Clinically, the patient is relatively stable, and unchanged. He is no better, but certainly no worse. The patient's white count is 7.1, hemoglobin 11.3, hematocrit 34.6, with a normal platelet count. Sodium 138, potassium 3.9, chlorides 96, CO2 36, BUN 27, and creatinine 0.83. Glucose 139. Calcium is 9.2. Today's chest x-ray shows patchy/parenchymal changes and interstitial changes, consistent with an inflammatory or infectious process, in addition to changes of COPD. Progress note dated 05/09/2023. 67-year-old male seen in room 372. Patient was admitted with a diagnosis of hypoxemic respiratory failure secondary to COPD. The patient continues on high flow nasal cannula at 13 L/m. The patient is not receiving any IV fluids. No new labs today. The only new lab is a glucose of 257. Legionella urinary antigen is negative. Chest x-ray from yesterday shows patchy parenchymal changes throughout the lungs, bilaterally, consistent with inflammato ry/infectious process. Progress note dated 05/10/2023. 67-year-old DO NOT RESUSCITATE male, seen in room 372. Unfortunately, the patient continues on high flow oxygen, at 14 L/m. He's not receiving any IV fluids. The patient is receiving maximal medical therapy. Labs today include a white count 13.3, hemoglobin 11.2, hematocrit 34.1, and a normal platelet count. Sodium 131, potassium 4.8, chlorides 93, CO2 29, BUN 36, creatinine 0.82. Glucose 298. N-terminal proBNP is 945. Progress note dated 05/11/2023. 67-year-old male, seen in room 372. The patient is a DO NOT RESUSCITATE patie nt. The patient unfortunately continues on high flow oxygen, at 13 L/m. His most recent pro-calcitonin level was 0.12. The patient has not been making any progress whatsoever, in terms of weaning from his high flow nasal cannula. Glucose today is 321. Progress note dated 05/12/2023. 67-year-old male, again seen in room 372. The patient is a DO NOT RESUSCITATE patient. The patient continues on high flow oxygen, currently at 11 L/m. The patient is not receiving any IV fluids. Clinically, the patient states that he is feeling better. No new labs today other than a glucose of 262. Objective - Vital Signs Vital signs: Vital Signs Temp 97.7 F 05/12/23 08:00 Pulse 92 05/12/23 09:57 Resp 24 05/12/23 08:00 BP 110/61 05/12/23 08:00 Pulse Ox 91 L 05/12/23 09:35 FiO2 60 05/04/23 11:35 Intake & Output 05/11/23 05/12/23 05/12/23 18:59 06:59 18:59 Intake Total 778 236 Balance 778 236 Intake: Oral 778 236 Other: Voiding Method Toilet Urinal # Voids 2 3 - Exam No acute distress, oriented 3. Currently on 11 L high flow nasal O2. Saturations are 92 %. HEENT examination is grossly unremarkable. Neck supple. Full range of motion. No adenopathy thyromegaly or neck vein distention. Cardiovascular examination reveals regular rhythm rate. S1-S2 normal. No S3 or S4. No discernible murmur noted. Heart rate 92 bpm. Lungs reveal scattered rhonchi. Her sounds are equal bilaterally but diminished throughout. No wheezes. No crackles. Saturations are 92% on 11 L high flow oxygen. Abdomen soft bowel sounds are heard. No masses or tenderness. Extremities are intact. No cyanosis clubbing or edema. Skin is without rash or lesion. Neurologic examination is brief but nonfocal. - Labs CBC & Chem 7: 05/10/23 11:17 05/11/23 11:07 Labs: Abnormal Lab Results - Last 24 Hours (Table) 05/11/23 05/11/23 05/11/23 Range/Units 11:07 16:39 19:59 Carbon Dioxide 32 H (22-30) mmol/L BUN 33 H (9-20) mg/dL Glucose 264 H (74-99) mg/dL POC Glucose (mg/dL) 351 H 372 H (70-110) mg/dL 05/12/23 Range/Units 06:05 Carbon Dioxide (22-30) mmol/L BUN (9-20) mg/dL Glucose (74-99) mg/dL POC Glucose (mg/dL) 262 H (70-110) mg/dL Assessment and Plan Assessment: Acute on chronic hypoxemic respiratory failure, currently on high flow nasal cannula. Possible bilateral pneumonia. History of severe COPD, with an FEV1 that is 40% of predicted. Acute pulmonary embolism. Remote history of DVT. Type 2 diabetes mellitus. Hyperlipidemia. Chronic diastolic CHF. Secondary pulmonary hypertension. Plan: Plan dated 05/06/2023. The patient continues on high flow nasal cannula. The patient continues on albuterol sulfate, and ipratropium bromide, and other bronchodilators. The patient also continues on diuretics, and on anticoagulants. We added prednisone to his regimen. Additional recommendations and suggestions are forthcoming. We'll continue to titrate down his oxygen, was on his saturations are 88% or higher. No additional recommendations are made. Prognosis is guarded. Plan dated 05/07/2023. The patient is seen today in room 372. The patient's oxygen has been weaned down to 13 L high flow, from 15 L high flow yesterday. The patient continues on appropriate medications, and his Symbicort is increased to the higher dose. We added prednisone to his regimen. Labs, x-rays, and medications are reviewed. His overall prognosis remains guarded. He is a DO NOT RESUSCITATE patient. We will continue to follow the patient, and make recommendations along the way. Plan dated 05/08/2023. 67-year-old male seen in room 372. Unfortunately, he continues on high flow nasal O2 at 13 L. He has a DO NOT RESUSCITATE patient. His most recent chest x-ray shows changes of COPD, and possible patchy infiltrates, consistent with pneumonia. We will check a pro-calcitonin level. Additional recommendations and suggestions are forthcoming. He is on appropriate medications, including bronchodilators, maintenance inhaler, and corticosteroids. We will continue to follow the patient, and make recommendations. Prognosis is guarded. Plan dated 05/09/2023. 67-year-old male who was seen in room 372. He is currently on 13 L high flow nasal cannula. Labs, x-rays, and medications are reviewed. The patient continues on appropriate medications. Pro-calcitonin level was 0.12. Legionella antigen in the urine was negative. We will continue to follow the patient, and make recommendations along the way. He continues on DuoNeb, budesonide, formoterol, and corticosteroids. Additional recommendations and suggestions are forthcoming. The patient is a DO NOT RESUSCITATE patient. We will continue to follow the patient, and make recommendations along the way. Plan dated 05/10/2023. The patient is again seen in room 372. He is on high flow nasal cannula at 14 L/m. Labs, x-rays, medications are reviewed. The patient continues on appropriate medications. He's had multiple chest x-rays, CT angiograms, and echocardiograms. The patient is a DO NOT RESUSCITATE patient. We will continue to follow make recommendations along the way. He continues on DuoNeb, budesonide, formoterol, and corticosteroids. Plan dated 05/11/2023. The patient is currently on 13 L high flow oxygen. Saturations are a bit better today. They are 95%. Labs, x-rays, and medications are reviewed. The patient has had multiple chest x-rays, CT angiogram, and echocardiogram. He continues on updrafts, budesonide, formoterol, and corticosteroids. He is a DO NOT RESUSCITATE patient. We will continue to follow make recommendations along the way. Prognosis is certainly guarded. Plan dated 05/12/2023. The patient has been slowly weaned down to 11 L high flow oxygen. Saturations are 91-92%. Labs, x-rays, and medications are reviewed. The patient's overall prognosis remains guarded. Patient has had multiple tests, including chest x- rays, CT angiogram, echocardiogram, etc. The patient continues on budesonide, formoterol, and corticosteroids, as well as updrafts. We will continue to follow and make recommendations along the way. The patient's overall prognosis remains very guarded. Time with Patient: Less than 30
[2023-05-12 11:59] LABS: Glucose,Whole Blood 271 mg/dL (70-110)
[2023-05-12 12:17] LABS: African American GFR (CKD) >90 (>60 ml/min/1.73 sqM); Anion Gap 9 mmol/L; Blood Urea Nitrogen 41 mg/dL (9-20); Calcium 9.2 mg/dL (8.4-10.2); Carbon Dioxide 29 mmol/L (22-30); Chloride 97 mmol/L (98-107); Glucose 287 mg/dL (74-99); Non-African American GFR(CKD) >90 (>60 ml/min/1.73 sqM); Potassium 4.8 mmol/L (3.5-5.1); Sodium 135 mmol/L (137-145)
[2023-05-12 16:52] LABS: Glucose,Whole Blood 357 mg/dL (70-110)
[2023-05-12 21:02] LABS: Glucose,Whole Blood 359 mg/dL (70-110)
[2023-05-12] MEDS: cloZAPine 100 MG TAB PO SCH (21:10)
[2023-05-12] MEDS: ACETAMINOPHEN TAB 325 MG TAB PO PRN (21:10)
[2023-05-13] MEDS: methylPREDNISolone SOD SUCCI 125 MG/2 ML VIAL IV SCH ×5 (00:25→23:44)
[2023-05-13] MEDS: CYCLOBENZAPRINE 5 MG TAB PO PRN ×2 (00:25→13:44)
[2023-05-13 06:22] LABS: Glucose,Whole Blood 290 mg/dL (70-110)
[2023-05-13] MEDS: INSULIN ASPART (NovoLOG) 100 UNIT/ML VIAL SQ SCH ×7 (06:37→21:52)
[2023-05-13] MEDS: INSULIN DETEMIR (LEVEMIR) 100 UNIT/ML SYR SQ SCH ×2 (06:37→21:56)
[2023-05-13] MEDS: PANTOPRAZOLE 40 MG TABLET PO SCH (06:38)
[2023-05-13] MEDS: REPAGLINIDE 1 MG TAB PO SCH ×2 (06:38→11:08)
[2023-05-13] MEDS: IPRATROPIUM-ALBUTEROL 3 ML NEB INHALATION SCH ×4 (08:30→20:47)
[2023-05-13] MEDS: BUDESONIDE 1 MG/2 ML NEBU INHALATION SCH ×2 (08:30→20:47)
[2023-05-13] MEDS: FORMOTEROL FUMARATE 20 MCG/2 ML NEBU INHALATION SCH ×2 (08:30→20:47)
[2023-05-13] MEDS: ATORVASTATIN 40 MG TAB PO SCH (09:04)
[2023-05-13] MEDS: POTASSIUM CHLORIDE ER 20 MEQ TAB.ER PO SCH (09:04)
[2023-05-13] MEDS: FUROSEMIDE 40 MG TAB PO SCH (09:04)
[2023-05-13] MEDS: MONTELUKAST 10 MG TAB PO SCH (09:04)
[2023-05-13] MEDS: APIXABAN 5 MG TAB PO SCH ×2 (09:04→21:51)
[2023-05-13] MEDS: ESCITALOPRAM 10 MG TAB PO SCH (09:04)
[2023-05-13] MEDS: METOPROLOL SUCCINATE (ER) 25 MG TAB.ER.24H PO SCH (09:05)
[2023-05-13] MEDS: LORATADINE 10 MG TAB PO SCH (09:05)
[2023-05-13] MEDS: guaiFENesin 600 MG TABLET.ER PO SCH ×2 (09:05→21:51)
[2023-05-13] MEDS: FENOFIBRATE 160 MG TAB PO SCH (09:05)
[2023-05-13] MEDS: BICALUTAMIDE 50 MG TAB PO SCH (09:05)
[2023-05-13] MEDS: OFLOXACIN 0.3% OPHTH DROPS 5 ML BOTTLE BOTH EYES SCH (09:06)
--- NOTE | 2023-05-13 10:55 | P.PN ---
Subjective Progress Note Date: 05/13/23 On today's evaluation of 05/13/2023, the patient seems to be still hypoxic and is currently on 15 L of oxygen by nasal cannula. He is lethargic, he is weak, he is in the hospital for more than 2 weeks or hypoxic respiratory failure. Most recent chest x-ray was from 05/08/2023. The patient was hospitalized on 04/28/2023 for hypoxic respiratory failure and COPD exacerbation. Is known to have severe COPD with an FEV1 of 40% of predicted. His known also to have chronic hypoxic respiratory failure maintain on oxygen at 4 L on outpatient basis. He is typically on shortage is up to one inhalation a day. He has diabetes mellitus type 2, hyperlipidemia, prostate cancer, previous history of DVT and congestion heart failure. For the time being, the patient is on DuoNeb nebulized treatments 4 times a day, Lasix 40 mg by mouth daily, Perforomist and Pulmicort updrafts twice a day, he is also on IV Solu-Medrol 60 mg every 6 hours. He remains on long-term anticoagulation with Eliquis 5 mg by mouth twice a day. His blood work from today is still pending. Renal function from yesterday was stable. Electrodes were stable. The most recent white cell count of 15.3. Objective - Vital Signs Vital signs: Vital Signs Temp 97.3 F L 05/13/23 09:01 Pulse 99 05/13/23 09:01 Resp 18 05/13/23 09:01 BP 114/75 05/13/23 09:01 Pulse Ox 88 L 05/13/23 09:01 FiO2 60 05/04/23 11:35 Intake & Output 05/12/23 05/13/23 05/13/23 18:59 06:59 18:59 Intake Total 472 310 Output Total 300 Balance 172 310 Intake: Oral 472 310 Output: Urine 300 Other: Voiding Method Toilet Toilet Urinal Urinal # Voids 2 - Exam No acute distress, oriented 3. Currently on 15 L high flow nasal O2. Saturations are 92 %. HEENT examination is grossly unremarkable. Neck supple. Full range of motion. No adenopathy thyromegaly or neck vein dis tention. Cardiovascular examination reveals regular rhythm rate. S1-S2 normal. No S3 or S4. No discernible murmur noted. Lungs reveal scattered rhonchi. Her sounds are equal bilaterally but diminished throughout. No wheezes. No crackles. Abdomen soft bowel sounds are heard. No masses or tenderness. Extremities are intact. No cyanosis clubbing or edema. Skin is without rash or lesion. Neurologic examination is brief but nonfocal. - Labs CBC & Chem 7: 05/10/23 11:17 05/12/23 11:05 Labs: Abnormal Lab Results - Last 24 Hours (Table) 05/12/23 05/12/23 05/12/23 Range/Units 11:05 11:56 16:50 Sodium 135 L (137-145) mmol/L Chloride 97 L (98-107) mmol/L BUN 41 H (9-20) mg/dL Glucose 287 H (74-99) mg/dL POC Glucose (mg/dL) 271 H 357 H (70-110) mg/dL 05/12/23 05/13/23 Range/Units 21:01 06:21 Sodium (137-145) mmol/L Chloride (98-107) mmol/L BUN (9-20) mg/dL Glucose (74-99) mg/dL POC Glucose (mg/dL) 359 H 290 H (70-110) mg/dL Assessment and Plan Plan: Acute on chronic hypoxic respiratory failure. The patient is currently on 15 L of oxygen by nasal cannula. The patient is compensated hypercapnic respiratory failure. Chronic hypoxic respiratory failure limited on oxygen at 4 L Severe COPD with chronic hypoxic and hypercapnic respiratory failure with an FEV1 of 40% of predicted maintain on Trelegy Ellipta on outpatient basis Congestion heart failure might ejection fraction of 45% Remote history of DVT Diabetes mellitus type 2 History of prostate cancer. Alpha-1 antitrypsin deficiency, MS phenotype Hyperlipidemia Plan Patient is still hypoxic and short of breath. We'll obtain a CT of the chest with contrast to further characterize ongoing abnormalities regarding his hypoxemic respiratory failure Discontinue the chest x-ray from today Bronchodilators with DuoNeb updrafts 4 times a day Allow Trelegy Ellipta from home Resume all medications Monitor the blood sugar Past of the medications were reviewed. No other changes from my standpoint. DNR/DNI CODE STATUS We'll continue to follow
[2023-05-13] MEDS ORDERED: RX INFO: IV CONTRAST WAS GIVEN 1 EACH MISC MISCELLANE PRN (10:58)
[2023-05-13 11:17] LABS: Glucose,Whole Blood 339 mg/dL (70-110)
--- NOTE | 2023-05-13 12:01 | XR ---
EXAMINATION TYPE: XR chest 1V portable DATE OF EXAM: 05/13/2023 11:51 AM CLINICAL INDICATION:Male, 67 years old with history of sob, chf; COMPARISON: Chest radiographs from 05/08/2023. TECHNIQUE: XR chest 1V portable Frontal view of the chest. FINDINGS: Lungs/Pleura: There is no evidence of pleural effusion, focal consolidation, or pneumothorax. Pulmonary vascularity: Pulmonary vascular congestion. Heart/mediastinum: Cardiomediastinal silhouette is enlarged and stable. Musculoskeletal: No acute osseous pathology. Other findings: None IMPRESSION: Similar Cardiomegaly and mild pulmonary vascular congestion.
--- NOTE | 2023-05-13 12:45 | CT ---
EXAMINATION TYPE: CT chest w con DATE OF EXAM: 05/13/2023 COMPARISON: 04/28/2023 HISTORY: hypoxia CT DLP: 636.2 mGycm, Automated exposure control for dose reduction was used. CONTRAST: Performed injected with 100 mL of Isovue 300. TECHNIQUE: Axial images were obtained at 5 mm thick sections. Reconstructed images are reviewed on [employer] computer in the coronal plane. FINDINGS: Portion of the thyroid visualized is normal. There is a small left and minimal right pleural effusion. Some compressive atelectasis is likely filipe cent to the right pleural effusion. Compressive atelectasis may be present at the left lung base filipe cent to the pleural effusion. Volume overload may be present with some pulmonary edema. No enlarged mediastinal or hilar adenopathy is evident. Scattered small lymph nodes are present The ascending aorta diameter at the level of the main pulmonary artery is 3.6 cm. The main pulmonary ar raphael diameter at the bifurcation is 3.[address] sections are obtained through the upper abdomen. Mild fatty infiltration of the liver. Praful cification is within the spleen. IMPRESSION: 1. Small bilateral pleural effusions with adjacent compressive atelectasis. Some volume overload may be present.
[2023-05-13] MEDS: FLUTICASONE 50MCG/SPRAY NASAL 16GM EA NOSTRIL PRN (13:44)
[2023-05-13] MEDS: HYDROcodone/APAP 5-325MG 1 EACH TAB PO PRN ×2 (13:44→21:53)
[2023-05-13 16:18] LABS: Glucose,Whole Blood 361 mg/dL (70-110)
[2023-05-13 21:02] LABS: Glucose,Whole Blood 390 mg/dL (70-110)
[2023-05-13] MEDS: cloZAPine 100 MG TAB PO SCH (21:53)
[2023-05-14 06:19] LABS: Glucose,Whole Blood 303 mg/dL (70-110)
[2023-05-14] MEDS: INSULIN DETEMIR (LEVEMIR) 100 UNIT/ML SYR SQ SCH ×2 (06:41→20:27)
[2023-05-14] MEDS: methylPREDNISolone SOD SUCCI 125 MG/2 ML VIAL IV SCH ×3 (06:41→17:33)
[2023-05-14] MEDS: INSULIN ASPART (NovoLOG) 100 UNIT/ML VIAL SQ SCH ×7 (06:42→20:28)
[2023-05-14] MEDS: PANTOPRAZOLE 40 MG TABLET PO SCH (06:42)
[2023-05-14] MEDS: REPAGLINIDE 1 MG TAB PO SCH ×2 (06:43→12:37)
--- NOTE | 2023-05-14 07:41 | PN ---
PROGRESS NOTE SUBJECTIVE: This is a 67-year-old gentleman admitted with a combination of COPD and CHF acute exacerbation, also had acute hypoxic respiratory failure. CT scan showed significant abnormalities in the right lung. The patient is currently on 15 L oxygen, FEV1 is 40%. The patient is being closely monitored. Multiple consultants are following the patient closely. PAST MEDICAL HISTORY: Reviewed. REVIEW OF SYSTEMS: Fourteen-point review is negative except as mentioned earlier. CURRENT MEDICATIONS: Reviewed include DuoNeb q.i.d. and p.r.n. PHYSICAL EXAMINATION: VITAL SIGNS: Pulse is 92, blood pressure 120/54, respirations 18, pulse ox 94% on 15 L nasal cannula. HEENT: Conjunctivae are normal. NECK: No jugular venous distention. CARDIOVASCULAR: S1 and S2 muffled. RESPIRATORY: Breath sounds diminished at the bases. Bilateral scattered rhonchi. ABDOMEN: Soft. NERVOUS SYSTEM: Nonfocal. LABORATORY DATA: Glucose 339. Rest of the labs are noted. ASSESSMENT: 1. Shortness of breath, possible chronic obstructive pulmonary disease and congestive heart failure with acute hypoxic respiratory failure, on 15 L oxygen currently. 2. History of deep venous thrombosis. 3. Diabetes mellitus, type 2. 4. History of prostate cancer. 5. Tiny pulmonary emboli suspected in the distal subsegmental branches in the right lower lobe. 6. Multiple complex medical issues. RECOMMENDATIONS AND DISCUSSION: In this 67-year-old gentleman presented with multiple complex medical issues, we will monitor the patient closely. Continue with current medical management. Continue symptomatic treatment. Otherwise, I would recommend to continue with current medications. Prognosis is guarded. Further recommendations to follow. See orders for the details. MMODL / IJN: [id number] /
[2023-05-14] MEDS: FORMOTEROL FUMARATE 20 MCG/2 ML NEBU INHALATION SCH ×2 (08:01→21:24)
[2023-05-14] MEDS: IPRATROPIUM-ALBUTEROL 3 ML NEB INHALATION SCH ×4 (08:01→21:24)
[2023-05-14] MEDS: BUDESONIDE 1 MG/2 ML NEBU INHALATION SCH ×2 (08:01→21:24)
[2023-05-14] MEDS: BICALUTAMIDE 50 MG TAB PO SCH (09:11)
[2023-05-14] MEDS: ESCITALOPRAM 10 MG TAB PO SCH (09:13)
[2023-05-14] MEDS: APIXABAN 5 MG TAB PO SCH ×2 (09:13→20:28)
[2023-05-14] MEDS: FENOFIBRATE 160 MG TAB PO SCH (09:13)
[2023-05-14] MEDS: HYDROcodone/APAP 5-325MG 1 EACH TAB PO PRN ×2 (09:15→16:15)
[2023-05-14] MEDS: ATORVASTATIN 40 MG TAB PO SCH (09:15)
[2023-05-14] MEDS: guaiFENesin 600 MG TABLET.ER PO SCH ×2 (09:15→20:28)
[2023-05-14] MEDS: POTASSIUM CHLORIDE ER 20 MEQ TAB.ER PO SCH (09:15)
[2023-05-14] MEDS: METOPROLOL SUCCINATE (ER) 25 MG TAB.ER.24H PO SCH (09:15)
[2023-05-14] MEDS: LORATADINE 10 MG TAB PO SCH (09:15)
[2023-05-14] MEDS: MONTELUKAST 10 MG TAB PO SCH (09:17)
[2023-05-14] MEDS: FUROSEMIDE 40 MG TAB PO SCH (09:17)
[2023-05-14] MEDS: OFLOXACIN 0.3% OPHTH DROPS 5 ML BOTTLE BOTH EYES SCH (09:23)
--- NOTE | 2023-05-14 10:03 | P.PN ---
Subjective Progress Note Date: 05/14/23 On today's evaluation of 05/13/2023, the patient seems to be still hypoxic and is currently on 15 L of oxygen by nasal cannula. He is lethargic, he is weak, he is in the hospital for more than 2 weeks or hypoxic respiratory failure. Most recent chest x-ray was from 05/08/2023. The patient was hospitalized on 04/28/2023 for hypoxic respiratory failure and COPD exacerbation. Is known to have severe COPD with an FEV1 of 40% of predicted. His known also to have chronic hypoxic respiratory failure maintain on oxygen at 4 L on outpatient basis. He is typically on shortage is up to one inhalation a day. He has diabetes mellitus type 2, hyperlipidemia, prostate cancer, previous history of DVT and congestion heart failure. For the time being, the patient is on DuoNeb nebulized treatments 4 times a day, Lasix 40 mg by mouth daily, Perforomist and Pulmicort updrafts twice a day, he is also on IV Solu-Medrol 60 mg every 6 hours. He remains on long-term anticoagulation with Eliquis 5 mg by mouth twice a day. His blood work from today is still pending. Renal function from yesterday was stable. Electrodes were stable. The most recent white cell count of 15.3. Today's evaluation of 05/14/2023, the patient is being seen for a follow-up. Overall condition is unchanged compared to yesterday. Still weak and lethargic. He remains on 50 L of oxygen by nasal cannula. Is known to have severe COPD with an FEV1 of 40% of predicted and the patient also has chronic hypoxic respiratory failure. His oxygen requirements have gone up significantly. He remains on bronchodilators and steroids. A follow-up CAT scan of the chest was done yesterday and the patient continued to be quite hypoxic. The CAT scan showed small bilateral pleural effusions along with adjacent compressive atelectasis. There is also some signs of fluid overload. Pulmonary edema was suspected. No mediastinal lymphadenopathy. There was background emphysema. This CAT scan of the chest was done without contrast. Labs from today are still pending. The patient remains on Lasix 40 mg by mouth daily. He remains on bronchodilators and IV Solu-Medrol. Objective - Vital Signs Vital signs: Vital Signs Temp 97.9 F 05/14/23 09:07 Pulse 100 05/14/23 09:07 Resp 20 05/14/23 09:07 BP 111/55 05/14/23 09:07 Pulse Ox 88 L 05/14/23 09:07 FiO2 60 05/04/23 11:35 Intake & Output 05/13/23 05/14/23 05/14/23 18:59 06:59 18:59 Intake Total 1330 240 Balance 1330 240 Intake: Oral 1330 240 Other: Voiding Method Toilet Toilet Urinal Urinal # Voids 2 2 - Exam No acute distress, oriented 3. Currently on 15 L high flow nasal O2. Saturations are 92 %. HEENT examination is grossly unremarkable. Neck supple. Full range of motion. No adenopathy thyromegaly or neck vein distention. Cardiovascular examination reveals regular rhythm rate. S1-S2 normal. No S3 or S4. No discernible murmur noted. Lungs reveal scattered rhonchi. Her sounds are equal bilaterally but diminished throughout. No wheezes. No crackles. Abdomen soft bowel sounds are heard. No masses or tenderness. Extremities are intact. No cyanosis clubbing or edema. Skin is without rash or lesion. Neurologic examination is brief but nonfocal. - Labs CBC & Chem 7: 05/10/23 11:17 05/12/23 11:05 Labs: Abnormal Lab Results - Last 24 Hours (Table) 05/13/23 05/13/23 05/13/23 Range/Units 11:14 16:17 21:01 POC Glucose (mg/dL) 339 H 361 H 390 H (70-110) mg/dL 05/14/23 Range/Units 06:18 POC Glucose (mg/dL) 303 H (70-110) mg/dL Assessment and Plan Plan: Acute on chronic hypoxic respiratory failure. The patient is currently on 15 L of oxygen by nasal cannula. The patient is compensated hypercapnic respiratory failure. Overall condition and oxygenation status is unchanged compared to yesterday. CT of the chest showing some compressive atelectasis and evidence of volume overload. Chronic hypoxic respiratory failure limited on oxygen at 4 L Severe COPD with chronic hypoxic and hypercapnic respiratory failure with an FEV1 of 40% of predicted maintain on Trelegy Ellipta on outpatient basis Congestion heart failure might ejection fraction of 45% Remote history of DVT Diabetes mellitus type 2 History of prostate cancer. Alpha-1 antitrypsin deficiency, MS phenotype Hyperlipidemia Plan Discontinue by mouth Lasix and put the patient on Lasix 20 mg IV every 8 hours in addition to Zaroxolyn 5 mg twice a day Patient is still hypoxic and short of breath. CAT scan of the chest was noted Bronchodilators with DuoNeb updrafts 4 times a day Allow Trelegy Ellipta from home Resume all medications Monitor the blood sugar Past of the medications were reviewed. No other changes from my standpoint. DNR/DNI CODE STATUS We'll continue to follow
[2023-05-14 11:25] LABS: Glucose,Whole Blood 230 mg/dL (70-110)
[2023-05-14] MEDS: FUROSEMIDE 10 MG/ML 2 ML VIAL IV SCH ×2 (12:35→16:15)
[2023-05-14] MEDS: metOLazone 2.5 MG TAB PO SCH ×2 (12:36→20:28)
--- NOTE | 2023-05-14 14:26 | PN ---
PROGRESS NOTE DATE OF SERVICE: 05/14/2023 SUBJECTIVE: This is a 67-year-old gentleman admitted with a combination of COPD and CHF acute exacerbation, severely hypoxic. The CAT scan showed significant abnormalities bilaterally, right more than left, possibly indicating pneumonia process. The glucose is also elevated. The patient is on steroids and bronchodilators. The patient had a course of Rocephin already. PAST MEDICAL HISTORY: Reviewed. REVIEW OF SYSTEMS: Fourteen-point review is negative except as mentioned earlier. CURRENT MEDICATIONS: Reviewed include DuoNeb. Doses and rest of the medications are noted. PHYSICAL EXAMINATION: VITAL SIGNS: Pulse is 111, blood pressure 107/58, respirations 20. HEENT: Conjunctivae are normal. NECK: No jugular venous distention. CARDIOVASCULAR: S1 and S2 muffled. RESPIRATORY: Breath sounds diminished at the bases. Bilateral scattered rhonchi and crackles. ABDOMEN: Soft. NERVOUS SYSTEM: Nonfocal. LABORATORY DATA: Sodium 135. ASSESSMENT: 1. Shortness of breath, possibly chronic obstructive pulmonary disease and congestive heart failure acute exacerbation with acute hypoxic respiratory failure, on 15 L oxygen currently. 2. Rule out bilateral pneumonia, right more than left. 3. History of deep venous thrombosis. 4. Diabetes mellitus, type 2. 5. History of prostate cancer. 6. Tiny pulmonary emboli suspected in the distal subsegmental branches in the right lower lobe. 7. Multiple complex medical issues. RECOMMENDATIONS: Recommend to continue current medical management. Continue symptomatic treatment. White count is elevated. Monitor the blood sugars closely. I would recommend procalcitonin. Closely follow with Pulmonary. Intensive bronchodilator treatment. Further recommendations to follow. MMODL / IJN: [id number] /
[2023-05-14 16:15] LABS: Glucose,Whole Blood 280 mg/dL (70-110)
[2023-05-14] MEDS: CYCLOBENZAPRINE 5 MG TAB PO PRN (16:16)
[2023-05-14] MEDS: FLUTICASONE 50MCG/SPRAY NASAL 16GM EA NOSTRIL PRN (16:16)
--- NOTE | 2023-05-14 17:02 | PN ---
PROGRESS NOTE DATE OF SERVICE: 05/14/2023 SUBJECTIVE: This is a 67-year-old gentleman, who was admitted with CHF and COPD acute exacerbation and had possibly pneumonia also. The patient has acute hypoxic respiratory failure. The patient is on 15 L oxygen at this time saturating only 85%. Multiple consultants are following the patient closely. PAST MEDICAL HISTORY: Reviewed. REVIEW OF SYSTEMS: Fourteen-point review is negative except as mentioned earlier. CURRENT MEDICATIONS: Reviewed include DuoNeb. Doses and rest of the medications are reviewed. PHYSICAL EXAMINATION: VITAL SIGNS: Pulse is 111, blood pressure 107/58, respirations 22. CHEST: Breathing efforts are markedly increased. Bilateral scattered rhonchi and crackles. Expiratory wheezing. ABDOMEN: Soft and nontender. NERVOUS SYSTEM: Nonfocal. LABORATORY DATA: Reviewed. WBC 13.3. ASSESSMENT: 1. Shortness of breath, possibly chronic obstructive pulmonary disease and congestive heart failure acute exacerbation with acute hypoxic respiratory failure, on 15 L nasal cannula currently. 2. Rule out bilateral pneumonia. 3. History of deep venous thrombosis. 4. Diabetes mellitus, type 2. 5. History of prostate cancer. 6. Tiny pulmonary emboli suspected from distal subsegmental branches in the right lower lobe. 7. Multiple complex medical issues. RECOMMENDATIONS: Recommend to continue current medical management. Continue symptomatic treatment. Procalcitonin. Continue with bronchodilators and steroids. Closely follow with Dr. Ken. Guarded prognosis. Further recommendations to follow. MMODL / ANTONIAN: [id number] /
[2023-05-14 19:58] LABS: Glucose,Whole Blood 364 mg/dL (70-110)
[2023-05-14] MEDS: cloZAPine 100 MG TAB PO SCH (20:28)
[2023-05-14] MEDS: ACETAMINOPHEN TAB 325 MG TAB PO PRN (20:30)
[2023-05-15] MEDS: methylPREDNISolone SOD SUCCI 125 MG/2 ML VIAL IV SCH ×4 (00:04→17:09)
[2023-05-15] MEDS: FUROSEMIDE 10 MG/ML 2 ML VIAL IV SCH ×3 (00:04→15:37)
[2023-05-15 06:19] LABS: Glucose,Whole Blood 286 mg/dL (70-110)
[2023-05-15] MEDS: INSULIN DETEMIR (LEVEMIR) 100 UNIT/ML SYR SQ SCH ×2 (06:51→20:54)
[2023-05-15] MEDS: CYCLOBENZAPRINE 5 MG TAB PO PRN ×2 (06:51→20:53)
[2023-05-15] MEDS: PANTOPRAZOLE 40 MG TABLET PO SCH (06:51)
[2023-05-15] MEDS: INSULIN ASPART (NovoLOG) 100 UNIT/ML VIAL SQ SCH ×7 (06:51→20:54)
[2023-05-15] MEDS: REPAGLINIDE 1 MG TAB PO SCH ×2 (06:51→12:08)
--- NOTE | 2023-05-15 07:56 | XR ---
EXAMINATION TYPE: XR chest 1V portable DATE OF EXAM: 05/15/2023 COMPARISON: 05/13/2023 INDICATION: CHF TECHNIQUE: Single frontal view of the chest is obtained. FINDINGS: The heart size is enlarged. The pulmonary vasculature is prominent. Mild peripheral right midlung infiltrate. Diffuse increased lung markings are present bilaterally. IMPRESSION: 1. Findings compatible with congestive heart failure, similar to prior examination. Continued follow- up is recommended.
[2023-05-15] MEDS: FORMOTEROL FUMARATE 20 MCG/2 ML NEBU INHALATION SCH ×2 (08:09→19:55)
[2023-05-15] MEDS: BUDESONIDE 1 MG/2 ML NEBU INHALATION SCH ×2 (08:09→19:55)
[2023-05-15] MEDS: IPRATROPIUM-ALBUTEROL 3 ML NEB INHALATION SCH ×4 (08:10→19:55)
[2023-05-15] MEDS: HYDROcodone/APAP 5-325MG 1 EACH TAB PO PRN (08:11)
[2023-05-15] MEDS: FENOFIBRATE 160 MG TAB PO SCH (08:12)
[2023-05-15] MEDS: POTASSIUM CHLORIDE ER 20 MEQ TAB.ER PO SCH (08:12)
[2023-05-15] MEDS: APIXABAN 5 MG TAB PO SCH ×2 (08:12→20:53)
[2023-05-15] MEDS: MONTELUKAST 10 MG TAB PO SCH (08:12)
[2023-05-15] MEDS: guaiFENesin 600 MG TABLET.ER PO SCH ×2 (08:12→20:53)
[2023-05-15] MEDS: ATORVASTATIN 40 MG TAB PO SCH (08:12)
[2023-05-15] MEDS: ESCITALOPRAM 10 MG TAB PO SCH (08:12)
[2023-05-15] MEDS: LORATADINE 10 MG TAB PO SCH (08:12)
[2023-05-15] MEDS: METOPROLOL SUCCINATE (ER) 25 MG TAB.ER.24H PO SCH (08:12)
[2023-05-15] MEDS: OFLOXACIN 0.3% OPHTH DROPS 5 ML BOTTLE BOTH EYES SCH (08:13)
[2023-05-15] MEDS: metOLazone 2.5 MG TAB PO SCH ×2 (08:13→20:53)
[2023-05-15] MEDS: BICALUTAMIDE 50 MG TAB PO SCH (08:14)
[2023-05-15 11:44] LABS: Glucose,Whole Blood 282 mg/dL (70-110)
--- NOTE | 2023-05-15 12:02 | XR ---
EXAMINATION TYPE: XR chest 1V DATE OF EXAM: 05/15/2023 COMPARISON: Earlier exam 05/15/2023 INDICATION: CHF TECHNIQUE: Single frontal view of the chest is obtained. FINDINGS: The heart size is enlarged. The pulmonary vasculature is improved. Scattered infiltrates present greater at the left lung base IMPRESSION: 1. Improving congestive heart failure
[2023-05-15 12:20] LABS: ALT 22 U/L (4-49); AST 28 U/L (17-59); African American GFR (CKD) >90 (>60 ml/min/1.73 sqM); Albumin 3.5 g/dL (3.5-5.0); Alkaline Phosphatase 175 U/L (38-126); Anion Gap 8 mmol/L; Blood Urea Nitrogen 55 mg/dL (9-20); Carbon Dioxide 39 mmol/L (22-30); Chloride 87 mmol/L (98-107); Glucose 270 mg/dL (74-99); Non-African American GFR(CKD) 80 (>60 ml/min/1.73 sqM); Potassium 4.5 mmol/L (3.5-5.1); Sodium 134 mmol/L (137-145); Total Bilirubin 0.5 mg/dL (0.2-1.3); Total Protein 5.7 g/dL (6.3-8.2)
[2023-05-15 13:01] LABS: Basophils % (A) 0 %; Eosinophils % (A) 0 %; HCT 38.5 % (39.0-53.0); HGB 12.3 gm/dL (13.0-17.5); Lymphocytes # (A) 0.6 k/uL (1.0-4.8); Lymphocytes % (A) 3 %; MCH 28.2 pg (25.0-35.0); MCHC 31.9 g/dL (31.0-37.0); MCV 88.6 fL (80.0-100.0); Mean Platelet Volume 7.6; Monocytes % (A) 6 %; Neutrophils # (A) 16.2 k/uL (1.3-7.7); Neutrophils % (A) 90 %; Platelet Count 399 k/uL (150-450); RBC 4.35 m/uL (4.30-5.90); RDW 14.2 % (11.5-15.5); WBC 17.9 k/uL (3.8-10.6)
--- NOTE | 2023-05-15 13:14 | PN ---
PROGRESS NOTE DATE OF SERVICE: 05/15/2023 SUBJECTIVE: This is a 67-year-old gentleman who was admitted with CHF and COPD, has taken a turn for the worse in the patient's airway at this time. No chest pain, no palpitation. The most recent chest x-ray done today showed bilateral extensive lesions. OBJECTIVE: VITAL SIGNS: Pulse is 95, blood pressure is 104/56, respirations 20. CHEST: Bilateral scattered rhonchi and crackles. ABDOMEN: Soft. NERVOUS SYSTEM: No focal deficits. LABORATORY DATA: Sodium 135, rest of the labs are noted. ASSESSMENT: 1. Shortness of breath, possible COPD, CHF acute exacerbation with acute hypoxic respiratory failure, on 15 L oxygen. 2. Rule out bilateral pneumonia. 3. History of DVT. 4. Diabetes mellitus, type 2. 5. History of prostate cancer. 6. Tiny pulmonary emboli, suspected subsegmental septal branches on the right lower lobe. 7. Multiple complex medical issues. RECOMMENDATIONS AND DISCUSSION: Recommended to continue current management, continue symptomatic treatment, otherwise procalcitonin is 10.10. We will continue to monitor, closely follow with Dr. Ken. Guarded prognosis. Further recommendations to follow. MMODL / IJN: [id number] /
--- NOTE | 2023-05-15 16:30 | P.PN ---
Subjective Progress Note Date: 05/15/23 On today's evaluation of 05/13/2023, the patient seems to be still hypoxic and is currently on 15 L of oxygen by nasal cannula. He is lethargic, he is weak, he is in the hospital for more than 2 weeks or hypoxic respiratory failure. Most recent chest x-ray was from 05/08/2023. The patient was hospitalized on 04/28/2023 for hypoxic respiratory failure and COPD exacerbation. Is known to have severe COPD with an FEV1 of 40% of predicted. His known also to have chronic hypoxic respiratory failure maintain on oxygen at 4 L on outpatient basis. He is typically on shortage is up to one inhalation a day. He has diabetes mellitus type 2, hyperlipidemia, prostate cancer, previous history of DVT and congestion heart failure. For the time being, the patient is on DuoNeb nebulized treatments 4 times a day, Lasix 40 mg by mouth daily, Perforomist and Pulmicort updrafts twice a day, he is also on IV Solu-Medrol 60 mg every 6 hours. He remains on long-term anticoagulation with Eliquis 5 mg by mouth twice a day. His blood work from today is still pending. Renal function from yesterday was stable. Electrodes were stable. The most recent white cell count of 15.3. Today's evaluation of 05/14/2023, the patient is being seen for a follow-up. Overall condition is unchanged compared to yesterday. Still weak and lethargic. He remains on 50 L of oxygen by nasal cannula. Is known to have severe COPD with an FEV1 of 40% of predicted and the patient also has chronic hypoxic respiratory failure. His oxygen requirements have gone up significantly. He remains on bronchodilators and steroids. A follow-up CAT scan of the chest was done yesterday and the patient continued to be quite hypoxic. The CAT scan showed small bilateral pleural effusions along with adjacent compressive atelectasis. There is also some signs of fluid overload. Pulmonary edema was suspected. No mediastinal lymphadenopathy. There was background emphysema. This CAT scan of the chest was done without contrast. Labs from today are still pending. The patient remains on Lasix 40 mg by mouth daily. He remains on bronchodilators and IV Solu-Medrol. On today's evaluation of 05/15/2023, the patient is having more shortness of breath and his worsening in his hypoxemia. He was on 15 L of oxygen by nasal cannula. He was placed on high flow oxygen utilizing Airvo and the patient is currently on 60 L an FiO2 of 90%. His current pulse ox is in order of 93%. The patient has advanced COPD. I also thought that there is a component of CHF and fluid overload. Based on that, I started the patient on a combination of Lasix and Zaroxolyn. He is currently on Lasix 20 mg IV every 8 hours and the patient is also taking Zaroxolyn twice a day. Based on his worsening hypoxemia, I repeated the chest examination showed that the pulmonary vasculature is improved and the patient is improving in terms of his CHF. The fluid balance is not accurately recorded. He is producing adequate amount of urine output. His blood work today shows a BUN of 55 and a creatinine of 0.9. Sodium level is at 134. The results at 17.9 with a hemoglobin 12.3. Objective - Vital Signs Vital signs: Vital Signs Temp 97.4 F L 05/15/23 07:51 Pulse 86 05/15/23 11:15 Resp 22 05/15/23 08:08 BP 118/66 05/15/23 07:51 Pulse Ox 89 L 05/15/23 08:13 FiO2 93 05/15/23 11:15 Intake & Output 05/14/23 05/15/23 05/15/23 18:59 06:59 18:59 Intake Total 530 240 Output Total 500 700 325 Balance 30 -700 -85 Weight 94.5 kg Intake: Oral 530 240 Output: Urine 500 700 325 Other: Voiding Method Toilet Toilet Toilet Urinal Urinal Urinal # Voids 2 - Exam No acute distress, oriented 3. Currently on Airvo with 60 L an FiO2 of 90% HEENT examination is grossly unremarkable. Neck supple. Full range of motion. No adenopathy thyromegaly or neck vein distention. Cardiovascular examination reveals regular rhythm rate. S1-S2 normal. No S3 or S4. No discernible murmur noted. Lungs reveal scattered rhonchi. Her sounds are equal bilaterally but diminished throughout. No wheezes. No crackles. Breath sounds are markedly diminished in lung bases bilaterally. Is also bibasilar crackles. Abdomen soft bowel sounds are heard. No masses or tenderness. Extremities are intact. No cyanosis clubbing or edema. Skin is without rash or lesion. Neurologic examination is brief but nonfocal. - Labs CBC & Chem 7: 05/15/23 11:17 05/15/23 11:17 Labs: Abnormal Lab Results - Last 24 Hours (Table) 05/14/23 05/14/23 05/14/23 Range/Units 11:16 14:09 16:12 POC Glucose (mg/dL) 230 H 280 H (70-110) mg/dL Procalcitonin 0.10 H (0.02-0.09) ng/mL 05/14/23 05/15/23 Range/Units 19:56 06:06 POC Glucose (mg/dL) 364 H 286 H (70-110) mg/dL Procalcitonin (0.02-0.09) ng/mL Microbiology - Last 24 Hours (Table) 05/14/23 16:21 Gram Stain - Preliminary Sputum Assessment and Plan Plan: Acute on chronic hypoxic respiratory failure. The patient is currently on Airvo 60 L an FiO2 of 90%. The patient is compensated hypercapnic respiratory failure. Overall condition and oxygenation status is unchanged compared to yesterday. CT of the chest showing some compressive atelectasis and evidence of volume overload. The patient is currently on a combination of diuretics. The p atient had a follow-up chest x-ray that showed improvement in CHF findings and the pulmonary vasculature is less prominent and there is improvement in the overall picture. Nevertheless, oxygen patient is still poor. Chronic hypoxic respiratory failure limited on oxygen at 4 L Severe COPD with chronic hypoxic and hypercapnic respiratory failure with an FEV1 of 40% of predicted maintain on Trelegy Ellipta on outpatient basis Congestion heart failure might ejection fraction of 45% Remote history of DVT Diabetes mellitus type 2 History of prostate cancer. Alpha-1 antitrypsin deficiency, MS phenotype Hyperlipidemia Plan Continue Lasix 20 mg IV every 8 hours in addition to Zaroxolyn 5 mg twice a day Patient is still hypoxic and short of breath. Keep the Airvo at the same setting. CAT scan of the chest was noted, the follow-up chest x-ray from today was also noted Bronchodilators with DuoNeb updrafts 4 times a day Allow Trelegy Ellipta from home Resume all medications Monitor the blood sugar Monitor renal function Continue anticoagulation with Eliquis 5 mg by mouth twice a day. No significant clinical suspicion for pulmonary embolism Needs aggressive pulmonary toileting and using incentive spirometer Past of the medications were reviewed. No other changes from my standpoint. DNR/DNI CODE STATUS We'll continue to follow
[2023-05-15 16:36] LABS: Glucose,Whole Blood 344 mg/dL (70-110)
[2023-05-15] MEDS: ACETAMINOPHEN TAB 325 MG TAB PO PRN (17:13)
[2023-05-15 20:02] LABS: Glucose,Whole Blood 426 mg/dL (70-110)
[2023-05-15] MEDS ORDERED: INSULIN ASPART (NovoLOG) 100 UNIT/ML VIAL SQ ONE (20:39)
[2023-05-15] MEDS: cloZAPine 100 MG TAB PO SCH (20:53)
[2023-05-16] MEDS: FUROSEMIDE 10 MG/ML 2 ML VIAL IV SCH ×4 (00:06→23:03)
[2023-05-16] MEDS: methylPREDNISolone SOD SUCCI 125 MG/2 ML VIAL IV SCH ×5 (00:06→23:03)
[2023-05-16] MEDS: ACETAMINOPHEN TAB 325 MG TAB PO PRN (05:49)
[2023-05-16] MEDS: REPAGLINIDE 1 MG TAB PO SCH ×2 (05:49→12:04)
[2023-05-16] MEDS: PANTOPRAZOLE 40 MG TABLET PO SCH (05:49)
[2023-05-16 06:10] LABS: Glucose,Whole Blood 148 mg/dL (70-110)
[2023-05-16] MEDS: INSULIN ASPART (NovoLOG) 100 UNIT/ML VIAL SQ SCH ×7 (06:10→20:28)
[2023-05-16] MEDS: INSULIN DETEMIR (LEVEMIR) 100 UNIT/ML SYR SQ SCH ×2 (06:44→20:29)
[2023-05-16] MEDS: IPRATROPIUM-ALBUTEROL 3 ML NEB INHALATION SCH ×4 (08:35→20:18)
[2023-05-16] MEDS: BUDESONIDE 1 MG/2 ML NEBU INHALATION SCH ×2 (08:35→20:18)
[2023-05-16] MEDS: FORMOTEROL FUMARATE 20 MCG/2 ML NEBU INHALATION SCH ×2 (08:35→20:18)
[2023-05-16] MEDS: HYDROcodone/APAP 5-325MG 1 EACH TAB PO PRN ×2 (09:03→20:32)
[2023-05-16] MEDS: FENOFIBRATE 160 MG TAB PO SCH (09:04)
[2023-05-16] MEDS: metOLazone 2.5 MG TAB PO SCH ×2 (09:04→20:29)
[2023-05-16] MEDS: METOPROLOL SUCCINATE (ER) 25 MG TAB.ER.24H PO SCH (09:04)
[2023-05-16] MEDS: guaiFENesin 600 MG TABLET.ER PO SCH ×2 (09:04→20:29)
[2023-05-16] MEDS: ATORVASTATIN 40 MG TAB PO SCH (09:04)
[2023-05-16] MEDS: APIXABAN 5 MG TAB PO SCH ×2 (09:04→20:29)
[2023-05-16] MEDS: LORATADINE 10 MG TAB PO SCH (09:04)
[2023-05-16] MEDS: MONTELUKAST 10 MG TAB PO SCH (09:04)
[2023-05-16] MEDS: ESCITALOPRAM 10 MG TAB PO SCH (09:04)
[2023-05-16] MEDS: POTASSIUM CHLORIDE ER 20 MEQ TAB.ER PO SCH (09:04)
[2023-05-16] MEDS: BICALUTAMIDE 50 MG TAB PO SCH (09:05)
[2023-05-16 11:21] LABS: Glucose,Whole Blood 164 mg/dL (70-110)
[2023-05-16 11:27] VITALS: BMI 33.6
--- NOTE | 2023-05-16 12:59 | XR ---
EXAMINATION TYPE: XR chest 1V DATE OF EXAM: 05/16/2023 HISTORY: Shortness of breath. COMPARISON: 05/15/2023 TECHNIQUE: Single view of the chest is submitted. FINDINGS: Demonstrated are scattered senescent parenchymal change. There is no evidence for focal infiltrate. There is evidence of cardiomegaly with pulmonary venous congestion and interstitial edema. Overall no change from prior study. Hilar and mediastinal structures are within normal limits. Degenerative changes are seen of the dorsal spine. IMPRESSION: 1. There is evidence of cardiomegaly with pulmonary venous congestion and interstitial edema. Overal l no change from prior study.
--- NOTE | 2023-05-16 14:58 | P.PN ---
Subjective Progress Note Date: 05/16/23 On today's evaluation of 05/13/2023, the patient seems to be still hypoxic and is currently on 15 L of oxygen by nasal cannula. He is lethargic, he is weak, he is in the hospital for more than 2 weeks or hypoxic respiratory failure. Most recent chest x-ray was from 05/08/2023. The patient was hospitalized on 04/28/2023 for hypoxic respiratory failure and COPD exacerbation. Is known to have severe COPD with an FEV1 of 40% of predicted. His known also to have chronic hypoxic respiratory failure maintain on oxygen at 4 L on outpatient basis. He is typically on shortage is up to one inhalation a day. He has diabetes mellitus type 2, hyperlipidemia, prostate cancer, previous history of DVT and congestion heart failure. For the time being, the patient is on DuoNeb nebulized treatments 4 times a day, Lasix 40 mg by mouth daily, Perforomist and Pulmicort updrafts twice a day, he is also on IV Solu-Medrol 60 mg every 6 hours. He remains on long-term anticoagulation with Eliquis 5 mg by mouth twice a day. His blood work from today is still pending. Renal function from yesterday was stable. Electrodes were stable. The most recent white cell count of 15.3. Today's evaluation of 05/14/2023, the patient is being seen for a follow-up. Overall condition is unchanged compared to yesterday. Still weak and lethargic. He remains on 50 L of oxygen by nasal cannula. Is known to have severe COPD with an FEV1 of 40% of predicted and the patient also has chronic hypoxic respiratory failure. His oxygen requirements have gone up significantly. He remains on bronchodilators and steroids. A follow-up CAT scan of the chest was done yesterday and the patient continued to be quite hypoxic. The CAT scan showed small bilateral pleural effusions along with adjacent compressive atelectasis. There is also some signs of fluid overload. Pulmonary edema was suspected. No mediastinal lymphadenopathy. There was background emphysema. This CAT scan of the chest was done without contrast. Labs from today are still pending. The patient remains on Lasix 40 mg by mouth daily. He remains on bronchodilators and IV Solu-Medrol. On today's evaluation of 05/15/2023, the patient is having more shortness of breath and his worsening in his hypoxemia. He was on 15 L of oxygen by nasal cannula. He was placed on high flow oxygen utilizing Airvo and the patient is currently on 60 L an FiO2 of 90%. His current pulse ox is in order of 93%. The patient has advanced COPD. I also thought that there is a component of CHF and fluid overload. Based on that, I started the patient on a combination of Lasix and Zaroxolyn. He is currently on Lasix 20 mg IV every 8 hours and the patient is also taking Zaroxolyn twice a day. Based on his worsening hypoxemia, I repeated the chest examination showed that the pulmonary vasculature is improved and the patient is improving in terms of his CHF. The fluid balance is not accurately recorded. He is producing adequate amount of urine output. His blood work today shows a BUN of 55 and a creatinine of 0.9. Sodium level is at 134. The results at 17.9 with a hemoglobin 12.3. On 05/16/2023, the patient continues to have issues with oxygenation. I noticed the patient has produced excellent amount of urine output and accommodation of Lasix and Zaroxolyn. The patient is a negative fluid balance and he has produced at least 3 L negative fluid balance over the past 24 hours. Nevertheless, there has been no or limited improvement in oxygenation. The patient remains on high flow oxygen at 60 L with an FiO2 of 90%. I repeated the chest x-ray based on those findings and there is no acute abnormalities. The chest x-ray shows evidence of hepatomegaly or pulmonary vascular congestion and interstitial edema without any major interval change. As such, we will going to decided to continue the diuresis. Clinically, the patient is not having any significant dyspnea at rest. Blood work from today still pending. The risk of from yesterday was at 17.9. The patient continues to be on DuoNeb updrafts, remains on Lasix and Zaroxolyn. Remains on IV Solu-Medrol. Remains on anticoagulation with Eliquis. Objective - Vital Signs Vital signs: Vital Signs Temp 97.9 F 05/16/23 09:00 Pulse 85 05/16/23 09:00 Resp 21 05/16/23 09:00 BP 104/61 05/16/23 09:00 Pulse Ox 92 L 05/16/23 09:00 FiO2 91 05/16/23 08:39 Intake & Output 05/15/23 05/16/23 05/16/23 18:59 06:59 18:59 Intake Total 240 0 500 Output Total 1125 2200 Balance -885 -2200 500 Weight 94.5 kg Intake: Oral 240 0 500 Output: Urine 1125 2200 Other: Voiding Method Toilet Toilet Toilet Urinal Urinal Urinal # Voids 1 # Bowel Movements 1 - Exam No acute distress, oriented 3. Currently on Airvo with 60 L an FiO2 of 90% HEENT examination is grossly unremarkable. Neck supple. Full range of motion. No adenopathy thyromegaly or neck vein distention. Cardiovascular examination reveals regular rhythm rate. S1-S2 normal. No S3 or S4. No discernible murmur noted. Lungs reveal scattered rhonchi. Her sounds are equal bilaterally but diminished throughout. No wheezes. No crackles. Breath sounds are markedly diminished in lung bases bilaterally. Is also bibasilar crackles. Abdomen soft bowel sounds are heard. No masses or tenderness. Extremities are intact. No cyanosis clubbing or edema. Skin is without rash or lesion. Neurologic examination is brief but nonfocal. - Labs CBC & Chem 7: 05/15/23 11:17 05/15/23 11:17 Labs: Abnormal Lab Results - Last 24 Hours (Table) 05/15/23 05/15/23 05/15/23 Range/Units 11:17 11:17 11:39 WBC 17.9 H (3.8-10.6) k/uL Hgb 12.3 L (13.0-17.5) gm/dL Hct 38.5 L (39.0-53.0) % Neutrophils # 16.2 H (1.3-7.7) k/uL Lymphocytes # 0.6 L (1.0-4.8) k/uL Sodium 134 L (137-145) mmol/L Chloride 87 L (98-107) mmol/L Carbon Dioxide 39 H (22-30) mmol/L BUN 55 H (9-20) mg/dL Glucose 270 H (74-99) mg/dL POC Glucose (mg/dL) 282 H (70-110) mg/dL Alkaline Phosphatase 175 H (38-126) U/L Total Protein 5.7 L (6.3-8.2) g/dL 12/11/3005/15/23 05/16/23 Range/Units 16:35 20:00 06:09 WBC (3.8-10.6) k/uL Hgb (13.0-17.5) gm/dL Hct (39.0-53.0) % Neutrophils # (1.3-7.7) k/uL Lymphocytes # (1.0-4.8) k/uL Sodium (137-145) mmol/L Chloride (98-107) mmol/L Carbon Dioxide (22-30) mmol/L BUN (9-20) mg/dL Glucose (74-99) mg/dL POC Glucose (mg/dL) 344 H 426 H 148 H (70-110) mg/dL Alkaline Phosphatase (38-126) U/L Total Protein (6.3-8.2) g/dL 05/16/23 Range/Units 11:20 WBC (3.8-10.6) k/uL Hgb (13.0-17.5) gm/dL Hct (39.0-53.0) % Neutrophils # (1.3-7.7) k/uL Lymphocytes # (1.0-4.8) k/uL Sodium (137-145) mmol/L Chloride (98-107) mmol/L Carbon Dioxide (22-30) mmol/L BUN (9-20) mg/dL Glucose (74-99) mg/dL POC Glucose (mg/dL) 164 H (70-110) mg/dL Alkaline Phosphatase (38-126) U/L Total Protein (6.3-8.2) g/dL Microbiology - Last 24 Hours (Table) 05/14/23 16:21 Gram Stain - Final Sputum Sputum Culture - Final Methicillin resist S. aureus 05/14/23 14:09 Blood Culture - Preliminary Blood Assessment and Plan Plan: Acute on chronic hypoxic respiratory failure. The patient is currently on Airvo 60 L an FiO2 of 90%. The patient is compensated hypercapnic respiratory failure. Overall condition and oxygenation status is unchanged compared to yesterday. CT of the chest showing some compressive atelectasis and evidence of volume overload. The patient is currently on a combination of diuretics. The patient had a follow-up chest x-ray that showed improvement in CHF findings and the pulmonary vasculature is less prominent and there is improvement in the overall picture. Nevertheless, oxygen patient is still poor. Chronic hypoxic respiratory failure limited on oxygen at 4 L Severe COPD with chronic hypoxic and hypercapnic respiratory failure with an FEV1 of 40% of predicted maintain on Trelegy Ellipta on outpatient basis Congestion heart failure might ejection fraction of 45% Remote history of DVT Diabetes mellitus type 2 History of prostate cancer. Alpha-1 antitrypsin deficiency, MS phenotype Hyperlipidemia Plan Repeat chest x-ray shows unchanged and stable findings Negative fluid balance and we'll going to continue diuretics Continue Lasix 20 mg IV every 8 hours in addition to Zaroxolyn 5 mg twice a day Patient is still hypoxic and short of breath. Keep the Airvo at the same setting. The patient is currently on 60 L with an FiO2 of 90% CAT scan of the chest was noted Bronchodilators with DuoNeb updrafts 4 times a day Allow Trelegy Ellipta from home Resume all medications Monitor the blood sugar Monitor renal function Continue anticoagulation with Eliquis 5 mg by mouth twice a day. No significant clinical suspicion for pulmonary embolism Needs aggressive pulmonary toileting and using incentive spirometer Past of the medications were reviewed. No other changes from my standpoint. DNR/DNI CODE STATUS We'll continue to follow Prognosis for especially the patient does not show any significant improvement.
[2023-05-16 15:51] LABS: Basophils % (A) 0 %; Eosinophils # (A) 0.1 k/uL (0-0.7); Eosinophils % (A) 1 %; HCT 35.8 % (39.0-53.0); HGB 11.7 gm/dL (13.0-17.5); Lymphocytes # (A) 0.6 k/uL (1.0-4.8); Lymphocytes % (A) 4 %; MCH 28.3 pg (25.0-35.0); MCHC 32.6 g/dL (31.0-37.0); Mean Platelet Volume 9.1; Monocytes # (A) 0.7 k/uL (0-1.0); Monocytes % (A) 5 %; Neutrophils # (A) 14.6 k/uL (1.3-7.7); Neutrophils % (A) 90 %; Platelet Count 358 k/uL (150-450); RBC 4.11 m/uL (4.30-5.90); RDW 14.3 % (11.5-15.5); WBC 16.1 k/uL (3.8-10.6)
[2023-05-16 16:27] LABS: ALT 20 U/L (4-49); AST 25 U/L (17-59); African American GFR (CKD) 78 (>60 ml/min/1.73 sqM); Albumin 3.3 g/dL (3.5-5.0); Alkaline Phosphatase 149 U/L (38-126); Anion Gap 8 mmol/L; Blood Urea Nitrogen 68 mg/dL (9-20); Calcium 8.6 mg/dL (8.4-10.2); Carbon Dioxide 39 mmol/L (22-30); Chloride 87 mmol/L (98-107); Glucose 237 mg/dL (74-99); Non-African American GFR(CKD) 67 (>60 ml/min/1.73 sqM); Potassium 4.6 mmol/L (3.5-5.1); Sodium 134 mmol/L (137-145); Total Bilirubin 0.4 mg/dL (0.2-1.3); Total Protein 5.4 g/dL (6.3-8.2)
[2023-05-16 16:37] LABS: Glucose,Whole Blood 254 mg/dL (70-110)
[2023-05-16 20:23] LABS: Glucose,Whole Blood 174 mg/dL (70-110)
[2023-05-16] MEDS: cloZAPine 100 MG TAB PO SCH (20:29)
[2023-05-16] MEDS: CYCLOBENZAPRINE 5 MG TAB PO PRN (20:32)
[2023-05-17] MEDS: methylPREDNISolone SOD SUCCI 125 MG/2 ML VIAL IV SCH ×4 (06:27→23:07)
[2023-05-17] MEDS: INSULIN DETEMIR (LEVEMIR) 100 UNIT/ML SYR SQ SCH ×2 (06:28→20:08)
[2023-05-17] MEDS: REPAGLINIDE 1 MG TAB PO SCH ×2 (06:30→13:19)
[2023-05-17] MEDS: PANTOPRAZOLE 40 MG TABLET PO SCH (06:30)
[2023-05-17] MEDS: BUDESONIDE 1 MG/2 ML NEBU INHALATION SCH ×2 (08:10→20:30)
[2023-05-17] MEDS: IPRATROPIUM-ALBUTEROL 3 ML NEB INHALATION SCH ×4 (08:10→20:30)
[2023-05-17] MEDS: FORMOTEROL FUMARATE 20 MCG/2 ML NEBU INHALATION SCH ×2 (08:10→20:30)
[2023-05-17 08:56] LABS: Basophils % (A) 0 %; Eosinophils % (A) 0 %; HCT 37.4 % (39.0-53.0); Lymphocytes # (A) 0.6 k/uL (1.0-4.8); Lymphocytes % (A) 4 %; MCH 28.1 pg (25.0-35.0); MCHC 32.2 g/dL (31.0-37.0); MCV 87.2 fL (80.0-100.0); Mean Platelet Volume 7.9; Monocytes # (A) 0.8 k/uL (0-1.0); Monocytes % (A) 5 %; Neutrophils # (A) 15.1 k/uL (1.3-7.7); Neutrophils % (A) 90 %; Platelet Count 376 k/uL (150-450); RBC 4.28 m/uL (4.30-5.90); RDW 14.1 % (11.5-15.5); WBC 16.8 k/uL (3.8-10.6)
[2023-05-17] MEDS: INSULIN ASPART (NovoLOG) 100 UNIT/ML VIAL SQ SCH ×7 (08:58→20:09)
[2023-05-17 08:59] LABS: Glucose,Whole Blood 120 mg/dL (70-110)
[2023-05-17] MEDS: APIXABAN 5 MG TAB PO SCH ×2 (09:06→20:08)
[2023-05-17] MEDS: ESCITALOPRAM 10 MG TAB PO SCH (09:06)
[2023-05-17] MEDS: FUROSEMIDE 10 MG/ML 2 ML VIAL IV SCH ×3 (09:06→23:07)
[2023-05-17] MEDS: MONTELUKAST 10 MG TAB PO SCH (09:07)
[2023-05-17] MEDS: FENOFIBRATE 160 MG TAB PO SCH (09:08)
[2023-05-17] MEDS: LORATADINE 10 MG TAB PO SCH (09:08)
[2023-05-17] MEDS: ATORVASTATIN 40 MG TAB PO SCH (09:08)
[2023-05-17] MEDS: guaiFENesin 600 MG TABLET.ER PO SCH ×2 (09:08→20:08)
[2023-05-17] MEDS: METOPROLOL SUCCINATE (ER) 25 MG TAB.ER.24H PO SCH (09:08)
[2023-05-17] MEDS: metOLazone 2.5 MG TAB PO SCH ×2 (09:08→20:08)
[2023-05-17] MEDS: POTASSIUM CHLORIDE ER 20 MEQ TAB.ER PO SCH (09:11)
[2023-05-17 09:18] LABS: ALT 19 U/L (4-49); AST 23 U/L (17-59); African American GFR (CKD) 79 (>60 ml/min/1.73 sqM); Albumin 3.5 g/dL (3.5-5.0); Alkaline Phosphatase 153 U/L (38-126); Blood Urea Nitrogen 67 mg/dL (9-20); Calcium 9.1 mg/dL (8.4-10.2); Chloride 88 mmol/L (98-107); Glucose 119 mg/dL (74-99); Non-African American GFR(CKD) 69 (>60 ml/min/1.73 sqM); Potassium 3.9 mmol/L (3.5-5.1); Sodium 137 mmol/L (137-145); Total Bilirubin 0.5 mg/dL (0.2-1.3); Total Protein 5.8 g/dL (6.3-8.2)
[2023-05-17] MEDS: BICALUTAMIDE 50 MG TAB PO SCH (09:19)
[2023-05-17 10:11] LABS: Carbon Dioxide 36 mmol/L (22-30)
[2023-05-17 10:22] LABS: Anion Gap 13 mmol/L
[2023-05-17 11:29] LABS: Glucose,Whole Blood 111 mg/dL (70-110)
[2023-05-17] MEDS ORDERED: VANCOMYCIN IV PER PHARMACY 1 EACH MISC MISCELLANE PRN (12:51)
[2023-05-17] MEDS ORDERED: CEFEPIME 2 GM in SODIUM CHLORIDE 0.9% 100 ML IVPB SCH (13:00)
--- NOTE | 2023-05-17 13:22 | P.PN ---
Subjective Progress Note Date: 05/17/23 On today's evaluation of 05/13/2023, the patient seems to be still hypoxic and is currently on 15 L of oxygen by nasal cannula. He is lethargic, he is weak, he is in the hospital for more than 2 weeks or hypoxic respiratory failure. Most recent chest x-ray was from 05/08/2023. The patient was hospitalized on 04/28/2023 for hypoxic respiratory failure and COPD exacerbation. Is known to have severe COPD with an FEV1 of 40% of predicted. His known also to have chronic hypoxic respiratory failure maintain on oxygen at 4 L on outpatient basis. He is typically on shortage is up to one inhalation a day. He has diabetes mellitus type 2, hyperlipidemia, prostate cancer, previous history of DVT and congestion heart failure. For the time being, the patient is on DuoNeb nebulized treatments 4 times a day, Lasix 40 mg by mouth daily, Perforomist and Pulmicort updrafts twice a day, he is also on IV Solu-Medrol 60 mg every 6 hours. He remains on long-term anticoagulation with Eliquis 5 mg by mouth twice a day. His blood work from today is still pending. Renal function from yesterday was stable. Electrodes were stable. The most recent white cell count of 15.3. Today's evaluation of 05/14/2023, the patient is being seen for a follow-up. Overall condition is unchanged compared to yesterday. Still weak and lethargic. He remains on 50 L of oxygen by nasal cannula. Is known to have severe COPD with an FEV1 of 40% of predicted and the patient also has chronic hypoxic respiratory failure. His oxygen requirements have gone up significantly. He remains on bronchodilators and steroids. A follow-up CAT scan of the chest was done yesterday and the patient continued to be quite hypoxic. The CAT scan showed small bilateral pleural effusions along with adjacent compressive atelectasis. There is also some signs of fluid overload. Pulmonary edema was suspected. No mediastinal lymphadenopathy. There was background emphysema. This CAT scan of the chest was done without contrast. Labs from today are still pending. The patient remains on Lasix 40 mg by mouth daily. He remains on bronchodilators and IV Solu-Medrol. On today's evaluation of 05/15/2023, the patient is having more shortness of breath and his worsening in his hypoxemia. He was on 15 L of oxygen by nasal cannula. He was placed on high flow oxygen utilizing Airvo and the patient is currently on 60 L an FiO2 of 90%. His current pulse ox is in order of 93%. The patient has advanced COPD. I also thought that there is a component of CHF and fluid overload. Based on that, I started the patient on a combination of Lasix and Zaroxolyn. He is currently on Lasix 20 mg IV every 8 hours and the patient is also taking Zaroxolyn twice a day. Based on his worsening hypoxemia, I repeated the chest examination showed that the pulmonary vasculature is improved and the patient is improving in terms of his CHF. The fluid balance is not accurately recorded. He is producing adequate amount of urine output. His blood work today shows a BUN of 55 and a creatinine of 0.9. Sodium level is at 134. The results at 17.9 with a hemoglobin 12.3. On 05/16/2023, the patient continues to have issues with oxygenation. I noticed the patient has produced excellent amount of urine output and accommodation of Lasix and Zaroxolyn. The patient is a negative fluid balance and he has produced at least 3 L negative fluid balance over the past 24 hours. Nevertheless, there has been no or limited improvement in oxygenation. The patient remains on high flow oxygen at 60 L with an FiO2 of 90%. I repeated the chest x-ray based on those findings and there is no acute abnormalities. The chest x-ray shows evidence of hepatomegaly or pulmonary vascular congestion and interstitial edema without any major interval change. As such, we will going to decided to continue the diuresis. Clinically, the patient is not having any significant dyspnea at rest. Blood work from today still pending. The risk of from yesterday was at 17.9. The patient continues to be on DuoNeb updrafts, remains on Lasix and Zaroxolyn. Remains on IV Solu-Medrol. Remains on anticoagulation with Eliquis. on 05/17/2023, the patient is doing worse compared to yesterday. There has been progressively worsening in his oxygenation. After being on high flow oxygen of 60 L with an FiO2 of 90%, the patient was placed also on 100% nonrebreather facemask to maintain a pulse ox above 85%. Chest x-ray remains unchanged.Repeat chest x-ray from yesterday showed cardiomegaly with vascular congestion and increased interstitial markings bilaterally. I reviewed the CAT scan of the chest that was done during this current admission again. No evidence of any airspace disease of consolidation. There is increased interstitial markings kenny aterally along with some nodularity in the lung bases along with extensive based on emphysema. It is likely the patient has sustained an acute lung injury/ARDS type of picture contributing to his ongoing hypoxemia. The patient remains on steroids. Meanwhile, he is afebrile. He is diuresing excellent with a combination of Lasix and Zaroxolyn. His fluid balance has been -3.0 L or 05/16/2023 and the patient had another 2.4 L negative fluid balance for on 05/17/2023. Nevertheless, despite this, no significant improvement in oxygenation. Most recent sputum sample showed MRSA. I'm going to start the patient a combination of cefepime and vancomycin as a broad-spectrum antibiotic coverage. Noted the patient is afebrile. Is obviously count is at 16.8, hemoglobin was 12, BUN is at 67 with a creatinine 1.1 and a sodium level is at 137. His resting comfortably. No significant respiratory distress. He is lethargic. He is weak. Very much debilitated. Objective - Vital Signs Vital signs: Vital Signs Temp 98.4 F 05/17/23 09:32 Pulse 89 05/17/23 09:35 Resp 24 05/17/23 09:35 BP 106/57 05/17/23 09:32 Pulse Ox 85 L 05/17/23 09:32 FiO2 90 05/17/23 09:32 Intake & Output 05/16/23 05/17/23 05/17/23 18:59 06:59 18:59 Intake Total 500 0 10 Output Total 425 2500 Balance 75 -2500 10 Weight 94.5 kg Intake: IV 10 Invasive Line 4 10 Oral 500 0 Output: Urine 425 2500 Other: Voiding Method Bedside Commode Indwelling Catheter Indwelling Catheter Urinal # Voids 1 # Bowel Movements 1 - Exam No acute distress, oriented 3. Currently on Airvo with 60 L an FiO2 of 90%, the patient is also on 100% nonrebreather facemask. The patient is lethargic, weak, quite debilitated. HEENT examination is grossly unremarkable. Neck supple. Full range of motion. No adenopathy thyromegaly or neck vein distention. Cardiovascular examination reveals regular rhythm rate. S1-S2 normal. No S3 or S4. No discernible murmur noted. Lungs reveal scattered rhonchi. Her sounds are equal bilaterally but diminished throughout. No wheezes. No crackles. Breath sounds are markedly diminished in lung bases bilaterally. Is also bibasilar crackles. Abdomen soft bowel sounds are heard. No masses or tenderness. Extremities are intact. No cyanosis clubbing or edema. Skin is without rash or lesion. Neurologic examination is brief but nonfocal. - Labs CBC & Chem 7: 05/17/23 07:51 05/17/23 07:51 Labs: Abnormal Lab Results - Last 24 Hours (Table) 05/16/23 05/16/23 05/16/23 Range/Units 11:20 15:38 15:38 WBC 16.1 H (3.8-10.6) k/uL RBC 4.11 L (4.30-5.90) m/uL Hgb 11.7 L (13.0-17.5) gm/dL Hct 35.8 L (39.0-53.0) % Neutrophils # 14.6 H (1.3-7.7) k/uL Lymphocytes # 0.6 L (1.0-4.8) k/uL Sodium 134 L (137-145) mmol/L Chloride 87 L (98-107) mmol/L Carbon Dioxide 39 H (22-30) mmol/L BUN 68 H (9-20) mg/dL Glucose 237 H (74-99) mg/dL POC Glucose (mg/dL) 164 H (70-110) mg/dL Alkaline Phosphatase 149 H (38-126) U/L Total Protein 5.4 L (6.3-8.2) g/dL Albumin 3.3 L (3.5-5.0) g/dL 05/16/23 05/16/23 05/17/23 Range/Units 16:35 20:21 07:51 WBC 16.8 H (3.8-10.6) k/uL RBC 4.28 L (4.30-5.90) m/uL Hgb 12.0 L (13.0-17.5) gm/dL Hct 37.4 L (39.0-53.0) % Neutrophils # 15.1 H (1.3-7.7) k/uL Lymphocytes # 0.6 L (1.0-4.8) k/uL Sodium (137-145) mmol/L Chloride (98-107) mmol/L Carbon Dioxide (22-30) mmol/L BUN (9-20) mg/dL Glucose (74-99) mg/dL POC Glucose (mg/dL) 254 H 174 H (70-110) mg/dL Alkaline Phosphatase (38-126) U/L Total Protein (6.3-8.2) g/dL Albumin (3.5-5.0) g/dL 05/17/23 05/17/23 Range/Units 07:51 08:58 WBC (3.8-10.6) k/uL RBC (4.30-5.90) m/uL Hgb (13.0-17.5) gm/dL Hct (39.0-53.0) % Neutrophils # (1.3-7.7) k/uL Lymphocytes # (1.0-4.8) k/uL Sodium (137-145) mmol/L Chloride 88 L (98-107) mmol/L Carbon Dioxide 36 H (22-30) mmol/L BUN 67 H (9-20) mg/dL Glucose 119 H (74-99) mg/dL POC Glucose (mg/dL) 120 H (70-110) mg/dL Alkaline Phosphatase 153 H (38-126) U/L Total Protein 5.8 L (6.3-8.2) g/dL Albumin (3.5-5.0) g/dL Microbiology - Last 24 Hours (Table) 05/14/23 14:09 Blood Culture - Preliminary Blood 05/14/23 16:21 Gram Stain - Final Sputum Sputum Culture - Final Methicillin resist S. aureus Assessment and Plan Plan: Acute on chronic hypoxic respiratory failure. The patient is currently on Airvo 60 L an FiO2 of 90%. The patient is compensated hypercapnic respiratory failure. Overall condition and oxygenation status is unchanged compared to yesterday. CT of the chest showing some compressive atelectasis and evidence of volume overload. The patient is currently on a combination of diuretics. The patient had a follow-up chest x-ray that showed improvement in CHF findings and the pulmonary vasculature is less prominent and there is improvement in the overall picture. Nevertheless, oxygen patient is still poor.on today's evaluation of 05/17/2023, the patient is on a high flow oxygen in addition to 100% nonrebreather facemask. Occupation is still poor. Reviewed the CAT scan of the chest. Exact cause for his hypoxemic respiratory failure is not clear. The patient understands advanced COPD. Acute lung injury/ARDS is possible. Lower lobe pneumonia is felt to be less likely. Most recent sputum sample has shown MRSA. Remains on bronchodilators. Remains on steroids. Remains on diuretics. Remains on anticoagulation. Chronic hypoxic respiratory failure limited on oxygen at 4 L Severe COPD with chronic hypoxic and hypercapnic respiratory failure with an FEV1 of 40% of predicted maintain on Trelegy Ellipta on outpatient basis Congestion heart failure might ejection fraction of 45% Remote history of DVT Diabetes mellitus type 2 History of prostate cancer. Alpha-1 antitrypsin deficiency, MS phenotype Hyperlipidemia Plan keep 100% nonrebreather facemask Keep the high flow oxygenin combination with the full facemask Add cefepime and vancomycin Continue the rest of the treatment Continue Lasix 20 mg IV every 8 hours in addition to Zaroxolyn 5 mg twice a day continue IV Solu-Medrol Continue anticoagulation with Eliquis 5 mg by mouth twice a day. No significant clinical suspicion for pulmonary embolism Needs aggressive pulmonary toileting and using incentive spirometer Past of the medications were reviewed. No other changes from my standpoint. DNR/DNI CODE STATUS We'll continue to follow Prognosis for especially the patient does not show any significant improvement.A consider hospice if there is further interval worsening of the oxygenation.
[2023-05-17] MEDS: VANCOMYCIN 1,750 MG in SODIUM CHLORIDE 0.9% 500 ML 500 ML IVPB SCH (15:21)
[2023-05-17 16:47] LABS: Glucose,Whole Blood 193 mg/dL (70-110)
[2023-05-17] MEDS: HYDROcodone/APAP 5-325MG 1 EACH TAB PO PRN ×2 (17:42→23:17)
[2023-05-17 20:07] LABS: Glucose,Whole Blood 301 mg/dL (70-110)
[2023-05-17] MEDS: cloZAPine 100 MG TAB PO SCH (20:08)
[2023-05-17] MEDS: CYCLOBENZAPRINE 5 MG TAB PO PRN (20:08)
--- NOTE | 2023-05-17 22:12 | P.PN ---
Subjective Progress Note Date: 05/16/23 Patient is a 67-year-old male with a known history of COPD on oxygen 4 L via nasal cannula was admitted to the hospital on 04/28/2023 due to acute hypoxic respiratory failure and COPD exacerbation. 05/16/2023 Patient is currently in the telemetry unit. Awake alert and oriented. Remains on high flow oxygen at 60 L FiO2 90%. Oxygen requirement remains the same. Patient is being continued Lasix and Zaroxolyn with negative balance of 3 L. Repeat chest x-ray today showed there is evidence of cardiomegaly and pulmonary vascular congestion and interstitial edema. Overall no change from prior study. Laboratory data showed WBC 16.1 hemoglobin 11.1 and platelets 358 Sodium 134 potassium 4.6 chloride 87 bicarb is 39 BUN 68 and creatinine 1.13 and blood sugar is 237 alk phos 149 and albumin 3.3. Patient is on IV Solu-Medrol 60 mg every 6 hourly, Lasix 20 mg IV every 8 and metolazone 2.5 mg p.o. twice daily. Current medications reviewed. Objective - Vital Signs Vital signs: Vital Signs Temp 98.0 F 05/16/23 12:01 Pulse 85 05/16/23 14:25 Resp 21 05/16/23 12:01 BP 106/57 05/16/23 12:01 Pulse Ox 92 L 05/16/23 12:01 FiO2 91 05/16/23 11:57 Intake & Output 05/15/23 05/16/23 05/16/23 18:59 06:59 18:59 Intake Total 240 0 500 Output Total 1125 2200 225 Balance -885 -2200 275 Weight 94.5 kg Intake: Oral 240 0 500 Output: Urine 1125 2200 225 Other: Voiding Method Toilet Toilet Bedside Commode Urinal Urinal Urinal # Voids 1 # Bowel Movements 1 - Exam PHYSICAL EXAMINATION: Patient is lying in the bed comfortably, no acute distress, awake alert and oriented.. HEENT: Normocephalic. Neck is supple. Pupils reactive. Nostrils clear. Oral cavity is moist. Neck reveals no JVD, carotid bruits, or thyromegaly. CHEST EXAMINATION: Trachea is central. Symmetrical expansion. Patient does have bibasilar diminished sounds and basilar crackles and scattered rhonchi.. CARDIAC: Normal S1, S2 with no gallops. No murmurs ABDOMEN: Soft. Bowel sounds present. Nontender. No organomegaly. No abdominal bruits. Extremities: reveal no edema. No clubbing or cyanosis Neurologically awake, alert, oriented x3 with well-coordinated movements. No focal deficits noted Skin: No rash or skin lesions. Psychiatric: Coperative. Nonsuicidal, Musculoskeletal: No joint swelling or deformity. Normal range of motion. - Labs CBC & Chem 7: 05/17/23 07:51 05/17/23 07:51 Labs: Abnormal Lab Results - Last 24 Hours (Table) 05/15/23 05/15/23 05/16/23 Range/Units 16:35 20:00 06:09 POC Glucose (mg/dL) 344 H 426 H 148 H (70-110) mg/dL 05/16/23 Range/Units 11:20 POC Glucose (mg/dL) 164 H (70-110) mg/dL Microbiology - Last 24 Hours (Table) 05/14/23 16:21 Gram Stain - Final Sputum Sputum Culture - Final Methicillin resist S. aureus 05/14/23 14:09 Blood Culture - Preliminary Blood Assessment and Plan Assessment: Acute on chronic hypoxemic respiratory failure currently requiring Airvo 60 L and 90% FiO2. Repeat chest x-ray on 05/16/2023 showed evidence of cardiomegaly with pulmonary venous congestion and interstitial edema. Chronic hypoxemic respiratory failure on oxygen at 4 L via nasal cannula Acute on chronic CHF with ejection fraction 45% Prior history of DVT History of prostate cancer Diabetes type 2 Hyperlipidemia Alpha-1 antitrypsin deficiency DVT prophylaxis patient is already on Eliquis Plan: Patient continues to require high flow oxygen at 90% FiO2 and currently on IV Solu-Medrol and DuoNebs. Patient is being diuresed with IV Lasix and metolazone Plan with insulin sliding scale and anticoagulation with Eliquis. Encourage incentive spirometry Pulmonary is on board. CODE STATUS is DNR/DNI. Prognosis is guarded. Time with Patient: Greater than 30
--- NOTE | 2023-05-17 22:19 | P.PN ---
Subjective Progress Note Date: 05/17/23 Patient is a 67-year-old male with a known history of COPD on oxygen 4 L via nasal cannula was admitted to the hospital on 04/28/2023 due to acute hypoxic respiratory failure and COPD exacerbation. 05/16/2023 Patient is currently in the telemetry unit. Awake alert and oriented. Remains on high flow oxygen at 60 L FiO2 90%. Oxygen requirement remains the same. Patient is being continued Lasix and Zaroxolyn with negative balance of 3 L. Repeat chest x-ray today showed there is evidence of cardiomegaly and pulmonary vascular congestion and interstitial edema. Overall no change from prior study. Laboratory data showed WBC 16.1 hemoglobin 11.1 and platelets 358 Sodium 134 potassium 4.6 chloride 87 bicarb is 39 BUN 68 and creatinine 1.13 and blood sugar is 237 alk phos 149 and albumin 3.3. Patient is on IV Solu-Medrol 60 mg every 6 hourly, Lasix 20 mg IV every 8 and metolazone 2.5 mg p.o. twice daily. 05/17/2023 Patient is currently lying in the bed. Awake alert and requiring oxygen at 60 L with 90% FiO2 and is also requiring 100% nonrebreather. Patient is being continued on IV Lasix 20 mg every 8 and Zaroxolyn. Continues to have negative fluid balance. Sputum culture showed MRSA. Patient was also started on broad-spectrum antibiotics in the form of cefepime and vancomycin. Laboratory data showed WBC 16.8 hemoglobin 12.0 and platelets 376 Sodium 137 potassium 3.9 chloride 88 bicarb is 36 BUN 67 creatinine 1.11 and blood sugar 119 and albumin 3.5 Current medications reviewed. Objective - Vital Signs Vital signs: Vital Signs Temp 97.3 F L 05/17/23 19:30 Pulse 85 05/17/23 20:46 Resp 24 05/17/23 19:30 BP 108/54 05/17/23 19:30 Pulse Ox 87 L 05/17/23 19:30 FiO2 90 05/17/23 20:34 Intake & Output 05/17/23 05/17/23 05/18/23 06:59 18:59 06:59 Intake Total 0 20 Output Total 2500 1600 Balance -2500 -1580 Intake: IV 20 Invasive Line 4 20 Oral 0 Output: Urine 2500 1600 Other: Voiding Method Indwelling Catheter Indwelling Catheter - Exam PHYSICAL EXAMINATION: Patient is lying in the bed comfortably, no acute distress, awake alert and oriented.. HEENT: Normocephalic. Neck is supple. Pupils reactive. Nostrils clear. Oral cavity is moist. Neck reveals no JVD, carotid bruits, or thyromegaly. CHEST EXAMINATION: Trachea is central. Symmetrical expansion. Patient does have bibasilar diminished sounds and basilar crackles and scattered rhonchi.. CARDIAC: Normal S1, S2 with no gallops. No murmurs ABDOMEN: Soft. Bowel sounds present. Nontender. No organomegaly. No abdominal bruits. Extremities: reveal no edema. No clubbing or cyanosis Neurologically awake, alert, oriented x3 with well-coordinated movements. No focal deficits noted Skin: No rash or skin lesions. Psychiatric: Coperative. Nonsuicidal, Musculoskeletal: No joint swelling or deformity. Normal range of motion. - Labs CBC & Chem 7: 05/17/23 07:51 05/17/23 07:51 Labs: Abnormal Lab Results - Last 24 Hours (Table) 05/17/23 05/17/23 05/17/23 Range/Units 07:51 07:51 08:58 WBC 16.8 H (3.8-10.6) k/uL RBC 4.28 L (4.30-5.90) m/uL Hgb 12.0 L (13.0-17.5) gm/dL Hct 37.4 L (39.0-53.0) % Neutrophils # 15.1 H (1.3-7.7) k/uL Lymphocytes # 0.6 L (1.0-4.8) k/uL Chloride 88 L (98-107) mmol/L Carbon Dioxide 36 H (22-30) mmol/L BUN 67 H (9-20) mg/dL Glucose 119 H (74-99) mg/dL POC Glucose (mg/dL) 120 H (70-110) mg/dL Alkaline Phosphatase 153 H (38-126) U/L Total Protein 5.8 L (6.3-8.2) g/dL 05/17/23 05/17/23 05/17/23 Range/Units 11:25 16:38 20:06 WBC (3.8-10.6) k/uL RBC (4.30-5.90) m/uL Hgb (13.0-17.5) gm/dL Hct (39.0-53.0) % Neutrophils # (1.3-7.7) k/uL Lymphocytes # (1.0-4.8) k/uL Chloride (98-107) mmol/L Carbon Dioxide (22-30) mmol/L BUN (9-20) mg/dL Glucose (74-99) mg/dL POC Glucose (mg/dL) 111 H 193 H 301 H (70-110) mg/dL Alkaline Phosphatase (38-126) U/L Total Protein (6.3-8.2) g/dL Microbiology - Last 24 Hours (Table) 05/14/23 14:09 Blood Culture - Preliminary Blood Assessment and Plan Assessment: Acute on chronic hypoxemic respiratory failure currently requiring Airvo 60 L and 90% FiO2. Repeat chest x-ray on 05/16/2023 showed evidence of cardiomegaly with pulmonary venous congestion and interstitial edema. MRSA sputum culture Chronic hypoxemic respiratory failure on oxygen at 4 L via nasal cannula Acute on chronic CHF with ejection fraction 45% Prior history of DVT History of prostate cancer Diabetes type 2 Hyperlipidemia Alpha-1 antitrypsin deficiency DVT prophylaxis patient is already on Eliquis Plan: Patient continues to require high flow oxygen Airvo at 60 L and FiO2 90% and is also requiring 100% nonrebreather. Will be continued on IV diuresis with the Lasix and also on metolazone. Patient was started on vancomycin and cefepime with sputum cultures positive for MRSA. Continue with current medications and insulin sliding scale and anticoagulation with Eliquis. Encourage incentive spirometry. Pulmonary is on board. CODE STATUS is DNR/DNI. Discussed with patient's sister, Cathy regarding treatment goals. She would like to see him any improvement with IV antibiotics and if not is considering hospice care/comfort care. Continue to follow closely. Prognosis is guarded. Time with Patient: Greater than 30
[2023-05-18] MEDS ORDERED: CEFEPIME 2 GM in SODIUM CHLORIDE 0.9% 100 ML IVPB SCH (01:00)
[2023-05-18] MEDS: VANCOMYCIN 1,750 MG in SODIUM CHLORIDE 0.9% 500 ML 500 ML IVPB SCH ×2 (05:45→21:04)
[2023-05-18] MEDS: methylPREDNISolone SOD SUCCI 125 MG/2 ML VIAL IV SCH ×4 (05:46→23:00)
[2023-05-18] MEDS: REPAGLINIDE 1 MG TAB PO SCH ×2 (06:26→12:08)
[2023-05-18] MEDS: INSULIN DETEMIR (LEVEMIR) 100 UNIT/ML SYR SQ SCH ×2 (06:26→20:06)
[2023-05-18] MEDS: PANTOPRAZOLE 40 MG TABLET PO SCH (06:27)
[2023-05-18 06:48] LABS: Glucose,Whole Blood 129 mg/dL (70-110)
[2023-05-18 07:09] LABS: Glucose,Whole Blood 146 mg/dL (70-110)
[2023-05-18] MEDS: FORMOTEROL FUMARATE 20 MCG/2 ML NEBU INHALATION SCH ×2 (08:11→18:00)
[2023-05-18] MEDS: IPRATROPIUM-ALBUTEROL 3 ML NEB INHALATION SCH ×4 (08:11→18:02)
[2023-05-18] MEDS: BUDESONIDE 1 MG/2 ML NEBU INHALATION SCH ×2 (08:11→18:00)
[2023-05-18] MEDS: INSULIN ASPART (NovoLOG) 100 UNIT/ML VIAL SQ SCH ×7 (08:48→20:06)
[2023-05-18] MEDS: HYDROcodone/APAP 5-325MG 1 EACH TAB PO PRN ×3 (08:53→21:04)
[2023-05-18] MEDS: ESCITALOPRAM 10 MG TAB PO SCH (08:54)
[2023-05-18] MEDS: guaiFENesin 600 MG TABLET.ER PO SCH ×2 (08:54→20:07)
[2023-05-18] MEDS: POTASSIUM CHLORIDE ER 20 MEQ TAB.ER PO SCH (08:54)
[2023-05-18] MEDS: LORATADINE 10 MG TAB PO SCH (08:54)
[2023-05-18] MEDS: FUROSEMIDE 10 MG/ML 2 ML VIAL IV SCH ×3 (08:55→23:00)
[2023-05-18] MEDS: MONTELUKAST 10 MG TAB PO SCH (08:55)
[2023-05-18] MEDS: ATORVASTATIN 40 MG TAB PO SCH (08:55)
[2023-05-18] MEDS: APIXABAN 5 MG TAB PO SCH ×2 (08:55→20:07)
[2023-05-18] MEDS: FENOFIBRATE 160 MG TAB PO SCH (08:55)
[2023-05-18] MEDS: METOPROLOL SUCCINATE (ER) 25 MG TAB.ER.24H PO SCH (08:55)
[2023-05-18] MEDS: metOLazone 2.5 MG TAB PO SCH ×2 (08:56→20:07)
[2023-05-18 09:18] LABS: Basophils % (A) 0 %; Eosinophils % (A) 0 %; HGB 11.8 gm/dL (13.0-17.5); Lymphocytes # (A) 0.6 k/uL (1.0-4.8); Lymphocytes % (A) 3 %; MCH 28.4 pg (25.0-35.0); MCHC 32.7 g/dL (31.0-37.0); MCV 86.8 fL (80.0-100.0); Mean Platelet Volume 7.4; Monocytes # (A) 0.8 k/uL (0-1.0); Monocytes % (A) 4 %; Neutrophils # (A) 15.5 k/uL (1.3-7.7); Neutrophils % (A) 91 %; Platelet Count 363 k/uL (150-450); RBC 4.14 m/uL (4.30-5.90); RDW 14.1 % (11.5-15.5)
[2023-05-18 09:37] LABS: ALT 17 U/L (4-49); AST 21 U/L (17-59); African American GFR (CKD) 90 (>60 ml/min/1.73 sqM); Albumin 3.1 g/dL (3.5-5.0); Alkaline Phosphatase 133 U/L (38-126); Anion Gap 8 mmol/L; Blood Urea Nitrogen 65 mg/dL (9-20); Calcium 8.5 mg/dL (8.4-10.2); Carbon Dioxide 38 mmol/L (22-30); Chloride 88 mmol/L (98-107); Glucose 128 mg/dL (74-99); Non-African American GFR(CKD) 78 (>60 ml/min/1.73 sqM); Potassium 3.6 mmol/L (3.5-5.1); Sodium 134 mmol/L (137-145); Total Bilirubin 0.5 mg/dL (0.2-1.3); Total Protein 5.4 g/dL (6.3-8.2)
[2023-05-18] MEDS: CEFEPIME 2 GM in SODIUM CHLORIDE 0.9% 100 ML IVPB SCH ×3 (11:11→23:01)
[2023-05-18 11:57] LABS: Glucose,Whole Blood 99 mg/dL (70-110)
[2023-05-18] MEDS: BICALUTAMIDE 50 MG TAB PO SCH (12:07)
--- NOTE | 2023-05-18 14:10 | P.PN ---
Subjective Progress Note Date: 05/18/23 On today's evaluation of 05/13/2023, the patient seems to be still hypoxic and is currently on 15 L of oxygen by nasal cannula. He is lethargic, he is weak, he is in the hospital for more than 2 weeks or hypoxic respiratory failure. Most recent chest x-ray was from 05/08/2023. The patient was hospitalized on 04/28/2023 for hypoxic respiratory failure and COPD exacerbation. Is known to have severe COPD with an FEV1 of 40% of predicted. His known also to have chronic hypoxic respiratory failure maintain on oxygen at 4 L on outpatient basis. He is typically on shortage is up to one inhalation a day. He has diabetes mellitus type 2, hyperlipidemia, prostate cancer, previous history of DVT and congestion heart failure. For the time being, the patient is on DuoNeb nebulized treatments 4 times a day, Lasix 40 mg by mouth daily, Perforomist and Pulmicort updrafts twice a day, he is also on IV Solu-Medrol 60 mg every 6 hours. He remains on long-term anticoagulation with Eliquis 5 mg by mouth twice a day. His blood work from today is still pending. Renal function from yesterday was stable. Electrodes were stable. The most recent white cell count of 15.3. Today's evaluation of 05/14/2023, the patient is being seen for a follow-up. Overall condition is unchanged compared to yesterday. Still weak and lethargic. He remains on 50 L of oxygen by nasal cannula. Is known to have severe COPD with an FEV1 of 40% of predicted and the patient also has chronic hypoxic respiratory failure. His oxygen requirements have gone up significantly. He remains on bronchodilators and steroids. A follow-up CAT scan of the chest was done yesterday and the patient continued to be quite hypoxic. The CAT scan showed small bilateral pleural effusions along with adjacent compressive atelectasis. There is also some signs of fluid overload. Pulmonary edema was suspected. No mediastinal lymphadenopathy. There was background emphysema. This CAT scan of the chest was done without contrast. Labs from today are still pending. The patient remains on Lasix 40 mg by mouth daily. He remains on bronchodilators and IV Solu-Medrol. On today's evaluation of 05/15/2023, the patient is having more shortness of breath and his worsening in his hypoxemia. He was on 15 L of oxygen by nasal cannula. He was placed on high flow oxygen utilizing Airvo and the patient is currently on 60 L an FiO2 of 90%. His current pulse ox is in order of 93%. The patient has advanced COPD. I also thought that there is a component of CHF and fluid overload. Based on that, I started the patient on a combination of Lasix and Zaroxolyn. He is currently on Lasix 20 mg IV every 8 hours and the patient is also taking Zaroxolyn twice a day. Based on his worsening hypoxemia, I repeated the chest examination showed that the pulmonary vasculature is improved and the patient is improving in terms of his CHF. The fluid balance is not accurately recorded. He is producing adequate amount of urine output. His blood work today shows a BUN of 55 and a creatinine of 0.9. Sodium level is at 134. The results at 17.9 with a hemoglobin 12.3. On 05/16/2023, the patient continues to have issues with oxygenation. I noticed the patient has produced excellent amount of urine output and accommodation of Lasix and Zaroxolyn. The patient is a negative fluid balance and he has produced at least 3 L negative fluid balance over the past 24 hours. Nevertheless, there has been no or limited improvement in oxygenation. The patient remains on high flow oxygen at 60 L with an FiO2 of 90%. I repeated the chest x-ray based on those findings and there is no acute abnormalities. The chest x-ray shows evidence of hepatomegaly or pulmonary vascular congestion and interstitial edema without any major interval change. As such, we will going to decided to continue the diuresis. Clinically, the patient is not having any significant dyspnea at rest. Blood work from today still pending. The risk of from yesterday was at 17.9. The patient continues to be on DuoNeb updrafts, remains on Lasix and Zaroxolyn. Remains on IV Solu-Medrol. Remains on anticoagulation with Eliquis. on 05/17/2023, the patient is doing worse compared to yesterday. There has been progressively worsening in his oxygenation. After being on high flow oxygen of 60 L with an FiO2 of 90%, the patient was placed also on 100% nonrebreather facemask to maintain a pulse ox above 85%. Chest x-ray remains unchanged.Repeat chest x-ray from yesterday showed cardiomegaly with vascular congestion and increased interstitial markings bilaterally. I reviewed the CAT scan of the chest that was done during this current admission again. No evidence of any airspace disease of consolidation. There is increased interstitial markings kenny aterally along with some nodularity in the lung bases along with extensive based on emphysema. It is likely the patient has sustained an acute lung injury/ARDS type of picture contributing to his ongoing hypoxemia. The patient remains on steroids. Meanwhile, he is afebrile. He is diuresing excellent with a combination of Lasix and Zaroxolyn. His fluid balance has been -3.0 L or 05/16/2023 and the patient had another 2.4 L negative fluid balance for on 05/17/2023. Nevertheless, despite this, no significant improvement in oxygenation. Most recent sputum sample showed MRSA. I'm going to start the patient a combination of cefepime and vancomycin as a broad-spectrum antibiotic coverage. Noted the patient is afebrile. Is obviously count is at 16.8, hemoglobin was 12, BUN is at 67 with a creatinine 1.1 and a sodium level is at 137. His resting comfortably. No significant respiratory distress. He is lethargic. He is weak. Very much debilitated. On 05/18/2023, the patient is awake, communicating in the family the bedside. Unfortunately, his condition is still unchanged. He still hypoxic. He remains on high flow oxygen at 60 L with an FiO2 of 90% and the patient has 100% n onrebreather facemask in addition to maintain a saturation above 85%. Is able to tolerate some small amounts of diet. Denies having any chest pain. Continues to produce excellent amount of urine output on a combination of Lasix and Zaroxolyn. Cefepime vancomycin was also added as the patient was found to have MRSA in his sputum on previous evaluation. Remains on Solu-Medrol. Remains on bronchodilators. Remains on anticoagulation. The white cell count 17, hemoglobin 11.8, BUN is at 65 with a creatinine of 1 and a sodium level is at 134 with a potassium level of 3.6. He is debilitated. Is weak. He is awake. He is communicating. He is a DNR/DNI CODE STATUS. Objective - Vital Signs Vital signs: Vital Signs Temp 99.4 F 05/18/23 11:08 Pulse 78 12/09/23 11:20 Resp 24 05/18/23 11:08 BP 101/59 05/18/23 11:08 Pulse Ox 85 L 05/18/23 11:11 FiO2 94 05/18/23 11:11 Intake & Output 05/17/23 05/18/23 05/18/23 18:59 06:59 18:59 Intake Total 20 120 Output Total 1600 1400 800 Balance -1580 -1400 -680 Weight 88.5 kg Intake: IV 20 Invasive Line 4 20 Oral 120 Output: Urine 1600 1400 800 Other: Voiding Method Indwelling Catheter Indwelling Catheter Indwelling Catheter - Exam No acute distress, oriented 3. Currently on Airvo with 60 L an FiO2 of 90%, the patient is also on 100% nonrebreather facemask. The patient is lethargic, weak, quite debilitated. HEENT examination is grossly unremarkable. Neck supple. Full range of motion. No adenopathy thyromegaly or neck vein distention. Cardiovascular examination reveals regular rhythm rate. S1-S2 normal. No S3 or S4. No discernible murmur noted. Lungs reveal scattered rhonchi. Her sounds are equal bilaterally but diminished throughout. No wheezes. No crackles. Breath sounds are markedly diminished in lung bases bilaterally. Is also bibasilar crackles. Abdomen soft bowel sounds are heard. No masses or tenderness. Extremities are intact. No cyanosis clubbing or edema. Skin is without rash or lesion. Neurologic examination is brief but nonfocal. - Labs CBC & Chem 7: 05/18/23 08:18 05/18/23 08:18 Labs: Abnormal Lab Results - Last 24 Hours (Table) 05/17/23 05/17/23 05/18/23 Range/Units 16:38 20:06 06:47 WBC (3.8-10.6) k/uL RBC (4.30-5.90) m/uL Hgb (13.0-17.5) gm/dL Hct (39.0-53.0) % Neutrophils # (1.3-7.7) k/uL Lymphocytes # (1.0-4.8) k/uL Sodium (137-145) mmol/L Chloride (98-107) mmol/L Carbon Dioxide (22-30) mmol/L BUN (9-20) mg/dL Glucose (74-99) mg/dL POC Glucose (mg/dL) 193 H 301 H 129 H (70-110) mg/dL Alkaline Phosphatase (38-126) U/L Total Protein (6.3-8.2) g/dL Albumin (3.5-5.0) g/dL 05/18/23 05/18/23 05/18/23 Range/Units 07:05 08:18 08:18 WBC 17.0 H (3.8-10.6) k/uL RBC 4.14 L (4.30-5.90) m/uL Hgb 11.8 L (13.0-17.5) gm/dL Hct 36.0 L (39.0-53.0) % Neutrophils # 15.5 H (1.3-7.7) k/uL Lymphocytes # 0.6 L (1.0-4.8) k/uL Sodium 134 L (137-145) mmol/L Chloride 88 L (98-107) mmol/L Carbon Dioxide 38 H (22-30) mmol/L BUN 65 H (9-20) mg/dL Glucose 128 H (74-99) mg/dL POC Glucose (mg/dL) 146 H (70-110) mg/dL Alkaline Phosphatase 133 H (38-126) U/L Total Protein 5.4 L (6.3-8.2) g/dL Albumin 3.1 L (3.5-5.0) g/dL Microbiology - Last 24 Hours (Table) 05/14/23 14:09 Blood Culture - Preliminary Blood Assessment and Plan Plan: Acute on chronic hypoxic respiratory failure. The patient is currently on Airvo 60 L an FiO2 of 90%. The patient is compensated hypercapnic respiratory failure. Overall condition and oxygenation status is unchanged compared to yesterday. CT of the chest showing some compressive atelectasis and evidence of volume overload. The patient is currently on a combination of diuretics. The patient had a follow-up chest x-ray that showed improvement in CHF findings and the pulmonary vasculature is less prominent and there is improvement in the overall picture. Nevertheless, oxygen patient is still poor.on today's evaluation of 05/17/2023, the patient is on a high flow oxygen in addition to 1 00% nonrebreather facemask. Occupation is still poor. Reviewed the CAT scan of the chest. Exact cause for his hypoxemic respiratory failure is not clear. The patient understands advanced COPD. Acute lung injury/ARDS is possible. Lower lobe pneumonia is felt to be less likely. Most recent sputum sample has shown MRSA. Remains on bronchodilators. Remains on steroids. Remains on diuretics. Remains on anticoagulation. Antibiotic associated the patient's current on a combination of cefepime and vancomycin. Chronic hypoxic respiratory failure limited on oxygen at 4 L Severe COPD with chronic hypoxic and hypercapnic respiratory failure with an FEV1 of 40% of predicted maintain on Trelegy Ellipta on outpatient basis Congestion heart failure might ejection fraction of 45% Remote history of DVT Diabetes mellitus type 2 History of prostate cancer. Alpha-1 antitrypsin deficiency, MS phenotype Hyperlipidemia Plan No much improvement since yesterday Consider possibility of acute lung injury/ARDS contributing to his hypoxemic respiratory failure keep 100% nonrebreather facemask Keep the high flow oxygenin combination with the full facemask Continue and vancomycin Continue the rest of the treatment Continue Lasix 20 mg IV every 8 hours in addition to Zaroxolyn 5 mg twice a day continue IV Solu-Medrol Continue anticoagulation with Eliquis 5 mg by mouth twice a day. No significant clinical suspicion for pulmonary embolism DNR/DNI CODE STATUS We'll continue to follow Prognosis for especially the patient does not show any significant improvement.A consider hospice if there is further interval worsening of the oxygenation. Discussed the case with the family members including 2 sisters and the mother at the bedside.
[2023-05-18] MEDS: CYCLOBENZAPRINE 5 MG TAB PO PRN ×2 (16:03→21:04)
[2023-05-18 16:50] LABS: Glucose,Whole Blood 185 mg/dL (70-110)
[2023-05-18 19:40] LABS: Glucose,Whole Blood 271 mg/dL (70-110)
[2023-05-18] MEDS: cloZAPine 100 MG TAB PO SCH (20:07)
--- NOTE | 2023-05-18 22:49 | P.PN ---
Subjective Progress Note Date: 05/18/23 Patient is a 67-year-old male with a known history of COPD on oxygen 4 L via nasal cannula was admitted to the hospital on 04/28/2023 due to acute hypoxic respiratory failure and COPD exacerbation. 05/16/2023 Patient is currently in the telemetry unit. Awake alert and oriented. Remains on high flow oxygen at 60 L FiO2 90%. Oxygen requirement remains the same. Patient is being continued Lasix and Zaroxolyn with negative balance of 3 L. Repeat chest x-ray today showed there is evidence of cardiomegaly and pulmonary vascular congestion and interstitial edema. Overall no change from prior study. Laboratory data showed WBC 16.1 hemoglobin 11.1 and platelets 358 Sodium 134 potassium 4.6 chloride 87 bicarb is 39 BUN 68 and creatinine 1.13 and blood sugar is 237 alk phos 149 and albumin 3.3. Patient is on IV Solu-Medrol 60 mg every 6 hourly, Lasix 20 mg IV every 8 and metolazone 2.5 mg p.o. twice daily. 05/17/2023 Patient is currently lying in the bed. Awake alert and requiring oxygen at 60 L with 90% FiO2 and is also requiring 100% nonrebreather. Patient is being continued on IV Lasix 20 mg every 8 and Zaroxolyn. Continues to have negative fluid balance. Sputum culture showed MRSA. Patient was also started on broad-spectrum antibiotics in the form of cefepime and vancomycin. Laboratory data showed WBC 16.8 hemoglobin 12.0 and platelets 376 Sodium 137 potassium 3.9 chloride 88 bicarb is 36 BUN 67 creatinine 1.11 and blood sugar 119 and albumin 3.5 05/18/2023 Patient is resting in the bed. Awake alert and is requiring oxygen high flow with 90% FiO2 and 60 L and also requiring 100% nonrebreather. Maintaining saturations around 85 to 87%. Patient is more oriented as per family at bedside. Able to tolerate oral diet. Patient is being continued on IV diuresis with Lasix and also on Zaroxolyn. Also started on antibiotics in the form of vancomycin and cefepime. Sputum culture showed MRSA. Patient is also on Solu-Medrol and DuoNebs and also on anticoagulation. Laboratory showed WBC 17.0 hemoglobin 11.8 and platelets 363 BUN 65 and creatinine 1.0, sodium 134 potassium 3.6 chloride 88 and bicarb is 38. Current medications reviewed. Objective - Vital Signs Vital signs: Vital Signs Temp 98.6 F 05/18/23 19:50 Pulse 93 05/18/23 19:50 Resp 28 H 05/18/23 19:50 BP 132/56 05/18/23 19:50 Pulse Ox 87 L 05/18/23 19:50 FiO2 91 05/18/23 19:50 Intake & Output 05/18/23 05/18/23 05/19/23 06:59 18:59 06:59 Intake Total 120 Output Total 1400 1900 Balance -1400 -1780 Weight 88.5 kg Intake: Oral 120 Output: Urine 1400 1900 Other: Voiding Method Indwelling Catheter Indwelling Catheter Indwelling Catheter - Exam PHYSICAL EXAMINATION: Patient is lying in the bed comfortably, no acute distress, awake alert and oriented.. HEENT: Normocephalic. Neck is supple. Pupils reactive. Nostrils clear. Oral cavity is moist. Neck reveals no JVD, carotid bruits, or thyromegaly. CHEST EXAMINATION: Trachea is central. Symmetrical expansion. Patient does have bibasilar diminished sounds and basilar crackles and scattered rhonchi.. CARDIAC: Normal S1, S2 with no gallops. No murmurs ABDOMEN: Soft. Bowel sounds present. Nontender. No organomegaly. No abdominal bruits. Extremities: reveal no edema. No clubbing or cyanosis Neurologically awake, alert, oriented x3 with well-coordinated movements. No focal deficits noted Skin: No rash or skin lesions. Psychiatric: Coperative. Nonsuicidal, Musculoskeletal: No joint swelling or deformity. Normal range of motion. - Labs CBC & Chem 7: 05/18/23 08:18 05/18/23 08:18 Labs: Abnormal Lab Results - Last 24 Hours (Table) 05/18/23 05/18/23 05/18/23 Range/Units 06:47 07:05 08:18 WBC (3.8-10.6) k/uL RBC (4.30-5.90) m/uL Hgb (13.0-17.5) gm/dL Hct (39.0-53.0) % Neutrophils # (1.3-7.7) k/uL Lymphocytes # (1.0-4.8) k/uL Sodium 134 L (137-145) mmol/L Chloride 88 L (98-107) mmol/L Carbon Dioxide 38 H (22-30) mmol/L BUN 65 H (9-20) mg/dL Glucose 128 H (74-99) mg/dL POC Glucose (mg/dL) 129 H 146 H (70-110) mg/dL Alkaline Phosphatase 133 H (38-126) U/L Total Protein 5.4 L (6.3-8.2) g/dL Albumin 3.1 L (3.5-5.0) g/dL 05/18/23 05/18/23 05/18/23 Range/Units 08:18 16:49 19:39 WBC 17.0 H (3.8-10.6) k/uL RBC 4.14 L (4.30-5.90) m/uL Hgb 11.8 L (13.0-17.5) gm/dL Hct 36.0 L (39.0-53.0) % Neutrophils # 15.5 H (1.3-7.7) k/uL Lymphocytes # 0.6 L (1.0-4.8) k/uL Sodium (137-145) mmol/L Chloride (98-107) mmol/L Carbon Dioxide (22-30) mmol/L BUN (9-20) mg/dL Glucose (74-99) mg/dL POC Glucose (mg/dL) 185 H 271 H (70-110) mg/dL Alkaline Phosphatase (38-126) U/L Total Protein (6.3-8.2) g/dL Albumin (3.5-5.0) g/dL Microbiology - Last 24 Hours (Table) 05/14/23 14:09 Blood Culture - Preliminary Blood Assessment and Plan Assessment: Acute on chronic hypoxemic respiratory failure currently requiring Airvo 60 L and 90% FiO2. Repeat chest x-ray on 05/16/2023 showed evidence of cardiomegaly with pulmonary venous congestion and interstitial edema. MRSA sputum culture Chronic hypoxemic respiratory failure on oxygen at 4 L via nasal cannula Acute on chronic CHF with ejection fraction 45% Prior history of DVT History of prostate cancer Diabetes type 2 Hyperlipidemia Alpha-1 antitrypsin deficiency DVT prophylaxis patient is already on Eliquis Plan: Patient continues to require high flow oxygen Airvo at 60 L and FiO2 90% and is also requiring 100% nonrebreather. Will be continued on IV diuresis with the Lasix and also on metolazone. Patient was started on vancomycin and cefepime with sputum cultures positive for MRSA. Continue with current medications and insulin sliding scale and anticoagulation with Eliquis. Encourage incentive spirometry. Pulmonary is on board. CODE STATUS is DNR/DNI. Discussed with patient's sister, Cathy regarding treatment goals. She would like to see him any improvement with IV antibiotics and if not is considering hospice care/comfort care. Continue to follow closely. Prognosis is guarded. Time with Patient: Greater than 30
[2023-05-19] MEDS: PANTOPRAZOLE 40 MG TABLET PO SCH (06:01)
[2023-05-19] MEDS: methylPREDNISolone SOD SUCCI 125 MG/2 ML VIAL IV SCH ×3 (06:01→17:18)
[2023-05-19] MEDS: REPAGLINIDE 1 MG TAB PO SCH ×2 (06:01→12:57)
[2023-05-19] MEDS: INSULIN DETEMIR (LEVEMIR) 100 UNIT/ML SYR SQ SCH ×2 (06:01→21:18)
[2023-05-19 07:54] LABS: Glucose,Whole Blood 104 mg/dL (70-110)
[2023-05-19] MEDS: IPRATROPIUM-ALBUTEROL 3 ML NEB INHALATION SCH ×4 (08:12→20:09)
[2023-05-19] MEDS: BUDESONIDE 1 MG/2 ML NEBU INHALATION SCH ×2 (08:12→20:09)
[2023-05-19] MEDS: FORMOTEROL FUMARATE 20 MCG/2 ML NEBU INHALATION SCH ×2 (08:12→20:09)
[2023-05-19] MEDS: LORATADINE 10 MG TAB PO SCH (08:31)
[2023-05-19] MEDS: FUROSEMIDE 10 MG/ML 2 ML VIAL IV SCH ×2 (08:31→21:19)
[2023-05-19] MEDS: ESCITALOPRAM 10 MG TAB PO SCH (08:31)
[2023-05-19] MEDS: APIXABAN 5 MG TAB PO SCH ×2 (08:31→21:18)
[2023-05-19] MEDS: MONTELUKAST 10 MG TAB PO SCH (08:31)
[2023-05-19] MEDS: CYCLOBENZAPRINE 5 MG TAB PO PRN (08:31)
[2023-05-19] MEDS: ATORVASTATIN 40 MG TAB PO SCH (08:31)
[2023-05-19] MEDS: METOPROLOL SUCCINATE (ER) 25 MG TAB.ER.24H PO SCH (08:31)
[2023-05-19] MEDS: guaiFENesin 600 MG TABLET.ER PO SCH ×2 (08:31→21:17)
[2023-05-19] MEDS: POTASSIUM CHLORIDE ER 20 MEQ TAB.ER PO SCH (08:31)
[2023-05-19] MEDS: FENOFIBRATE 160 MG TAB PO SCH (08:31)
[2023-05-19] MEDS: HYDROcodone/APAP 5-325MG 1 EACH TAB PO PRN ×2 (08:32→21:19)
[2023-05-19] MEDS: INSULIN ASPART (NovoLOG) 100 UNIT/ML VIAL SQ SCH ×7 (08:32→21:18)
[2023-05-19] MEDS: CEFEPIME 2 GM in SODIUM CHLORIDE 0.9% 100 ML IVPB SCH ×2 (08:32→17:19)
[2023-05-19] MEDS: BICALUTAMIDE 50 MG TAB PO SCH (08:33)
[2023-05-19] MEDS: metOLazone 2.5 MG TAB PO SCH ×2 (08:33→21:18)
[2023-05-19 10:06] LABS: Basophils # (A) 0.1 k/uL (0-0.2); Basophils % (A) 0 %; Eosinophils % (A) 0 %; HCT 37.2 % (39.0-53.0); HGB 12.1 gm/dL (13.0-17.5); Lymphocytes # (A) 0.5 k/uL (1.0-4.8); Lymphocytes % (A) 2 %; MCH 28.3 pg (25.0-35.0); MCHC 32.5 g/dL (31.0-37.0); MCV 87.1 fL (80.0-100.0); Mean Platelet Volume 8.1; Monocytes % (A) 5 %; Neutrophils # (A) 19.1 k/uL (1.3-7.7); Neutrophils % (A) 91 %; Platelet Count 374 k/uL (150-450); RBC 4.27 m/uL (4.30-5.90)
--- NOTE | 2023-05-19 10:24 | XR ---
EXAMINATION TYPE: XR chest 1V portable DATE OF EXAM: 05/19/2023 Comparison: 05/16/2023 Clinical History: 67-year-old male Short of breath Findings: Heart mildly enlarged. Increased interstitial and patchy opacities throughout the lungs. Background h yperinflation. Increasing left basilar opacity, possible trace effusion. Impression: Correlate for COPD with worsening CHF and interstitial pulmonary edema.
[2023-05-19 10:35] LABS: African American GFR (CKD) 77 (>60 ml/min/1.73 sqM); Anion Gap 10 mmol/L; Blood Urea Nitrogen 69 mg/dL (9-20); Calcium 8.7 mg/dL (8.4-10.2); Carbon Dioxide 34 mmol/L (22-30); Chloride 91 mmol/L (98-107); Glucose 136 mg/dL (74-99); Non-African American GFR(CKD) 67 (>60 ml/min/1.73 sqM); Potassium 3.8 mmol/L (3.5-5.1); Sodium 135 mmol/L (137-145)
[2023-05-19 12:02] LABS: Glucose,Whole Blood 145 mg/dL (70-110)
--- NOTE | 2023-05-19 12:07 | P.PN ---
Subjective Progress Note Date: 05/19/23 On today's evaluation of 05/13/2023, the patient seems to be still hypoxic and is currently on 15 L of oxygen by nasal cannula. He is lethargic, he is weak, he is in the hospital for more than 2 weeks or hypoxic respiratory failure. Most recent chest x-ray was from 05/08/2023. The patient was hospitalized on 04/28/2023 for hypoxic respiratory failure and COPD exacerbation. Is known to have severe COPD with an FEV1 of 40% of predicted. His known also to have chronic hypoxic respiratory failure maintain on oxygen at 4 L on outpatient basis. He is typically on shortage is up to one inhalation a day. He has diabetes mellitus type 2, hyperlipidemia, prostate cancer, previous history of DVT and congestion heart failure. For the time being, the patient is on DuoNeb nebulized treatments 4 times a day, Lasix 40 mg by mouth daily, Perforomist and Pulmicort updrafts twice a day, he is also on IV Solu-Medrol 60 mg every 6 hours. He remains on long-term anticoagulation with Eliquis 5 mg by mouth twice a day. His blood work from today is still pending. Renal function from yesterday was stable. Electrodes were stable. The most recent white cell count of 15.3. Today's evaluation of 05/14/2023, the patient is being seen for a follow-up. Overall condition is unchanged compared to yesterday. Still weak and lethargic. He remains on 50 L of oxygen by nasal cannula. Is known to have severe COPD with an FEV1 of 40% of predicted and the patient also has chronic hypoxic respiratory failure. His oxygen requirements have gone up significantly. He remains on bronchodilators and steroids. A follow-up CAT scan of the chest was done yesterday and the patient continued to be quite hypoxic. The CAT scan showed small bilateral pleural effusions along with adjacent compressive atelectasis. There is also some signs of fluid overload. Pulmonary edema was suspected. No mediastinal lymphadenopathy. There was background emphysema. This CAT scan of the chest was done without contrast. Labs from today are still pending. The patient remains on Lasix 40 mg by mouth daily. He remains on bronchodilators and IV Solu-Medrol. On today's evaluation of 05/15/2023, the patient is having more shortness of breath and his worsening in his hypoxemia. He was on 15 L of oxygen by nasal cannula. He was placed on high flow oxygen utilizing Airvo and the patient is currently on 60 L an FiO2 of 90%. His current pulse ox is in order of 93%. The patient has advanced COPD. I also thought that there is a component of CHF and fluid overload. Based on that, I started the patient on a combination of Lasix and Zaroxolyn. He is currently on Lasix 20 mg IV every 8 hours and the patient is also taking Zaroxolyn twice a day. Based on his worsening hypoxemia, I repeated the chest examination showed that the pulmonary vasculature is improved and the patient is improving in terms of his CHF. The fluid balance is not accurately recorded. He is producing adequate amount of urine output. His blood work today shows a BUN of 55 and a creatinine of 0.9. Sodium level is at 134. The results at 17.9 with a hemoglobin 12.3. On 05/16/2023, the patient continues to have issues with oxygenation. I noticed the patient has produced excellent amount of urine output and accommodation of Lasix and Zaroxolyn. The patient is a negative fluid balance and he has produced at least 3 L negative fluid balance over the past 24 hours. Nevertheless, there has been no or limited improvement in oxygenation. The patient remains on high flow oxygen at 60 L with an FiO2 of 90%. I repeated the chest x-ray based on those findings and there is no acute abnormalities. The chest x-ray shows evidence of hepatomegaly or pulmonary vascular congestion and interstitial edema without any major interval change. As such, we will going to decided to continue the diuresis. Clinically, the patient is not having any significant dyspnea at rest. Blood work from today still pending. The risk of from yesterday was at 17.9. The patient continues to be on DuoNeb updrafts, remains on Lasix and Zaroxolyn. Remains on IV Solu-Medrol. Remains on anticoagulation with Eliquis. on 05/17/2023, the patient is doing worse compared to yesterday. There has been progressively worsening in his oxygenation. After being on high flow oxygen of 60 L with an FiO2 of 90%, the patient was placed also on 100% nonrebreather facemask to maintain a pulse ox above 85%. Chest x-ray remains unchanged.Repeat chest x-ray from yesterday showed cardiomegaly with vascular congestion and increased interstitial markings bilaterally. I reviewed the CAT scan of the chest that was done during this current admission again. No evidence of any airspace disease of consolidation. There is increased interstitial markings kenny aterally along with some nodularity in the lung bases along with extensive based on emphysema. It is likely the patient has sustained an acute lung injury/ARDS type of picture contributing to his ongoing hypoxemia. The patient remains on steroids. Meanwhile, he is afebrile. He is diuresing excellent with a combination of Lasix and Zaroxolyn. His fluid balance has been -3.0 L or 05/16/2023 and the patient had another 2.4 L negative fluid balance for on 05/17/2023. Nevertheless, despite this, no significant improvement in oxygenation. Most recent sputum sample showed MRSA. I'm going to start the patient a combination of cefepime and vancomycin as a broad-spectrum antibiotic coverage. Noted the patient is afebrile. Is obviously count is at 16.8, hemoglobin was 12, BUN is at 67 with a creatinine 1.1 and a sodium level is at 137. His resting comfortably. No significant respiratory distress. He is lethargic. He is weak. Very much debilitated. On 05/18/2023, the patient is awake, communicating in the family the bedside. Unfortunately, his condition is still unchanged. He still hypoxic. He remains on high flow oxygen at 60 L with an FiO2 of 90% and the patient has 100% n onrebreather facemask in addition to maintain a saturation above 85%. Is able to tolerate some small amounts of diet. Denies having any chest pain. Continues to produce excellent amount of urine output on a combination of Lasix and Zaroxolyn. Cefepime vancomycin was also added as the patient was found to have MRSA in his sputum on previous evaluation. Remains on Solu-Medrol. Remains on bronchodilators. Remains on anticoagulation. The white cell count 17, hemoglobin 11.8, BUN is at 65 with a creatinine of 1 and a sodium level is at 134 with a potassium level of 3.6. He is debilitated. Is weak. He is awake. He is communicating. He is a DNR/DNI CODE STATUS. On 05/19/2023, the patient continues to be on the same treatment. Awake. Tolerating diet. Still on high flow oxygen at 60 L an FiO2 of 90%. 100% on rebreather facemask. Still on 100% nonrebreather facemask.. Patient continues to diabetes. He has produced another 4.8 L negative fluid balance over the past 24 hours. The chest x-ray findings are unchanged. His COPD and there is some worsening in his CHF findings. Nevertheless, there may be some limited improvement in oxygenation. Clinically is feeling slightly better. He is on a combination of vancomycin and cefepime for now. He remains on IV Solu-Medrol. He remains on bronchodilators. He remains on anticoagulation. The blood work from today shows a sodium level of 135, potassium is 3.8, BUN 69 with a creatinine of 1.1. The white cell count is at 21 with a hemoglobin 12.1. Objective - Vital Signs Vital signs: Vital Signs Temp 99.1 F 05/19/23 07:31 Pulse 108 H 05/19/23 08:45 Resp 22 05/19/23 07:31 BP 124/64 05/19/23 07:31 Pulse Ox 87 L 05/19/23 08:13 FiO2 94 05/19/23 08:13 Intake & Output 05/18/23 05/19/23 05/19/23 18:59 06:59 18:59 Intake Total 120 236 Output Total 1900 2400 Balance -1780 -2400 236 Intake: Oral 120 236 Output: Urine 1900 2400 Other: Voiding Method Indwelling Catheter Indwelling Catheter - Exam No acute distress, oriented 3. Currently on Airvo with 60 L an FiO2 of 90%, the patient is also on 100% nonrebreather facemask. The patient is lethargic, weak, quite debilitated. HEENT examination is grossly unremarkable. Neck supple. Full range of motion. No adenopathy thyromegaly or neck vein distention. Cardiovascular examination reveals regular rhythm rate. S1-S2 normal. No S3 or S4. No discernible murmur noted. Lungs reveal scattered rhonchi. Her sounds are equal bilaterally but diminished throughout. No wheezes. No crackles. Breath sounds are markedly diminished in lung bases bilaterally. Is also bibasilar crackles. Abdomen soft bowel sounds are heard. No masses or tenderness. Extremities are intact. No cyanosis clubbing or edema. Skin is without rash or lesion. Neurologic examination is brief but nonfocal. - Labs CBC & Chem 7: 05/19/23 08:48 05/19/23 08:48 Labs: Abnormal Lab Results - Last 24 Hours (Table) 05/18/23 05/18/23 05/19/23 Range/Units 16:49 19:39 08:48 WBC 21.0 H (3.8-10.6) k/uL RBC 4.27 L (4.30-5.90) m/uL Hgb 12.1 L (13.0-17.5) gm/dL Hct 37.2 L (39.0-53.0) % Neutrophils # 19.1 H (1.3-7.7) k/uL Lymphocytes # 0.5 L (1.0-4.8) k/uL POC Glucose (mg/dL) 185 H 271 H (70-110) mg/dL Assessment and Plan Plan: Acute on chronic hypoxic respiratory failure. The patient is currently on Airvo 60 L an FiO2 of 90%. The patient is compensated hypercapnic respiratory failure. Overall condition and oxygenation status is unchanged compared to yesterday. CT of the chest showing some compressive atelectasis and evidence of volume overload. The patient is currently on a combination of diuretics. The patient had a follow-up chest x-ray that showed improvement in CHF findings and the pulmonary vasculature is less prominent and there is improvement in the overall picture. Nevertheless, oxygen patient is still poor.on today's evaluation of 05/17/2023, the patient is on a high flow oxygen in addition to 100% nonrebreather facemask. Occupation is still poor. Reviewed the CAT scan of the chest. Exact cause for his hypoxemic respiratory failure is not clear. The patient understands advanced COPD. Acute lung injury/ARDS is possible. Lower lobe pneumonia is felt to be less likely. Most recent sputum sample has shown MRSA. Remains on bronchodilators. Remains on steroids. Remains on diuretics. Remains on anticoagulation. Antibiotic associated the patient's current on a combination of cefepime and vancomycin. Chronic hypoxic respiratory failure limited on oxygen at 4 L Severe COPD with chronic hypoxic and hypercapnic respiratory failure with an FEV1 of 40% of predicted maintain on Trelegy Ellipta on outpatient basis Congestion heart failure might ejection fraction of 45% Remote history of DVT Diabetes mellitus type 2 History of prostate cancer. Alpha-1 antitrypsin deficiency, MS phenotype Hyperlipidemia Plan Slightly improved compared to yesterday Started getting this patient off the 100% nonrebreather facemask and keep pneumonia on high flow is lung is able to maintain a saturation above 85% Consider possibility of acute lung injury/ARDS contributing to his hypoxemic respiratory failure Keep the high flow oxygenin combination with the full facemask Continue and vancomycin Continue the rest of the treatment Continue Lasix 20 mg IV every 8 hours in addition to Zaroxolyn 5 mg twice a day, without a dose of Lasix to twice a day continue IV Solu-Medrol Continue anticoagulation with Eliquis 5 mg by mouth twice a day. No significant clinical suspicion for pulmonary embolism DNR/DNI CODE STATUS We'll continue to follow Prognosis for especially the patient does not show any significant improvement.A consider hospice if there is further interval worsening of the oxygenation. Discussed the case with the family members including 2 sisters and the mother at the bedside.
[2023-05-19] MEDS ORDERED: VANCOMYCIN TROUGH DUE 1 EACH MISC MISCELLANE ONE (13:00)
[2023-05-19] MEDS ORDERED: HYDROmorphone 0.5 MG/0.5 ML SYRINGE IVP ONE (14:45)
[2023-05-19] MEDS: VANCOMYCIN 1,750 MG in SODIUM CHLORIDE 0.9% 500 ML 500 ML IVPB SCH (14:57)
[2023-05-19 16:44] LABS: Glucose,Whole Blood 212 mg/dL (70-110)
[2023-05-19] MEDS: cloZAPine 100 MG TAB PO SCH (21:17)
[2023-05-19] MEDS: SENNOSIDES 8.6 MG TAB PO SCH (21:18)
--- NOTE | 2023-05-19 21:43 | P.PN ---
Subjective Progress Note Date: 05/19/23 Patient is a 67-year-old male with a known history of COPD on oxygen 4 L via nasal cannula was admitted to the hospital on 04/28/2023 due to acute hypoxic respiratory failure and COPD exacerbation. 05/16/2023 Patient is currently in the telemetry unit. Awake alert and oriented. Remains on high flow oxygen at 60 L FiO2 90%. Oxygen requirement remains the same. Patient is being continued Lasix and Zaroxolyn with negative balance of 3 L. Repeat chest x-ray today showed there is evidence of cardiomegaly and pulmonary vascular congestion and interstitial edema. Overall no change from prior study. Laboratory data showed WBC 16.1 hemoglobin 11.1 and platelets 358 Sodium 134 potassium 4.6 chloride 87 bicarb is 39 BUN 68 and creatinine 1.13 and blood sugar is 237 alk phos 149 and albumin 3.3. Patient is on IV Solu-Medrol 60 mg every 6 hourly, Lasix 20 mg IV every 8 and metolazone 2.5 mg p.o. twice daily. 05/17/2023 Patient is currently lying in the bed. Awake alert and requiring oxygen at 60 L with 90% FiO2 and is also requiring 100% nonrebreather. Patient is being continued on IV Lasix 20 mg every 8 and Zaroxolyn. Continues to have negative fluid balance. Sputum culture showed MRSA. Patient was also started on broad-spectrum antibiotics in the form of cefepime and vancomycin. Laboratory data showed WBC 16.8 hemoglobin 12.0 and platelets 376 Sodium 137 potassium 3.9 chloride 88 bicarb is 36 BUN 67 creatinine 1.11 and blood sugar 119 and albumin 3.5 05/18/2023 Patient is resting in the bed. Awake alert and is requiring oxygen high flow with 90% FiO2 and 60 L and also requiring 100% nonrebreather. Maintaining saturations around 85 to 87%. Patient is more oriented as per family at bedside. Able to tolerate oral diet. Patient is being continued on IV diuresis with Lasix and also on Zaroxolyn. Also started on antibiotics in the form of vancomycin and cefepime. Sputum culture showed MRSA. Patient is also on Solu-Medrol and DuoNebs and also on anticoagulation. Laboratory showed WBC 17.0 hemoglobin 11.8 and platelets 363 BUN 65 and creatinine 1.0, sodium 134 potassium 3.6 chloride 88 and bicarb is 38. 05/19/2023 Patient is sitting in the chair. Awake alert and oriented x 3. Chest x-ray feels better. But still requiring oxygen at high flow 60 L with 94% FiO2 and 1 00% nonrebreather. Saturating at 87%. No nausea vomiting. Able to tolerate oral diet. Patient states that he did not have any bowel meds last 4 days. Chest x-ray this morning showed correlate for COPD with worsening CHF and interstitial pulmonary edema. Patient remains on IV Lasix and metolazone. Also on IV steroids and antibiotics in the form of vancomycin and cefepime. Laboratory data showed WBC 21.0 hemoglobin 12.1 and platelets 374 Sodium 135 potassium 3.8 chloride 91 bicarb is 34 BUN 69 and creatinine 1.14 and blood sugar is 136. Calcium 8.7. Pulmonary is on board. Current medications reviewed. Objective - Vital Signs Vital signs: Vital Signs Temp 98.5 F 05/19/23 15:04 Pulse 104 H 05/19/23 15:16 Resp 22 05/19/23 15:04 BP 122/60 05/19/23 15:04 Pulse Ox 87 L 05/19/23 15:04 FiO2 95 05/19/23 15:16 Intake & Output 05/18/23 05/19/23 05/19/23 18:59 06:59 18:59 Intake Total 120 354 Output Total 1900 2400 1100 Balance -1780 -2400 -746 Intake: Oral 120 354 Output: Urine 1900 2400 1100 Other: Voiding Method Indwelling Catheter Indwelling Catheter Indwelling Catheter # Bowel Movements 1 - Exam PHYSICAL EXAMINATION: Patient is lying in the bed comfortably, no acute distress, awake alert and oriented.. HEENT: Normocephalic. Neck is supple. Pupils reactive. Nostrils clear. Oral cavity is moist. Neck reveals no JVD, carotid bruits, or thyromegaly. CHEST EXAMINATION: Trachea is central. Symmetrical expansion. Patient does have bibasilar diminished sounds and basilar crackles and scattered rhonchi.. CARDIAC: Normal S1, S2 with no gallops. No murmurs ABDOMEN: Soft. Bowel sounds present. Nontender. No organomegaly. No abdominal bruits. Extremities: reveal no edema. No clubbing or cyanosis Neurologically awake, alert, oriented x3 with well-coordinated movements. No focal deficits noted Skin: No rash or skin lesions. Psychiatric: Coperative. Nonsuicidal, Musculoskeletal: No joint swelling or deformity. Normal range of motion. - Labs CBC & Chem 7: 05/19/23 08:48 05/19/23 08:48 Labs: Abnormal Lab Results - Last 24 Hours (Table) 05/18/23 05/18/23 05/19/23 Range/Units 16:49 19:39 08:48 WBC (3.8-10.6) k/uL RBC (4.30-5.90) m/uL Hgb (13.0-17.5) gm/dL Hct (39.0-53.0) % Neutrophils # (1.3-7.7) k/uL Lymphocytes # (1.0-4.8) k/uL Sodium 135 L (137-145) mmol/L Chloride 91 L (98-107) mmol/L Carbon Dioxide 34 H (22-30) mmol/L BUN 69 H (9-20) mg/dL Glucose 136 H (74-99) mg/dL POC Glucose (mg/dL) 185 H 271 H (70-110) mg/dL 05/19/23 05/19/23 Range/Units 08:48 11:50 WBC 21.0 H (3.8-10.6) k/uL RBC 4.27 L (4.30-5.90) m/uL Hgb 12.1 L (13.0-17.5) gm/dL Hct 37.2 L (39.0-53.0) % Neutrophils # 19.1 H (1.3-7.7) k/uL Lymphocytes # 0.5 L (1.0-4.8) k/uL Sodium (137-145) mmol/L Chloride (98-107) mmol/L Carbon Dioxide (22-30) mmol/L BUN (9-20) mg/dL Glucose (74-99) mg/dL POC Glucose (mg/dL) 145 H (70-110) mg/dL Assessment and Plan Assessment: Acute on chronic hypoxemic respiratory failure currently requiring Airvo 60 L and 90% FiO2. Repeat chest x-ray on 05/16/2023 showed evidence of cardiomegaly with pulmonary venous congestion and interstitial edema. MRSA sputum culture Chronic hypoxemic respiratory failure on oxygen at 4 L via nasal cannula Acute on chronic CHF with ejection fraction 45% Prior history of DVT History of prostate cancer Diabetes type 2 Hyperlipidemia Alpha-1 antitrypsin deficiency DVT prophylaxis patient is already on Eliquis Plan: Patient continues to require high flow oxygen Airvo at 60 L and FiO2 90% and is also requiring 100% nonrebreather. Will be continued on IV diuresis with the Lasix and also on PO metolazone. Patient was started on vancomycin and cefepime with sputum cultures positive for MRSA. Continue with current medications and insulin sliding scale and anticoagulation with Eliquis. Encourage incentive spirometry. Pulmonary is on board. CODE STATUS is DNR/DNI. Discussed with patient's sister, Cathy regarding treatment goals. She would like to see him any improvement with IV antibiotics and if not is considering hospice care/comfort care. Continue to follow closely. Prognosis is guarded. Time with Patient: Greater than 30
[2023-05-20] MEDS: CEFEPIME 2 GM in SODIUM CHLORIDE 0.9% 100 ML IVPB SCH ×3 (01:00→17:12)
[2023-05-20] MEDS: methylPREDNISolone SOD SUCCI 125 MG/2 ML VIAL IV SCH ×4 (01:00→17:12)
[2023-05-20 02:17] LABS: Glucose,Whole Blood 326 mg/dL (70-110)
[2023-05-20] MEDS: HYDROcodone/APAP 5-325MG 1 EACH TAB PO PRN ×3 (04:03→20:16)
[2023-05-20] MEDS: PANTOPRAZOLE 40 MG TABLET PO SCH (06:53)
[2023-05-20] MEDS: REPAGLINIDE 1 MG TAB PO SCH ×2 (06:54→12:25)
[2023-05-20] MEDS: VANCOMYCIN 1,750 MG in SODIUM CHLORIDE 0.9% 500 ML 500 ML IVPB SCH ×2 (06:55→22:41)
[2023-05-20] MEDS: INSULIN DETEMIR (LEVEMIR) 100 UNIT/ML SYR SQ SCH ×2 (06:55→20:18)
[2023-05-20 07:31] LABS: Basophils % (A) 0 %; Eosinophils % (A) 0 %; HCT 36.8 % (39.0-53.0); HGB 11.8 gm/dL (13.0-17.5); Lymphocytes # (A) 0.6 k/uL (1.0-4.8); Lymphocytes % (A) 4 %; MCHC 32.2 g/dL (31.0-37.0); MCV 87.2 fL (80.0-100.0); Mean Platelet Volume 7.8; Monocytes # (A) 0.8 k/uL (0-1.0); Monocytes % (A) 4 %; Neutrophils # (A) 16.3 k/uL (1.3-7.7); Neutrophils % (A) 91 %; Platelet Count 342 k/uL (150-450); RBC 4.22 m/uL (4.30-5.90); RDW 14.4 % (11.5-15.5); WBC 17.9 k/uL (3.8-10.6)
[2023-05-20] MEDS: FORMOTEROL FUMARATE 20 MCG/2 ML NEBU INHALATION SCH ×2 (08:09→19:36)
[2023-05-20 08:10] LABS: Glucose,Whole Blood 163 mg/dL (70-110)
[2023-05-20] MEDS: BUDESONIDE 1 MG/2 ML NEBU INHALATION SCH ×2 (08:10→19:36)
[2023-05-20] MEDS: IPRATROPIUM-ALBUTEROL 3 ML NEB INHALATION SCH ×4 (08:10→19:36)
[2023-05-20 08:27] LABS: African American GFR (CKD) 90 (>60 ml/min/1.73 sqM); Anion Gap 8 mmol/L; Blood Urea Nitrogen 64 mg/dL (9-20); Calcium 8.7 mg/dL (8.4-10.2); Carbon Dioxide 35 mmol/L (22-30); Chloride 92 mmol/L (98-107); Glucose 171 mg/dL (74-99); Non-African American GFR(CKD) 78 (>60 ml/min/1.73 sqM); Potassium 3.8 mmol/L (3.5-5.1); Sodium 135 mmol/L (137-145)
[2023-05-20] MEDS: INSULIN ASPART (NovoLOG) 100 UNIT/ML VIAL SQ SCH ×7 (09:00→20:17)
[2023-05-20] MEDS: METOPROLOL SUCCINATE (ER) 25 MG TAB.ER.24H PO SCH (09:12)
[2023-05-20] MEDS: MONTELUKAST 10 MG TAB PO SCH (09:12)
[2023-05-20] MEDS: APIXABAN 5 MG TAB PO SCH ×2 (09:12→20:16)
[2023-05-20] MEDS: ESCITALOPRAM 10 MG TAB PO SCH (09:12)
[2023-05-20] MEDS: POTASSIUM CHLORIDE ER 20 MEQ TAB.ER PO SCH (09:12)
[2023-05-20] MEDS: LORATADINE 10 MG TAB PO SCH (09:12)
[2023-05-20] MEDS: FENOFIBRATE 160 MG TAB PO SCH (09:12)
[2023-05-20] MEDS: ATORVASTATIN 40 MG TAB PO SCH (09:12)
[2023-05-20] MEDS: SENNOSIDES 8.6 MG TAB PO SCH ×2 (09:12→20:15)
[2023-05-20] MEDS: FUROSEMIDE 10 MG/ML 2 ML VIAL IV SCH (09:13)
[2023-05-20] MEDS: polyethylene glycoL 3350 17 GM POWD.PACK PO SCH (09:13)
[2023-05-20] MEDS: metOLazone 2.5 MG TAB PO SCH ×2 (09:13→20:15)
[2023-05-20] MEDS: guaiFENesin 600 MG TABLET.ER PO SCH ×2 (09:13→20:15)
[2023-05-20] MEDS: BICALUTAMIDE 50 MG TAB PO SCH (09:14)
[2023-05-20 11:16] LABS: Glucose,Whole Blood 235 mg/dL (70-110)
--- NOTE | 2023-05-20 16:15 | P.PN ---
Subjective Progress Note Date: 05/20/23 This is a 67-year-old male patient with known history of severe COPD, FEV1 of 40% of predicted and chronic hypoxic respiratory failure within on oxygen at 4 L/m nasal cannula. Patient is admitted on Trelegy Ellipta one ablation day and albuterol updrafts [id number]. He has multiple other medical issues. Along with chronic hypoxic respiratory failure, he has diabetes mellitus type 2, hyperlipidemia, history of prostate cancer, CHF, and previous history of DVT. He was hospitalized recently and may have to and at [facility]. At that time, the patient was seen by Dr. Winn, treated and discharged home.. His breathing got worse over the past 1 week. Occasional co ugh. Also his sputum production. No chest pain. Limited edema lower exam is bilaterally. The blood work shows a WBC count of 9.0, hemoglobin 11.2, normal coagulation profile, d-dimer is at 1.6, sodium levels of 137, BUN is 24 with a creatinine of 0.7 and a potassium levels at 5.2. The viral screen was negative. Chest x-ray is consistent with bibasilar airspace disease with trace left-sided pleural effusion. Due to his ongoing shortness of breath and hypoxemia. The patient was supported with BiPAP at pressure 14/7 with an FiO2 of 50%. on 05/17/2023, the patient is doing worse compared to yesterday. There has been progressively worsening in his oxygenation. After being on high flow oxygen of 60 L with an FiO2 of 90%, the patient was placed also on 100% nonrebreather facemask to maintain a pulse ox above 85%. Chest x-ray remains unchanged.Repeat chest x-ray from yesterday showed cardiomegaly with vascular congestion and increased interstitial markings bilaterally. I reviewed the CAT scan of the chest that was done during this current admission again. No evidence of any a irspace disease of consolidation. There is increased interstitial markings bilaterally along with some nodularity in the lung bases along with extensive based on emphysema. It is likely the patient has sustained an acute lung injury/ARDS type of picture contributing to his ongoing hypoxemia. The patient remains on steroids. Meanwhile, he is afebrile. He is diuresing excellent with a combination of Lasix and Zaroxolyn. His fluid balance has been -3.0 L or 05/16/2023 and the patient had another 2.4 L negative fluid balance for on 05/17/2023. Nevertheless, despite this, no significant improvement in oxygenation. Most recent sputum sample showed MRSA. I'm going to start the patient a combination of cefepime and vancomycin as a broad-spectrum antibiotic coverage. Noted the patient is afebrile. Is obviously count is at 16.8, hemoglobin was 12, BUN is at 67 with a creatinine 1.1 and a sodium level is at 137. His resting comfortably. No significant respiratory distress. He is let hargic. He is weak. Very much debilitated. On 05/18/2023, the patient is awake, communicating in the family the bedside. Unfortunately, his condition is still unchanged. He still hypoxic. He remains on high flow oxygen at 60 L with an FiO2 of 90% and the patient has 100% nonrebreather facemask in addition to maintain a saturation above 85%. Is able to tolerate some small amounts of diet. Denies having any chest pain. Continues to produce excellent amount of urine output on a combination of Lasix and Zaroxolyn. Cefepime vancomycin was also added as the patient was found to have MRSA in his sputum on previous evaluation. Remains on Solu-Medrol. Remains on bronchodilators. Remains on anticoagulation. The white cell count 17, hemoglobin 11.8, BUN is at 65 with a creatinine of 1 and a sodium level is at 134 with a potassium level of 3.6. He is debilitated. Is weak. He is awak e. He is communicating. He is a DNR/DNI CODE STATUS. On 05/19/2023, the patient continues to be on the same treatment. Awake. Tolerating diet. Still on high flow oxygen at 60 L an FiO2 of 90%. 100% on rebreather facemask. Still on 100% nonrebreather facemask.. Patient continues to diabetes. He has produced another 4.8 L negative fluid balance over the past 24 hours. The chest x-ray findings are unchanged. His COPD and there is some worsening in his CHF findings. Nevertheless, there may be some limited improvement in oxygenation. Clinically is feeling slightly better. He is on a combination of vancomycin and cefepime for now. He remains on IV Solu-Medrol. He remains on bronchodilators. He remains on anticoagulation. The blood work from today shows a sodium level of 135, potassium is 3.8, BUN 69 with a creatinine of 1.1. The white cell count is at 21 with a hemoglobin 12.1. The patient is seen today 05/20/2023 in follow-up on the regular medical floor. He is currently resting in bed. Arousable. He is still requiring AirVo high flow oxygen at 60 L and 95% FiO2 plus a nonrebreather mask. Sputum culture is positive for MRSA. Blood cultures revealed no growth. White count 17.9. Hemoglobin 11.8. Platelets 342. Sodium 135. Potassium 3.5. Bicarb 35. BUN 64. Creatinine 1.0. Glucose 171. He remains on DuoNeb inhalations, Pulmicort and Perforomist inhalations, IV Solu-Medrol, Singulair. Antibiotics in form of vancomycin. Remains on diuretics. Currently in a -2.1 L balance. Objective - Vital Signs Vital signs: Vital Signs Temp 98.2 F 05/20/23 12:00 Pulse 78 05/20/23 15:30 Resp 24 05/20/23 14:39 BP 97/56 05/20/23 12:00 Pulse Ox 87 L 05/20/23 12:00 FiO2 94 05/20/23 15:35 Intake & Output 05/19/23 05/20/23 05/20/23 18:59 06:59 18:59 Intake Total 472 540 240 Output Total 1650 1500 Balance -1178 -960 240 Intake: Oral 472 540 240 Output: Urine 1650 1500 Other: Voiding Method Indwelling Catheter Indwelling Catheter Indwelling Catheter # Bowel Movements 1 - Exam GENERAL EXAM: Arousable, weak 67-year-old male, on AirVo high flow oxygen at 60 L and 95% FiO2 with a nonrebreather mask. HEAD: Normocephalic. EYES: Normal reaction of pupils, equal size. NOSE: Clear with pink turbinates. THROAT: No erythema or exudates. NECK: No masses, no JVD. CHEST: No chest wall deformity. LUNGS: Equal air entry with crackles in the bilateral bases. CVS: S1 and S2 normal with no audible murmur, regular rhythm. ABDOMEN: No hepatosplenomegaly, normal bowel sounds, no guarding or rigidity. SPINE: No scoliosis or deformity SKIN: No rashes CENTRAL NERVOUS SYSTEM: No focal deficits, tone is normal in all 4 extremities. EXTREMITIES: There is no peripheral edema. No clubbing, no cyanosis. Peripheral pulses are intact. - Labs CBC & Chem 7: 05/20/23 07:05 05/20/23 07:05 Labs: Abnormal Lab Results - Last 24 Hours (Table) 05/19/23 05/19/23 05/20/23 Range/Units 16:43 20:16 07:05 WBC (3.8-10.6) k/uL RBC (4.30-5.90) m/uL Hgb (13.0-17.5) gm/dL Hct (39.0-53.0) % Neutrophils # (1.3-7.7) k/uL Lymphocytes # (1.0-4.8) k/uL Sodium 135 L (137-145) mmol/L Chloride 92 L (98-107) mmol/L Carbon Dioxide 35 H (22-30) mmol/L BUN 64 H (9-20) mg/dL Glucose 171 H (74-99) mg/dL POC Glucose (mg/dL) 212 H 326 H (70-110) mg/dL 05/20/23 05/20/23 05/20/23 Range/Units 07:05 08:08 11:13 WBC 17.9 H (3.8-10.6) k/uL RBC 4.22 L (4.30-5.90) m/uL Hgb 11.8 L (13.0-17.5) gm/dL Hct 36.8 L (39.0-53.0) % Neutrophils # 16.3 H (1.3-7.7) k/uL Lymphocytes # 0.6 L (1.0-4.8) k/uL Sodium (137-145) mmol/L Chloride (98-107) mmol/L Carbon Dioxide (22-30) mmol/L BUN (9-20) mg/dL Glucose (74-99) mg/dL POC Glucose (mg/dL) 163 H 235 H (70-110) mg/dL Microbiology - Last 24 Hours (Table) 05/14/23 14:09 Blood Culture - Final Blood Assessment and Plan Assessment: Acute on chronic hypoxic respiratory failure. The patient is compensated hypercapnic respiratory failure. The patient developed significant hypoxemia. He has bibasilar pulmonary infiltrates, rule out pneumonia, rule out i nterstitial edema. Patient is currently on AirVo high flow oxygen at 60 L and 95% FiO2 plus a nonrebreather mask. Pro-calcitonin 0.14, treated with ceftriaxone and azithromycin. Remains on diuretics. Legionella screen negative. Exact cause for his hypoxemic respiratory failure is not clear. The patient has advanced COPD. Acute lung injury/ARDS is possible. Lower lobe pneumonia is felt to be less likely. Most recent sputum sample has shown MRSA. Remains on bronchodilators. Remains on steroids. Remains on diuretics. Remains on anticoagulation. Antibiotic are a combination of cefepime and vancomycin. CT angiogram revealed tiny pulmonary emboli suspected in the distal segmental br anches of the right lower lobe. Transitioned to Eliquis Chronic hypoxic respiratory failure limited on oxygen at 4 L Severe COPD with chronic hypoxic and hypercapnic respiratory failure with an FE V1 of 40% of predicted maintain on Trelegy Ellipta on outpatient basis Congestion heart failure Remote history of DVT Diabetes mellitus type 2 History of prostate cancer. Alpha-1 antitrypsin deficiency, MS phenotype Hyperlipidemia Plan: The patient was seen and evaluated X-ray, labs and medications reviewed Increased diuretics to 40 mg IV every 12 hours Remains on Eliquis Currently on vancomycin and cefepime Continue bronchodilators Titrate the FiO2 as tolerated Overall prognosis remains quite guarded We will continue to follow I have personally seen and examined the patient, performed the documentation and the assessment and plan as written. Number of minutes spent on the visit: 10.
[2023-05-20 16:20] LABS: Glucose,Whole Blood 276 mg/dL (70-110)
[2023-05-20 19:47] LABS: Glucose,Whole Blood 369 mg/dL (70-110)
[2023-05-20] MEDS: cloZAPine 100 MG TAB PO SCH (20:15)
[2023-05-20] MEDS: FUROSEMIDE 10 MG/ML 4 ML VIAL IV SCH (20:17)
[2023-05-20] MEDS: CYCLOBENZAPRINE 5 MG TAB PO PRN (20:26)
--- NOTE | 2023-05-20 21:51 | P.PN ---
Subjective Progress Note Date: 05/20/23 Patient remains on the step down unit. Continues on Airvo 60L and NRB 100% oxygen saturation 89%. Had MRSA in the sputum. He is being followed closely by pulmonary service. Remains on IV cefepime, IV vancomycin inhaled steroids, nebulized broncodilator around the clock, and systemic steroids. He was started on IV lasix blood pressure did drop. Follow up BNP 290. Chest xray yesterday continues to show pulmonary edema. Hospice is following patient not quite ready yet but wants to talk with his family today. Review of Systems Constitutional: Reports fatigue, denied any fever. Cardio vascular: denied any chest pain, palpitations Gastrointestinal: denied any nausea, vomiting, diarrhea Pulmonary: Reports shortness of breath. Neurologic denied any new focal deficits All inpatient medications were reviewed and appropriate changes in these medications as dictated in the interval history and assessment and plan. PHYSICAL EXAMINATION: GENERAL: The patient is alert and oriented x3, not in any acute distress. Well developed, well nourished. HEENT: Pupils are round and equally reacting to light. EOMI. No scleral icterus. No conjunctival pallor. Normocephalic, atraumatic. No pharyngeal erythema. No thyromegaly. CARDIOVASCULAR: S1 and S2 present. No murmurs, rubs, or gallops. PULMONARY: Diminished. ABDOMEN: Soft, nontender, nondistended, normoactive bowel sounds. No palpable organomegaly. MUSCULOSKELETAL: No joint swelling or deformity. EXTREMITIES: No cyanosis, clubbing, or pedal edema. NEUROLOGICAL: Gross neurological examination did not reveal any focal deficits. SKIN: No rashes. Assessment Acute on chronic hypoxemic respiratory failure currently requiring Airvo 60 L and 95% FiO2. Patient is also receiving NRB. F/u chest xray showing COPD and interstitial pulmonary edema although proBNP f.u only 290. Possibly ARDs. MRSA sputum culture being treated with antibiotics. Acute PE in the distal branches RLL on eliquis Chronic hypoxemic respiratory failure and severe COPD on oxygen at 4 L via nasal cannula Acute on chronic CHF with ejection fraction 45% Prior history of DVT History of prostate cancer Diabetes type 2 Hyperlipidemia Alpha-1 antitrypsin deficiency DVT prophylaxis patient is already on Eliquis Plan: Patient continues to require high flow oxygen Airvo at 60 L and FiO2 90% and is also requiring 100% nonrebreather. Will be continued on IV diuresis with the Lasix and also on PO metolazone. Patient was started on vancomycin and cefepime with sputum cultures positive for MRSA. Continue with current medications and insulin sliding scale and anticoagulation with Eliquis. Encourage incentive spirometry. Pulmonary is on board. CODE STATUS is DNR/DNI. Discussed with patient's sister, Cathy regarding treatment goals. She would like to see him any improvement with IV antibiotics and if not is considering hospice care/comfort care. Continue to follow cl osely. Hospice follow up today. Patient considering hospice. Follow up CBC/BMP in AM Prognosis is guarded. The impression and plan of care has been dictated by Juanita Crockett, Nurse Practitioner as directed. Dr. Barry MD I have performed a history and physical examination and medical decision making of this patient, discussed the same with the dictator, and agree with the dictators assessment and plan as written, documented as a scribe. Based on total visit time, I have performed more than 50% of this visit. Objective - Vital Signs Vital signs: Vital Signs Temp 98.3 F 05/20/23 08:00 Pulse 78 05/20/23 11:46 Resp 24 05/20/23 08:00 BP 119/70 05/20/23 08:00 Pulse Ox 89 L 05/20/23 08:14 FiO2 94 05/20/23 11:39 Intake & Output 05/19/23 05/20/23 05/20/23 18:59 06:59 18:59 Intake Total 472 540 0 Output Total 1650 1500 Balance -1178 -960 0 Intake: Oral 472 540 0 Output: Urine 1650 1500 Other: Voiding Method Indwelling Catheter Indwelling Catheter Indwelling Catheter # Bowel Movements 1 - Labs CBC & Chem 7: 05/20/23 07:05 05/20/23 07:05 Labs: Abnormal Lab Results - Last 24 Hours (Table) 05/19/23 05/19/23 05/20/23 Range/Units 16:43 20:16 07:05 WBC (3.8-10.6) k/uL RBC (4.30-5.90) m/uL Hgb (13.0-17.5) gm/dL Hct (39.0-53.0) % Neutrophils # (1.3-7.7) k/uL Lymphocytes # (1.0-4.8) k/uL Sodium 135 L (137-145) mmol/L Chloride 92 L (98-107) mmol/L Carbon Dioxide 35 H (22-30) mmol/L BUN 64 H (9-20) mg/dL Glucose 171 H (74-99) mg/dL POC Glucose (mg/dL) 212 H 326 H (70-110) mg/dL 05/20/23 05/20/23 05/20/23 Range/Units 07:05 08:08 11:13 WBC 17.9 H (3.8-10.6) k/uL RBC 4.22 L (4.30-5.90) m/uL Hgb 11.8 L (13.0-17.5) gm/dL Hct 36.8 L (39.0-53.0) % Neutrophils # 16.3 H (1.3-7.7) k/uL Lymphocytes # 0.6 L (1.0-4.8) k/uL Sodium (137-145) mmol/L Chloride (98-107) mmol/L Carbon Dioxide (22-30) mmol/L BUN (9-20) mg/dL Glucose (74-99) mg/dL POC Glucose (mg/dL) 163 H 235 H (70-110) mg/dL Microbiology - Last 24 Hours (Table) 05/14/23 14:09 Blood Culture - Final Blood Assessment and Plan Time with Patient: Greater than 30
[2023-05-21] MEDS: methylPREDNISolone SOD SUCCI 125 MG/2 ML VIAL IV SCH ×3 (00:06→12:34)
[2023-05-21] MEDS: CEFEPIME 2 GM in SODIUM CHLORIDE 0.9% 100 ML IVPB SCH ×2 (02:27→08:15)
[2023-05-21] MEDS: HYDROcodone/APAP 5-325MG 1 EACH TAB PO PRN ×2 (02:30→11:47)
[2023-05-21 06:15] LABS: Glucose,Whole Blood 191 mg/dL (70-110)
[2023-05-21] MEDS: INSULIN DETEMIR (LEVEMIR) 100 UNIT/ML SYR SQ SCH (06:23)
[2023-05-21] MEDS: REPAGLINIDE 1 MG TAB PO SCH ×2 (06:25→12:33)
[2023-05-21] MEDS: PANTOPRAZOLE 40 MG TABLET PO SCH (06:26)
[2023-05-21] MEDS: INSULIN ASPART (NovoLOG) 100 UNIT/ML VIAL SQ SCH ×4 (06:59→12:33)
[2023-05-21] MEDS: FUROSEMIDE 10 MG/ML 4 ML VIAL IV SCH (08:15)
[2023-05-21] MEDS: FENOFIBRATE 160 MG TAB PO SCH (08:25)
[2023-05-21] MEDS: ATORVASTATIN 40 MG TAB PO SCH (08:25)
[2023-05-21] MEDS: POTASSIUM CHLORIDE ER 20 MEQ TAB.ER PO SCH (08:25)
[2023-05-21] MEDS: METOPROLOL SUCCINATE (ER) 25 MG TAB.ER.24H PO SCH (08:25)
[2023-05-21] MEDS: APIXABAN 5 MG TAB PO SCH (08:25)
[2023-05-21] MEDS: SENNOSIDES 8.6 MG TAB PO SCH (08:25)
[2023-05-21] MEDS: guaiFENesin 600 MG TABLET.ER PO SCH (08:25)
[2023-05-21] MEDS: LORATADINE 10 MG TAB PO SCH (08:25)
[2023-05-21] MEDS: ESCITALOPRAM 10 MG TAB PO SCH (08:25)
[2023-05-21] MEDS: MONTELUKAST 10 MG TAB PO SCH (08:25)
[2023-05-21] MEDS: BICALUTAMIDE 50 MG TAB PO SCH (08:26)
[2023-05-21] MEDS: polyethylene glycoL 3350 17 GM POWD.PACK PO SCH (08:26)
[2023-05-21] MEDS: metOLazone 2.5 MG TAB PO SCH (08:26)
[2023-05-21] MEDS: FORMOTEROL FUMARATE 20 MCG/2 ML NEBU INHALATION SCH (09:16)
[2023-05-21] MEDS: BUDESONIDE 1 MG/2 ML NEBU INHALATION SCH (09:16)
[2023-05-21] MEDS: IPRATROPIUM-ALBUTEROL 3 ML NEB INHALATION SCH ×2 (09:16→12:20)
[2023-05-21 10:30] LABS: African American GFR (CKD) >90 (>60 ml/min/1.73 sqM); Anion Gap 9 mmol/L; Blood Urea Nitrogen 65 mg/dL (9-20); Calcium 8.9 mg/dL (8.4-10.2); Carbon Dioxide 35 mmol/L (22-30); Chloride 93 mmol/L (98-107); Glucose 133 mg/dL (74-99); Non-African American GFR(CKD) 85 (>60 ml/min/1.73 sqM); Potassium 3.9 mmol/L (3.5-5.1); Sodium 137 mmol/L (137-145)
[2023-05-21 10:50] LABS: Basophils % (A) 0 %; Eosinophils # (A) 0.1 k/uL (0-0.7); Eosinophils % (A) 0 %; HCT 37.9 % (39.0-53.0); HGB 12.2 gm/dL (13.0-17.5); Lymphocytes # (A) 0.6 k/uL (1.0-4.8); Lymphocytes % (A) 3 %; MCHC 32.1 g/dL (31.0-37.0); MCV 87.4 fL (80.0-100.0); Mean Platelet Volume 7.6; Monocytes # (A) 0.9 k/uL (0-1.0); Monocytes % (A) 5 %; Neutrophils # (A) 16.8 k/uL (1.3-7.7); Neutrophils % (A) 91 %; Platelet Count 368 k/uL (150-450); RBC 4.34 m/uL (4.30-5.90); WBC 18.5 k/uL (3.8-10.6)
[2023-05-21 11:32] LABS: Glucose,Whole Blood 152 mg/dL (70-110)
[2023-05-21 11:56] VITALS: BP 119/58; RESP 20; TEMP 98.8
--- NOTE | 2023-05-21 12:36 | P.PN ---
Subjective Progress Note Date: 05/21/23 This is a 67-year-old male patient with known history of severe COPD, FEV1 of 40% of predicted and chronic hypoxic respiratory failure within on oxygen at 4 L/m nasal cannula. Patient is admitted on Trelegy Ellipta one ablation day and albuterol updrafts [id number]. He has multiple other medical issues. Along with chronic hypoxic respiratory failure, he has diabetes mellitus type 2, hyperlipidemia, history of prostate cancer, CHF, and previous history of DVT. He was hospitalized recently and may have to and at [facility]. At that time, the patient was seen by Dr. Winn, treated and discharged home.. His breathing got worse over the past 1 week. Occasional co ugh. Also his sputum production. No chest pain. Limited edema lower exam is bilaterally. The blood work shows a WBC count of 9.0, hemoglobin 11.2, normal coagulation profile, d-dimer is at 1.6, sodium levels of 137, BUN is 24 with a creatinine of 0.7 and a potassium levels at 5.2. The viral screen was negative. Chest x-ray is consistent with bibasilar airspace disease with trace left-sided pleural effusion. Due to his ongoing shortness of breath and hypoxemia. The patient was supported with BiPAP at pressure 14/7 with an FiO2 of 50%. on 05/17/2023, the patient is doing worse compared to yesterday. There has been progressively worsening in his oxygenation. After being on high flow oxygen of 60 L with an FiO2 of 90%, the patient was placed also on 100% nonrebreather facemask to maintain a pulse ox above 85%. Chest x-ray remains unchanged.Repeat chest x-ray from yesterday showed cardiomegaly with vascular congestion and increased interstitial markings bilaterally. I reviewed the CAT scan of the chest that was done during this current admission again. No evidence of any a irspace disease of consolidation. There is increased interstitial markings bilaterally along with some nodularity in the lung bases along with extensive based on emphysema. It is likely the patient has sustained an acute lung injury/ARDS type of picture contributing to his ongoing hypoxemia. The patient remains on steroids. Meanwhile, he is afebrile. He is diuresing excellent with a combination of Lasix and Zaroxolyn. His fluid balance has been -3.0 L or 05/16/2023 and the patient had another 2.4 L negative fluid balance for on 05/17/2023. Nevertheless, despite this, no significant improvement in oxygenation. Most recent sputum sample showed MRSA. I'm going to start the patient a combination of cefepime and vancomycin as a broad-spectrum antibiotic coverage. Noted the patient is afebrile. Is obviously count is at 16.8, hemoglobin was 12, BUN is at 67 with a creatinine 1.1 and a sodium level is at 137. His resting comfortably. No significant respiratory distress. He is let hargic. He is weak. Very much debilitated. On 05/18/2023, the patient is awake, communicating in the family the bedside. Unfortunately, his condition is still unchanged. He still hypoxic. He remains on high flow oxygen at 60 L with an FiO2 of 90% and the patient has 100% nonrebreather facemask in addition to maintain a saturation above 85%. Is able to tolerate some small amounts of diet. Denies having any chest pain. Continues to produce excellent amount of urine output on a combination of Lasix and Zaroxolyn. Cefepime vancomycin was also added as the patient was found to have MRSA in his sputum on previous evaluation. Remains on Solu-Medrol. Remains on bronchodilators. Remains on anticoagulation. The white cell count 17, hemoglobin 11.8, BUN is at 65 with a creatinine of 1 and a sodium level is at 134 with a potassium level of 3.6. He is debilitated. Is weak. He is awak e. He is communicating. He is a DNR/DNI CODE STATUS. On 05/19/2023, the patient continues to be on the same treatment. Awake. Tolerating diet. Still on high flow oxygen at 60 L an FiO2 of 90%. 100% on rebreather facemask. Still on 100% nonrebreather facemask.. Patient continues to diabetes. He has produced another 4.8 L negative fluid balance over the past 24 hours. The chest x-ray findings are unchanged. His COPD and there is some worsening in his CHF findings. Nevertheless, there may be some limited improvement in oxygenation. Clinically is feeling slightly better. He is on a combination of vancomycin and cefepime for now. He remains on IV Solu-Medrol. He remains on bronchodilators. He remains on anticoagulation. The blood work from today shows a sodium level of 135, potassium is 3.8, BUN 69 with a creatinine of 1.1. The white cell count is at 21 with a hemoglobin 12.1. The patient is seen today 05/20/2023 in follow-up on the regular medical floor. He is currently resting in bed. Arousable. He is still requiring AirVo high flow oxygen at 60 L and 95% FiO2 plus a nonrebreather mask. Sputum culture is positive for MRSA. Blood cultures revealed no growth. White count 17.9. Hemoglobin 11.8. Platelets 342. Sodium 135. Potassium 3.5. Bicarb 35. BUN 64. Creatinine 1.0. Glucose 171. He remains on DuoNeb inhalations, Pulmicort and Perforomist inhalations, IV Solu-Medrol, Singulair. Antibiotics in form of vancomycin. Remains on diuretics. Currently in a -2.1 L balance. The patient is seen today 05/21/2023 in follow-up on the regular medical floor. He is currently resting in bed. He is awake. Quite weak and debilitated. Multiple family members are at the bedside. He is still requiring AirVo high flow oxygen at 60 L and 95% FiO2 plus a nonrebreather mask to maintain O2 saturations in the high 80s low 90s. His sputum had been positive for methicillin resistant Staphylococcus aureus. Blood cultures revealed no growth. Count 18.5. Hemoglobin 12.2. Platelets 368. Sodium 137. Potassium 3.9. Bicarb 35. BUN 65. Creatinine 0.93. Glucose 133. He is currently in a -0.4 L balance. He is continued on DuoNeb inhalations, Pulmicort and Perforomist inhalations, Singulair, Mucinex, IV Solu-Medrol. He is on antibiotics in the form of vancomycin and cefepime. He remains on IV diuretics. Anticoagulated with Eliquis. Objective - Vital Signs Vital signs: Vital Signs Temp 98.8 F 05/21/23 11:43 Pulse 90 05/21/23 12:20 Resp 20 05/21/23 11:43 BP 119/58 05/21/23 11:43 Pulse Ox 89 L 05/21/23 12:20 FiO2 94 05/21/23 12:20 Intake & Output 05/20/23 05/21/23 05/21/23 18:59 06:59 18:59 Intake Total 800 500 Output Total 1725 1999 Balance -925 -1500 Weight 86 kg Intake: IV 120 0.9 120 Intake, IV Titration 200 Amount Cefepime 2 gm In Sodium 200 Chloride 0.9% 100 ml @ 25 mls/hr IVPB Q8HR [facility] Rx# :[id number] Oral 480 500 Output: Urine 1725 1999 Other: Voiding Method Indwelling Catheter Indwelling Catheter Indwelling Catheter - Exam GENERAL EXAM: Awake, weak 67-year-old male, resting in bed, on AirVo high flow oxygen at 60 L and 95% FiO2 plus a nonrebreather mask. HEAD: Normocephalic. EYES: Normal reaction of pupils, equal size. NOSE: Clear with pink turbinates. THROAT: No erythema or exudates. NECK: No masses, no JVD. CHEST: No chest wall deformity. LUNGS: Equal air entry with crackles in the bilateral bases. CVS: S1 and S2 normal with no audible murmur, regular rhythm. ABDOMEN: No hepatosplenomegaly, normal bowel sounds, no guarding or rigidity. SPINE: No scoliosis or deformity SKIN: No rashes CENTRAL NERVOUS SYSTEM: No focal deficits, tone is normal in all 4 extremities. EXTREMITIES: There is 1 plus peripheral edema. No clubbing, no cyanosis. Peripheral pulses are intact. - Labs CBC & Chem 7: 05/21/23 09:58 05/21/23 09:58 Labs: Abnormal Lab Results - Last 24 Hours (Table) 05/20/23 05/20/23 05/21/23 Range/Units 16:18 19:45 06:14 WBC (3.8-10.6) k/uL Hgb (13.0-17.5) gm/dL Hct (39.0-53.0) % Neutrophils # (1.3-7.7) k/uL Lymphocytes # (1.0-4.8) k/uL Chloride (98-107) mmol/L Carbon Dioxide (22-30) mmol/L BUN (9-20) mg/dL Glucose (74-99) mg/dL POC Glucose (mg/dL) 276 H 369 H 191 H (70-110) mg/dL 05/21/23 05/21/23 05/21/23 Range/Units 09:58 09:58 11:30 WBC 18.5 H (3.8-10.6) k/uL Hgb 12.2 L (13.0-17.5) gm/dL Hct 37.9 L (39.0-53.0) % Neutrophils # 16.8 H (1.3-7.7) k/uL Lymphocytes # 0.6 L (1.0-4.8) k/uL Chloride 93 L (98-107) mmol/L Carbon Dioxide 35 H (22-30) mmol/L BUN 65 H (9-20) mg/dL Glucose 133 H (74-99) mg/dL POC Glucose (mg/dL) 152 H (70-110) mg/dL Assessment and Plan Assessment: Acute on chronic hypoxic respiratory failure. The patient is compensated hypercapnic respiratory failure. The patient developed significant hypoxemia and is currently on AirVo high flow oxygen at 60 L and 95% FiO2 plus a nonrebreather mask. Legionella screen negative. Exact cause for his hypoxemic respiratory failure is not clear. The patient has advanced COPD. Acute lung injury/ARDS is felt to be most likely. Sputum sample has shown MRSA. CT angiogram revealed tiny pulmonary emboli suspected in the distal segmental branches of the right lower lobe. Transitioned to Eliquis Chronic hypoxic respiratory failure limited on oxygen at 4 L in the outpatient setting Severe COPD with chronic hypoxic and hypercapnic respiratory failure with an FEV1 of 40% of predicted maintain on Trelegy Ellipta on outpatient basis Congestion heart failure Remote history of DVT Diabetes mellitus type 2 History of prostate cancer. Alpha-1 antitrypsin deficiency, MS phenotype Hyperlipidemia Plan: The patient was seen and evaluated Labs and medications reviewed Remains on bronchodilators and steroids Remains on diuretics Remains on anticoagulation Remains on cefepime and vancomycin Very little progress despite all ongoing treatment options Overall prognosis remains quite poor Family is at the bedside and they are considering hospice Until then, continue full supportive care This patient was seen independently by the nurse practitioner who provided the medical decision making I have personally seen and examined the patient, performed the documentation and the assessment and plan as written. Number of minutes spent on the visit: 22.
[2023-05-21 12:46] VITALS: PULSE 92
--- NOTE | 2023-05-21 14:43 | P.DS ---
Providers Date of admission: 04/28/23 16:16 Attending physician: Kami Gordon Consults: 04/28/23 14:44 Consult Physician Routine Consulting Provider: Nba Ken Consult Reason/Comments: hypoxia Do you want consulting provider notified?: Already Contacted Primary care physician: Abdias Vergara [facility] Course: Final Diagnosis Acute on chronic hypoxemic respiratory failure currently requiring Airvo 60 L and 95% FiO2. Patient is also receiving NRB. F/u chest xray showing COPD and interstitial pulmonary edema although proBNP f.u only 290. Possibly ARDs. MRSA sputum culture being treated with antibiotics. Acute PE in the distal branches RLL on eliquis Chronic hypoxemic respiratory failure and severe COPD on oxygen at 4 L via nasal cannula Acute on chronic CHF with ejection fraction 45% Prior history of DVT History of prostate cancer Diabetes type 2 Hyperlipidemia Alpha-1 antitrypsin deficiency DVT prophylaxis patient is already on Eliquis Patient will be transitioned to general inpatient hospice. Hospital Course Patient is a 67-year-old male with a known history of COPD on oxygen 4 L via nasal cannula was admitted to the hospital on 04/28/2023 due to acute hypoxic respiratory failure and COPD exacerbation. He has diabetes mellitus type 2, hyperlipidemia, history of prostate cancer, CHF, and previous history of DVT. He was admitted to [facility] and after discharge had progressive dyspnea. Came in for evaluation. The viral screen was negative. Chest x-ray is consistent with bibasilar airspace disease with trace left-sided pleural effusion. Due to his ongoing shortness of breath and hypoxemia. The patient was supported with BiPAP at pressure 14/7 with an FiO2 of 50% on admission. He was taken off BiPAP and placed on high flow cannula. His Sputum culture showed MRSA. Patient was started on broad-spectrum antibiotics in the form of cefepime and vancomycin. Patient is being diuresed. He has progressive worsening of respiratory failure hypoxemic requiring airvo 60L with 100% NRB mask with oxygen saturations of high 80s-low 90s. CAT scan of the chest that was done this admission showing no evidence of any airspace disease of consolidation. There is increased interstitial markings bilaterally along with some nodularity in the lung bases along with extensive based on emphysema. It is likely the patient has sustained an acute lung injury/ARDS type of picture contributing to his ongoing hypoxemia. Per family at the bedside patient has had decline in function at home prior to admission only able to take 4 to 5 steps at a time due to significant shortness of breath and has been oxygen dependent. Lasix was increased to 40 mg Q12 IVP. most recent imaging on 05/19/23 reveals COPD with worsening CHF and interstitial pulmonary edema. Sodium today 137, BUN 65 creatinine 0.93. White count 18. Clinically he has not improved he has been followed by hospice and today 05/21/23 has decided to wishes to proceed with hospice care and current recommendations have been made to transition to general inpatient hospice. He will require morphine due to the oxygen dependence on the airvo. Thank you for allowing us to participate in the care of this patient. The impression and plan of care has been dictated by Juanita Crockett, Nurse Practitioner as directed. Dr. Barry MD I have performed a history and physical examination and medical decision making of this patient, discussed the same with the dictator, and agree with the dictators assessment and plan as written, documented as a scribe. Based on total visit time, I have performed more than 50% of this visit. Patient Condition at Discharge: Poor Plan - Discharge Summary Discharge Rx Participant: No New Discharge Prescriptions: No Action Montelukast [Singulair] 10 mg PO DAILY Metoprolol Succinate (ER) [Toprol Xl] 25 mg PO DAILY Furosemide [Lasix] 40 mg PO DAILY Potassium Chloride ER [K-Dur 20] 20 meq PO DAILY Ofloxacin 0.3% Ophth Soln [Ocuflox Ophth Soln] 1 drop BOTH EYES DAILY Fluticasone Nasal [place] [Flonase Nasal [place]] 1 spray EA NOSTRIL DAILY Rosuvastatin [Crestor] 20 mg PO DAILY Docusate [Colace] 100 mg PO DAILY PRN PRN Reason: Constipation Ipratropium-Albuterol Nebulize [Duoneb 0.5 mg-3 mg/3 ml Soln] 3 ml INHALATION RT-QID PRN PRN Reason: Shortness Of Breath Albuterol Inhaler [Ventolin Hfa Inhaler] 1 - 2 puff INHALATION RT-Q6H PRN PRN Reason: Shortness Of Breath lisinopriL [Zestril] 5 mg PO DAILY Escitalopram [Lexapro] 10 mg PO DAILY Fluticasone/Umeclidin/Vilanter [Trelegy Ellipta 200-62.5-25] 1 puff INHALATION RT-DAILY@1400 Fenofibrate Nanocrystallized [Fenofibrate] 145 mg PO DAILY Bicalutamide [Casodex] 50 mg PO DIRECTED metFORMIN HCL [Glucophage] 500 mg PO DAILY Repaglinide [Prandin] 2 mg PO AC-BID cloZAPine [Clozaril] 50 mg PO HS Albuterol Nebulized [Ventolin Nebulized] 2.5 mg INHALATION RT-Q6H PRN PRN Reason: Shortness Of Breath Discharge Medication List Albuterol Inhaler [Ventolin Hfa Inhaler] 1 - 2 puff INHALATION RT-Q6H PRN 04/28/23 [History] Albuterol Nebulized [Ventolin Nebulized] 2.5 mg INHALATION RT-Q6H PRN 04/28/23 [History] Bicalutamide [Casodex] 50 mg PO DIRECTED 04/28/23 [History] Docusate [Colace] 100 mg PO DAILY PRN 04/28/23 [History] Escitalopram [Lexapro] 10 mg PO DAILY 04/28/23 [History] Fenofibrate Nanocrystallized [Fenofibrate] 145 mg PO DAILY 04/28/23 [History] Fluticasone Nasal [place] [Flonase Nasal [place]] 1 spray EA NOSTRIL DAILY 04/28/23 [History] Fluticasone/Umeclidin/Vilanter [Trelegy Ellipta 200-62.5-25] 1 puff INHALATION RT-DAILY@1400 04/28/23 [History] Furosemide [Lasix] 40 mg PO DAILY 04/28/23 [History] Ipratropium-Albuterol Nebulize [Duoneb 0.5 mg-3 mg/3 ml Soln] 3 ml INHALATION RT-QID PRN 04/28/23 [History] Metoprolol Succinate (ER) [Toprol Xl] 25 mg PO DAILY 04/28/23 [History] Montelukast [Singulair] 10 mg PO DAILY 04/28/23 [History] Ofloxacin 0.3% Ophth Soln [Ocuflox Ophth Soln] 1 drop BOTH EYES DAILY 04/28/23 [History] Potassium Chloride ER [K-Dur 20] 20 meq PO DAILY 04/28/23 [History] Repaglinide [Prandin] 2 mg PO AC-BID 04/28/23 [History] Rosuvastatin [Crestor] 20 mg PO DAILY 04/28/23 [History] cloZAPine [Clozaril] 50 mg PO HS 04/28/23 [History] lisinopriL [Zestril] 5 mg PO DAILY 04/28/23 [History] metFORMIN HCL [Glucophage] 500 mg PO DAILY 04/28/23 [History] Follow up Appointment(s)/Referral(s): Audrey Willoughby DO [Doctor of Osteopathic Medicine] - 1 Week John Espinosa DO [STAFF PHYSICIAN] - 1 Week Abdias Vergara MD [Primary Care Provider] - 1-2 days [facility] Visiting Nurse, [NON-STAFF] - Discharge Disposition: HOME WITH HOSPICE
[2023-05-22] MEDS ORDERED: VANCOMYCIN TROUGH DUE 1 EACH MISC MISCELLANE ONE (05:00)
--- NOTE | 2023-05-24 14:31 | CDI ---
Documentation Clarification Form Date: 05/24/2023 02:17:08 PM From: Kasandra Welch Phone: Admit Date: 04/28/2023 04:16:00 PM Patient Name: Javier Figueroa Visit Number: [id number] Discharge Date: 05/21/2023 01:02:00 PM ATTENTION: The Clinical Documentation Specialists (CDI) and [facility] Coding Staff appreciate your assistance in clarifying documentation. Please respond to the clarification below the line at the bottom and electronically sign. The CDI & [facility] Coding staff will review the response and follow-up if needed. Please note: Queries are made part of the Legal Health Record. If you have any questions, please contact the author of this message via ITS. Dr. Cassandra Reddy Bacterial pneumonia is documented per H&P which may lack sufficient clinical evidence/support in the medical record. Additional clarification is requested. History/Risk Factors: 67yo M, ACHRF/ARDS, AECOPD/emphysema, pulmonary emboli, hyperkalemia, Hx DVT, DMII, Hx prostate Cx, Alpha-1 antitrypsin deficiency,MSphenotype, CHF Clinical Indicators: WBC: 9.0 Sputum cultures: +MRSA CT angiochest: Marked acute cardiopulmonary disease with diffuse severe interstitialdensity and LLL consolidativedensityconsistent either withPNAor pulmonary edema. Small leftpleural effusion. Limitedevaluationthe pulmonary artery and branches but tinyPEsuspected in the distal segmental branches in the RLL. X-ray: Lungs/Pleura: Hazy bibasilar airspace disease is identified. There is partial obscuration of the left costophrenic sulcus. No evidence ofpneumothorax. Pulmonary vascularity: Mild pulmonary vascularcongestion. Treatment: Patient was started on vancomycin and cefepime Please clarify if Bacterial pneumonia is a valid diagnosis? [ ] Yes, Bacterial (MRSA) pneumonia is present as evidence by (additional clinical support): [ ] No, Bacterial (MRSA) pneumonia is ruled out [ ] Other (please specify diagnosis) [ x ] Unable to determine (Template Last Revised: August 2020) MTDD
== END 2023-05-21 13:02 | disposition hospice, inpatient (51) | DRG 175 ==
LOC: EC 11:54 → EEVIPCON 16:16 → 3SCARD 16:16
PROVIDERS: ADMIT Hospitalist; ATTEND Hospitalist
PROC: 5A09357 Assistance with Respiratory Ventilation, Less than 24 Consecutive Hours, Continuous Positive Airway Pressure (ICD-10-PCS; principal; 2023-04-28)
DX: I26.99 Other pulmonary embolism without acute cor pulmonale (principal); I50.33 Acute on chronic diastolic (congestive) heart failure; J80 Acute respiratory distress syndrome; I42.9 Cardiomyopathy, unspecified; J44.1 Chronic obstructive pulmonary disease with (acute) exacerbation; J44.0 Chronic obstructive pulmonary disease with (acute) lower respiratory infection; J96.11 Chronic respiratory failure with hypoxia; J96.12 Chronic respiratory failure with hypercapnia; I27.29 Other secondary pulmonary hypertension; R16.0 Hepatomegaly, not elsewhere classified; E88.01 Alpha-1-antitrypsin deficiency; I11.0 Hypertensive heart disease with heart failure; J43.9 Emphysema, unspecified; E11.65 Type 2 diabetes mellitus with hyperglycemia; E03.9 Hypothyroidism, unspecified; Z66 Do not resuscitate; Z51.5 Encounter for palliative care; E87.5 Hyperkalemia; E78.1 Pure hyperglyceridemia; M48.02 Spinal stenosis, cervical region; T38.0X5A Adverse effect of glucocorticoids and synthetic analogues, initial encounter; F17.220 Nicotine dependence, chewing tobacco, uncomplicated; Z20.822 Contact with and (suspected) exposure to COVID-19; Z99.81 Dependence on supplemental oxygen; Z28.311 Partially vaccinated for COVID-19; Z85.46 Personal history of malignant neoplasm of prostate; Z86.718 Personal history of other venous thrombosis and embolism; Z79.899 Other long term (current) drug therapy; Z79.51 Long term (current) use of inhaled steroids; Z79.84 Long term (current) use of oral hypoglycemic drugs
CPT/HCPCS: 36415; 36600; 71045; 71046; 71260; 71275; 72050; 80048; 80053; 80202; 81003; 82805; 83036; 83605; 83735; 83880; 84145; 84484; 85025; 85027; 85379; 85610; 85652; 85730; 86140; 87040; 87070; 87077; 87186; 87205; 87449; 87636; 93005; 93306; 94640; 94660; 94760; 96361; 96365; 96375; 99291

== ENCOUNTER 2023-05-21 12:39 | Inpatient (IN) | payer MEDICAID ==
[2023-05-21] MEDS ORDERED: MORPHINE SULFATE 4 MG/ML SYRINGE IV PRN (12:45)
[2023-05-21] MEDS ORDERED: ACETAMINOPHEN TAB 325 MG TAB PO PRN (12:45)
[2023-05-21] MEDS ORDERED: DRY MOUTH SPRAY 44.3 SPRAY/44.3 ML SPRAY MUCOUS MEM PRN (12:45)
[2023-05-21] MEDS ORDERED: GLYCOPYRROLATE 0.2 MG/ML 2 ML VIAL IVP PRN (12:45)
[2023-05-21] MEDS: MORPHINE SULFATE (100 MG/2 ML) 100 MG in SODIUM CHLORIDE 0.9% 100 ML IV SCH (13:29)
[2023-05-21] MEDS ORDERED: ATROPINE OPHTH SOLN 1% 5ML BTL SUBLINGUAL PRN (13:30)
[2023-05-21] MEDS: LORazepam 2 MG/ML INJ IV PRN (13:41)
[2023-05-21] MEDS: SCOPOLAMINE 1 MG/72 HR PATCH TRANSDERM SCH (15:10)
[2023-05-21] MEDS: methylPREDNISolone SOD SUCCI 40 MG/ML 1 ML VIAL IV SCH (16:13)
[2023-05-21] MEDS: QUEtiapine 25 MG TAB PO PRN (16:15)
[2023-05-21] MEDS: FUROSEMIDE 10 MG/ML 4 ML VIAL IV SCH (22:10)
[2023-05-21 23:20] VITALS: RESP 14
[2023-05-22 00:11] VITALS: PULSE 111
--- NOTE | 2023-05-22 21:49 | P.HPIM ---
History of Present Illness H&P Date: 05/21/23 Patient is a 67-year-old male with a known history of COPD on oxygen 4 L via nasal cannula was admitted to the hospital on 04/28/2023 due to acute hypoxic respiratory failure and COPD exacerbation. He has diabetes mellitus type 2, hyperlipidemia, history of prostate cancer, CHF, and previous history of DVT. He was admitted to [facility] and after discharge had progressive dyspnea. Came in for evaluation. The viral screen was negative. Chest x-ray is consistent with bibasilar airspace disease with trace left-sided pleural effusion. Due to his ongoing shortness of breath and hypoxemia. The patient was supported with BiPAP at pressure 14/7 with an FiO2 of 50% on admission. He was taken off BiPAP and placed on high flow cannula. His Sputum culture showed MRSA. Patient was started on broad-spectrum antibiotics in the form of cefepime and vancomycin. Patient is being diuresed. He has progressive worsening of respiratory failure hypoxemic requiring airvo 60L with 100% NRB mask with oxygen saturations of high 80s-low 90s. CAT scan of the chest that was done this admission showing no evidence of any airspace disease of consolidation. There is increased interstitial markings bilaterally along with some nodularity in the lung bases along with extensive based on emphysema. It is likely the patient has sustained an acute lung injury/ARDS type of picture contributing to his ongoing hypoxemia. Per family at the bedside patient has had decline in function at home prior to admission only able to take 4 to 5 steps at a time due to significant shortness of breath and has been oxygen dependent. Lasix was increased to 40 mg Q12 IVP. most recent imaging on 05/19/23 reveals COPD with worsening CHF and interstitial pulmonary edema. Sodium today 137, BUN 65 creatinine 0.93. White count 18. Clinically he has not improved he has been followed by hospice and today 05/21/23 has decided to wishes to proceed with hospice care and current recommendations have been made to transition to general inpatient hospice. He will require morphine due to the oxygen dependence on the airvo. Review of Systems Constitutional: Reports fatigue, denied any fever. Cardio vascular: denied any chest pain, palpitations Gastrointestinal: denied any nausea, vomiting, diarrhea Pulmonary: Reports shortness of breath. Neurologic denied any new focal deficits Reports weakness and pain all over. All inpatient medications were reviewed and appropriate changes in these medications as dictated in the interval history and assessment and plan. PHYSICAL EXAMINATION: GENERAL: The patient is alert and oriented x3, Having shortness of breath and dyspnea. Well developed, well nourished. HEENT: Pupils are round and equally reacting to light. EOMI. No scleral icterus. No conjunctival pallor. Normocephalic, atraumatic. No pharyngeal erythema. No thyromegaly. CARDIOVASCULAR: S1 and S2 present. No murmurs, rubs, or gallops. PULMONARY: Diminished. Scattered wheezing. ABDOMEN: Soft, nontender, nondistended, normoactive bowel sounds. No palpable organomegaly. MUSCULOSKELETAL: No joint swelling or deformity. EXTREMITIES: No cyanosis, clubbing, or pedal edema. NEUROLOGICAL: Gross neurological examination did not reveal any focal deficits. Diffuse weakness. SKIN: No rashes. Assessment and Plan Acute on chronic hypoxemic respiratory failure currently requiring Airvo 60 L and 95% FiO2. Patient is also receiving NRB. F/u chest xray showing COPD and interstitial pulmonary edema although proBNP f.u only 290. Possibly ARDs. MRSA sputum culture being treated with antibiotics. Acute PE in the distal branches RLL on eliquis Chronic hypoxemic respiratory failure and severe COPD on oxygen at 4 L via nasal cannula Acute on chronic CHF with ejection fraction 45% Prior history of DVT History of prostate cancer Diabetes type 2 Hyperlipidemia Alpha-1 antitrypsin deficiency DVT prophylaxis patient is already on Eliquis Do Not Resuscitate/Do Not Intubate Plan Patient can be continued on IV solumedrol and IV lasix this was discussed with hospice nurse He will be started on morphine gtt and weaned off the airvo He is transitioned to general inpatient hospice and end of life care The impression and plan of care has been dictated by Juanita Crockett, Nurse Practitioner as directed. Dr. Barry MD I have performed a history and physical examination and medical decision making of this patient, discussed the same with the dictator, and agree with the dictators assessment and plan as written, documented as a scribe. Based on total visit time, I have performed more than 50% of this visit. Past Medical History Past Medical History: Cancer, COPD, Diabetes Mellitus, Hyperlipidemia Additional Past Medical History / Comment(s): prostate History of Any Multi-Drug Resistant Organisms: MRSA Date of last positivie culture/infection: 05/14/23 MDRO Source:: Sputum Past Surgical History: No Surgical Hx Reported Past Psychological History: No Psychological Hx Reported Smoking Status: Former smoker Past Alcohol Use History: None Reported Past Drug Use History: None Reported Medications and Allergies Home Medications Medication Instructions Recorded Confirmed Type Albuterol Inhaler [Ventolin Hfa 1 - 2 puff INHALATION RT-Q6H PRN 04/28/23 04/28/23 History Inhaler] Albuterol Nebulized [Ventolin 2.5 mg INHALATION RT-Q6H PRN 04/28/23 04/28/23 His tory Nebulized] Bicalutamide [Casodex] 50 mg PO DIRECTED 04/28/23 04/28/23 History Docusate [Colace] 100 mg PO DAILY PRN 04/28/23 04/28/23 History Escitalopram [Lexapro] 10 mg PO DAILY 04/28/23 04/28/23 History Fenofibrate Nanocrystallized 145 mg PO DAILY 04/28/23 04/28/23 History [Fenofibrate] Fluticasone Nasal [place] [Flonase 1 spray EA NOSTRIL DAILY 04/28/23 04/28/23 History Nasal [place]] Fluticasone/Umeclidin/Vilanter 1 puff INHALATION RT-DAILY@1400 04/28/23 04/28/23 History [Trelegy Ellipta 200-62.5-25] Furosemide [Lasix] 40 mg PO DAILY 04/28/23 04/28/23 History Ipratropium-Albuterol Nebulize 3 ml INHALATION RT-QID PRN 04/28/23 04/28/23 History [Duoneb 0.5 mg-3 mg/3 ml Soln] Metoprolol Succinate (ER) [Toprol 25 mg PO DAILY 04/28/23 04/28/23 History Xl] Montelukast [Singulair] 10 mg PO DAILY 04/28/23 04/28/23 History Ofloxacin 0.3% Ophth Soln [Ocuflox 1 drop BOTH EYES DAILY 04/28/23 04/28/23 History Ophth Soln] Potassium Chloride ER [K-Dur 20] 20 meq PO DAILY 04/28/23 04/28/23 History Repaglinide [Prandin] 2 mg PO AC-BID 04/28/23 04/28/23 History Rosuvastatin [Crestor] 20 mg PO DAILY 04/28/23 04/28/23 History cloZAPine [Clozaril] 50 mg PO HS 04/28/23 04/28/23 History lisinopriL [Zestril] 5 mg PO DAILY 04/28/23 04/28/23 History metFORMIN HCL [Glucophage] 500 mg PO DAILY 04/28/23 04/28/23 History Allergies Allergy/AdvReac Type Severity Reaction Status Date / Time No Known Allergies Allergy Verified 04/28/23 13:25 Physical Exam Vitals: Vital Signs Pulse Resp Pulse Ox FiO2 05/22/23 01:30 39 L 05/22/23 00:00 111 H 74 L 05/21/23 22:41 109 H 14 72 L 94 Assessment and Plan Time with Patient: Greater than 30
--- NOTE | 2023-05-22 21:52 | P.DS ---
Providers Date of admission: 05/21/23 13:03 Attending physician: Cassandra Reddy Primary care physician: [facility] Hospital Course: Final Diagnosis hospice and End of life care Acute on chronic hypoxemic respiratory failure currently requiring Airvo 60 L/and NRB likely an ARDs type picture MRSA sputum culture being treated with antibiotics. Acute PE in the distal branches RLL on eliquis Chronic hypoxemic respiratory failure and severe COPD on oxygen at 4 L via nasal cannula Acute on chronic CHF with ejection fraction 45% Prior history of DVT History of prostate cancer Diabetes type 2 Hyperlipidemia Alpha-1 antitrypsin deficiency DVT prophylaxis patient is already on Eliquis Do Not Resuscitate/Do Not Intubate Patient on 05/22/23 at 0224 preliminary cause of end stage COPD Hospital Course Patient is a 67-year-old male with a known history of COPD on oxygen 4 L via nasal cannula was admitted to the hospital on 04/28/2023 due to acute hypoxic respiratory failure and COPD exacerbation. He has diabetes mellitus type 2, hyperlipidemia, history of prostate cancer, CHF, and previous history of DVT. He was admitted to [facility] and after discharge had progressive dyspnea. Came in for evaluation. The viral screen was negative. Chest x-ray is consistent with bibasilar airspace disease with trace left-sided pleural effusion. Due to his ongoing shortness of breath and hypoxemia. The patient was supported with BiPAP at pressure 14/7 with an FiO2 of 50% on admission. He was taken off BiPAP and placed on high flow cannula. His Sputum culture showed MRSA. Patient was started on broad-spectrum antibiotics in the form of cefepime and vancomycin. Patient is being diuresed. He has progressive worsening of respiratory failure hypoxemic requiring airvo 60L with 100% NRB mask with oxygen saturations of high 80s-low 90s. CAT scan of the chest that was done this admission showing no evidence of any airspace disease of consolidation. There is increased interstitial markings bilaterally along with some nodularity in the lung bases along with extensive based on emphysema. It is likely the patient has sustained an acute lung injury/ARDS type of picture contributing to his ongoing hypoxemia. Per family at the bedside patient has had decline in function at home prior to admission only able to take 4 to 5 steps at a time due to significant shortness of breath and has been oxygen dependent. Lasix was increased to 40 mg Q12 IVP. most recent imaging on 05/19/23 reveals COPD with worsening CHF and interstitial pulmonary edema. Sodium today 137, BUN 65 creatinine 0.93. White count 18. Clinically he has not improved he has been followed by hospice and today 05/21/23 has decided to wishes to proceed with hospice care and current recommendations have been made to transition to general inpatient hospice. Patient was transitioned and placed on morphine gtt. Thank you for allowing us to participate in the care of this patient. The impression and plan of care has been dictated by Juanita Crockett, Nurse Practitioner as directed. Dr. Barry MD I have performed a history and physical examination and medical decision making of this patient, discussed the same with the dictator, and agree with the dictators assessment and plan as written, documented as a scribe. Based on total visit time, I have performed more than 50% of this visit. Plan - Discharge Summary New Discharge Prescriptions: No Action Montelukast [Singulair] 10 mg PO DAILY Metoprolol Succinate (ER) [Toprol Xl] 25 mg PO DAILY Furosemide [Lasix] 40 mg PO DAILY Potassium Chloride ER [K-Dur 20] 20 meq PO DAILY Ofloxacin 0.3% Ophth Soln [Ocuflox Ophth Soln] 1 drop BOTH EYES DAILY Fluticasone Nasal [place] [Flonase Nasal [place]] 1 spray EA NOSTRIL DAILY Rosuvastatin [Crestor] 20 mg PO DAILY Docusate [Colace] 100 mg PO DAILY PRN PRN Reason: Constipation Ipratropium-Albuterol Nebulize [Duoneb 0.5 mg-3 mg/3 ml Soln] 3 ml INHALATION RT-QID PRN PRN Reason: Shortness Of Breath Albuterol Inhaler [Ventolin Hfa Inhaler] 1 - 2 puff INHALATION RT-Q6H PRN PRN Reason: Shortness Of Breath lisinopriL [Zestril] 5 mg PO DAILY Escitalopram [Lexapro] 10 mg PO DAILY Fluticasone/Umeclidin/Vilanter [Trelegy Ellipta 200-62.5-25] 1 puff INHALATION RT-DAILY@1400 Fenofibrate Nanocrystallized [Fenofibrate] 145 mg PO DAILY Bicalutamide [Casodex] 50 mg PO DIRECTED metFORMIN HCL [Glucophage] 500 mg PO DAILY Repaglinide [Prandin] 2 mg PO AC-BID cloZAPine [Clozaril] 50 mg PO HS Albuterol Nebulized [Ventolin Nebulized] 2.5 mg INHALATION RT-Q6H PRN PRN Reason: Shortness Of Breath Discharge Medication List Albuterol Inhaler [Ventolin Hfa Inhaler] 1 - 2 puff INHALATION RT-Q6H PRN 04/28/23 [History] Albuterol Nebulized [Ventolin Nebulized] 2.5 mg INHALATION RT-Q6H PRN 04/28/23 [History] Bicalutamide [Casodex] 50 mg PO DIRECTED 04/28/23 [History] Docusate [Colace] 100 mg PO DAILY PRN 04/28/23 [History] Escitalopram [Lexapro] 10 mg PO DAILY 04/28/23 [History] Fenofibrate Nanocrystallized [Fenofibrate] 145 mg PO DAILY 04/28/23 [History] Fluticasone Nasal [place] [Flonase Nasal [place]] 1 spray EA NOSTRIL DAILY 04/28/23 [History] Fluticasone/Umeclidin/Vilanter [Trelegy Ellipta 200-62.5-25] 1 puff INHALATION RT-DAILY@1400 04/28/23 [History] Furosemide [Lasix] 40 mg PO DAILY 04/28/23 [History] Ipratropium-Albuterol Nebulize [Duoneb 0.5 mg-3 mg/3 ml Soln] 3 ml INHALATION RT-QID PRN 04/28/23 [History] Metoprolol Succinate (ER) [Toprol Xl] 25 mg PO DAILY 04/28/23 [History] Montelukast [Singulair] 10 mg PO DAILY 04/28/23 [History] Ofloxacin 0.3% Ophth Soln [Ocuflox Ophth Soln] 1 drop BOTH EYES DAILY 04/28/23 [History] Potassium Chloride ER [K-Dur 20] 20 meq PO DAILY 04/28/23 [History] Repaglinide [Prandin] 2 mg PO AC-BID 04/28/23 [History] Rosuvastatin [Crestor] 20 mg PO DAILY 04/28/23 [History] cloZAPine [Clozaril] 50 mg PO HS 04/28/23 [History] lisinopriL [Zestril] 5 mg PO DAILY 04/28/23 [History] metFORMIN HCL [Glucophage] 500 mg PO DAILY 04/28/23 [History] Discharge Disposition: - Preliminary Cause of Preliminary Cause of : End stage COPD
== END 2023-05-22 05:18 | disposition expired | DRG 190 ==
LOC: 3SCARD 13:03
PROVIDERS: ADMIT Internal Medicine; ATTEND Internal Medicine
DX: J43.9 Emphysema, unspecified (principal); I26.99 Other pulmonary embolism without acute cor pulmonale; J80 Acute respiratory distress syndrome; A49.02 Methicillin resistant Staphylococcus aureus infection, unspecified site; E11.9 Type 2 diabetes mellitus without complications; E78.5 Hyperlipidemia, unspecified; Z66 Do not resuscitate; Z51.5 Encounter for palliative care; E88.01 Alpha-1-antitrypsin deficiency; Z20.822 Contact with and (suspected) exposure to COVID-19; I50.9 Heart failure, unspecified; Z79.84 Long term (current) use of oral hypoglycemic drugs; Z79.899 Other long term (current) drug therapy; Z85.46 Personal history of malignant neoplasm of prostate; Z86.718 Personal history of other venous thrombosis and embolism; Z87.891 Personal history of nicotine dependence; Z99.81 Dependence on supplemental oxygen